=== PATIENT | female | born 1955 | race Caucasian/White ===

== ENCOUNTER 2017-11-06 15:42 | Observation (INO) | payer MEDICARE, MEDICAID, SELFPAY ==
[2017-11-06] VITALS (14 sets, daily range): BP systolic 113–172; BP diastolic 72–102; PULSE 85–112; RESP 15–21; TEMP 36.6–36.9; O2SAT 93–100; BMI 50.8; BMI 47.0; BMI 47.1
--- NOTE | 2017-11-06 16:07 | EKG12_ITS ---
Test Reason : Blood Pressure : / mmHG Vent. Rate : 104 BPM Atrial Rate : 104 BPM P-R Int : 206 ms QRS Dur : 140 ms QT Int : 364 ms P-R-T Axes : 036 -09 117 degrees QTc Int : 478 ms Sinus tachycardia Left bundle branch block Abnormal ECG Confirmed by KATHERINE LOUIE, HERMILO ([id number]), online content editor EDUARDO SHINE ([id number] on 11/09/2017 1:50:12 PM Referred By: GENIE Confirmed By:HERMILO MURPHY MD
--- NOTE | 2017-11-06 16:08 | RAD_ITS ---
STUDY: X-RAY CHEST REASON FOR EXAM: Female, 62 years old. Chest pain radiating down left arm. TECHNIQUE: Frontal and lateral views of the chest. COMPARISON: January 05, 2014 FINDINGS: The lungs are clear and expanded. There is a stable mild interstitial pattern. There is no demonstrated pleural abnormality. There is borderline cardiomegaly unchanged. Normal mediastinum and dejah. Normal visualized pulmonary arteries. There is aortic tortuosity unchanged. There is osteopenia of the thoracic spine with spondylosis and slight increased kyphosis, unchanged. Normal visualized ribs, clavicles, and shoulders. There is no demonstrated abnormality of the visualized soft tissue structures of the upper abdomen. RAD/Chest PA and Lateral IMPRESSION: Stable borderline cardiomegaly. No significant abnormality identified. Electronically Signed: Randall Flores MD at 16:42 EST , Service support ,
[2017-11-06] MEDS: 0.9% Normal Saline 1,000 ML 250 ML IV (16:13)
--- NOTE | 2017-11-06 16:14 | ED.VISSUMM ---
- ER Visit Summary Date of Service: 11/06/17 Chief Complaint: Chest pain History of Present Illness: The patient is a 62 F history of hypertension, hypercholesterolemia, depression and anxiety who presents for 2 days of intermittent chest pain. Patient states it is substernal and radiates into the left shoulder. No further radiation. She states it feels like indigestion. It is worse with exertion and improved with sitting. She is not comfortable laying flat. She has associated shortness of breath with exertion, no fever, no cough, no abdominal pain, nausea or vomiting. SHe denies any history of cardiac disease or pulmonary embolism. Physical Examination: Vital signs: afebrile, hemodynamically stable, heart rate of 112, no hypoxia on room air General: well nourished, well developed, in no distress Skin: warm, dry, no rash, no pallor HEENT: normocephalic and atraumatic; PERRL, EOMI, moist mucous membranes Cardiovascular: tachycardic rate and rhythm without murmurs, no peripheral edema, 2+ pulses all distal extremities Respiratory: No increased work of breathing, lungs are clear to auscultation bilaterally, no rales, rhonchi or wheezing Abdominal: Abdomen is soft, nontender with normoactive bowel sounds, no guarding or rebound, no masses MSK: Moves all extremities, no deformities, normal strength Neuro: Awake and alert, oriented ?4. No facial droop, sensation and motor function intact and symmetric Test Results: Abnormal Lab Results 11/06/17 11/06/17 11/06/17 16:06 16:06 16:06 WBC 7.5 RBC 4.54 Hgb 13.3 Hct 40.5 MCV 89.2 MCH 29.3 MCHC 32.8 RDW 14.5 RDW Differential 46.8 H Plt Count 206 MPV 9.5 Immature Gran % (Auto) 0.300 Neut % (Auto) 63.3 Lymph % (Auto) 24.2 [place] % (Auto) 9.0 Eos % (Auto) 2.8 Baso % (Auto) 0.4 Absolute Neuts (auto) 4.7 Absolute Lymphs (auto) 1.81 Total Counted Not Reportable PT 13.4 INR 1.1 APTT 32.4 D-Dimer Quant (PE/DVT) 0.51 H* Sodium 138 Potassium 3.8 Chloride 104 Carbon Dioxide 23.0 Anion Gap 11 BUN 11 Creatinine 1.00 Estim Creat Clear Calc 41.36 Est GFR (MDRD) Af Amer 72 Est GFR (MDRD) Non-Af 60 BUN/Creatinine Ratio 11.0 Glucose 111 H Calcium 9.2 Total Bilirubin 0.50 AST 48 H ALT 77 H Alkaline Phosphatase 130 H Troponin I < 0.02 B-Natriuretic Peptide Total Protein 8.4 H Albumin 3.8 Globulin 4.6 H Albumin/Globulin Ratio 0.8 L Lipase 63 L TSH 1.09 11/06/17 16:06 WBC RBC Hgb Hct MCV MCH MCHC RDW RDW Differential Plt Count MPV Immature Gran % (Auto) Neut % (Auto) Lymph % (Auto) [place] % (Auto) Eos % (Auto) Baso % (Auto) Absolute Neuts (auto) Absolute Lymphs (auto) Total Counted PT INR APTT D-Dimer Quant (PE/DVT) Sodium Potassium Chloride Carbon Dioxide Anion Gap BUN Creatinine Estim Creat Clear Calc Est GFR (MDRD) Af Amer Est GFR (MDRD) Non-Af BUN/Creatinine Ratio Glucose Calcium Total Bilirubin AST ALT Alkaline Phosphatase Troponin I B-Natriuretic Peptide 8.0 Total Protein Albumin Globulin Albumin/Globulin Ratio Lipase TSH Emergency Department Course and Treatment: Chest pain workup was performed. EKG showed a left bundle branch block and a tachycardic rate and negative for ischemia per Sgarbossa criteria, and patient's last EKG was from 2013 with a narrow complex sinus rhythm. Unsure when the left bundle branch block has developed in the meantime. Troponin negative. CBC showed no leukocytosis or anemia. No electrolyte derangements. No hepatic derangements. D-dimer was elevated at 0.5. Thyroid function normal. CT scan was performed of the chest to look for pulmonary embolism and it was negative. It did show some interstitial edema, possibly concerning for heart failure which would fit with patient's dyspnea on exertion, difficulty laying flat, no chest pain. A BNP was added and was normal. Patient received nitro that initially helped her chest pain. She had taken aspirin prior to presentation. Patient began having chest pain again. He was given further nitro. Repeat EKG showed no change and still the left bundle branch block. Because of patient's concerning symptoms and her continued chest pain, she will be admitted for further chest pain workup. Patient was discussed with Dr. Monroy for admission. Treatment Plan: admit to telemetry, observation status Disposition: [] Impression: Chest pain, concern for ACS This note was generated with Ezet[employer] dictation software. It may contain incorrect words, spelling, and punctuation that were not noted in review of the chart prior to signing ED Disposition - Plan for ED Patient: Disposition: Acute Care Hospital [facility] Chief Complaint: Chest Pain
[2017-11-06 16:20] LABS: Absolute Lymphocyte Count 1.81 X10^3/ul (0.83-4.51); Absolute Neutrophil Count 4.7 X10^3/uL (2.0-7.7); Basophil# 0.03 X10^3/uL; Basophil% 0.4 % (0-1); Eosinophil# 0.21 X10^3/uL; Eosinophils% 2.8 % (0-5); Hematocrit 40.5 % (37-47); Hemoglobin 13.3 g/dl (12.0-15.0); Lymphocyte # 1.81 X10^3/ul (4.0); Lymphocyte % 24.2 % (19-41); Mean Corp Hgb Conc 32.8 g/gl (32-36); Mean Corpuscular Hgb 29.3 pg (27.0-32.0); Mean Corpuscular Volume 89.2 fL (81-99); Mean Platelet Vol. 9.5 fl (6.2-12.0); Monocyte# 0.67 X10^3/uL; Neutrophil # 4.73 X10^3/uL (2.7-7.7); Neutrophil % 63.3 % (47-70); Platelet Count 206 K/mm3 (150-450); RBC Distribution Width CV 14.5 % (11.6-14.6); RBC Distribution Width SD 46.8 fl (35.1-43.9); Red Blood Count 4.54 M/mm3 (4.2-5.4); White Blood Count 7.5 K/mm3 (4.4-11.0)
[2017-11-06 16:31] LABS: POSITIVE COUNT NO; POSITIVE DIFFERENTIAL NO; POSITIVE MORPHOLOGY NO
[2017-11-06 16:32] LABS: International Normalized Ratio 1.1; Prothrombin Time (Protime)PT. 13.4 SECONDS (11.7-14.9)
[2017-11-06 16:33] LABS: Partial Thromboplast Time 32.4 Seconds (24.1-36.2)
[2017-11-06 16:47] LABS: ALB/GLOB Ratio 0.8 RATIO (0.9-2.4); AST(SGOT) 48 U/L (15-37); Alanine Aminotransfer ALT/SGPT 77 U/L (13-56); Albumin, Serum 3.8 g/dL (3.2-5.0); Alkaline Phosphatase 130 U/L (45-117); Anion Gap 11 (5-15); BUN 11 mg/dL (7-18); Calcium,Total 9.2 mg/dL (8.5-10.1); Chloride 104 mmol/L (98-107); EST Glomerular Filtration Rate 60 mL/min (>60); Est Glom Filt Rate - Afr Amer 72 mL/min (>60); Estimated Creatinine Clearance 41.36 ml/min; Globulin 4.6 g/dL (2.2-4.2); Glucose 111 mg/dL (74-106); Lipase 63 U/L (73-393); Potassium 3.8 mmol/L (3.5-5.1); Protein, Total 8.4 g/dL (6.4-8.2); Sodium Level 138 mmol/L (136-145); Thyroid Stim Hormone (TSH) 1.09 uIU/mL (0.358-3.74)
[2017-11-06 17:12] LABS: D-Dimer Quantitative (DVT/PE) 0.51 FEU/ug/m (0.27-0.49)
--- NOTE | 2017-11-06 17:13 | ED.RN ---
DDIMER 0.[address] LAB. DR SMITH AWARE
--- NOTE | 2017-11-06 17:16 | CT_ITS ---
STUDY: CTA CHEST REASON FOR EXAM: Female, 62 years old. Chest pain. Elevated d-dimer. RADIATION DOSAGE (If Supplied By Facility): CTDIvol = ( 15.06 ) mGy, DLP = ( 624.21 ) mGycm TECHNIQUE: The examination was performed with the intravenous administration of 100 ml of Isovue 370 contrast material. Post-processing of the angiographic images was performed, with multiplanar reformation and 3D reconstruction. Individualized dose optimization techniques were used for this CT. COMPARISON: Chest x-ray. FINDINGS: Normal enhancement of the main pulmonary artery and right and left pulmonary arteries. Normal enhancement of the bilateral peripheral pulmonary arteries. There is no demonstrated pulmonary embolism. There is atherosclerotic calcification of the aortic arch with tortuosity. There is no demonstrated aortic dissection. There are calcifications of the coronary arteries. Normal mediastinum. Normal hilar regions. Normal visualized trachea and bronchi. The lungs are well expanded. There are moderately increased diffuse interstitial septal and groundglass parenchymal markings. Normal pleura. Normal chest wall structures. Normal osseous structures. Normal visualized upper abdomen. CT/CTA Chest W/WO Contrast IMPRESSION: CTA chest examination, without a demonstrated pulmonary embolism or arterial dissection. Interstitial edema or infiltrates. Electronically Signed: Real Dillard MD at 18:38 EST , Service support ,
--- NOTE | 2017-11-06 19:25 | NURSING ---
PT DENIES ANY CP AT THIS TIME.
[2017-11-06] MEDS: Nitroglycerin Oint 1 INCH PACKET TRANSDERM. (19:49)
--- NOTE | 2017-11-06 19:49 | EKG12_ITS ---
Test Reason : CP Blood Pressure : / mmHG Vent. Rate : 088 BPM Atrial Rate : 088 BPM P-R Int : 214 ms QRS Dur : 140 ms QT Int : 404 ms P-R-T Axes : 025 -09 123 degrees QTc Int : 488 ms Sinus rhythm with 1st degree A-V block Left bundle branch block Abnormal ECG Confirmed by KATHERINE LOUIE, HERMILO ([id number]), editorial director EDUARDO SHINE ([id number] on 11/09/2017 1:50:39 PM Referred By: SARAH Confirmed By:HERMILO MURPHY MD
--- NOTE | 2017-11-06 20:05 | PCM.HP.STD ---
Problem List (1) Chest pain Status: Acute (2) Chronic lower back pain Status: Chronic (3) Chronic pain syndrome Status: Chronic (4) Depression with anxiety Status: Chronic (5) Hyperlipidemia Status: Chronic (6) Hypertension Status: Chronic (7) Morbid obesity with BMI of 40.0-44.9, adult Status: Chronic History of Present Illness Date of Admission: 11/06/17 Chief Complaint: chest pain The patient is a 62 year old F who presents with a weeks long history of chest pain. Chest pain is not brought on by anything but it is midsternal but goes to her left. Patient initially was feeling that this was a heartburn but did not colleen. Patient sought attention today. Patient presented to the emergency room and had an elevated d-dimer. Patient underwent a CT angiogram of her chest that showed no blood clots. Patient did receive nitroglycerin which did help with her pain. Patient also been complaining of shortness of breath which is dyspnea with exertion but also some orthopnea. Patient did have a BNP level of 8. Patient stated that she was admitted to the hospital in 2013 with chest pain at that time but stated she does not have the shortness of breath that she has now. [] Past Medical History Past Medical History (Chronic Problems): Chronic Problems Depression with anxiety (Chronic) Morbid obesity with BMI of 40.0-44.9, adult (Chronic) Chronic lower back pain (Chronic) Chronic pain syndrome (Chronic) Hyperlipidemia (Chronic) Hypertension (Chronic) Allergies erythromycin base [Erythromycin Base] Adverse Reaction (Verified 01/25/14 22:14) Other eszopiclone [From Lunesta] Adverse Reaction (Verified 01/25/14 22:14) Vomiting Home Medications: Ambulatory Orders Medication Instructions Recorded Allopurinol [Zyloprim] 100 mg PO DAILYCM 01/05/14 Lisinopril [Zestril] 20 mg PO DAILY 01/05/14 Simvastatin [Zocor] 40 mg PO QHS 01/05/14 Aspirin E.C. [Ecotrin] 81 mg PO DAILY@0800 11/06/17 Atenolol [Tenormin (beta Yash)] 25 mg PO DAILY 11/06/17 Baclofen 10 mg PO BID PRN 11/06/17 BuPROPion (XL) [Wellbutrin Xl] 150 mg PO DAILY 11/06/17 Cetirizine HCl [All Day Allergy] 10 mg PO DAILY 11/06/17 Fluticasone 0.05% [Flonase Nasal 2 spray NASAL DAILY 11/06/17 [place]] Hydrochlorothiazide 12.5 mg PO DAILY 11/06/17 Montelukast [Singulair] 10 mg PO DAILY 11/06/17 Pantoprazole Sodium [Protonix] 40 mg PO DAILY 11/06/17 Surgical History: - - x 2, spinal fusion, L knee surgery s/p trauma, cholecystectomy. 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 Denies: Edema Respiratory: Reports: Shortness of breath upon exertion. Denies: Cough Gastrointestinal: Denies: Abdominal Pain, Nausea, Vomiting Genitourinary: Denies: Dysuria Musculoskeletal: Denies: Joint Pain, Joint Tenderness Skin: Denies: Rash, Wounds Neurological: Denies: Numbness, Tingling, Focal weakness Psychiatric: Reports: Anxiety, Depression Endocrine: Reports: Heat/ Cold Intolerance - Chronic. Denies: Change in Body Habitus Hematologic/ Lymphatic: Denies: Easy Bruising, Easy Bleeding, Hx of blood clot VTE Information - Inpt Only VTE Present on Admission: No VTE Pharm Prophylaxis ordered?: Yes Patient Problems: Active and Suspected Problems Chest pain (Acute) - Physical Exam General: Alert, Cooperative, No apparent distress HEENT: Atraumatic, Normocephalic Neck: No Nodes, Thyroid Normal Size and Texture Lungs: Clear to auscultation, Normal air movement, No rhonchi, No wheeze Cardiovascular: Regular rate, Regular Rhythm, Normal S1, Normal S2, No murmurs Abdomen: Bowel Sounds Present, Soft, Non Tender, Non-Distended, No Hepato-splenomegaly, Passing Flatus Extremities: No edema, No Calf Tenderness Skin: No rashes, No breakdown Musculoskeletal: - - Reproducible anterior chest wall tenderness Neurological: Neuro grossly intact, Sensory exam intact to light touch and pain Psych/Mental Status: Normal Affect, Appropriate Vital Signs Temp Pulse Resp BP Pulse Ox 36.9 C 91 20 H 133/76 H 97 11/06/17 15:43 11/06/17 19:52 11/06/17 19:52 11/06/17 19:52 11/06/17 19:52 Oxygen Flow Rate 2 Oxygen Delivery Method Nasal Cannula Weight: 117.934 kg Body Mass Index (BMI) 50.8 Laboratory Tests Past 24 Hrs 11/06/17 11/06/17 11/06/17 16:06 16:06 16:06 WBC 7.5 RBC 4.54 Hgb 13.3 Hct 40.5 MCV 89.2 MCH 29.3 MCHC 32.8 RDW 14.5 RDW Differential 46.8 H Plt Count 206 MPV 9.5 Immature Gran % (Auto) 0.300 Neut % (Auto) 63.3 Lymph % (Auto) 24.2 [place] % (Auto) 9.0 Eos % (Auto) 2.8 Baso % (Auto) 0.4 Absolute Neuts (auto) 4.7 Absolute Lymphs (auto) 1.81 Total Counted Not Reportable PT 13.4 INR 1.1 APTT 32.4 D-Dimer Quant (PE/DVT) 0.51 H* Sodium 138 Potassium 3.8 Chloride 104 Carbon Dioxide 23.0 Anion Gap 11 BUN 11 Creatinine 1.00 Estim Creat Clear Calc 41.36 Est GFR (MDRD) Af Amer 72 Est GFR (MDRD) Non-Af 60 BUN/Creatinine Ratio 11.0 Glucose 111 H Calcium 9.2 Total Bilirubin 0.50 AST 48 H ALT 77 H Alkaline Phosphatase 130 H Troponin I < 0.02 B-Natriuretic Peptide Total Protein 8.4 H Albumin 3.8 Globulin 4.6 H Albumin/Globulin Ratio 0.8 L Lipase 63 L TSH 1.09 11/06/17 16:06 WBC RBC Hgb Hct MCV MCH MCHC RDW RDW Differential Plt Count MPV Immature Gran % (Auto) Neut % (Auto) Lymph % (Auto) [place] % (Auto) Eos % (Auto) Baso % (Auto) Absolute Neuts (auto) Absolute Lymphs (auto) Total Counted PT INR APTT D-Dimer Quant (PE/DVT) Sodium Potassium Chloride Carbon Dioxide Anion Gap BUN Creatinine Estim Creat Clear Calc Est GFR (MDRD) Af Amer Est GFR (MDRD) Non-Af BUN/Creatinine Ratio Glucose Calcium Total Bilirubin AST ALT Alkaline Phosphatase Troponin I B-Natriuretic Peptide 8.0 Total Protein Albumin Globulin Albumin/Globulin Ratio Lipase TSH EKG reviewed and showed a left bundle branch block. This is new from 2014 where it was normal sinus rhythm with no left bundle branch block. CTA of the chest was personally reviewed and showed no blood clots, nor any pneumonia or any infiltrate nor edema. This x-ray personally reviewed and showed no infiltrate nor edema. Assessment/Plan Active and Suspected Problems Chest pain (Acute) 1. Chest pain Concern is for this being cardiac. Patient will undergo a chemical nuclear stress test. We will cycle troponins in the interim. Patient will be on aspirin. Check fasting lipid panel in the morning. If a stress test comes back positive then would likely require cardiology consultation. Possibly could be musculoskeletal as patient did have some reproducible similarities in her chest pain. But given her risk factors, being weight, hypertension and family history it is most important to rule out cardiac etiology. 2. Hypertension: Stable. Continue with her home medications. 3. DVT prophylaxis with low molecular weight heparin. Code Visit OBSV E&M: 02893 Initial observation care L3
--- NOTE | 2017-11-06 20:13 | HP.PCM_ITS ---
Problem List (1) Chest pain Status: Acute (2) Chronic lower back pain Status: Chronic (3) Chronic pain syndrome Status: Chronic (4) Depression with anxiety Status: Chronic (5) Hyperlipidemia Status: Chronic (6) Hypertension Status: Chronic (7) Morbid obesity with BMI of 40.0-44.9, adult Status: Chronic History of Present Illness Date of Admission: 11/06/17 Chief Complaint: chest pain The patient is a 62 year old F who presents with a weeks long history of chest pain. Chest pain is not brought on by anything but it is midsternal but goes to her left. Patient initially was feeling that this was a heartburn but did not colleen. Patient sought attention today. Patient presented to the emergency room and had an elevated d-dimer. Patient underwent a CT angiogram of her chest that showed no blood clots. Patient did receive nitroglycerin which did help with her pain. Patient also been complaining of shortness of breath which is dyspnea with exertion but also some orthopnea. Patient did have a BNP level of 8. Patient stated that she was admitted to the hospital in 2013 with chest pain at that time but stated she does not have the shortness of breath that she has now. [] Past Medical History Past Medical History (Chronic Problems): Chronic Problems Depression with anxiety (Chronic) Morbid obesity with BMI of 40.0-44.9, adult (Chronic) Chronic lower back pain (Chronic) Chronic pain syndrome (Chronic) Hyperlipidemia (Chronic) Hypertension (Chronic) Allergies erythromycin base [Erythromycin Base] Adverse Reaction (Verified 01/25/14 22:14) Other eszopiclone [From Lunesta] Adverse Reaction (Verified 01/25/14 22:14) Vomiting Home Medications: Ambulatory Orders Medication Instructions Recorded Allopurinol [Zyloprim] 100 mg PO DAILYCM 01/05/14 Lisinopril [Zestril] 20 mg PO DAILY 01/05/14 Simvastatin [Zocor] 40 mg PO QHS 01/05/14 Aspirin E.C. [Ecotrin] 81 mg PO DAILY@0800 11/06/17 Atenolol [Tenormin (beta Yash)] 25 mg PO DAILY 11/06/17 Baclofen 10 mg PO BID PRN 11/06/17 BuPROPion (XL) [Wellbutrin Xl] 150 mg PO DAILY 11/06/17 Cetirizine HCl [All Day Allergy] 10 mg PO DAILY 11/06/17 Fluticasone 0.05% [Flonase Nasal 2 spray NASAL DAILY 11/06/17 [place]] Hydrochlorothiazide 12.5 mg PO DAILY 11/06/17 Montelukast [Singulair] 10 mg PO DAILY 11/06/17 Pantoprazole Sodium [Protonix] 40 mg PO DAILY 11/06/17 Surgical History: - - x 2, spinal fusion, L knee surgery s/p trauma, cholecystectomy. 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 Denies: Edema Respiratory: Reports: Shortness of breath upon exertion. Denies: Cough Gastrointestinal: Denies: Abdominal Pain, Nausea, Vomiting Genitourinary: Denies: Dysuria Musculoskeletal: Denies: Joint Pain, Joint Tenderness Skin: Denies: Rash, Wounds Neurological: Denies: Numbness, Tingling, Focal weakness Psychiatric: Reports: Anxiety, Depression Endocrine: Reports: Heat/ Cold Intolerance - Chronic. Denies: Change in Body Habitus Hematologic/ Lymphatic: Denies: Easy Bruising, Easy Bleeding, Hx of blood clot VTE Information - Inpt Only VTE Present on Admission: No VTE Pharm Prophylaxis ordered?: Yes Patient Problems: Active and Suspected Problems Chest pain (Acute) - Physical Exam General: Alert, Cooperative, No apparent distress HEENT: Atraumatic, Normocephalic Neck: No Nodes, Thyroid Normal Size and Texture Lungs: Clear to auscultation, Normal air movement, No rhonchi, No wheeze Cardiovascular: Regular rate, Regular Rhythm, Normal S1, Normal S2, No murmurs Abdomen: Bowel Sounds Present, Soft, Non Tender, Non-Distended, No Hepato- splenomegaly, Passing Flatus Extremities: No edema, No Calf Tenderness Skin: No rashes, No breakdown Musculoskeletal: - - Reproducible anterior chest wall tenderness Neurological: Neuro grossly intact, Sensory exam intact to light touch and pain Psych/Mental Status: Normal Affect, Appropriate Vital Signs Temp Pulse Resp BP Pulse Ox 36.9 C 91 20 H 133/76 H 97 11/06/17 15:43 11/06/17 19:52 11/06/17 19:52 11/06/17 19:52 11/06/17 19:52 Oxygen Flow Rate 2 Oxygen Delivery Method Nasal Cannula Weight: 117.934 kg Body Mass Index (BMI) 50.8 Laboratory Tests Past 24 Hrs 11/06/17 11/06/17 11/06/17 16:06 16:06 16:06 WBC 7.5 RBC 4.54 Hgb 13.3 Hct 40.5 MCV 89.2 MCH 29.3 MCHC 32.8 RDW 14.5 RDW Differential 46.8 H Plt Count 206 MPV 9.5 Immature Gran % (Auto) 0.300 Neut % (Auto) 63.3 Lymph % (Auto) 24.2 [place] % (Auto) 9.0 Eos % (Auto) 2.8 Baso % (Auto) 0.4 Absolute Neuts (auto) 4.7 Absolute Lymphs (auto) 1.81 Total Counted Not Reportable PT 13.4 INR 1.1 APTT 32.4 D-Dimer Quant (PE/DVT) 0.51 H* Sodium 138 Potassium 3.8 Chloride 104 Carbon Dioxide 23.0 Anion Gap 11 BUN 11 Creatinine 1.00 Estim Creat Clear Calc 41.36 Est GFR (MDRD) Af Amer 72 Est GFR (MDRD) Non-Af 60 BUN/Creatinine Ratio 11.0 Glucose 111 H Calcium 9.2 Total Bilirubin 0.50 AST 48 H ALT 77 H Alkaline Phosphatase 130 H Troponin I < 0.02 B-Natriuretic Peptide Total Protein 8.4 H Albumin 3.8 Globulin 4.6 H Albumin/Globulin Ratio 0.8 L Lipase 63 L TSH 1.09 11/06/17 16:06 WBC RBC Hgb Hct MCV MCH MCHC RDW RDW Differential Plt Count MPV Immature Gran % (Auto) Neut % (Auto) Lymph % (Auto) [place] % (Auto) Eos % (Auto) Baso % (Auto) Absolute Neuts (auto) Absolute Lymphs (auto) Total Counted PT INR APTT D-Dimer Quant (PE/DVT) Sodium Potassium Chloride Carbon Dioxide Anion Gap BUN Creatinine Estim Creat Clear Calc Est GFR (MDRD) Af Amer Est GFR (MDRD) Non-Af BUN/Creatinine Ratio Glucose Calcium Total Bilirubin AST ALT Alkaline Phosphatase Troponin I B-Natriuretic Peptide 8.0 Total Protein Albumin Globulin Albumin/Globulin Ratio Lipase TSH EKG reviewed and showed a left bundle branch block. This is new from 2014 where it was normal sinus rhythm with no left bundle branch block. CTA of the chest was personally reviewed and showed no blood clots, nor any pneumonia or any infiltrate nor edema. This x-ray personally reviewed and showed no infiltrate nor edema. Assessment/Plan Active and Suspected Problems Chest pain (Acute) 1. Chest pain * Concern is for this being cardiac. Patient will undergo a chemical nuclear stress test. We will cycle troponins in the interim. Patient will be on aspirin. Check fasting lipid panel in the morning. * If a stress test comes back positive then would likely require cardiology consultation. * Possibly could be musculoskeletal as patient did have some reproducible similarities in her chest pain. But given her risk factors, being weight, hypertension and family history it is most important to rule out cardiac etiology. 2. Hypertension: * Stable. Continue with her home medications. 3. DVT prophylaxis with low molecular weight heparin. Code Visit OBSV E&M: 10325 Initial observation care L3
[2017-11-06] MEDS: Aspirin 81 MG TAB.CHEW 325 MG PO (22:50)
[2017-11-06] MEDS: Atorvastatin Calcium 20 MG Tablet PO (22:50)
[2017-11-07] VITALS (8 sets, daily range): BP systolic 117–136; BP diastolic 56–76; PULSE 69–91; RESP 14–18; TEMP 36.3–37.1; O2SAT 94–95
--- NOTE | 2017-11-07 05:55 | EKG12_ITS ---
Test Reason : MORNING EKG Blood Pressure : / mmHG Vent. Rate : 088 BPM Atrial Rate : 088 BPM P-R Int : 220 ms QRS Dur : 144 ms QT Int : 408 ms P-R-T Axes : 034 -08 131 degrees QTc Int : 493 ms Sinus rhythm with 1st degree A-V block Left bundle branch block Abnormal ECG Confirmed by KATHERINE LOUIE, HERMILO ([id number]), health editor EDUARDO SHINE ([id number]) on 11/12/2017 1:58:44 PM Referred By: Confirmed By:HERMILO MURPHY MD
[2017-11-07 06:02] LABS: Absolute Lymphocyte Count 1.29 X10^3/ul (0.83-4.51); Absolute Neutrophil Count 5.3 X10^3/uL (2.0-7.7); Basophil# 0.02 X10^3/uL; Basophil% 0.3 % (0-1); Eosinophil# 0.21 X10^3/uL; Eosinophils% 2.8 % (0-5); Hemoglobin 11.9 g/dl (12.0-15.0); Lymphocyte # 1.29 X10^3/ul (4.0); Lymphocyte % 17.1 % (19-41); Mean Corp Hgb Conc 32.2 g/gl (32-36); Mean Platelet Vol. 10.1 fl (6.2-12.0); Monocyte# 0.66 X10^3/uL; Monocyte% 8.8 % (0-10); Neutrophil # 5.34 X10^3/uL (2.7-7.7); Neutrophil % 70.7 % (47-70); Platelet Count 194 K/mm3 (150-450); RBC Distribution Width CV 14.5 % (11.6-14.6); RBC Distribution Width SD 47.2 fl (35.1-43.9); Red Blood Count 4.11 M/mm3 (4.2-5.4); White Blood Count 7.5 K/mm3 (4.4-11.0)
[2017-11-07 06:05] LABS: International Normalized Ratio 1.1; Prothrombin Time (Protime)PT. 14.2 SECONDS (11.7-14.9)
[2017-11-07 06:06] LABS: Partial Thromboplast Time 31.9 Seconds (24.1-36.2)
[2017-11-07 06:17] LABS: POSITIVE COUNT NO; POSITIVE DIFFERENTIAL NO; POSITIVE MORPHOLOGY NO
[2017-11-07 06:20] LABS: Anion Gap 10 (5-15); BUN 12 mg/dL (7-18); BUN/Creat Ratio 12.4 RATIO (10-20); Calcium,Total 8.6 mg/dL (8.5-10.1); Chloride 104 mmol/L (98-107); Cholesterol 126 mg/dL (200); Creatinine, Serum 0.97 mg/dL (0.55-1.02); EST Glomerular Filtration Rate 61 mL/min (>60); Est Glom Filt Rate - Afr Amer 74 mL/min (>60); Estimated Creatinine Clearance 42.64 ml/min; Glucose 119 mg/dL (74-106); High Density Lipoprotein 42 mg/dL; Potassium 3.7 mmol/L (3.5-5.1); Sodium Level 137 mmol/L (136-145); Triglycerides 156 mg/dL; Very Low Density Lipoprotein 31 mg/dL (5-40)
[2017-11-07] MEDS: Lisinopril 20 MG Tablet PO (06:23)
[2017-11-07] MEDS: Aspirin E.C. 81 MG Tablet PO (06:23)
--- NOTE | 2017-11-07 07:25 | NURSING ---
Back to get bedside report on pt, pt down at stress test.
--- NOTE | 2017-11-07 09:23 | STRESSREP ---
Stress Test Report Pharmacologic myocardial perfusion stress test. 62-year-old lady with a history of chest pain Stress protocol: The EKG demonstrates sinus rhythm with rate of 93 bpm and a left bundle branch block. 0.4 mg of regadenoson was infused per usual protocol followed Intravenous saline flush injection continuous EKG monitoring was performed. The maximum heart rate attained was 118 bpm which was 75% of maximum predicted heart rate the maximum workload attained was 1 metabolic equivalent. The patient maintained left bundle branch block throughout the recording. The resting blood pressure is 140/90 final blood pressure was 136/88. Myocardial perfusion protocol: 11.5 mCi of technetium 99m sestamibi was injected at rest. The patient received regadenoson per usual protocol at peak infusion 33.2 mCi of technetium 99m sestamibi was injected. Stress images were obtained. Stress and rest images were reconstructed and compared in the short axis vertical long horizontal long axis. Gated images were also obtained. Perfusion SPECT analysis: Review of the stress images demonstrate normal uptake of tracer noted in all areas of the myocardium. The resting images similarly demonstrate normal uptake of tracer noted in all areas of the myocardium. No previous infarct is noted. X Gated SPECT analysis Gated ejection fraction is 71%. Conclusion: Normal pharmacologic myocardial perfusion stress test. Preserved ejection fraction.
--- NOTE | 2017-11-07 09:43 | PCM.DC ---
- Discharge Diagnoses Current Active Problems: Current Active and Chronic Problems Chest pain (Acute) Reason(s) for Visit for Discharge Instructions: Chest pain You will use the following diet at home:: Cardiac Your food should be the consistency of: Regular Your liquids should be the consistency of: Regular/Thin Discharge Activity: Return to Normal Activity Allergies/Adverse Reactions: Allergies erythromycin base [Erythromycin Base] Adverse Reaction (Verified 01/25/14 22:14) Other eszopiclone [From Lunesta] Adverse Reaction (Verified 01/25/14 22:14) Vomiting Medications to take at Discharge Allopurinol [Zyloprim] 900 mg PO DAILYCM 01/05/14 Lisinopril [Zestril] 20 mg PO DAILY 01/05/14 Simvastatin [Zocor] 40 mg PO QHS 01/05/14 Aspirin E.C. [Ecotrin] 81 mg PO DAILY@0800 11/06/17 Atenolol [Tenormin (beta ilia)] 25 mg PO DAILY 11/06/17 Baclofen 10 mg PO BID PRN 11/06/17 BuPROPion (XL) [Wellbutrin Xl] 150 mg PO DAILY 11/06/17 Cetirizine HCl [All Day Allergy] 10 mg PO DAILY 11/06/17 Fluticasone 0.05% [Flonase Nasal [place]] 2 spray NASAL DAILY 11/06/17 Hydrochlorothiazide 12.5 mg PO DAILY 11/06/17 Montelukast [Singulair] 10 mg PO DAILY 11/06/17 Mag Hydrox/Al Hydrox/Simeth [Mylanta II] 15 ml PO Q4H PRN PRN #1 bottle 11/07/17 Pantoprazole Sodium [Protonix] 40 mg PO BID #0 11/07/17 The following prescriptions were given: Mag Hydrox/Al Hydrox/Simeth [Mylanta II] 15 ml PO Q4H PRN PRN #1 bottle PRN Reason: heartburns Primary Care Physician: Maxi Oneal MD [Primary Care Provider] - Please follow up with your Primary Care Physician in: within 2 weeks Proposed Discharge Date: 11/07/17
--- NOTE | 2017-11-07 09:48 | PCM.DC.SUM ---
Discharge Date and Diagnosis Date of Admission: 11/06/17 Date of Discharge: 11/07/17 - Primary Discharge Diagnosis Active and Suspected Problems Chest pain (Acute) - Secondary Discharge Diagnosis Chronic Problems Depression with anxiety (Chronic) Morbid obesity with BMI of 40.0-44.9, adult (Chronic) Chronic lower back pain (Chronic) Chronic pain syndrome (Chronic) Hyperlipidemia (Chronic) Hypertension (Chronic) Hospital Course and Treatment Imaging Results: 11/07/17 05:55 Nuclear Stress Test - Chemical [NM] AM (NON MEDS) None Operations: None Procedures: None Summary of Care Provided: The patient is a 62 year old F with PMhx of hypertension, hyperlipidemia, depression, morbid obesity, comes in with a week long history of chest pain, that is not aggravated by anything, located in the midsternal region and radiates to her left side. Patient describes this as a heartburn but did not go down with her usual heartburn medication. She came to the ED and had an elevated d-dimer however CTA of the chest was negative for any PE. Patient reported relief with nitroglycerin, monitored overnight on a telemetry bed with no complaints. Troponins were negative. She had a stress test done in the morning which was negative. She was given some mylanta and her PPI increased to bid. She will follow-up with her PCP for further evaluation of her chest pain. Discharge Diet: Low fat/ Low Cholesterol, 2000 mg Sodium Diet Discharge Activity: Return to Normal Activity Home Medications: Medications to take at Discharge Allopurinol [Zyloprim] 900 mg PO DAILYCM 01/05/14 Lisinopril [Zestril] 20 mg PO DAILY 01/05/14 Simvastatin [Zocor] 40 mg PO QHS 01/05/14 Aspirin E.C. [Ecotrin] 81 mg PO DAILY@0800 11/06/17 Atenolol [Tenormin (beta ilia)] 25 mg PO DAILY 11/06/17 Baclofen 10 mg PO BID PRN 11/06/17 BuPROPion (XL) [Wellbutrin Xl] 150 mg PO DAILY 11/06/17 Cetirizine HCl [All Day Allergy] 10 mg PO DAILY 11/06/17 Fluticasone 0.05% [Flonase Nasal [place]] 2 spray NASAL DAILY 11/06/17 Hydrochlorothiazide 12.5 mg PO DAILY 11/06/17 Montelukast [Singulair] 10 mg PO DAILY 11/06/17 Mag Hydrox/Al Hydrox/Simeth [Mylanta II] 15 ml PO Q4H PRN PRN #1 bottle 11/07/17 Pantoprazole Sodium [Protonix] 40 mg PO BID #0 11/07/17 Following Prescrptions Were Given to Patient: Mag Hydrox/Al Hydrox/Simeth [Mylanta II] 15 ml PO Q4H PRN PRN #1 bottle PRN Reason: heartburns Primary Care Physician: Maxi Oneal MD [Primary Care Provider] - Please follow up with your Primary Care Physician in: within 2 weeks Disposition: Home Minutes spent on discharge:: 25 Patient Condition:: Stable Meaningful Use Info Meaningful Use Diagnoses (Choose all that apply): None applicable Code Visit Inpatient E&M: 31079 Disch Hosp
[2017-11-07] MEDS: Pantoprazole Sodium 40 MG Tablet PO (10:19)
[2017-11-07] MEDS: Atenolol 25 MG Tablet PO (10:19)
[2017-11-07] MEDS: Mag Hydrox/Al Hydrox/Simeth 30 ML UDC 15 ML PO (10:19)
[2017-11-07] MEDS: HYDROCHLOROTHIAZIDE 12.5 MG CAPSULE PO (14:34)
== END 2017-11-07 15:49 | disposition home or self-care (01) ==
LOC: ED 16:46 → PCU 20:08
PROVIDERS: Emergency Provider Emergency Medicine; Family Provider Family Medicine; PCP Family Medicine; Visit Provider Internal Medicine
DX: R07.89 Other chest pain (principal); I10 Essential (primary) hypertension; R06.02 Shortness of breath; I44.7 Left bundle-branch block, unspecified; F41.8 Other specified anxiety disorders; E78.5 Hyperlipidemia, unspecified; G89.4 Chronic pain syndrome; E66.01 Morbid (severe) obesity due to excess calories; R06.09 Other forms of dyspnea; Z68.42 Body mass index [BMI] 45.0-49.9, adult; Z71.3 Dietary counseling and surveillance; Z79.899 Other long term (current) drug therapy; Z79.82 Long term (current) use of aspirin; Z87.891 Personal history of nicotine dependence
CPT/HCPCS: 36415; 71046; 71275; 78452; 80048; 80053; 80061; 83690; 83880; 84443; 84484; 85025; 85379; 85610; 85730; 93005; 93017; 96360; 96361; 99218; 99285; A9500; J7030; Q9967; A4216; G0378; J2785

== ENCOUNTER 2017-11-26 08:34 | Outpatient (RCR) | payer MEDICARE, MEDICAID, SELFPAY ==
--- NOTE | 2017-11-26 11:19 | BH.SGPN ---
Service Group Progress Note - Session Psychotherapy Session #1 Date Open:: 18 - 7 group members Time Started:: 09:05 Time Stopped:: 10:15 Targeted Problem #:: 1 Type of Group:: Process Goal of Group:: The goal of today's group was to check-in with clients and review homework from previous group session. Client Response/Progress/Benefit:: Client responded well to session, first day of IOP, active participant. Client reports feeling hopeful today as shared coming here is huge for me. Client stated she has struggled with depression for the past two years and I want my life back. Client reported she has poor sleep, lack of concentration, and little interest in doing things she once enjoyed. Additionally, client shared she has been isolating and has stopped attending restorationism. Client stated she wants to improve her mood and learn how to get her life back through IOP. Client appeared to benefit from expressing her mental health concerns and receiving supportive statements from the group. Eye Contact:: Good Motor Activity:: Appropriate Appearance:: Neat Speech:: Appropriate Mood:: Anxious Affect:: Full Thoughts:: Linear, No evidence of hallucinations/delusions noted Staff Interventions:: Therapist inquired about each group member?s previous night and current mood state. Therapist reviewed the group member?s homework from previous group session with the group, asking open ended questions to get more information.
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
--- NOTE | 2017-11-27 16:10 | BH.SGPN ---
Service Group Progress Note - Session Psychotherapy Session #2 Date Open:: 11/27/17 - group members Time Started:: 10:11 Time Stopped:: 11:10 Targeted Problem #:: 1 Type of Group:: Illness Management Goal of Group:: To increase understanding of cognitive distortions, identify examples of when have had unhelpful thinking, and increase awareness of the impact cognitive distortions have on mental health. Client Response/Progress/Benefit:: Client responded well to session, active in discussion. Client appeared to connect with the quote, nodding to discussion of the impact thoughts have on emotions and behaviors. Client helped group process negative automatic thoughts and the different types of cognitive distortions. Client reported Im really good at thinking of worst case scenarios. Client shared she often catastrophizes, jumps to conclusions, and has all or nothing thinking. Client connected how her negative thoughts create negative emotions and isolating behaviors. Client appeared to benefit from increasing awareness of cognitive distortions and connecting how the distortions impact mental well-being. Client progressing as shown by her increased engagement in group, but can continue to benefit from increasing awareness of negative thinking patterns. Eye Contact:: Good Motor Activity:: Appropriate Appearance:: Casual Speech:: Appropriate Mood:: Dysthymic Affect:: Constricted Thoughts:: Linear, No evidence of hallucinations/delusions noted Staff Interventions:: Therapist utilized a quote as a tool to introduce topic of the day. Therapist provided group members with a handout that listed ten cognitive distortions with examples. Therapist facilitated group discussion about cognitive distortions. Therapist led group members in an activity to help them understand the impact cognitive distortions can have on emotions and behavior. Therapist provided support by using active listening and providing feedback.
--- NOTE | 2017-11-27 16:18 | BH.SGPN_ITS ---
Service Group Progress Note - Session Psychotherapy Session #2 Date Open:: 11/27/17 - group members Time Started:: 10:11 Time Stopped:: 11:10 Targeted Problem #:: 1 Type of Group:: Illness Management Goal of Group:: To increase understanding of cognitive distortions, identify examples of when have had unhelpful thinking, and increase awareness of the impact cognitive distortions have on mental health. Client Response/Progress/Benefit:: Client responded well to session, active in discussion. Client appeared to connect with the quote, nodding to discussion of the impact thoughts have on emotions and behaviors. Client helped group process negative automatic thoughts and the different types of cognitive distortions. Client reported ?I?m really good at thinking of worst case scenarios.? Client shared she often catastrophizes, jumps to conclusions, and has all or nothing thinking. Client connected how her negative thoughts create negative emotions and isolating behaviors. Client appeared to benefit from increasing awareness of cognitive distortions and connecting how the distortions impact mental well- being. Client progressing as shown by her increased engagement in group, but can continue to benefit from increasing awareness of negative thinking patterns. Eye Contact:: Good Motor Activity:: Appropriate Appearance:: Casual Speech:: Appropriate Mood:: Dysthymic Affect:: Constricted Thoughts:: Linear, No evidence of hallucinations/delusions noted Staff Interventions:: Therapist utilized a quote as a tool to introduce topic of the day. Therapist provided group members with a handout that listed ten cognitive distortions with examples. Therapist facilitated group discussion about cognitive distortions. Therapist led group members in an activity to help them understand the impact cognitive distortions can have on emotions and behavior. Therapist provided support by using active listening and providing feedback.
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
== END 2017-11-28 23:59 ==
LOC: BHIOP 08:34
PROVIDERS: Family Provider Family Medicine; PCP Family Medicine; Visit Provider Psychiatry & Neurology Psychiatry
DX: F31.81 Bipolar II disorder (principal); F41.9 Anxiety disorder, unspecified; E55.9 Vitamin D deficiency, unspecified; G47.33 Obstructive sleep apnea (adult) (pediatric)
CPT/HCPCS: H0035; 90853

== ENCOUNTER 2017-11-29 09:00 | Outpatient (RCR) | payer MEDICARE, MEDICAID, SELFPAY ==
--- NOTE | 2017-11-29 15:07 | BH.MDN ---
Multi-Disciplinary Note - Note 45-min Individual Time Started:: 12:36 Date: 11/29/17 Purpose of session/treatment goals addressed:: The purpose of this session was to check-in with Client regarding adjustment to IOP program and begin to build rapport. Another purpose was to gather information related to client's current stressors, symptoms, functioning, and treatment goals. Eye Contact:: Good Motor Activity:: Appropriate Appearance:: Casual Speech:: Appropriate Mood:: Anxious, Depressed Affect:: Full Thoughts:: Linear, Logical, No evidence of hallucinations/delusions noted Staff Interventions:: Therapist asked open-ended questions and furthering questions to gather information regarding client's current stressors, symptoms, functioning, and treatment goals. Therapist applied reflective listening and provided supportive statements and emotional validation as client verbalized frustrations with mental health symptoms and feeling as though her concerns are not being met by medical providers. Therapist used Socratic questioning to Client levels of insight associated with mental health warning signs and triggers as well as establish treatment goals. Client Response:: Client open to meeting with therapist following today's group and did well to remain engaged throughout. Client reports finding she has been able to adjust well to the group environment which has been a relief as she was anxious about being in a new group setting. CLient shared that she has already found the program to be beneficial as it has given her a reason to get out of the house, to maintain a regular hygiene routine, and to interact with others. Client discussed that in the past two years she has seen a steady decline in her ability to function and went on to worsening sx of anxiety and depression impacting daily living capacity. CLient discussed increased difficulties in completing activities of daily living such as cooking, cleaning, and sorting through mail as she finds she lacks the motivation and energy to do so, often asking herself what's the point. Client additionally described increased isolation, worthlessness, poor self-care, erratic sleeping patterns, chronic pain, guilt, and social anxiety preventing her from ensuring all her needs are met. Client unable to identify specific triggers for her anxiety but was able to express fear of being unsafe around others as well as driving specific fears. Client indicated she attributes her depressive symptoms to struggling to maintain firm boundaries with her sons who both suffer from addiction, lack of purpose, increased isolation and increased physical difficulties she fears will restrict independence. Client identified her denominational and devotional group as her major supports. She additionally noted that her counselor, Sunita, at [address] [place] [address] agency as a support for her. Client identified wanting to learn more regarding mental health diagnosis, increase socialization by decreasing anxiety and depression, as well as improving self-esteem and her ability to set healthy boundaries as her main treatment goals. Risks/Concerns:: Client reports recent increases in anxiety which makes her feel as though she is crawling out of her skin, decreased motivation, hopelessness, and increased negative thinking which reinforces isolative behaviors. Client denies suicidal ideation, plan, and intent as of this date, 11/29. Client future oriented throughout session as evidenced by her reports of wanting to get back to feeling comfortable spending time with her devotional group. Progress Toward Goals/Plan:: Client first week in IOP program and therefore little progress able to be noted. She has shown increased levels of engagement and comfort within the group setting. CLient appears to have fair insight into her commonly used negative coping strategies as well as factors impacting overall mental health. Client to continue IOP to promote mood stability, medication management, increase coping skills, and prevent decompensation.
--- NOTE | 2017-11-29 15:48 | BH.SGPN ---
Service Group Progress Note - Session Psychotherapy Session #1 Date Open:: 11/29/17 Time Started:: 09:04 Time Stopped:: 10:00 Targeted Problem #:: 1 Type of Group:: Process - 9 group members Goal of Group:: The goal of today's group was to check-in with client's mood, stressors, and positives, review homework and introduce topic for the day. Client Response/Progress/Benefit:: Client reported she really did not want to come to IOP this morning because she has been feeling really anxious since last night. Client shared she does not really know what triggered her anxiety but has just been on edge since last night. Client reports she did go to a store yesterday and while she was there was feeling really anxious because she was not able to find what she was looking for but did not leave the store and eventually was able to find what she wanted and get through without leaving. With assistance client able to recognize be able to get to IOP despite not wanting to be here as another positive. Client showing progress as evidenced by her being able to manage her anxiety while at a store yesterday as well as getting through her anxiety this morning and attending IOP. Client seems to struggle with being able to identify which coping strategy has helped her manage her anxiety in the moment. Eye Contact:: Good Motor Activity:: Appropriate Appearance:: Casual Speech:: Appropriate Mood:: Anxious Affect:: Congruent Thoughts:: Linear, Logical, No evidence of hallucinations/delusions noted Staff Interventions:: Therapist used open-ended questions to elicit information about client's current stressors and mood state. Therapist was supportive by using active listening and reflection.
--- NOTE | 2017-11-29 16:01 | BH.MTP ---
Master Treatment Plan - Patient Information Program Physician:: Tyesha Aburot Primary Therapist:: Lyn Crowley - Estimated LOS Estimated LOS (in weeks):: 6
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
--- NOTE | 2017-11-29 16:35 | BH.SGPN ---
Service Group Progress Note - Session Psychotherapy Session #2 Date Open:: 11/29/17 Time Started:: 10:21 Time Stopped:: 11:13 Targeted Problem #:: 1 Psychotherapy Session #3 Date Open:: 11/29/17 Time Started:: 11:24 Time Stopped:: 12:16 Targeted Problem #:: 1
--- NOTE | 2017-11-30 15:25 | BH.SGPN_ITS ---
Service Group Progress Note - Session Psychotherapy Session #2 Date Open:: 11/30/17 - 8 group members Time Started:: 10:13 Time Stopped:: 11:10 Targeted Problem #:: 1 Type of Group:: Illness Management Goal of Group:: To identify the importance of change, increase understanding of difficulty of making change, identify what clients would like to make changes in and identify the barriers or obstacles that get in the way of change. Client Response/Progress/Benefit:: Client responded well to session, active participant. Client appeared to connect with quote, sharing ?trauma can keep someone stuck in the past.? Client shared making change is challenging because of fear, comfort, and ?too overwhelmed.? Client identified goals for the week that would benefit her mental health such as going to sabianist, keep coming to group, and ?accept the past.? Client shared these goals would ?keep me moving forward.? Client identified her barriers to be poor supports, physical health, and isolation. Client appeared to benefit from increasing awareness of the positives of change as well as her personal barriers. Client seems to be progressing as shown by her increased engagement in group and willingness to address unhealthy coping patterns. Eye Contact:: Fair Motor Activity:: Appropriate Appearance:: Casual Speech:: Appropriate Mood:: Irritable, Dysthymic Affect:: Constricted Thoughts:: Linear, No evidence of hallucinations/delusions noted Staff Interventions:: Therapist facilitated discussion about change and helped client?s make connections of why change is important. Therapist led group in an experiential activity which involved client?s identifying changes want to make and barriers that get in the way of making those changes. Therapist utilized activity as a tool to help client?s make connections of difficulties in making changes and identify what helps overcome barriers to change. Psychotherapy Session #3 Date Open:: 11/30/17 - 9 group members Time Started:: 11:15 Time Stopped:: 12:10 Targeted Problem #:: 1 Type of Group:: Functional Skills Development Goal of Group:: To identify specific barriers to an identified change clients would want to make and identify ways to overcome those barriers. Client Response/Progress/Benefit:: Client responded well to session,engaged and providing insight to discussion. Client reported overcoming barriers is challenging because client often gets too overwhelmed and ?then I avoid change. ? Client identified her weekly goal as continuing to come to group as it has been reducing isolation and improving client?s mood. Client shared her barriers are negative self-talk, depression, and being anxious around people. Client created strategies to overcome this barrier including looking at the benefits, developing a daily schedule, and setting small goals. Client seemed to benefit from identifying strategies to overcome barriers for her weekly goal. Client appears to be progressing with reducing isolation as shown by her report of ? making myself come to group even when I don?t want to.? Eye Contact:: Good Motor Activity:: Appropriate Appearance:: Casual Speech:: Appropriate Mood:: Dysthymic Affect:: Constricted Thoughts:: Linear, No evidence of hallucinations/delusions noted Staff Interventions:: Therapist facilitated discussion about what helped the group overcome challenges that came about during the experiential activity. Therapist utilized the activity as a tool in relating those experiences to ways to overcome barriers with challenges in their life when trying to make change. Therapist group into smaller groups and had them brainstorm ways to overcome certain barriers to their identified change. Therapist provided support by using reflective listening and providing feedback.
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
--- NOTE | 2017-11-30 16:10 | BH.DR.ITP ---
Initial Treatment Plan - Patient Information Visit Information: ADMISSION DATE: EXPECTED LOS: 4-6 weeks Diagnoses:: Bipolar disorder F 31.81 - Problems/Symptoms Problem #1:: Mood instability Symptom:: Depression, irritability, anxiety, decreased energy, difficulty concentrating, biologic disruption of appetite and sleep Problem #2:: anxiety Symptom:: Rumination, panic, intrusive traumatic memories
--- NOTE | 2017-12-03 13:06 | BH.SGPN_ITS ---
Service Group Progress Note - Session Psychotherapy Session #1 Date Open:: 12/03/17 Time Started:: 09:05 Time Stopped:: 10:10 Targeted Problem #:: 1 Type of Group:: Process - 10 Participants Goal of Group:: The goal of today's group was to check-in with client's mood, stressors, and positives, review homework, and to introduce the topic of the day. Client Response/Progress/Benefit:: Client entered session alert, attentive, and willing to engage. Client shared that the weekend was ?physically rough,? and increased her medication per her doctor. Client went to share that she was able to go to the grocery store even though she was in pain and even drove to get breakfast and thought about going to [facility] but changed her mind once she got to the parking lot. Client began minimizing the importance of this and peers encouraged and challenged client on this and client recognized that she was able to achieve her goal. Client shared she is aggravated because she knows the physically pain is adding to the mental health symptoms and will be going back to the doctor tomorrow. Client indicated her emotion as aggravated and benefitted from peers challenging and encouraging her. Progress noted in client? s ability to leave the home multiple times throughout the weekend. Continued treatment necessary to decrease isolation and increase daily activities. Eye Contact:: Good Motor Activity:: Appropriate Appearance:: Casual Speech:: Appropriate Mood:: Anxious, Depressed Affect:: Full Thoughts:: Linear, Logical, No evidence of hallucinations/delusions noted Staff Interventions:: Therapist used open-ended questions to elicit information about client's current stressors and mood. Therapist was supportive by using active listening and reflection. Psychotherapy Session #2 Date Open:: 12/03/17 Time Started:: 10:14 Time Stopped:: 11:10 Targeted Problem #:: 1 Type of Group:: Illness Management - 9 Participants Goal of Group:: To increase understanding and awareness of emotions connected to change and the impact those emotions can have on change. Client Response/Progress/Benefit:: Client was alert, attentive, and willing to engage in group. Client participated in small group activity designed to illustrate how the emotions of change can look and how we might respond. Client was able to successfully complete activity and participated in group discussion on the stages of change. Client stated, ?Just say the word change and I freak out but once I freak out I?m okay. Change is a part of life.? Client was able to identify that she often avoids anything with change because she likes to stay in her comfort zone. Client benefitted from identifying the stages of change and rating what stage she is at. Progress noted in client?s awareness of how she views and approaches change in her life. Continued treatment necessary to increase daily functioning. Eye Contact:: Good Motor Activity:: Appropriate Appearance:: Casual Speech:: Appropriate Mood:: Euthymic, Anxious Affect:: Full Thoughts:: Linear, Logical, No evidence of hallucinations/delusions noted Staff Interventions:: Therapist facilitated group discussion about change. Therapist led the group in an activity in which the activity was utilized as a tool to increase client?s awareness of emotions connected with change. Therapist led the processing of how each emotion was connected with change. Therapist was supportive by providing feedback and using reflective listening.
--- NOTE | 2017-12-03 13:46 | BH.SGPN_ITS ---
Service Group Progress Note - Session Psychotherapy Session #3 Date Open:: 12/03/17 - 9 group members Time Started:: 11:19 Time Stopped:: 12:15 Targeted Problem #:: 1 Type of Group:: Functional Skills Development Goal of Group:: To identify the challenges associated with making change and identify positive outcomes that have resulted from changes made in past. Another goal was to identify one change they are willing to make this week. Client Response/Progress/Benefit:: Client responded well to session, active in discussion. Client reported change is challenging because a setback can make a person want to give up. Client stated change is personally difficult because ? I stay in my comfort zone because I?m so anxious and then I avoid change.? Client identified several times change was positive for her such as leaving a toxic marriage and job as well as coming to group. Client stated ?I wasn?t even leaving my house so coming to group and being around all these people is huge.? Client reported she wants to continue to push herself to get out of the house more as a positive change moving forward. Client appeared to benefit from increasing awareness of the challenges associated with making change as well as times when change was positive for her. Client seems to be progressing as shown by her report of reduced isolation, but continues to struggle with negative thinking and negative core beliefs of self. Eye Contact:: Good Motor Activity:: Appropriate Appearance:: Casual Speech:: Appropriate Mood:: Irritable, Dysthymic Affect:: Flat Thoughts:: Linear, No evidence of hallucinations/delusions noted Staff Interventions:: Therapist led group in an activity to help group members recognize the challenges associated with change. Therapist utilized activity as a tool to identify ways to manage changes and adapt to the challenges that ensue. Therapist facilitated group discussion about positive outcomes from change. Therapist helped clients explore changes they are willing to make this week and elicited discussion on the pros and cons of making that change.
--- NOTE | 2017-12-05 14:48 | BH.SGPN_ITS ---
Service Group Progress Note - Session Psychotherapy Session #1 Date Open:: 18 - 6 group members Time Started:: 09:02 Time Stopped:: 10:02 Targeted Problem #:: 1 Type of Group:: Process Goal of Group:: The goal of today's group was to check-in with client's mood, stressors, and positives and introduce topic for the day. Client Response/Progress/Benefit:: Client responded well to session, engaged and receptive to supportive statements. Client reports feeling aggravated today as client had a negative experience with a support person earlier this week and was unable to get her blood work done this morning. Client reported she was proud of herself for making myself leave early today and get out. Client shared she is currently struggling with negative thoughts and self- blame. Client stated she has a hard time challenging the negative thoughts and client tends to internalize her emotions which further continues the cycle of depression. Client shared she can try to get out of the house today to improve her mood. Client appeared to benefit from processing her emotions and receiving supportive statements from peers. Client progressing as shown by her increased socialization, but can continue to benefit from expressing emotions in a healthy way. Eye Contact:: Good Motor Activity:: Appropriate Appearance:: Casual Speech:: Appropriate Mood:: Dysthymic Affect:: Constricted - became tearful Thoughts:: Linear, No evidence of hallucinations/delusions noted Staff Interventions:: Therapist used open-ended questions to elicit information about client's current stressors and mood state. Therapist was supportive by using active listening and reflection. Therapist facilitated a mindfulness activity to promote emotional well-being and calmness.
--- NOTE | 2017-12-06 14:00 | BH.MDN ---
Multi-Disciplinary Note - Note 60-min Individual Time Started:: 12:21 Date: 12/06/17 Purpose of session/treatment goals addressed:: The purpose of this session was to assess Client current symptoms, stressors, and means for coping. Another purpose was to begin to work with Client on identifying unhelpful thinking patterns and fears that hinder ability to function. Other topics included: goal setting and positive self talk. Eye Contact:: Good Motor Activity:: Appropriate Appearance:: Casual Speech:: Appropriate, Other - Client cursing several times throughout session which is deviating quite significantly from her norm as client indicates she does not use curse words. Mood:: Anxious, Irritable - when discussing recent experience at the office, Depressed Affect:: Full Thoughts:: Linear, Logical, No evidence of hallucinations/delusions noted Staff Interventions:: Therapist asked open-ended and furthering questions to gather information regarding client current symptoms, stressors, and use of coping skills. Used active and reflective listening, as well as empathic responses to provide support and normalize Client frustration regarding ongoing symptoms of depression. Discussed with Client specific stressors and anxieties related to Client desire to increase socialization as well as reviewed potential impact negative thinking patterns may have on maintaining adverse symptomology. Applied DE techniques to begin exploring to begin challenging thought distortions and identifying healthy means for managing mental health symptoms. Client Response:: Client agreeable to session and remained engaged throughout. She discussed having had a rough week as client continues to struggle with ongoing chronic pain issues related to a previous back injury and trouble with her joints. Client indicated that in the last week her pain has become very difficult to manage and she feels she is unable to find any relief. Client went on to share that she had attempted to seek advice for pain management from her doctor however felt as though he ignored her and that her needs were not seen as valid. Client exasperatedly discussed that this made her feel worthless and pissed off feeling as though it seems like other people always ignore her needs or see her as insignificant. Client discussed beliefs that this has stemmed from childhood trauma and always having to be the caretake. She attributes this to preventing her from learning at an early age to prioritize herself or engage in healthy self-care strategies. Client appears to have good insight into how her thoughts and emotions continue to reinforce sense of low self-worth. Client indicated that right now she is feeling as though she is ready to begin to do the hard work to move beyond her past; but, shared she is afraid of failing. She noted I know what I should be doingI just can't get the motivation or energy to do it. Client responded well to challenging her current expectations of self and was able to make connections between struggles with beliefs she is not being a good enough Scientologist and her tendency to set unrealistic expectations for herself. CLient able to apply these same concepts to current rumination regrading anxieties about socializing or going out in public. She expressed increased difficulties leaving the house due to fears of being judged or misunderstood by others. Client notes wanting to increase ability to overcome these fears and reconnect with her confucianist supports. Therapist and client reviewed small goals she could begin to set for herself in to work towards improving self-confidence and comfort when in the company of others. Risks/Concerns:: Client denies any active Suicidal Ideation, plan, or intent as of this date, 12/06/17. She identifies wanting to believe that she can move past her depression as her main source of motivation and is future oriented indicating plans to attend group on following date. Indicates ability to maintain safety and awareness of local crisis resources available. Progress Toward Goals/Plan:: Client is making progress in her ability to open up in both the individual and group setting. She inndicates feeling less anxious and more self confident when in the IOP group as she finds this to be a safe place. Client expresses increased motivation to challenge negative thoughts and work towards current goals of increasing socialization; however, continues to struggle significantly with rumination, self-depricating talk, and lack of motivation to engage in daily activites. CLient would benefit significantly from spending time to more discuss and analyze distorted thinking patterns on a more in-depth basis. Client additionally recommended psychoeducation regarding bi-polar dx. Client to continue IOP to promote gains and increase utilization of skills learned. Time Stopped:: 13:17
--- NOTE | 2017-12-06 14:16 | BH.SGPN ---
Service Group Progress Note - Session Psychotherapy Session #1 Date Open:: 18 - 8 group members Time Started:: 09:07 Time Stopped:: 10:12 Targeted Problem #:: 1 Type of Group:: Process Goal of Group:: The goal of today's group was to check-in with client's mood, stressors, and positives, and review homework. Client Response/Progress/Benefit:: Client responded well to session, receptive to supportive statements from peers. Client reports feeling empty today as client shared she has been ruminating and feels let down by her family. Client stated, family is supposed to be this support, but mine is never there. Client reported her lack of family support has impacted how she expresses emotions which has led client to internalize anxiety and depression. With therapist and group elicitation, client recognized that there can be other positive mental health supports for her and that there is such a thing as bad supports even if that includes family. 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 Client appeared to benefit from focusing on how her vulnerability and expression of emotion is a strength. Client progressing as shown by her efforts to express emotions rather than internalize, but can continue to benefit from challenging cognitive distortions and negative core beliefs. Eye Contact:: Fair Motor Activity:: Slowed Appearance:: Neat Speech:: Soft Mood:: Anxious, Depressed Affect:: Flat - became tearful when talking about lack of supports Thoughts:: Linear, No evidence of hallucinations/delusions noted Staff Interventions:: Therapist used open-ended questions to elicit information about client's current stressors and mood state. Therapist was supportive by using active listening and reflection.
--- NOTE | 2017-12-06 18:00 | BH.SGPN ---
Service Group Progress Note - Session Psychotherapy Session #2 Date Open:: 12/06/17 Time Started:: 10:21 Time Stopped:: 11:14 Targeted Problem #:: 1 Type of Group:: Illness Management - 8 participants Goal of Group:: To increase understanding of pitfalls and impact can have on mental health. Staff Interventions:: Therapist facilitated discussion about pitfalls and assisted group in identifying common pitfalls that can set you back. Therapist led group in an activity to help group understand impact pitfalls can have on oneself and identify strategies that could help you get back on the right path. Therapist provided support by using active listening and providing feedback. Psychotherapy Session #3 Date Open:: 12/06/17 Time Started:: 11:22 Time Stopped:: 12:14 Targeted Problem #:: 1 Type of Group:: Functional Skills Development - 9 participants Goal of Group:: To identify personal pitfalls and what keeps them stuck from moving forward. Staff Interventions:: Therapist facilitated activity in which group members were given the task to identify personal pitfalls and what keeps them stuck from moving past the pitfall. Therapist provided group members with the homework assignment of identifying strategies that can help them overcome pitfalls.
--- NOTE | 2017-12-06 21:16 | BH.MDN_ITS ---
Multi-Disciplinary Note - Note 60-min Individual Time Started:: 12:21 Date: 12/06/17 Purpose of session/treatment goals addressed:: The purpose of this session was to assess Client current symptoms, stressors, and means for coping. Another purpose was to begin to work with Client on identifying unhelpful thinking patterns and fears that hinder ability to function. Other topics included: goal setting and positive self talk. Eye Contact:: Good Motor Activity:: Appropriate Appearance:: Casual Speech:: Appropriate, Other - Client cursing several times throughout session which is deviating quite significantly from her norm as client indicates she does not use curse words. Mood:: Anxious, Irritable - when discussing recent experience at the office , Depressed Affect:: Full Thoughts:: Linear, Logical, No evidence of hallucinations/delusions noted Staff Interventions:: Therapist asked open-ended and furthering questions to gather information regarding client current symptoms, stressors, and use of coping skills. Used active and reflective listening, as well as empathic responses to provide support and normalize Client frustration regarding ongoing symptoms of depression. Discussed with Client specific stressors and anxieties related to Client desire to increase socialization as well as reviewed potential impact negative thinking patterns may have on maintaining adverse symptomology. Applied NE techniques to begin exploring to begin challenging thought distortions and identifying healthy means for managing mental health symptoms. Client Response:: Client agreeable to session and remained engaged throughout. She discussed having had a rough week as client continues to struggle with ongoing chronic pain issues related to a previous back injury and trouble with her joints. Client indicated that in the last week her pain has become very difficult to manage and she feels she is unable to find any relief. Client went on to share that she had attempted to seek advice for pain management from her doctor however felt as though he ignored her and that her needs were not seen as valid. Client exasperatedly discussed that this made her feel worthless and pissed off feeling as though it seems like other people always ignore her needs or see her as insignificant. Client discussed beliefs that this has stemmed from childhood trauma and always having to be the caretake. She attributes this to preventing her from learning at an early age to prioritize herself or engage in healthy self-care strategies. Client appears to have good insight into how her thoughts and emotions continue to reinforce sense of low self-worth. Client indicated that right now she is feeling as though she is ready to begin to do the hard work to move beyond her past; but, shared she is afraid of failing. She noted I know what I should be doing?I just can't get the motivation or energy to do it. Client responded well to challenging her current expectations of self and was able to make connections between struggles with beliefs she is not being a good enough Denominational and her tendency to set unrealistic expectations for herself. CLient able to apply these same concepts to current rumination regrading anxieties about socializing or going out in public. She expressed increased difficulties leaving the house due to fears of being judged or misunderstood by others. Client notes wanting to increase ability to overcome these fears and reconnect with her baptism supports. Therapist and client reviewed small goals she could begin to set for herself in to work towards improving self-confidence and comfort when in the company of others. Risks/Concerns:: Client denies any active Suicidal Ideation, plan, or intent as of this date, 12/06/17. She identifies wanting to believe that she can move past her depression as her main source of motivation and is future oriented indicating plans to attend group on following date. Indicates ability to maintain safety and awareness of local crisis resources available. Progress Toward Goals/Plan:: Client is making progress in her ability to open up in both the individual and group setting. She inndicates feeling less anxious and more self confident when in the IOP group as she finds this to be a safe place. Client expresses increased motivation to challenge negative thoughts and work towards current goals of increasing socialization; however, continues to struggle significantly with rumination, self-depricating talk, and lack of motivation to engage in daily activites. CLient would benefit significantly from spending time to more discuss and analyze distorted thinking patterns on a more in-depth basis. Client additionally recommended psychoeducation regarding bi-polar dx. Client to continue IOP to promote gains and increase utilization of skills learned. Time Stopped:: 13:17
--- NOTE | 2017-12-07 14:51 | BH.SGPN ---
Service Group Progress Note - Session Psychotherapy Session #1 Date Open:: 12/07/17 Targeted Problem #:: 1 Type of Group:: Process Goal of Group:: The goal of today's group was to check-in with client's mood, stressors, and positives, review homework. Eye Contact:: Good Motor Activity:: Appropriate Appearance:: Neat, Casual Speech:: Appropriate Mood:: Anxious, Depressed Affect:: Flat Thoughts:: Linear, Logical, No evidence of hallucinations/delusions noted Staff Interventions:: Therapist used open-ended questions to elicit information about client's current stressors and mood state. Therapist reviewed homework assigned from previous groups. Therapist was supportive by using active listening and reflection.
--- NOTE | 2017-12-07 15:44 | BH.SGPN ---
Service Group Progress Note - Session Psychotherapy Session #2 Date Open:: 12/07/17 Time Started:: 10:20 Time Stopped:: 11:10 Targeted Problem #:: 1 Type of Group:: Illness Management Goal of Group:: The goal of this session was to increase self-awareness of what is holding them back from moving towards mental wellness and discuss importance of taking action in their treatment. Eye Contact:: Good Motor Activity:: Appropriate Appearance:: Casual Speech:: Appropriate Mood:: Anxious Affect:: Congruent Thoughts:: Linear, Logical, No evidence of hallucinations/delusions noted Staff Interventions:: Therapist facilitated discussion about what it means to take action in achieving mental health wellness. Therapist led activity in which clients were asked to identify the symptoms and things that they would like to take back control over. Therapist provided support by using active listening. Psychotherapy Session #3 Date Open:: 12/07/17 Time Started:: 11:20 Time Stopped:: 12:20 Targeted Problem #:: 1 Type of Group:: Functional Skills Development Goal of Group:: The goal of this session was to create a 30 day action plan that provides small goals that work towards taking action on one thing they would like to take back control over. Eye Contact:: Good Motor Activity:: Appropriate Appearance:: Casual Speech:: Appropriate Mood:: Anxious Affect:: Congruent Thoughts:: Linear, Logical, No evidence of hallucinations/delusions noted Staff Interventions:: Therapist provided materials and guidance to help clients create a 30 day action plan. Therapist provided support by giving feedback and using active listening.
--- NOTE | 2017-12-11 14:56 | PCM.PN.BLA ---
Progress Note Patient is seen in follow-up for bipolar 2 disorder F 31.81, anxiety unspecified, vitamin D deficiency, obstructive sleep apnea. History is been obtained per interview with patient, discussion with staff, review of chart. Case discussed with treatment team. Chief complaint-I have been better. I am not sleeping. I am physically sore./I have to let things go Interim history Moderate depressive symptoms persist but of overall decreased intensity the past week. Point of fatigue and low energy. No suicidal or homicidal ideation. No symptoms consistent with psychosis. Ruminative anxiety regarding pain medications. Reports intrusive traumatic memories. Anxiety regarding sleep. Reports sleep disrupted. Lays down at 2 AM. Remains awake until 4 5 AM. Generally sleeps until 10:30 AM. Denies napping. Consumes 1 cup of caffeinated tea in the morning. History of obstructive sleep apnea. Noncompliant with CPAP. Reports need to clean machine. Date normal. Denies nausea vomiting or diarrhea. Ports previous trial of gabapentin ineffective for pain or sleep. Compliant with current medications including Trileptal 300 mg nightly. Mental status exam Vital signs reviewed per nursing database. Patient is alert and oriented. She appears her stated age. She is ambulatory with normal gait and station. She is cooperative with the interview. She has good eye contact. Appropriate grooming and hygiene. No psychomotor agitation or retardation. Mood is depressed. Affect restricted. Speech is clear and of regular rate and volume. Language fluent. Thought process organized. Associations logical. Thought content significant for ruminative anxiety. No suicidal ideation. No suicide plan or intent. Feels able to maintain safety. No homicidal ideation related or detected. No evidence of psychosis related to detected. Immediate recent and remote memory grossly intact. Attention and concentration are fair to good. Estimated intelligence fund of knowledge average. Judgment and insight are fair. Diagnosis Bipolar 2 disorder F 31.81 Anxiety unspecified Vitamin D deficiency Obstructive sleep apnea-CPAP noncompliant Plan Continue IOP as the structured setting is necessary to prevent decompensation. Risks benefits alternatives of medications discussed with patient. Patient acknowledges understanding. She will continue Trileptal 300 mg daily. D supplement. She declines further medication changes at this time. Encouraged compliance with CPAP. Patient agrees to discuss trauma therapy with outpatient provider Sunita Sena. Follow-up with Susana Salazar. 20 minutes of Insight oriented psychotherapy provided including motivational therapy for CPAP use. Patient acknowledges understanding and is in agreement with plan. She feels able to maintain safety. She agrees to seek help or emergency care feeling unsafe to self or others.
--- NOTE | 2017-12-11 15:07 | PN_ITS ---
Progress Note Patient is seen in follow-up for bipolar 2 disorder F 31.81, anxiety unspecified , vitamin D deficiency, obstructive sleep apnea. History is been obtained per interview with patient, discussion with staff, review of chart. Case discussed with treatment team. Chief complaint-I have been better. I am not sleeping. I am physically sore. /I have to let things go Interim history Moderate depressive symptoms persist but of overall decreased intensity the past week. Point of fatigue and low energy. No suicidal or homicidal ideation. No symptoms consistent with psychosis. Ruminative anxiety regarding pain medications. Reports intrusive traumatic memories. Anxiety regarding sleep. Reports sleep disrupted. Lays down at 2 AM. Remains awake until 4 5 AM. Generally sleeps until 10:30 AM. Denies napping. Consumes 1 cup of caffeinated tea in the morning. History of obstructive sleep apnea. Noncompliant with CPAP. Reports need to clean machine. Date normal. Denies nausea vomiting or diarrhea. Ports previous trial of gabapentin ineffective for pain or sleep. Compliant with current medications including Trileptal 300 mg nightly. Mental status exam Vital signs reviewed per nursing database. Patient is alert and oriented. She appears her stated age. She is ambulatory with normal gait and station. She is cooperative with the interview. She has good eye contact. Appropriate grooming and hygiene. No psychomotor agitation or retardation. Mood is depressed. Affect restricted. Speech is clear and of regular rate and volume. Language fluent. Thought process organized. Associations logical. Thought content significant for ruminative anxiety. No suicidal ideation. No suicide plan or intent. Feels able to maintain safety. No homicidal ideation related or detected. No evidence of psychosis related to detected. Immediate recent and remote memory grossly intact. Attention and concentration are fair to good. Estimated intelligence fund of knowledge average. Judgment and insight are fair. Diagnosis Bipolar 2 disorder F 31.81 Anxiety unspecified Vitamin D deficiency Obstructive sleep apnea-CPAP noncompliant Plan Continue IOP as the structured setting is necessary to prevent decompensation. Risks benefits alternatives of medications discussed with patient. Patient acknowledges understanding. She will continue Trileptal 300 mg daily. D supplement. She declines further medication changes at this time. Encouraged compliance with CPAP. Patient agrees to discuss trauma therapy with outpatient provider Sunita Sena. Follow-up with Susana Salazar. 20 minutes of Insight oriented psychotherapy provided including motivational therapy for CPAP use. Patient acknowledges understanding and is in agreement with plan. She feels able to maintain safety. She agrees to seek help or emergency care feeling unsafe to self or others.
--- NOTE | 2017-12-11 15:49 | BH.SGPN_ITS ---
Service Group Progress Note - Session Psychotherapy Session #2 Date Open:: 12/05/17 Time Started:: 10:20 Time Stopped:: 11:13 Targeted Problem #:: 1 Type of Group:: Illness Management - 7 group members Goal of Group:: To identify within self what is keeping client trapped from achieving better quality of life. Client Response/Progress/Benefit:: Client contributed positively to discussion and listened attentively to others. Client connected with the quote because she recognizes many things that she does that has resulted in her building up her rodriguez that are keeping her stuck. She commented that other people have done things that have resulted in client believing she needs to build her rodriguez so that she does not get hurt. However client shared she is recognizing that she has isolated herself so much that it increasingly difficult to open up to others and get out of the house. Client recognizes that her thought patterns tend to lead to increased avoidance. Client seemed to benefit from increasing awareness of how her negative thoughts are impacting ability to make treatment progress. Eye Contact:: Fair Motor Activity:: Appropriate Appearance:: Casual Speech:: Appropriate Mood:: Anxious Affect:: Constricted Thoughts:: Linear, Logical, No evidence of hallucinations/delusions noted Staff Interventions:: Therapist facilitated discussion about what is keeping client?s stuck from moving toward mental wellness. Therapist assisted clients in connecting how thoughts can contribute to keeping clients stuck. Therapist led discussion about barriers clients face from making changes to help one move forward. Therapist provided support by using active listening and giving feedback to others. Psychotherapy Session #3 Date Open:: 12/05/17 Time Started:: 11:20 Time Stopped:: 12:12 Targeted Problem #:: 1 Type of Group:: Functional Skills Development - 6 group members Goal of Group:: To identify what client can do to release self from those things that are trapping them to find more peace and quality in everyday life. Client Response/Progress/Benefit:: Client listened attentively to others and contributed positively to discussion. Client connected with the anxious/ depression maintence cycle, able to connect how her thoughts are keeping her stuck. Client able to walk through her her negative thought and identified how her thought pattern keeps resulting in avoidance and isolation. Client seemed to benefit from reframing her negative thought to make it more rational and positive. Eye Contact:: Fair Motor Activity:: Appropriate Appearance:: Casual Speech:: Appropriate Mood:: Anxious Affect:: Constricted Thoughts:: Linear, Logical, No evidence of hallucinations/delusions noted Staff Interventions:: Therapist provided psychoeducation about the depression and anxiety maintenance cycle. Therapist provided group members with a worksheet in which each group member identified a negative thought and how that negative thought is impacting ability to function. Therapist assisted the group with reframing and challenging negative thought identified. Helped the group identify the positive impact of being able to challenge and reframe negative thoughts.
--- NOTE | 2017-12-11 15:56 | BH.COMM ---
Communication Note - Communication with Client Communication Note: This therapsit contacted client outpatient provider, Sunita Sena, at [address] [place] [address] to discuss Client adjustment to IOP program, progress in group, as well as for coordination of care purposes. Therapist will continue to follow-up regarding updates on treatment progress.
--- NOTE | 2017-12-11 16:01 | BH.COMM_ITS ---
Communication Note - Communication with Client Communication Note: This therapsit contacted client outpatient provider, Sunita Sena, at [address] [place] [address] to discuss Client adjustment to IOP program, progress in group, as well as for coordination of care purposes. Therapist will continue to follow-up regarding updates on treatment progress.
--- NOTE | 2017-12-11 16:24 | BH.SGPN_ITS ---
Service Group Progress Note - Session Psychotherapy Session #2 Date Open:: 12/11/17 - 10 participants Time Started:: 10:21 Time Stopped:: 10:55 Targeted Problem #:: 1 Type of Group:: Illness Management Goal of Group:: To increase understanding of what strengths are and identify individual strengths. Behaviors/Verbalizations/Mental Status:: Client left group early to meet with [facility] Client Response/Progress/Benefit:: Client responded well to session, guarded at first, but providing good input to discussion. Client connected with the quote stating, nothing happens right away, being persistent is huge. Client agreed with the group's definition of strengths, and stated but I don't have any. With therapist gentle challenging, client recognized she does possess strengths , but depression can make it difficult to remember one's strengths. Client identified her personal strengths as being open to IOP, having courage and desire to get better, honesty, and persistence. Client stated when she reminds herself of these strengths it improves her self-talk and self-esteem. Client appeared to benefit from acknowledging her strengths and how they positively impact mental health. Progress noted in client's improved use of thought challenging, but can continue IOP to promote mood stability. Eye Contact:: Fair Motor Activity:: Appropriate Appearance:: Neat Speech:: Appropriate Mood:: Dysthymic Affect:: Flat Thoughts:: Linear, No evidence of hallucinations/delusions noted Staff Interventions:: Therapist facilitated discussion about what are strengths and assisted group members in identifying examples of strengths. Therapist led an activity in which group members were given the opportunity to identify five personal strengths. Therapist assisted clients in connecting the importance of recognizing personal strengths. Psychotherapy Session #3 Date Open:: 12/11/17 - 9 participants Time Started:: 11:20 Time Stopped:: 12:15 Targeted Problem #:: 1 Type of Group:: Functional Skills Development Goal of Group:: To identify what gets in their way of recognizing and utilizing their strengths and identifying ways to make strengths easier to access. Client Response/Progress/Benefit:: Client responded well to session, active group member. Client reported trauma and negative core beliefs have kept client from accessing and acknowledging her strengths. Client stated coming to IOP has given her positive supports that have helped client realize her progress, but client reported there are days when she struggles. Client helped the group create strategies to overcome barriers that keep client from recognizing her strengths. The strategies included talking with supports, challenging negative thoughts, and keeping a progress journal. Client appeared to benefit from gaining awareness to the barriers preventing client from acknowledging her positive qualities. Client to continue IOP to promote mood stability and reduce isolation. Eye Contact:: Fair Motor Activity:: Appropriate Appearance:: Neat Speech:: Appropriate Mood:: Anxious, Depressed Affect:: Flat - became tearful Thoughts:: Linear, No evidence of hallucinations/delusions noted Staff Interventions:: Therapist utilized an activity as a tool in helping clients recognize the things that can get in their way from utilizing their strengths and identify alternative strategies to overcome those barriers. Therapist processed the activity, helping others connect challenges that keep them from recognizing and using their strengths. Therapist helped clients connect the importance of utilizing supports to build personal strengths and ways to challenge negative thoughts that prevent clients from acknowledging their strengths. Therapist provided support by using active listening and providing feedback.
--- NOTE | 2017-12-11 16:57 | BH.MDN_ITS ---
Multi-Disciplinary Note - Note 45-min Individual Time Started:: 12:28 Date: 12/11/17 Purpose of session/treatment goals addressed:: The purpose of this session was to discuss Client current stressors, and ineffective means for coping that reinforce depressive symptoms. Another purpose was to work with Client on identifying potential triggers and/or specific fears associated with engaging in social activities and use the decisional balance technique to address potential consequences of maintaining isolative behaviors. Eye Contact:: Good Motor Activity:: Appropriate Appearance:: Casual Speech:: Appropriate Mood:: Depressed Affect:: Congruent Thoughts:: Linear, Logical, No evidence of hallucinations/delusions noted Staff Interventions:: Therapist asked open-ended and furthering questions to gather additional information regarding client current symptoms of depression and maladaptive coping skills. Used reflective listening, as well as empathic responses to provide support and encouragement as client discussed recent stressors and was challenged to identify small achievements. Worked with CLient to complete a decisional balance activity in order to identify potential benefits and consequences of maintaining isolative behaviors. Risks/Concerns:: Client denies any active Suicidal Ideation, plan, or intent as of this date, 12/10/17. She indicates that getting back to a place where she is socializing with others and engaging in community activities motivates her to keep working on her mental health. Client future oriented as she expressed plans to meet with outpatient therapist and psychiatrist on following date. Client expressed an ability to maintain safety as well as awareness of and willingness to utilize local crisis resources available should she feel unable to maintain safety. Progress Toward Goals/Plan:: Limited progress. Client continues to endorse pervasive symptoms of depression and increasing anxiety impacting her ability to function at baseline. Client has good levels of insight and is able to identify that her negative core beleifs about self, resistance to accept help, and isolative behaviors reinforce depression; however, struggles to initiate identified positive change behaviors. Client additionally is beginning to endorse increase in intrusive thoughts related to engaging in social activity such as What if I fall and people see me which has begun to further exacerbate isolative and avoidance, impacting CLient ability to make progress. Client ongoing chronic pain additionally serves as a barrier as she reports worrying about managing her pain when in public settings or feels too exhausted to complete various tasks. Recommended continued IOP to prevent decompensation as well as continue to address and challenge distorted or negative thinking pat terns as well as replace maladaptive coping mechanisms with more positive alternatives. Time Stopped:: 13:15
--- NOTE | 2017-12-11 21:35 | BH.SGPN ---
Service Group Progress Note - Session Psychotherapy Session #1 Date Open:: 12/11/17 Time Started:: 09:06 Time Stopped:: 10:15 Targeted Problem #:: 1 Type of Group:: Process - 9 participants Goal of Group:: The goal of today's group was to check-in with client's mood, stressors, and positives, review homework. Client Response/Progress/Benefit:: Client responded well to session and was able to actively contribute throughout. She discussed feeling hopeless today and indicated that she has been feeling like this for the past two weeks. Client reflected back on her first week in the program and indicated that it had initially made her feel really motivated and encouraged; however, she has struggled to feel that way since. Client went on to describe additional struggles with falling asleep at night and has continued to engage in isolative behaviors. She shared canceling plans to meet a friend at [facility] over the weekend and expressed I know it would be good for me, but I just can't get myself to do it. Client attributes some of her avoidance to feeling as though her supports don't really understand what she's going through. She was receptive of and appeared to benefit from encouragement provided by the group. Client did well to respond to being challenged to identify one small win she has accomplished today. Recommended continued IOP to further improve use of positive self-talk and maintain stability. Eye Contact:: Fair Appearance:: Casual Speech:: Appropriate Mood:: Depressed Affect:: Congruent Thoughts:: Linear, Logical, No evidence of hallucinations/delusions noted Staff Interventions:: Therapist used open-ended questions to elicit information about client's current stressors and mood state. Therapist reviewed homework assigned from previous groups. Therapist was supportive by using active listening and reflection.
--- NOTE | 2017-12-13 13:13 | BH.SGPN_ITS ---
Service Group Progress Note - Session Psychotherapy Session #2 Date Open:: 12/13/17 - 10 group members Time Started:: 10:25 Time Stopped:: 11:15 Targeted Problem #:: 1 Type of Group:: Illness Management Goal of Group:: To increase understanding of importance of boundaries and the different ways of setting boundaries (permeable, rigid, and flexible). Client Response/Progress/Benefit:: Client responded well to session, active participant. Client appeared to connect with the quote sharing she worries too much about others? feeling to set boundaries that will benefit her. Client reported in the past she used to have porous boundaries and would ?do anything for everyone.? Client stated this led to client getting taken advantage of which increased depression and low self-esteem. Client stated now she is rigid which leads to isolation. Client appeared to benefit from recognizing how her boundaries impact her emotions and well-being. Eye Contact:: Fair Motor Activity:: Appropriate Appearance:: Casual Speech:: Appropriate Mood:: Depressed Affect:: Constricted Thoughts:: Linear, No evidence of hallucinations/delusions noted Staff Interventions:: Therapist facilitated group discussion about defining boundaries. Therapist led discussion about importance of boundaries, assisting group members with identifying the impact of healthy and unhealthy boundaries. Therapist educated the group about the three different ways of setting boundaries and led discussion about each one. Therapist assisted clients with identifying the costs and benefits to the three different styles of boundary setting and how each style can impact mental health as well as relationships. Psychotherapy Session #3 Date Open:: 12/13/17 - 9 group members Time Started:: 11:25 Time Stopped:: 12:20 Targeted Problem #:: 1 Type of Group:: Functional Skills Development Goal of Group:: Increase awareness of current boundary style, identifying impact current way of setting boundaries has on mental health as well as relationships. Client Response/Progress/Benefit:: Client responded well to session, providing good insight. Client created a visual representation of her boundaries, reporting ?not many people get in I don?t even talk or text.? Client shared she is rigid with family as her sons have taken advantage of client. Client stated she feels guilty about cutting ties with family, and received supportive statements from peers to help gain a new perspective. Client appeared to benefit from learning more about her boundaries and how they impact her overall well-being. Client to continue IOP to promote mood stability. Eye Contact:: Fair Motor Activity:: Appropriate Appearance:: Casual Speech:: Appropriate Mood:: Depressed Affect:: Constricted Thoughts:: Linear, No evidence of hallucinations/delusions noted Staff Interventions:: Therapist provided the group member with a wide array of supplies, asking each group member to create a castle that would represent the boundaries they currently have in place. The expressive activity was used as a tool to help increase client?s self-awareness of their boundaries. Therapist processed each group member?s castle, inquiring what style the group member currently uses most frequently and how current boundary style impacts his/her mental health and relationships. Therapist provided support by using reflective listening and giving feedback.
--- NOTE | 2017-12-13 16:22 | BH.SGPN ---
Service Group Progress Note - Session Psychotherapy Session #1 Date Open:: 12/13/17 Time Started:: 09:06 Time Stopped:: 10:20 Targeted Problem #:: 1 Type of Group:: Process Goal of Group:: The goal of today's group was to check-in with client's mood, stressors, and positives, review homework and introduce topic for the day. Client Response/Progress/Benefit:: CLient willing to engage in process group and openly discussed her current progress with the other participants. She proudly shared the recent steps she had taken to challenge and manage her social anxiety and discussed not only successfully meeting her goal of going into [employer] but that she had actually been able to meet up with a friend for lunch as well. CLient indicated feeling as though she was beginning to get back to the place she had been prior to most recent depressive episode. She shared knowing that she will need to continue to challenge herself to refrain from isolating as well as challenge and replace negative thinking patterns. CLient benefited from the encouragement and support provided by the group. She is displaying progress in her levels of motivation to change and is beginning to utilize identified healthy coping skills. CLient recommended continued IOP to further improve management of mental health symptoms as well as prevent decompensation. Eye Contact:: Good Motor Activity:: Appropriate Appearance:: Casual Speech:: Appropriate Mood:: Euthymic - reports feeling mildly optimistic Affect:: Congruent Thoughts:: Linear, Logical, No evidence of hallucinations/delusions noted Staff Interventions:: Therapist used open-ended questions to elicit information about client's current stressors and mood state. Therapist was supportive by using active listening and reflection.
--- NOTE | 2017-12-14 14:28 | BH.SGPN ---
Service Group Progress Note - Session Psychotherapy Session #1 Date Open:: 12/14/17 - 5 group members Time Started:: 09:08 Time Stopped:: 10:15 Targeted Problem #:: 1 Type of Group:: Process Goal of Group:: The goal of today's group was to check-in with client's mood, stressors, and positives, review homework and introduce topic for the day. Client Response/Progress/Benefit:: Client responded well to session, engaged and providing emotional support to peers. Client reports feeling hopeful but uneasy as client has been making positive changes which she is proud of herself for, but doing these new things makes me anxious. Client shared she has gone from never leaving my house to getting out for group, going into stores, and spending time with friends. Client stated she was proud of herself for answering a phone call from her friend rather than ignore it or text. Client reported the changes she has made have been improving her mood and caused client to see there's hope. Client appeared to benefit from reflecting on positive changes she has made and see how they have been impacting her mental health. Client progressing as shown by her reduced isolation, but can continue to benefit from setting healthy boundaries. Eye Contact:: Good Motor Activity:: Appropriate Appearance:: Neat Speech:: Appropriate Mood:: Euthymic, Anxious Affect:: Full Thoughts:: Linear, No evidence of hallucinations/delusions noted Staff Interventions:: Therapist used open-ended questions to elicit information about client's current stressors and mood state. Therapist was supportive by using active listening and reflection.
--- NOTE | 2017-12-16 15:57 | BH.SGPN_ITS ---
Service Group Progress Note - Session Psychotherapy Session #2 Date Open:: 12/14/17 Time Started:: 10:20 Time Stopped:: 11:10 Targeted Problem #:: 1 Type of Group:: Illness Management - 7 participants Goal of Group:: To increase understanding of fear and explore the negative impact fear of failure can have on mental health and decision making. Client Response/Progress/Benefit:: Client was an active participant and responded well to the topic covered in group, fear of failure. Client engaged in discussion defingin failure and the various impacts fear of failure may have on mental health. SHe shared that to her failure means not getting better. Client went on to discuss that her biggest difficulty in managing her mental health sx is fearing being judged by other or looking week. CLient appeared to connect and benefit form fellow participants disclosing similar fears and views of their MH sx as failing. Client did well to challenge herself to participate in an activity that challenged group participants to confront potential failures. She was receptive of encouragement and feedback from her peers and was able to successfully remain engaged despite expressing a desire to give up. Recommended ongoing IOP level of care to continue to decrease sx of depression and mantain current stability. Eye Contact:: Good Motor Activity:: Appropriate Appearance:: Casual Speech:: Appropriate Mood:: Euthymic, Anxious Affect:: Full Thoughts:: Linear, Logical, No evidence of hallucinations/delusions noted Staff Interventions:: Therapist facilitated discussion about fear and impact fear of failure can have. Therapist led group in an experiential activity in which client?s would fail numerous times throughout, but were given the opportunity to try again. Therapist led the processing of the activity and assisted clients with connecting how fear of failure impacted their decision making during the activity. Psychotherapy Session #3 Date Open:: 12/14/17 Time Started:: 11:16 Time Stopped:: 12:08 Targeted Problem #:: 1 Type of Group:: Functional Skills Development - 5 participants Goal of Group:: To identify the impact fear of failure has had on the group members lives and identify strategies to overcome fear of failure. Client Response/Progress/Benefit:: Client again remained an actively engaged participant throughout and provided relevant input to the discussion. She discussed that during the previous group's activity she found herself tempted to refrain from participating at all as she would not have to face failing if she never tried. Client did well to connect this to using isolation and avoidance in her own life as she shared frequently canceling plans with her supports. Client benefited from challenging herself to work with the group on redefining failure as a potential tool rather than a barrier. CLient expressed that by reminding herself that others don't see me as badly as I see myself will aid in motivating her to change the way she talks to herself as well as encourage her to be more social. Client recommended continued IOP to increase consistant use of thought challenging and reframing strategies as well as prevent decompensation. Eye Contact:: Good Motor Activity:: Appropriate Appearance:: Casual Speech:: Appropriate Mood:: Euthymic Affect:: Congruent Thoughts:: Linear, Logical, No evidence of hallucinations/delusions noted Staff Interventions:: Therapist provided each group member with a worksheet to complete that asked questions about their experiences with fear of failure. Therapist led the processing of the worksheet, helping client?s connect how fear of failure has impacted them. Therapist provided support by using active listening and providing feedback.
--- NOTE | 2017-12-19 11:02 | BH.MDN ---
Multi-Disciplinary Note - Note 60-min Individual Time Started:: 12:17 Date: 12/19/17 Purpose of session/treatment goals addressed:: de-escalation Time Stopped:: 13:31
--- NOTE | 2017-12-19 12:08 | BH.SGPN ---
Service Group Progress Note - Session Psychotherapy Session #1 Date Open:: 12/19/17 Time Started:: 09:03 Time Stopped:: 10:03 Targeted Problem #:: 1 Type of Group:: Process - 7 group members Goal of Group:: The goal of today's group was to check-in with client's mood, stressors, and positives, review homework and introduce topic for the day. Client Response/Progress/Benefit:: Client reported she had a really bad weekend because she believes she had a adverse reaction to medication. She shared this result in her having to stop the medication and quickly could feel the negative impact of not having that medication in her system. Reported she feels take 2 steps forward and 2 large steps backward and shared it is getting tired. With assistance from therapist client able to recognize that she is still making progress and has come a long way. Able to recognize that getting out of bed today and come into group despite the weather is a big win for her because typically that would have resulted in her canceling and not leaving the house. Client seemed to benefit from being challenged on her negative thought patterns and support from group to help her see the positive changes she has made. Eye Contact:: Fair Motor Activity:: Appropriate Appearance:: Casual Speech:: Appropriate Mood:: Anxious, Depressed Affect:: Flat Thoughts:: Linear, Logical, No evidence of hallucinations/delusions noted Staff Interventions:: Therapist used open-ended questions to elicit information about client's current stressors and mood state. Therapist was supportive by using active listening and reflection.
--- NOTE | 2017-12-19 13:55 | BH.SGPN_ITS ---
Service Group Progress Note - Session Psychotherapy Session #2 Date Open:: 12/19/17 group members Time Started:: 10:17 Time Stopped:: 11:15 Targeted Problem #:: 1 Type of Group:: Illness Management Goal of Group:: To increase understanding of what stress is, identify current life stressors, and connect impact stressors have on mental health. Client Response/Progress/Benefit:: Client responded somewhat well to session, less engaged in discussion, but participating when prompted. Client helped the group process eustress versus unhealthy stress. Client shared when she feels too stressed ?I get so overwhelmed and want to avoid.? Client identified her major stressors to be isolation, judgement, insecurity, and physical pain. Client stated her ?stress jar? is currently overflowing which increasing negative thoughts, depression, and anxiety. Client expressed ?it feels like there?s no end to them.? Client was receptive to supportive statements from therapist and peers on the positive ways client has been dealing with stress. Client appeared to benefit from gaining awareness of her personal stressors as well as receiving positive support. Client can continue to benefit from processing her stressors and avoidance maintenance cycles as it continues to impact client?s mental health. Eye Contact:: Poor Motor Activity:: Slowed Appearance:: Casual Speech:: Soft Mood:: Irritable, Dysthymic Thoughts:: Linear, No evidence of hallucinations/delusions noted Staff Interventions:: Therapist facilitated discussion about stress. Therapist facilitated an activity in which group members were asked to identify various stressors they have in their life currently. Therapist instructed group members to indicate if certain stressors were larger than others. Therapist led processing of each member?s stress jar and helped them connect impact the stress has on their mental health. Psychotherapy Session #3 Date Open:: 12/19/17 group members Time Started:: 11:25 Time Stopped:: 12:15 Targeted Problem #:: 1 Type of Group:: Functional Skills Development Goal of Group:: To identify what stressors have control over and what stressors have no control over. Another goal was to increase repertoire of healthy strategies to help manage stress. Client Response/Progress/Benefit:: Client did not respond well to session, appeared irritable and highly anxious. Client appeared to be gathering insight from the group through note-taking, however, declined participation. Client shared ?I?m not in a good place today.? Client was receptive to emotional support given from therapist and peers. Client agreed to meet with individual therapist after group to follow up. Eye Contact:: Poor Motor Activity:: Restless Appearance:: Casual Speech:: Appropriate Mood:: Anxious, Irritable Affect:: Flat - became tearful Thoughts:: Racing, No evidence of hallucinations/delusions noted Staff Interventions:: Therapist facilitated discussion about control versus no control and helped group members connect the concept to stressors. Therapist led discussion about importance of putting forth more energy on those stressors they can control. Therapist led an activity aimed at inducing stress to help clients use in the moment coping strategies and support. Therapist facilitated brainstorming of strategies to help manage stress level. Therapist provided support by using active listening and providing feedback.
--- NOTE | 2017-12-20 14:25 | BH.SGPN ---
Service Group Progress Note - Session Psychotherapy Session #1 Date Open:: 12/20/17 Time Started:: 09:10 Time Stopped:: 10:00 Targeted Problem #:: 1 Type of Group:: Process Goal of Group:: The goal of today's group was to check-in with client's mood, stressors, and positives, review homework and introduce topic for the day. Client Response/Progress/Benefit:: Client initially reported she did not want check-in identifying her emotion to be despondent. Client open up a little bit after receiving a compliment from a peer on the fact that client was able to make it into IOP today despite having a difficult day yesterday. Client shared she did not really want to come today but recognized this is what she needs in order to keep moving forward. With coaching client able to recognize she has been a lot of progress despite not feeling very good this week. Client having some difficulty recognizing the positive gains she has made due to having recent medication issues which seems to make it more difficult for client to be able to manage her emotions. Client seemed benefit from support from peers as well as having her thoughts gently challenged. Eye Contact:: Fair Motor Activity:: Restless Appearance:: Casual Speech:: Appropriate Mood:: Anxious, Irritable Affect:: Flat Thoughts:: Linear, No evidence of hallucinations/delusions noted Staff Interventions:: Therapist used open-ended questions to elicit information about client's current stressors and mood state. Therapist was supportive by using active listening and reflection.
--- NOTE | 2017-12-21 14:22 | BH.SGPN_ITS ---
Service Group Progress Note - Session Psychotherapy Session #2 Date Open:: 12/20/17 - 6 group members Time Started:: 10:12 Time Stopped:: 11:06 Targeted Problem #:: 1 Type of Group:: Illness Management Goal of Group:: To increase understanding of mindfulness and explore the benefits of mindfulness and what thoughts are prohibiting group members to stay in the present. Behaviors/Verbalizations/Mental Status:: Client appeared upset after a peer made a comment to her as shown by client's change in body language and client leaving after second group. Client Response/Progress/Benefit:: Client responded somewhat well to session, appeared to be listening as shown by eye contact, but body language and mood portrayed agitation and discomfort. Client listened as peers processed the quote and the benefits of mindfulness. Client stated stress, triggers, and anxiety keep client from being present. Client was engaged in the various mindfulness activities and reported guided imagery as most beneficial to client. Client appeared to benefit from using in the moment coping skills to manage irritability as well as from learning numerous mindfulness skills. Client seems to be progressing as shown by decreased isolation, but can continue to benefit from challenging negative thoughts. Eye Contact:: Poor Motor Activity:: Appropriate Appearance:: Casual Speech:: Soft Mood:: Irritable, Dysthymic Affect:: Flat Thoughts:: Linear, No evidence of hallucinations/delusions noted Staff Interventions:: Therapist provided each group member with a worksheet to complete that asked questions about possible stressors and overwhelming thoughts that take up their attention and assist client in redirecting thoughts by completing an activity. Therapist led the processing of the worksheet and activity, helping client?s connect how negative thoughts can impact them. Therapist provided support by using active listening and providing feedback.
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
--- NOTE | 2017-12-24 15:49 | BH.MDN ---
Multi-Disciplinary Note - Note 60-min Individual Time Started:: 14:32 Date: 12/24/17 Eye Contact:: Good Motor Activity:: Appropriate Appearance:: Casual Speech:: Appropriate Mood:: Dysthymic Affect:: Congruent Thoughts:: Linear, Logical, No evidence of hallucinations/delusions noted Time Stopped:: 15:40
--- NOTE | 2017-12-25 12:18 | BH.SGPN ---
Service Group Progress Note - Session Psychotherapy Session #1 Date Open:: 12/25/17 Time Started:: 09:05 Time Stopped:: 10:05 Targeted Problem #:: 1 Type of Group:: Process - 5 group members Goal of Group:: The goal of today's group was to check-in with client's mood, stressors, and positives, review homework and introduce topic for the day. Client Response/Progress/Benefit:: Client reported last week was horrible, but recognizes she was able to get through the tough situations. Client reported over the weekend she was able to sleep for 8 hours which is something she has been able to do in a long time. Reported meeting with her [facility] therapist yesterday really seemed to help her move on from something she is holding onto from last week. Client reported she is glad she is back to [facility] because she recognizes she needs to be here for her. Client identified feeling happy which is something she has not felt in a long time. Client demonstrating progress as evidenced by her being able to effectively cope with various stressors over the past week without reverting back to her old coping strategies. Eye Contact:: Good Motor Activity:: Appropriate Appearance:: Casual Speech:: Appropriate Mood:: Euthymic Affect:: Congruent Thoughts:: Linear, Logical, No evidence of hallucinations/delusions noted Staff Interventions:: Therapist used open-ended questions to elicit information about client's current stressors and mood state. Therapist was supportive by using active listening and reflection.
--- NOTE | 2017-12-25 12:21 | BH.SGPN_ITS ---
Service Group Progress Note - Session Psychotherapy Session #1 Date Open:: 12/25/17 Time Started:: 09:05 Time Stopped:: 10:05 Targeted Problem #:: 1 Type of Group:: Process - 5 group members Goal of Group:: The goal of today's group was to check-in with client's mood, stressors, and positives, review homework and introduce topic for the day. Client Response/Progress/Benefit:: Client reported last week was horrible, but recognizes she was able to get through the tough situations. Client reported over the weekend she was able to sleep for 8 hours which is something she has been able to do in a long time. Reported meeting with her [facility] therapist yesterday really seemed to help her move on from something she is holding onto from last week. Client reported she is glad she is back to [facility] because she recognizes she needs to be here for her. Client identified feeling happy which is something she has not felt in a long time. Client demonstrating progress as evidenced by her being able to effectively cope with various stressors over the past week without reverting back to her old coping strategies. Eye Contact:: Good Motor Activity:: Appropriate Appearance:: Casual Speech:: Appropriate Mood:: Euthymic Affect:: Congruent Thoughts:: Linear, Logical, No evidence of hallucinations/delusions noted Staff Interventions:: Therapist used open-ended questions to elicit information about client's current stressors and mood state. Therapist was supportive by using active listening and reflection.
--- NOTE | 2017-12-25 17:30 | BH.SGPN ---
Service Group Progress Note - Session Psychotherapy Session #2 Date Open:: 12/25/17 Time Started:: 10:16 Time Stopped:: 11:16 Targeted Problem #:: 1 Goal of Group:: To increase self-awareness of current reality in regards to mental wellness and desired mental wellness. Staff Interventions:: Therapist facilitated group discussion about current reality in regards to mental health. Client provided each group member a piece of paper and asked them to draw their current reality. Therapist led the processing of each group member?s drawing. Therapist provided each group member with a second piece of paper and asked client?s to draw desired mental wellness. Therapist processed each group member?s drawing, helping client?s connect the two realities. Psychotherapy Session #3 Date Open:: 12/25/17 Time Started:: 11:26 Time Stopped:: 12:37 Targeted Problem #:: 1 Type of Group:: Functional Skills Development - 6 participants Goal of Group:: To identify obstacles in client?s path to mental wellness and identify which obstacles clients have control over and don?t have control over. Staff Interventions:: Therapist facilitated group discussion about obstacles and the hesitations of overcoming obstacles. Client led group in discussion about what obstacles they have control over and which obstacles are out of their control. Therapist helped client?s connect how each obstacle is preventing them from achieving their desired reality. Therapist provided support by using reflective listening and providing feedback.
--- NOTE | 2017-12-28 09:40 | BH.NET ---
Nursing Education/Training - Session Information Type of Session: Individual Other Health Issues:: Client had complained of dyspnea with exertion and chest pressure to therapist. This RN met with client to evaluate and discuss symptoms. She notes that the shortness of breath and chest pressure are not associated symptoms, and that she feels the chest sensation is more epigastric and related to her reflux. She denies any chest pain, excessive sweating, shoulder pain, or jaw pain. She also notes that she recently had a full cardiac workup for what she thought was chest pain, but nothing other than her reflux was found. Client states that her KINSEY began on Sunday; she denies any cough, orthopnea, sinus pressure, shortness of breath at rest, or cold symptoms. She does not describe severe KINSEY and mentions that she has been wearing her CPAP QHS. BP 136/84, P 74, RR 16 - lungs are clear in all burch, heart sounds are normal and distant due to body habitus. Discussed all of the above with Dr. Aburto. Instructed client to make an appointment with her PCP to further investigate this new onset of KINSEY, and to seek immediately medical attention in the Emergency Dept if it worsenes or she has associated symptoms. Educated about red flag symptoms of respiratory distress and acute coronary syndrome.
--- NOTE | 2017-12-28 14:32 | BH.SGPN ---
Service Group Progress Note - Session Psychotherapy Session #2 Date Open:: 12/28/17 Time Started:: 10:30 Time Stopped:: 11:20 Targeted Problem #:: 1 Type of Group:: Illness Management Eye Contact:: Good Motor Activity:: Appropriate Appearance:: Casual Speech:: Appropriate Mood:: Euthymic, Anxious Affect:: Congruent Thoughts:: Linear, Logical, No evidence of hallucinations/delusions noted Psychotherapy Session #3 Date Open:: 12/28/17 Time Started:: 11:30 Time Stopped:: 12:20 Targeted Problem #:: 1 Type of Group:: Functional Skills Development Eye Contact:: Good Motor Activity:: Appropriate Appearance:: Casual Speech:: Appropriate Mood:: Euthymic, Anxious Affect:: Congruent Thoughts:: Linear, Logical, No evidence of hallucinations/delusions noted
--- NOTE | 2017-12-28 14:57 | BH.SGPN ---
Service Group Progress Note - Session Psychotherapy Session #1 Date Open:: 12/28/17 Time Started:: 09:05 Time Stopped:: 10:16 Targeted Problem #:: 1 Type of Group:: Process - 7 participants Goal of Group:: The goal of today's group was to check-in with client's mood, stressors, and positives, review homework. Thoughts:: Linear, Logical, No evidence of hallucinations/delusions noted Staff Interventions:: Therapist used open-ended questions to elicit information about client's current stressors and mood state. Therapist reviewed homework assigned from previous groups. Therapist was supportive by using active listening and reflection.
--- NOTE | 2018-03-22 10:10 | BH.NA_ITS ---
Physical Data - Vital Signs Pulse Rate: 74 Respiratory Rate: 14 Blood Pressure: 107/60 - Height/Weight Height: 1.52 m Weight:: 113.398 kg Weight in Pounds: 250.0 lbs Current Medication Compliance - Medication Compliance Do you take your medication as prescribed?: Yes Do you need assistance with taking medication?: No Have you had side effects from medication?: No Nutritional History - Appetite Nutritional Instructions:: If client shows signs of a swallowing problem, weight change of 10 pounds or more in the last month, or is on a diabetic diet, the physician will review and request a dietitian consult, as appropriate. All unintentional weight loss will be referred to the physician for decision on need for dietitian consult. Describe your appetite:: Fair Have you noticed a change in your eating habits lately?: Yes - decreased recent w/o significiant wt loss Functional Assessment - Sleep Pattern Describe any problems with sleeping: Difficulty falling and staying asleep that client links to pain. Average nightly sleep 2-4 hours. - Activities Motor Activity:: Functional Sensory/Communication Assess - Hearing Problems Do you have any hearing problems?: Adequate - Communication Problems Do you have difficulty understanding what people are saying?: No Do you have trouble putting your thoughts into words or expressing what you want to say?: No Do people ever have trouble understanding what you say?: No What is your primary language?: Lithuanian Learning Assessment - Learning Barriers Learning Barriers:: Ready to learn Medical Problems/History - Cardiac Conditions Cardiovascular: Hypertension - Respiratory Conditions Respiratory: Other (See comments) - SON - Pain Assessment Do you have acute or chronic pain?: Yes - back and knee - see pain mgmt - Female Reproductive Do you think you may be ?: No Substance Abuse - Substance Abuse Please describe substance abuse in the last 30 days:: former smoker with 30 pack /years, quit 12 years ago Suicide Assessment - Suicidal Ideation Are you currently or have you been suicidal in the past?: Yes Suicidal Intentional Rating Scale (SIRS): Suicidal thoughts (past) Physician Notification: If Active suicidal thoughts/Will not contract for safety is checked, contact physician and document in the Physician Notification section below. Past Psychiatric History - Treatment Hx Describe (age, circumstance, etc) any past hospitalizations: 2001 - by [facility]) Fall Risk Assessment - Age Age: 60-70 - Mental Status Mental Status: Willing & able to ask for assistance when needed - Physical Status Physical Status: No problems - Impairments Impairments: None - Elimination Elimination: Continent AND independent - Gait or Balance Gait or Balance: Walks independently - Hx of Falls History of falls in the past 6 months: No known history - Medications/Substances Psychotropics:: Mood stabilizers Others:: Antihypertensives Medications/substances used within the past 24 hours or ordered to administer: 1 -2 of the medications/substances listed above - Total Score Total Points:: 2 RN Summary of Impressions - Impressions Recommendations: Include psychiatric and medical issues, treatment planning recommendations, and discharge planning needs. - Level of Care How do the client's current symptoms and functional deficits support need for this level of care?: Client endorses increased depressive symptoms with slow decompensation over the past 2 years. She describes isolative behaviors, not finding enjoyment in anything, and lacking motivation. Her sons are a large source of stress, given that they have been in legal trouble for drugs. She has recently started on a mood stabilizer, but she is unsure if it will help. She does describe some symtoms consistent with bipolar d/o. IOP will promote gains and prevent further decompensation.
[2018-03-22 12:44] VITALS: BP 107/60; PULSE 74; RESP 14
== END 2017-12-29 23:59 ==
LOC: BHIOP 09:00
PROVIDERS: Family Provider Family Medicine; PCP Family Medicine; Visit Provider Psychiatry & Neurology Psychiatry
DX: F31.81 Bipolar II disorder (principal); F41.9 Anxiety disorder, unspecified; G47.33 Obstructive sleep apnea (adult) (pediatric); E55.9 Vitamin D deficiency, unspecified
CPT/HCPCS: H0035; 90834; 90837; 90853

== ENCOUNTER 2017-12-31 09:00 | Outpatient (RCR) | payer MEDICARE, MEDICAID, SELFPAY ==
--- NOTE | 2017-12-31 12:37 | BH.SGPN ---
Service Group Progress Note - Session Psychotherapy Session #2 Date Open:: 12/31/17 group members Time Started:: 10:17 Time Stopped:: 11:14 Targeted Problem #:: 1 Type of Group:: Illness Management Goal of Group:: The goal of group was to increase understanding of coping strategies and impact problems have on self. Another goal was to practice utilizing coping skills in the moment. Client Response/Progress/Benefit:: Client responded well to session, passive participant at times. Client appeared to connect with the topic stating she has learned how to cope from her mother. Client reported all my life I was taught to keep things in and not show emotion which has made it difficult for client as she has used isolation and avoidance to cope with depression and anxiety. Client participated in an activity aimed to help client use in the moment coping strategies. Client reported she was nervous to participant because she did not want to mess things up for the group, however, with therapist elicitation client coped with her anxiety and contributed. Client connected that she often does this in life as well, when things seem overwhelming she wants to quit. Client reported it is important to have a solid base of coping skills, so when external events happen you dont collapse. Client appeared to benefit from increasing awareness of how one develops unhealthy coping skills and the importance of having a balance of internal and external coping skills. Client demonstrating progress with reduced isolation, but can continue to benefit from challenging negative thoughts. Eye Contact:: Fair Motor Activity:: Appropriate Appearance:: Neat Speech:: Appropriate Mood:: Dysthymic Affect:: Congruent Thoughts:: Linear, No evidence of hallucinations/delusions noted Staff Interventions:: Therapist facilitated the group discussion about coping strategies. Therapist provided group members with folders and gave them the challenge to work together and build the tallest tower with the given supplies. Therapist utilized the activity as a tool to process what it feels like when dealing with problems and what strategies they used to cope throughout activity. Psychotherapy Session #3 Date Open:: 12/31/17 - group members Time Started:: 11:22 Time Stopped:: 12:15 Targeted Problem #:: 1 Type of Group:: Functional Skills Development Goal of Group:: Goal was to increase clients self-awareness on their use of coping strategies and increase repertoire of healthy coping strategies. Client Response/Progress/Benefit:: Client responded well to session, participating when prompted. Client reported I dont have any internal skills, I just isolate. Client was receptive to gentle challenging from therapist and after client recognized she may not be perfect but she has shown progress in reducing unhealthy coping skills. Client was also receptive to group feedback as they helped client identify internal coping skills she possesses such as resiliency and setting small goals. Client helped the group develop a list of coping skills for the following categories: distraction, self-love, thought challenge, emotional release, and grounding. Client created a 'coping skills menu' which included, reading, coloring, developing a positive mantra, keeping track of positives, and using positive affirmations. Client appeared to benefit from gaining awareness of the various types of coping skills and the purpose each category serves. Client progressing as evidenced by her improved mood, but can continue to benefit from coping skills maintenance and challenging negative thoughts. Eye Contact:: Good Motor Activity:: Appropriate Appearance:: Neat - hair down Speech:: Appropriate Mood:: Dysthymic Affect:: Constricted Thoughts:: Linear, No evidence of hallucinations/delusions noted Staff Interventions:: Therapist facilitated discussion about the different types of coping skills. Therapist led group in an activity in which group members were asked to brainstorm coping strategies that fit in each coping skill category. Therapist reviewed each coping strategy with the group and led a discussion about whether the coping strategies identified were healthy or unhealthy. Therapist provided homework in which group members creating a coping skills menu and would practice two skills a day.
--- NOTE | 2017-12-31 12:43 | BH.SGPN_ITS ---
Service Group Progress Note - Session Psychotherapy Session #2 Date Open:: 12/31/17 group members Time Started:: 10:17 Time Stopped:: 11:14 Targeted Problem #:: 1 Type of Group:: Illness Management Goal of Group:: The goal of group was to increase understanding of coping strategies and impact problems have on self. Another goal was to practice utilizing coping skills in the moment. Client Response/Progress/Benefit:: Client responded well to session, passive participant at times. Client appeared to connect with the topic stating she has learned how to cope from her mother. Client reported ?all my life I was taught to keep things in and not show emotion? which has made it difficult for client as she has used isolation and avoidance to cope with depression and anxiety. Client participated in an activity aimed to help client use in the moment coping strategies. Client reported she was nervous to participant because she did not want to mess things up for the group, however, with therapist elicitation client coped with her anxiety and contributed. Client connected that she often does this in life as well, when things seem overwhelming she wants to quit. Client reported it is important to have a solid base of coping skills, so when external events happen ?you don?t collapse.? Client appeared to benefit from increasing awareness of how one develops unhealthy coping skills and the importance of having a balance of internal and external coping skills. Client demonstrating progress with reduced isolation, but can continue to benefit from challenging negative thoughts. Eye Contact:: Fair Motor Activity:: Appropriate Appearance:: Neat Speech:: Appropriate Mood:: Dysthymic Affect:: Congruent Thoughts:: Linear, No evidence of hallucinations/delusions noted Staff Interventions:: Therapist facilitated the group discussion about coping strategies. Therapist provided group members with folders and gave them the challenge to work together and build the tallest tower with the given supplies. Therapist utilized the activity as a tool to process what it feels like when dealing with problems and what strategies they used to cope throughout activity. Psychotherapy Session #3 Date Open:: 12/31/17 - group members Time Started:: 11:22 Time Stopped:: 12:15 Targeted Problem #:: 1 Type of Group:: Functional Skills Development Goal of Group:: Goal was to increase client?s self-awareness on their use of coping strategies and increase repertoire of healthy coping strategies. Client Response/Progress/Benefit:: Client responded well to session, participating when prompted. Client reported ?I don?t have any internal skills, I just isolate.? Client was receptive to gentle challenging from therapist and after client recognized she may not be ?perfect? but she has shown progress in reducing unhealthy coping skills. Client was also receptive to group feedback as they helped client identify internal coping skills she possesses such as resiliency and setting small goals. Client helped the group develop a list of coping skills for the following categories: distraction, self-love, thought challenge, emotional release, and grounding. Client created a 'coping skills menu' which included, reading, coloring, developing a positive mantra, keeping track of positives, and using positive affirmations. Client appeared to benefit from gaining awareness of the various types of coping skills and the purpose each category serves. Client progressing as evidenced by her improved mood, but can continue to benefit from coping skills maintenance and challenging negative thoughts. Eye Contact:: Good Motor Activity:: Appropriate Appearance:: Neat - hair down Speech:: Appropriate Mood:: Dysthymic Affect:: Constricted Thoughts:: Linear, No evidence of hallucinations/delusions noted Staff Interventions:: Therapist facilitated discussion about the different types of coping skills. Therapist led group in an activity in which group members were asked to brainstorm coping strategies that fit in each coping skill category. Therapist reviewed each coping strategy with the group and led a discussion about whether the coping strategies identified were healthy or unhealthy. Therapist provided homework in which group members creating a coping skills menu and would practice two skills a day.
--- NOTE | 2017-12-31 13:49 | BH.SGPN ---
Service Group Progress Note - Session Psychotherapy Session #1 Date Open:: 12/31/17 Time Started:: 09:05 Time Stopped:: 10:04 Targeted Problem #:: 1 Type of Group:: Process Goal of Group:: The goal of today's group was to check-in with client's mood, stressors, and positives, review homework and introduce topic for the day. Client Response/Progress/Benefit:: Client reported over the weekend she was able to be productive by getting some house chores done. Client verbalizes being pleased with herself that she was able to be productive. 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 Yesterday she was stuck in my head initially not wanting to elaborate on what that meant but with probing client shared she remains about being alone on the holiday. Seemed to benefit from expressing thoughts and feelings as well as receiving support from others. Progress noted as evidenced by client opening up to group about her emotions and continuing to get out of the house over the weekend. Eye Contact:: Fair Motor Activity:: Appropriate Appearance:: Casual Speech:: Appropriate Mood:: Anxious, Dysthymic Affect:: Constricted Thoughts:: Linear, No evidence of hallucinations/delusions noted Staff Interventions:: Therapist used open-ended questions to elicit information about client's current stressors and mood state. Therapist was supportive by using active listening and reflection.
--- NOTE | 2018-01-01 13:53 | BH.SGPN_ITS ---
Service Group Progress Note - Session Psychotherapy Session #1 Date Open:: 12/31/17 Time Started:: 09:05 Time Stopped:: 10:04 Targeted Problem #:: 1 Type of Group:: Process Goal of Group:: The goal of today's group was to check-in with client's mood, stressors, and positives, review homework and introduce topic for the day. Client Response/Progress/Benefit:: Client reported over the weekend she was able to be productive by getting some house chores done. Client verbalizes being pleased with herself that she was able to be productive. 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 Yesterday she was stuck in my head initially not wanting to elaborate on what that meant but with probing client shared she remains about being alone on the holiday. Seemed to benefit from expressing thoughts and feelings as well as receiving support from others. Progress noted as evidenced by client opening up to group about her emotions and continuing to get out of the house over the weekend. Eye Contact:: Fair Motor Activity:: Appropriate Appearance:: Casual Speech:: Appropriate Mood:: Anxious, Dysthymic Affect:: Constricted Thoughts:: Linear, No evidence of hallucinations/delusions noted Staff Interventions:: Therapist used open-ended questions to elicit information about client's current stressors and mood state. Therapist was supportive by using active listening and reflection.
--- NOTE | 2018-01-02 11:32 | BH.SGPN ---
Service Group Progress Note - Session Psychotherapy Session #1 Date Open:: 18 - 8 group members Time Started:: 09:03 Time Stopped:: 10:10 Targeted Problem #:: 1 Type of Group:: Process Goal of Group:: The goal of today's group was to check-in with client's mood, stressors, and positives, and review homework. Client Response/Progress/Benefit:: Client responded well to session, open to supportive statements from peers. Client reports feeling ?apprehensive? as she feels stuck with her progress, but is still looking forward with hope. Client stated, ?I feel like I?m moving backwards not forward,? but after gentle challenging from therapist and peers, client reflected on the progress she has made such as reduced isolation and managing anxiety when out in public. 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 Client's birthday is coming up which serves as a depressive trigger, but client was receptive to ways she could enjoy her birthday more this year. Client appeared to benefit from challenging her negative thinking in the moment. Client demonstrating progress as shown by her reduced isolation and increased implementation of coping skills, but continues to minimize her progress which could keep client stuck. Eye Contact:: Good Motor Activity:: Appropriate Appearance:: Casual Speech:: Appropriate Mood:: Irritable, Depressed Affect:: Constricted Thoughts:: Linear, No evidence of hallucinations/delusions noted Staff Interventions:: Therapist used open-ended questions to elicit information about client's current stressors and mood state. Therapist was supportive by using active listening and reflection.
--- NOTE | 2018-01-03 14:32 | BH.SGPN ---
Service Group Progress Note - Session Psychotherapy Session #2 Date Open:: 01/03/18 - 7 group members Time Started:: 10:10 Time Stopped:: 11:03 Targeted Problem #:: 1 Type of Group:: Illness Management Goal of Group:: To increase understanding of pitfalls and impact can have on mental health. Client Response/Progress/Benefit:: Client responded well to session, did not want to engage in activity at first, but then active. Client connected with the quote, sharing the easy path is like my comfort zone. Client stated pitfalls are like dark wells and hardships that are challenging to overcome. Client shared pitfalls can lead to increased depression, feelings of hopelessness, and panic. Client appeared to benefit from increasing awareness of the impact pitfalls have on mental health. Eye Contact:: Fair Motor Activity:: Appropriate Appearance:: Casual Speech:: Appropriate Mood:: Irritable, Other - less irritable towards end of session. Affect:: Constricted Thoughts:: Linear, No evidence of hallucinations/delusions noted Staff Interventions:: Therapist facilitated discussion about pitfalls and assisted group in identifying common pitfalls that can set you back. Therapist led group in an activity to help group understand impact pitfalls can have on oneself and identify strategies that could help you get back on the right path. Therapist provided support by using active listening and providing feedback. Psychotherapy Session #3 Date Open:: 01/03/18 - 6 group members Time Started:: 11:10 Time Stopped:: 12:10 Targeted Problem #:: 1 Type of Group:: Functional Skills Development Goal of Group:: To identify personal pitfalls and what keeps them stuck from moving forward. Client Response/Progress/Benefit:: Client responded well to session, active participant. Client identified her personal pitfalls to be: feeling invisible, mind-reading, avoidance, isolation, physical pain, and no self-esteem. Client stated she has been learning to recognize warning signs and use healthy coping skills to prevent falling into pitfalls. Client identified other strategies to be communicating with supports, realizing I have to take responsibility, and celebrate small wins. Client appeared to benefit from gaining awareness of personal pitfalls and identifying coping strategies. Progress noted as shown by client's improved outlook and generalization of coping. Eye Contact:: Good Motor Activity:: Appropriate Appearance:: Casual Speech:: Appropriate Mood:: Euthymic Affect:: Constricted Thoughts:: Linear, No evidence of hallucinations/delusions noted Staff Interventions:: Therapist facilitated activity in which group members were given the task to identify personal pitfalls and what keeps them stuck from moving past the pitfall. Therapist provided group members with the homework assignment of identifying strategies that can help them overcome pitfalls.
--- NOTE | 2018-01-03 14:53 | BH.MDN ---
Multi-Disciplinary Note - Note 45-min Individual Time Started:: 12:20 Date: 01/03/18 Eye Contact:: Good Motor Activity:: Appropriate Appearance:: Casual Speech:: Appropriate Mood:: Dysthymic Affect:: Congruent Thoughts:: Linear, Logical, No evidence of hallucinations/delusions noted Time Stopped:: 13:10
--- NOTE | 2018-01-04 11:10 | BH.SGPN ---
Service Group Progress Note - Session Psychotherapy Session #1 Date Open:: 01/04/18 Time Started:: 09:00 Time Stopped:: 10:00 Type of Group:: Process - 9 group members Goal of Group:: The goal of today's group was to check-in with client's mood, stressors, and positives, review homework and introduce topic for the day Client Response/Progress/Benefit:: Active participant in group discussion. Provided appropriate feedback to peers. Emotion for today is positive. Shared with the group that she had completed numerous tasks yesterday which she had been avoiding. Reports that she has started a gratitude list at the suggestion of her therapist which has been helpful as she often discounts her progress and positives. Was able to identify several small accomplishments over the past few days. Also shared that she ordered a coloring book to help with distraction. Benefited from group support and praise. Progress noted with improved mood, decreased avoidance, and utilization of skills. Will continue in IOP to maintain gains, prevent decompensation, decreased isolation, and stablize mood. Eye Contact:: Fair Motor Activity:: Appropriate Appearance:: Disheveled Speech:: Appropriate Mood:: Anxious Affect:: Congruent Thoughts:: Linear, Logical, No evidence of hallucinations/delusions noted Staff Interventions:: Therapist used open-ended questions to elicit information about client's current stressors and mood state. Therapist was supportive by using active listening and reflection.
--- NOTE | 2018-01-04 14:18 | BH.SGPN ---
Service Group Progress Note - Session Psychotherapy Session #2 Date Open:: 01/04/18 Time Started:: 10:15 Time Stopped:: 11:05 Targeted Problem #:: 1 Type of Group:: Illness Management Goal of Group:: To increase understanding of a crisis and improve clients awareness of how he/she feels when in a crisis. Staff Interventions:: Therapist facilitated group discussion about defining a crisis and specifying various events that are considered a crisis. Therapist led group in an activity in which group members had to identify their thoughts and emotions attached to being in a crisis. Therapist provided support by using active listening and providing feedback. Psychotherapy Session #3 Date Open:: 01/04/18 Time Started:: 11:15 Time Stopped:: 12:10 Targeted Problem #:: 1 Type of Group:: Functional Skills Development Goal of Group:: To increase awareness of warning signs before a crisis and identify interventions/coping strategies that would help clients proactively manage potential crises. Staff Interventions:: Therapist led the group in discussion about identifying personal warning signs before a crisis and importance of being aware of those signs.Therapist provided the group with various types of items and asked each group member to select five items that represent something that would be helpful in managing their warning signs of a crisis. Therapist facilitated group processing of the crisis emergency kits each group member created. Therapist used open-ended questions to encourage elaboration of each item chosen for their kit. Therapist helped clients connect how the crisis emergency kit could help be a crisis prevention tool.
--- NOTE | 2018-01-04 14:22 | BH.SGPN ---
Service Group Progress Note - Session Psychotherapy Session #2 Date Open:: 01/04/18 Time Started:: 10:15 Time Stopped:: 11:05 Targeted Problem #:: 1 Type of Group:: Illness Management Behaviors/Verbalizations/Mental Status:: To increase understanding of a crisis and improve clients awareness of how he/she feels when in a crisis. Client Response/Progress/Benefit:: Patient listened attentively to others and contributed to discussion. Client appeared to relate to as evidenced by client sharing that by coming to the IOP program is helped open her gaining awareness of the choices that she has been making that are keeping her stuck as well as given the opportunity to open up to others about her thoughts and feelings which typically client shared she keeps hidden. Client shared when she is in crisis she feels like she just spirals until she completely shuts everybody off. Client reported she recognizes shutting everyone out doesn't help her situation. Client seemed to benefit from increased awareness of how her reaction to crisis can result in increased problems. Eye Contact:: Fair Motor Activity:: Appropriate Appearance:: Casual Speech:: Appropriate Mood:: Dysthymic, Other - Tearful Affect:: Constricted Thoughts:: Linear, Logical, No evidence of hallucinations/delusions noted Staff Interventions:: Therapist facilitated group discussion about defining a crisis and specifying various events that are considered a crisis. Therapist led group in an activity in which group members had to identify their thoughts and emotions attached to being in a crisis. Therapist provided support by using active listening and providing feedback. Psychotherapy Session #3 Date Open:: 01/04/18 Time Started:: 11:15 Time Stopped:: 12:10 Targeted Problem #:: 1 Type of Group:: Functional Skills Development Goal of Group:: To increase awareness of warning signs before a crisis and identify interventions/coping strategies that would help clients proactively manage potential crises. Client Response/Progress/Benefit:: Pt contributed to discussion and listened attentively to others. Pt identified for her crisis survival kit she chose the following items: flower to remind her of wilda of being outside, heart to remind herself to have self-love, shell to remind her of the comfort beach and ocean provides, butterfly to remind her that nature is relaxing and tea because it can be calming. Pt seemed to benefit from increased awareness of her warning signs before a personal crisis and creating a crisis kit that include items to remind her of what helps. Eye Contact:: Fair Motor Activity:: Appropriate Appearance:: Casual Speech:: Appropriate Mood:: Dysthymic Affect:: Constricted Thoughts:: Linear, Logical, No evidence of hallucinations/delusions noted Staff Interventions:: Therapist led the group in discussion about identifying personal warning signs before a crisis and importance of being aware of those signs.Therapist provided the group with various types of items and asked each group member to select five items that represent something that would be helpful in managing their warning signs of a crisis. Therapist facilitated group processing of the crisis emergency kits each group member created. Therapist used open-ended questions to encourage elaboration of each item chosen for their kit. Therapist helped clients connect how the crisis emergency kit could help be a crisis prevention tool.
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
--- NOTE | 2018-01-07 14:11 | BH.SGPN ---
Service Group Progress Note - Session Psychotherapy Session #2 Date Open:: 01/07/18 Time Started:: 10:23 Time Stopped:: 11:17 Targeted Problem #:: 1 Type of Group:: Illness Management - 6 participants Goal of Group:: To increase understanding of the various life chapters people can go through and the impacts various internal and external factors may have on what chapter someone may currently be on. Another goal was to increase self-awareness of view of their past, present, and future. Client Response/Progress/Benefit:: Client responded well to session and remained engaged throughout. She provided positive input and insight to the group regarding the various factors contributing to the choices we may make and what impact this may have on what chapter of our life we are in. CLient indicated connecting with others responses regarding fear of disappointing. She benefited from reflecting further upon the influence her desire to please everyone else has had on making what choices may be most beneficial to her. Client disclosed that this has prevented her from living the chapter of her life she really wanted and stopped her from doing things to move towards the next chapter. CLient benefited from the support of the group environment and displayed progress in her ability to openly discuss a percieved past failure with the group. CLient recommended continued IOP to continue to facilitate implementation of the tx concepts discussed. Eye Contact:: Good Motor Activity:: Appropriate Appearance:: Casual Speech:: Appropriate Mood:: Euthymic Affect:: Congruent Thoughts:: Linear, Logical, No evidence of hallucinations/delusions noted Staff Interventions:: Therapist provided each group member with a handout labeled Chapters of My Life and facilitated group discussion about each of the five chapters from the handout. Therapist led an activity to help clients gain self-awareness of how perspective impacts the chapter we may be on. Therapist provided support by using reflective listening and providing feedback. Psychotherapy Session #3 Date Open:: 01/07/18 Time Started:: 11:25 Time Stopped:: 12:15 Targeted Problem #:: 1 Type of Group:: Functional Skills Development - 6 participants Goal of Group:: To provide education regarding the 7 steps to effective decision making and assist client in identifying the personal steps needed to act on the decision to move past current chapter of life. Another goal was to identify what strategies and supports may help them move to the next chapter in life. Client Response/Progress/Benefit:: Client again was well engaged and an active participant. She reflected with the group on what chapter she currently believes she is in, indicating I started here in Chapter 1 but now I think I'm in 4. Client discussed that taking baby steps to decrease isolation has been helpful in continuing to make progress. She went on to indicate I don't want to just walk on the other side of the sidewalk...I want a whole different road. CLient did well to connect the 7 steps to effective decision making with identifying the first decision towards change she must make in order to move towards a new chapter in her life. Client identified decreasing isolation as the change she would like to incorporate and benefited from identifying various motivations encouraging to follow through in implementing this step. She identified reaching out to current supports as one strategy for decreasing isolation. Eye Contact:: Good Motor Activity:: Appropriate Appearance:: Casual Speech:: Appropriate Mood:: Euthymic Affect:: Full, Congruent Thoughts:: Linear, Logical, No evidence of hallucinations/delusions noted Staff Interventions:: Therapist processed which chapter each group member identified for the past, present and future. Provided education regarding the 7 steps to effective decision making and assisted clients in applying this concept to personal life. Therapist used open ended questions to elicit elaboration. Therapist led discussion about what has helped each person move to the current life chapter. Therapist assisted clients with identifying what are barriers to moving forward. Therapist provided support by using active listening and providing feedback.
--- NOTE | 2018-01-07 14:34 | BH.SGPN_ITS ---
Service Group Progress Note - Session Psychotherapy Session #2 Date Open:: 01/07/18 Time Started:: 10:23 Time Stopped:: 11:17 Targeted Problem #:: 1 Type of Group:: Illness Management - 6 participants Goal of Group:: To increase understanding of the various life chapter?s people can go through and the impacts various internal and external factors may have on what chapter someone may currently be on. Another goal was to increase self- awareness of view of their past, present, and future. Client Response/Progress/Benefit:: Client responded well to session and remained engaged throughout. She provided positive input and insight to the group regarding the various factors contributing to the choices we may make and what impact this may have on what chapter of our life we are in. CLient indicated connecting with others responses regarding fear of disappointing. She benefited from reflecting further upon the influence her desire to please everyone else has had on making what choices may be most beneficial to her. Client disclosed that this has prevented her from living the chapter of her life she really wanted and stopped her from doing things to move towards the next chapter. CLient benefited from the support of the group environment and displayed progress in her ability to openly discuss a percieved past failure with the group. CLient recommended continued IOP to continue to facilitate implementation of the tx concepts discussed. Eye Contact:: Good Motor Activity:: Appropriate Appearance:: Casual Speech:: Appropriate Mood:: Euthymic Affect:: Congruent Thoughts:: Linear, Logical, No evidence of hallucinations/delusions noted Staff Interventions:: Therapist provided each group member with a handout labeled ?Chapters of My Life? and facilitated group discussion about each of the five chapters from the handout. Therapist led an activity to help client?s gain self-awareness of how perspective impacts the chapter we may be on. Therapist provided support by using reflective listening and providing feedback. Psychotherapy Session #3 Date Open:: 01/07/18 Time Started:: 11:25 Time Stopped:: 12:15 Targeted Problem #:: 1 Type of Group:: Functional Skills Development - 6 participants Goal of Group:: To provide education regarding the 7 steps to effective decision making and assist client in identifying the personal steps needed to act on the decision to move past current chapter of life. Another goal was to identify what strategies and supports may help them move to the next chapter in life. Client Response/Progress/Benefit:: Client again was well engaged and an active participant. She reflected with the group on what chapter she currently believes she is in, indicating I started here in Chapter 1 but now I think I'm in 4. Client discussed that taking baby steps to decrease isolation has been helpful in continuing to make progress. She went on to indicate I don't want to just walk on the other side of the sidewalk...I want a whole different road . CLient did well to connect the 7 steps to effective decision making with identifying the first decision towards change she must make in order to move towards a new chapter in her life. Client identified decreasing isolation as the change she would like to incorporate and benefited from identifying various motivations encouraging to follow through in implementing this step. She identified reaching out to current supports as one strategy for decreasing isolation. Eye Contact:: Good Motor Activity:: Appropriate Appearance:: Casual Speech:: Appropriate Mood:: Euthymic Affect:: Full, Congruent Thoughts:: Linear, Logical, No evidence of hallucinations/delusions noted Staff Interventions:: Therapist processed which chapter each group member identified for the past, present and future. Provided education regarding the 7 steps to effective decision making and assisted clients in applying this concept to personal life. Therapist used open ended questions to elicit elaboration. Therapist led discussion about what has helped each person move to the current life chapter. Therapist assisted clients with identifying what are barriers to moving forward. Therapist provided support by using active listening and providing feedback.
--- NOTE | 2018-01-08 14:10 | BH.SGPN_ITS ---
Service Group Progress Note - Session Psychotherapy Session #2 Date Open:: 01/08/18 - group members Time Started:: 10:17 Time Stopped:: 11:12 Targeted Problem #:: 1 Type of Group:: Illness Management Goal of Group:: To identify within self what is keeping client trapped from achieving better quality of life. Client Response/Progress/Benefit:: Client responded well to session, receptive to gentle challenging. Client connected with the topic sharing ?It?s easy to stay stuck in the cycle.? Client shared isolation, negative thinking, and avoidance keeps client stuck. Client identified her top negative thoughts as ?I? m not worthy, I quit, I?m not good enough, and I shouldn?t try it hurts too much.? Client reported she is in a better place now, which makes it upsetting to look back on her negative thinking patterns. However, with therapist elitication, client recognized the importance of being self-aware and proactive. Progress noted in client?s improved mood and application of skills. Can continue to benefit from coping skill maintenance. Eye Contact:: Fair Motor Activity:: Appropriate Appearance:: Casual Speech:: Appropriate Mood:: Euthymic Affect:: Constricted Thoughts:: Linear, No evidence of hallucinations/delusions noted Staff Interventions:: Therapist facilitated discussion about what is keeping client?s stuck from moving toward mental wellness. Therapist assisted clients in connecting how thoughts can contribute to keeping clients stuck. Therapist led discussion about barriers clients face from making changes to help one move forward. Therapist provided support by using active listening and giving feedback to others. Psychotherapy Session #3 Date Open:: 01/08/18 - group members Time Started:: :18 Time Stopped:: 12:20 Targeted Problem #:: 1 Type of Group:: Functional Skills Development Goal of Group:: To identify what client can do to release self from those things that are trapping them to find more peace and quality in everyday life. Client Response/Progress/Benefit:: Client responded well to session, providing supportive statements to peers. Client selected ?I?m not good enough? the negative thought she wanted to challenge. Client shared the thought is unrealistic as it is ?disqualifying the positives and mind-reading.? Client reported she isolates and has increased depression when she thinks this way. Client reframed the thought to ?I?m okay? and stated this will reduce self- judgement and improve her emotional well-being. Client appeared to benefit from reframing negative thought patterns. Client to continue IOP to promote gains and increase healthy coping skills. Eye Contact:: Good Motor Activity:: Appropriate Appearance:: Casual Speech:: Appropriate Mood:: Euthymic Affect:: Full Thoughts:: Linear, No evidence of hallucinations/delusions noted Staff Interventions:: Therapist used examples of maintenance cycles to help clients gain awareness of how negative thinking is keeping clients stuck. Therapist facilitated discussion about different strategies for challenging negative thoughts, assisting clients in connecting how the strategies could benefit them. Therapist provided clients with homework to focus on one thing that is keeping them stuck and identify small steps to start moving towards mental wellness.
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
--- NOTE | 2018-01-08 17:09 | BH.SGPN ---
Service Group Progress Note - Session Psychotherapy Session #1 Date Open:: 01/08/18 Time Started:: 09:05 Time Stopped:: 10:08 Targeted Problem #:: 1 Type of Group:: Process - 6 group members Goal of Group:: The goal of today's group was to check-in with client's mood, stressors, and positives, review homework and introduce topic for the day. Client Response/Progress/Benefit:: Client reported she scheduled a doctor's appointment to figure out why she is having reading difficulties. Client shared she also scheduled a next appointment for her pain. Client reported she is specified to the depression bipolar support group yesterday but did not go because her reminder did not go off. Client shared her anxiety was not the reason she did not attend group and recognizes it is important to be able to have a support group for her to attend once IOP is over. Client open to going for a tour of the support group tomorrow because it might make her feel more comfortable in the group occurs next week. Client is demonstrating progress as evidenced by her getting out of the house, being open to attending a group, and reporting decreased depressive symptoms. Eye Contact:: Good Motor Activity:: Appropriate Appearance:: Casual Speech:: Appropriate Mood:: Euthymic Affect:: Congruent Thoughts:: Linear, Logical, No evidence of hallucinations/delusions noted Staff Interventions:: Therapist used open-ended questions to elicit information about client's current stressors and mood state. Therapist was supportive by using active listening and reflection.
--- NOTE | 2018-01-11 14:20 | BH.SGPN ---
Service Group Progress Note - Session Psychotherapy Session #1 Date Open:: 01/11/18 Time Started:: 09:05 Time Stopped:: 10:20 Targeted Problem #:: 1 Type of Group:: Process - 7 group members Goal of Group:: The goal of today's group was to check-in with client's mood, stressors, and positives, review homework and introduce topic for the day. Client Response/Progress/Benefit:: Client reported on Sunday she went to counseling, J[facility], [facility], and housing to get all of the small tasks completed. Client shared was that she also went to the [employer] for tour and went to her psychiatry appointment. Client shared that she was mostly outside of her house majority of the day and is happy with herself for being able to get so much done in 1 day. Client identified feeling hopeful this morning. Client demonstrating progress as evidenced by her reporting decreased anxiety and depressive symptoms as well as getting out of the house more frequently. Eye Contact:: Good Motor Activity:: Appropriate Appearance:: Casual Speech:: Appropriate Mood:: Euthymic Affect:: Congruent Thoughts:: Linear, Logical, No evidence of hallucinations/delusions noted Staff Interventions:: Therapist used open-ended questions to elicit information about client's current stressors and mood state. Therapist was supportive by using active listening and reflection.
--- NOTE | 2018-01-11 15:27 | BH.SGPN_ITS ---
Service Group Progress Note - Session Psychotherapy Session #2 Date Open:: 01/11/18 group members Time Started:: 10:27 Time Stopped:: 11:20 Targeted Problem #:: 1 Type of Group:: Illness Management Goal of Group:: To increase understanding of resilience and identify the factors that contribute to building resilience. Client Response/Progress/Benefit:: Client responded well to session, providing good input to discussion. Client appeared to connect with the quote, stating, ? if we resist change we will break.? Client participated in an activity aimed to create chaos, client reflected on the activity stating ?life is like that, we are always juggling stuff.? Client helped the group identify factors of resiliency such as self-awareness, living to learn, goal setting, and hope and optimism. Client shared it is important to address all areas of life, emotional , mental, spiritual, and physical to increase resilience. Client appeared to benefit from learning the factors and dimensions of resilience. Progress noted as shown by client?s improved mood, but can continue to benefit from challenging negative thinking. Eye Contact:: Good Motor Activity:: Appropriate Appearance:: Neat Speech:: Appropriate Mood:: Euthymic Affect:: Full Thoughts:: Linear, No evidence of hallucinations/delusions noted Staff Interventions:: Therapist led group in an activity that would induce a chaotic environment and used the activity as a tool in discussing the various stressors people are faced with each day. Therapist facilitated group discussion about resilience and explained the factors of building resilience. Therapist led discussion about factors that contribute to resilience. Therapist provided support by using active listening and providing feedback. Psychotherapy Session #3 Date Open:: 01/11/18 group members Time Started:: :27 Time Stopped:: 12:25 Targeted Problem #:: 1 Type of Group:: Functional Skills Development Goal of Group:: To rehearse resilient factors and identify ways to maintain resilience despite hardships and stressors Client Response/Progress/Benefit:: Client responded well to session, active participant. Client reported the the topic today helped her learn to use resilience to work on not getting ?overwhelmed, stressed, and anxious.? Client identified her personal resiliency traits as asking for help, not giving up, and Client shared she plans to continue to challenge negative thinking and use positive supports to maintain resiliency. Client appeared to benefit from identifying ways she demonstrates resiliency and by learning how to maintain resiliency despite hardships. Client to continue IOP to promote use of healthy coping skills and mood stability. Eye Contact:: Good Motor Activity:: Appropriate Appearance:: Casual Mood:: Euthymic, Other - appreciative- became tearful when a peer provided positive feedback. Affect:: Congruent Thoughts:: Linear, No evidence of hallucinations/delusions noted Staff Interventions:: Therapist led group in an activity in which group members were challenged to stay resilient despite various stressors and hardships added to activity. Therapist provided each group member with a stress ball and used stress ball as a tool to discuss factors of resilient personality. Therapist provided group members with a handout about the building blocks of resilience. Therapist provided support by using reflective listening.
--- NOTE | 2018-01-17 10:25 | BH.SGPN ---
Service Group Progress Note - Session Psychotherapy Session #1 Date Open:: 01/17/18 - 7 group members Time Started:: 09:05 Time Stopped:: 09:55 Targeted Problem #:: 1 Type of Group:: Process Goal of Group:: The goal of today's group was to check-in with client's mood, stressors, and positives, and introduce topic for the day. Behaviors/Verbalizations/Mental Status:: Client left early to meet with individual IOP therapist. Client Response/Progress/Benefit:: Client responded well to session, providing supportive statements to peers. Client reports feeling happy today as client shared yesterday was a good day at therapy challenging negative thoughts. Client stated she was proud of herself for scheduling appointments, making dinner, and focusing on self-care. Client shared her son got arrested, which in the past would have triggered anxiety, depression, and made me feel like I have to fix everything. However, client reports now realizing the importance of setting boundaries with her addicted sons so client can avoid getting taken advantage of and finally take care of me. Client appeared to benefit from receiving praise from peers and reflecting on progress. Client to continue IOP to promote mood stability. Eye Contact:: Good Motor Activity:: Appropriate Appearance:: Casual Speech:: Appropriate Mood:: Euthymic Affect:: Constricted Thoughts:: Linear, No evidence of hallucinations/delusions noted Staff Interventions:: Therapist used open-ended questions to elicit information about client's current stressors and mood state. Therapist was supportive by using active listening and reflection.
--- NOTE | 2018-01-25 08:52 | BH.DS ---
Discharge Summary - Demographics Date of Admission:: 11/26/17 Discharge Date: 01/25/18 Presenting Problems at Admission:: Client is a 63-year-old female with history of bipolar disorder, anxiety, and depression. She was referred to [facility] program by outpatient therapist, Sunita Sena, at [address] [place] [address] due to worsening symptoms of depression and anxiety. Patient reports a long-standing history of depression that is been worse over the past 2 years associated with multiple stressors including family stress and medication noncompliance. Client describes current symptoms include anhedonia, decreased sleep, lack of energy, no pleasure in activities previously enjoyed, increased anxiety resulting in isolation and avoidance of supports, as well as passive thoughts of . Discharge Diagnoses:: 1 bipolar 2 disorder of 31.81. Anxiety unspecified. Vitamin D deficiency. Obstructive sleep apnea-CPAP noncompliant Reason for Discharge:: Client has made significant progress on treatment goals and no longer meets the criteria for IOP level of care. - Treatment Progress During Treatment & Response: Client has displayed much progress in regards to her levels of comfort and ability to engage in in the group setting. She was a beneficial group member throughout and provided quality input and encouragement to the group. Client did well to maintain consistent attendance in the program and has demonstrated significant levels of progress during her time in [facility]. Progress can been seen most significantly in the increase in her overall confidence levels. She reports being able to successfully challenge negative thinking patterns and is beginning to increase in levels of socialization. Client additionally has done well to implement both the internal and external coping mechanisms she has learned in order to decrease overall levels of anxiety and depression. She had successfully made observable strides forward in her ability to challenge herself to step outside her comfort zone and begin to reach back out to identified supports. Reports a more positive outlook on life and shared that this is partially due to better boundary setting and beginning to implement a daily gratitude reflection. Issues Still to be Addressed:: Client can benefit from continued work on identifying and addressing negative thinking patterns, specifically Client's tendency to personalize and utilize absolutes which increases negative self-talk. Client can also benefit from continued work on maintaining healthy communication with supports, especially during times of decreased mood as she struggles with isolating or assuming she is inconveniencing others.. Client continues to struggle with intrusive thoughts related to her past which negatively impact self-esteem levels, she is recommended additional focus on ongoing trauma processing in order to begin to challenge negative core beliefs. Discharge Recommendations/Instructions:: Client is to follow up with outpatient providers for ongoing medical care and medication management. Client to follow-up with [address] [place] [address] for follow-up outpatient individual therapy and Mary Ann Bar with the [facility] for outpatient psychiatry services. Discharge Handout: Complete Discharge Handout with client on aftercare options and continuity of care.
--- NOTE | 2018-01-25 08:53 | BH.AFTERPLAN ---
Aftercare Plan - Demographics Treatment End Date:: 01/25/18 Psychiatrist:: Lily Aburto Psychiatrist Office #:: [phone] [facility] Therapist:: Lyn Crowley Therapist Phone #:: [phone] - Medications Home Medications: Home Medications Allopurinol [Zyloprim] 900 mg PO DAILYCM 01/05/14 Lisinopril [Zestril] 20 mg PO DAILY 01/05/14 Simvastatin [Zocor] 40 mg PO QHS 01/05/14 Aspirin E.C. [Ecotrin] 81 mg PO DAILY@0800 11/06/17 Atenolol [Tenormin (beta ilia)] 25 mg PO DAILY 11/06/17 Baclofen 10 mg PO BID PRN 11/06/17 Cetirizine HCl [All Day Allergy] 10 mg PO DAILY 11/06/17 Fluticasone 0.05% [Flonase Nasal [place]] 2 spray NASAL DAILY 11/06/17 Hydrochlorothiazide 12.5 mg PO DAILY 11/06/17 Montelukast [Singulair] 10 mg PO DAILY 11/06/17 Mag Hydrox/Al Hydrox/Simeth [Mylanta II] 15 ml PO Q4H PRN PRN #1 bottle 11/07/17 Pantoprazole Sodium [Protonix] 40 mg PO BID #0 11/07/17 Oxcarbazepine [Trileptal] 300 mg PO DAILY 12/14/17 - Plan Details Progress/Aftercare Plan Details:: Ada has displayed much progress in regards to her levels of comfort and ability to engage in in the group setting. She was a beneficial group member throughout and provided quality input and encouragement to the group. Ada did well to maintain consistent attendance in the program and has demonstrated significant levels of progress during her time in [facility]. Ada's progress can been seen most significantly in the increase in her overall confidence levels. She reports being able to successfully challenge negative thinking patterns and is beginning to increase in levels of socialization. Ada additionally has done well to implement both the internal and external coping mechanisms she has learned in order to decrease overall levels of anxiety and depression. She had successfully made observable strides forward in her ability to challenge herself to step outside her comfort zone and begin to reach back out to identified supports. Ada has reports a more positive outlook on life and shared that this is partially due to better boundary setting and beginning to implement a daily gratitude reflection. Keep up the good work and remember to be kind to yourself! Strategies for Success:: 1. Pay attention to how your thoughts are impacting your mood and the messages you are telling yourself! -- Are you using a distorted way of thinking? If so, how can you challenge or reframe that thoughts? 2. Remember it's all about perspective. If I think I can, I can. If I think I can't, I won't. 3. Get out and socialize! Do at least one enjoyable activity a day so that you are spending your time in ways that you enjoy. Remember you may not always feel like it at the time. In these moments ask yourself - will I be glad I did it afterwards?! 4. Give yourself credit, even for small tasks! Own your wins! 5. Use positive thinking and self-talk! Don't let YOU hold YOU back. 5. Follow-up with counseling. Managing your mental health takes time and effort, you can't continue to make progress if you don't show up for the help available. This means engaging in [employer] and other support groups as well 6. Reach out to your supports. You have people who care and want to spend time with you! 7. BOUNDARIES. Leave the toxic thoughts AND relationships in the past. Don't open yourself up to someone who isn't willing to respect your needs and boundaries. - Appointments Appointments/Referrals to Other Services:: Client is to follow up with outpatient providers for ongoing medical care and medication management. Client to follow-up with [address] [place] [address] for follow-up outpatient individual therapy and Mary Ann Bar with the [facility] for outpatient psychiatry services.
--- NOTE | 2018-01-25 14:23 | BH.SGPN ---
Service Group Progress Note - Session Psychotherapy Session #2 Date Open:: 01/25/18 Time Started:: 10:30 Time Stopped:: 11:20 Targeted Problem #:: 1 Type of Group:: Illness Management Goal of Group:: The goal of this session was to increase self-awareness of what is holding them back from moving towards mental wellness and discuss importance of taking action in their treatment. Client Response/Progress/Benefit:: Pt active and engaged, contributing thoughts to discussion. Pt shared in order to make change we have to get over our fears. Pt reported fear has held her back from many things in her life and contributed to her isolation. Pt identified lack of self-care, isolating, negative thinking, avoidance, fear, lack of boundaries, and stuffing emotions as things that have held her back from change. Pt shared avoidance has historically been what has held her back from progress because she tries to not deal with what is happening, which she now recognizes doesn't help her situation. Pt seemed to benefit from increased self-awareness of what contributes to her staying stuck. Pt has demonstrated progress with decreased depressive symptoms, getting out of the house, and being more social. Eye Contact:: Good Motor Activity:: Appropriate Appearance:: Casual Speech:: Appropriate Mood:: Euthymic Affect:: Congruent Thoughts:: Linear, Logical, No evidence of hallucinations/delusions noted Staff Interventions:: Therapist facilitated discussion about what it means to take action in achieving mental health wellness. Therapist led activity in which clients were asked to identify the symptoms and things that they would like to take back control over. Therapist provided support by using active listening. Psychotherapy Session #3 Date Open:: 01/25/18 Time Started:: 11:30 Time Stopped:: 12:20 Targeted Problem #:: 1 Type of Group:: Functional Skills Development Goal of Group:: The goal of this session was to create a 30 day action plan that provides small goals that work towards taking action on one thing they would like to take back control over. Client Response/Progress/Benefit:: Pt contributed to discussion and listened attentively to discussion. Pt shared she focused her plan on decreasing avoidance and isolation. Pt reported one goal is to leave her place at least once per day. Another goal is to identify positives from her day. Reported she also will limit how much time she spends watching tv because she recognizes tv can keep her isolated by watching show after show. Pt seemed to benefit from identifying small goals that will keep her focused on her 30 day plan. Eye Contact:: Good Motor Activity:: Appropriate Appearance:: Casual Speech:: Appropriate Mood:: Euthymic Affect:: Congruent Thoughts:: Linear, Logical, No evidence of hallucinations/delusions noted Staff Interventions:: Therapist provided materials and guidance to help clients create a 30 day action plan. Therapist provided support by giving feedback and using active listening.
--- NOTE | 2018-01-25 16:39 | BH.IGGP_ITS ---
Aftercare Plan - Demographics Treatment End Date:: 01/25/18 Psychiatrist:: Lily Aburto Psychiatrist Office #:: [phone] [facility] Therapist:: Lyn Crowley Therapist Phone #:: [phone] - Medications Home Medications: Home Medications Allopurinol [Zyloprim] 900 mg PO DAILYCM 01/05/14 Lisinopril [Zestril] 20 mg PO DAILY 01/05/14 Simvastatin [Zocor] 40 mg PO QHS 01/05/14 Aspirin E.C. [Ecotrin] 81 mg PO DAILY@0800 11/06/17 Atenolol [Tenormin (beta ilia)] 25 mg PO DAILY 11/06/17 Baclofen 10 mg PO BID PRN 11/06/17 Cetirizine HCl [All Day Allergy] 10 mg PO DAILY 11/06/17 Fluticasone 0.05% [Flonase Nasal [place]] 2 spray NASAL DAILY 11/06/17 Hydrochlorothiazide 12.5 mg PO DAILY 11/06/17 Montelukast [Singulair] 10 mg PO DAILY 11/06/17 Mag Hydrox/Al Hydrox/Simeth [Mylanta II] 15 ml PO Q4H PRN PRN #1 bottle Pantoprazole Sodium [Protonix] 40 mg PO BID #0 11/07/17 Oxcarbazepine [Trileptal] 300 mg PO DAILY 12/14/17 - Plan Details Progress/Aftercare Plan Details:: Ada has displayed much progress in regards to her levels of comfort and ability to engage in in the group setting. She was a beneficial group member throughout and provided quality input and encouragement to the group. Ada did well to maintain consistent attendance in the program and has demonstrated significant levels of progress during her time in [facility]. Ada' s progress can been seen most significantly in the increase in her overall confidence levels. She reports being able to successfully challenge negative thinking patterns and is beginning to increase in levels of socialization. Ada additionally has done well to implement both the internal and external coping mechanisms she has learned in order to decrease overall levels of anxiety and depression. She had successfully made observable strides forward in her ability to challenge herself to step outside her comfort zone and begin to reach back out to identified supports. Ada has reports a more positive outlook on life and shared that this is partially due to better boundary setting and beginning to implement a daily gratitude reflection. Keep up the good work and remember to be kind to yourself! Strategies for Success:: 1. Pay attention to how your thoughts are impacting your mood and the messages you are telling yourself! -- Are you using a distorted way of thinking? If so, how can you challenge or reframe that thoughts ? 2. Remember it's all about perspective. If I think I can, I can. If I think I can't, I won't. 3. Get out and socialize! Do at least one enjoyable activity a day so that you are spending your time in ways that you enjoy. Remember you may not always feel like it at the time. In these moments ask yourself - will I be glad I did it afterwards?! 4. Give yourself credit, even for small tasks! Own your wins! 5. Use positive thinking and self-talk! Don't let YOU hold YOU back. 5. Follow-up with counseling. Managing your mental health takes time and effort , you can't continue to make progress if you don't show up for the help available. This means engaging in [employer] and other support groups as well 6. Reach out to your supports. You have people who care and want to spend time with you! 7. BOUNDARIES. Leave the toxic thoughts AND relationships in the past. Don't open yourself up to someone who isn't willing to respect your needs and boundaries. - Appointments Appointments/Referrals to Other Services:: Client is to follow up with outpatient providers for ongoing medical care and medication management. Client to follow-up with [address] [place] [address] for follow-up outpatient individual therapy and Mary Ann Bar with the [facility] for outpatient psychiatry services.
--- NOTE | 2018-01-25 17:05 | BH.DS_ITS ---
Discharge Summary - Demographics Date of Admission:: 11/26/17 Discharge Date: 01/25/18 Presenting Problems at Admission:: Client is a 63-year-old female with history of bipolar disorder, anxiety, and depression. She was referred to [facility] program by outpatient therapist, Sunita Sena, at [address] [place] [address] due to worsening symptoms of depression and anxiety. Patient reports a long- standing history of depression that is been worse over the past 2 years associated with multiple stressors including family stress and medication noncompliance. Client describes current symptoms include anhedonia, decreased sleep, lack of energy, no pleasure in activities previously enjoyed, increased anxiety resulting in isolation and avoidance of supports, as well as passive thoughts of . Discharge Diagnoses:: 1 bipolar 2 disorder of 31.81. Anxiety unspecified. Vitamin D deficiency. Obstructive sleep apnea-CPAP noncompliant Reason for Discharge:: Client has made significant progress on treatment goals and no longer meets the criteria for IOP level of care. - Treatment Progress During Treatment & Response: Client has displayed much progress in regards to her levels of comfort and ability to engage in in the group setting. She was a beneficial group member throughout and provided quality input and encouragement to the group. Client did well to maintain consistent attendance in the program and has demonstrated significant levels of progress during her time in [facility]. Progress can been seen most significantly in the increase in her overall confidence levels. She reports being able to successfully challenge negative thinking patterns and is beginning to increase in levels of socialization. Client additionally has done well to implement both the internal and external coping mechanisms she has learned in order to decrease overall levels of anxiety and depression. She had successfully made observable strides forward in her ability to challenge herself to step outside her comfort zone and begin to reach back out to identified supports. Reports a more positive outlook on life and shared that this is partially due to better boundary setting and beginning to implement a daily gratitude reflection. Issues Still to be Addressed:: Client can benefit from continued work on identifying and addressing negative thinking patterns, specifically Client's tendency to personalize and utilize absolutes which increases negative self- talk. Client can also benefit from continued work on maintaining healthy communication with supports, especially during times of decreased mood as she struggles with isolating or assuming she is inconveniencing others.. Client continues to struggle with intrusive thoughts related to her past which negatively impact self-esteem levels, she is recommended additional focus on ongoing trauma processing in order to begin to challenge negative core beliefs. Discharge Recommendations/Instructions:: Client is to follow up with outpatient providers for ongoing medical care and medication management. Client to follow- up with [address] [place] [address] for follow-up outpatient individual therapy and Mary Ann Bar with the [facility] for outpatient psychiatry services. Discharge Handout: Complete Discharge Handout with client on aftercare options and continuity of care.
--- NOTE | 2018-01-28 15:35 | BH.MDN_ITS ---
Multi-Disciplinary Note - Note 45-min Individual Time Started:: 12:32 Date: 01/25/18 Purpose of session/treatment goals addressed:: Purpose of this session was to reflect upon progress in program and current status on treatment plan goals. Another purpose was to review with Client strategies for maintaining gains and discuss aftercare plan and recommendations. Eye Contact:: Good Motor Activity:: Appropriate Appearance:: Casual Speech:: Appropriate Mood:: Euthymic Affect:: Full Thoughts:: Linear, Logical, No evidence of hallucinations/delusions noted Staff Interventions:: Therapist asked open-ended questions and used reflective listening to review Client progress throughout program. Provided client with supportive feedback and encouragement as well as utilized strengths-based perspective to identify strategies for maintaining progress made and continuing to implement healthy coping skills. Discussed aftercare plan and recommendations. Client Response:: Client well engaged in session and responded well to content discussed. She reviewed with this therapist overall areas of progress since beginning the IOP program. CLient reflected that she has found an increase in her ability to manage symptoms of anxiety and depression. CLient went on to describe a generally more positive outlook on life and indicated that beginning a gratitude journal as well as reminding herself to look at the small positive things has aided in maintaining positivity. Client shared that she has found thought challenging to be particularly helpful in decreasing her anxiety levels as she has noted a decrease in use of distorted thinking patterns. CLient indicates that she is learning to put myself first which she shared is the first time in her life that she has felt capable and allowed to do so. When asked to define what putting myself first means to her, CLient indicated doing things at her own pace, setting boundaries with others, and reminding herself that she does not have to meet everyone elses expectations for her. CLient proudly shared finally following through with incorporating chair yoga into her routine and indicated being pleasantly surprised that she had enjoyed it. She did well to identify the healthy skills she may use following discharge and further indicated plans to ease herself back into regular socialization. CLient expressed plans to go to the Sunday [employer] movie with a firend. She shared ongoing struggles with avoidance and social anxiety though did well to relay potential strategies for reducing anticipatory anxiety such as taking things a step at a time and positive self talk. Client able to identify warning signs that she is falling back into previously used isolative and avoidant behaviors such as decreased energy, increased negative thinking, poor hygiene, decreased completion of ADLs. Client shared consequences of not maintaining consistent use of healthy skills. CLient indicates plans to continue with outpatient counseling services and will follow-up with this therapist on .Agreeable to discharge from IOP program on this date. Risks/Concerns:: No risks or concerns noted. Denies any suicidal ideations, plan , or intent as of 01/25/18. Progress Toward Goals/Plan:: Client has made significant progress throughout admission in IOP program and will be discharged from the program today. She has successfully completed tx goals and indicates an overall reduction in sx of anxiety and depression. Client has increased use of healthy coping mechanisms, reduced isolation, and is improving upon willingness to reach out to supports. Due to reduction in overall symptoms and increased stability, CLient no longer meets criteria for IOP level of care. She is scheduled to follow-up with Sunita Sena at 180 for continued individual counseling and indicates plans to continue attending the [facility] Support Group through [facility]. Time Stopped:: 13:16
--- NOTE | 2018-03-13 14:23 | BH.SGPN_ITS ---
Service Group Progress Note - Session Psychotherapy Session #2 Date Open:: 01/17/18 Time Started:: 10:18 Time Stopped:: 11:15 Targeted Problem #:: 1 Type of Group:: Illness Management Goal of Group:: The goal of group was to increase understanding of goals and goal setting and practice a method of goal setting. Client Response/Progress/Benefit:: Pt active and engaged in discussion AEB pt contributing to discussion and listening attentively to others. Pt agreed with others that setting goals is important because goals give direction and a purpose. Pt identified she has taken away from the group session that SMART goals are a positive way to set goals, remember to set attainable goals, and celebrate when accomplish goals. Pt seemed to benefit from learning about SMART goals and rehearsing setting small goals. Eye Contact:: Good Motor Activity:: Appropriate Appearance:: Casual Speech:: Appropriate Mood:: Euthymic Affect:: Constricted Thoughts:: Linear, Logical, No evidence of hallucinations/delusions noted Staff Interventions:: Therapist facilitated group discussion about goals and goal setting. Therapist taught group the acronym SMART (Specific, Measurable, Achievable, Realistic, Timely) as a tool to help with goal setting. Therapist led the group in an activity to be used as a method of practicing goal setting. Therapist guided the group through the SMART acronym as group was participating in activity. Therapist assisted group members with connecting the importance of making small, realistic goals. Psychotherapy Session #3 Date Open:: 01/17/18 Time Started:: 11:25 Time Stopped:: 12:15 Targeted Problem #:: 1 Type of Group:: Functional Skills Development Goal of Group:: The goal of group was to identify a goal for the weekend, explore the potential barriers to achieving that set goal, and identify strategies to overcome barriers. Client Response/Progress/Benefit:: Pt contributed to discussion and listened attentively to others. Pt identified her SMART goal is to find a pain management doctor and schedule an appointment by next week. Pt reported this will benefit her by reducing her physical pain, which will help her mental health because she can be more active. Pt identified a potential obstacle to reaching her goal is not wanting to ask for help. Pt reported a way to overcome that obstacle is remind herself of the benefit of following through. Pt seemed to benefit from establishing a SMART goal that will help her move towards progress. Eye Contact:: Good Motor Activity:: Appropriate Appearance:: Casual Speech:: Appropriate Mood:: Euthymic Affect:: Constricted Thoughts:: Linear, Logical, No evidence of hallucinations/delusions noted Staff Interventions:: Therapist facilitated group activity in which group members identified a goal to work on over the next week. Therapist asked group members to identify barriers to achieving identified goal and strategies to help them achieve their goal. Therapist led group in processing their goal maps , assisting clients with establishing SMART goals. Therapist provided support by using reflective listening.
== END 2018-01-25 14:00 | disposition home or self-care (01) ==
LOC: BHIOP 09:00
PROVIDERS: Family Provider Family Medicine; PCP Family Medicine; Visit Provider Psychiatry & Neurology Psychiatry
DX: F31.81 Bipolar II disorder (principal); F41.9 Anxiety disorder, unspecified; E55.9 Vitamin D deficiency, unspecified; G47.33 Obstructive sleep apnea (adult) (pediatric); Z91.19 Patient's noncompliance with other medical treatment and regimen
CPT/HCPCS: H0035; 90834; 90853

== ENCOUNTER → 2018-03-14 13:23 | Outpatient (CLI) | payer MEDICARE, MEDICAID, SELFPAY ==
[2018-03-14 14:28] LABS: Absolute Lymphocyte Count 1.65 X10^3/ul (0.83-4.51); Absolute Neutrophil Count 9.1 X10^3/uL (2.0-7.7); Basophil# 0.05 X10^3/uL; Basophil% 0.4 % (0-1); Eosinophil# 0.18 X10^3/uL; Eosinophils% 1.5 % (0-5); Hematocrit 44.4 % (37-47); Hemoglobin 14.3 g/dl (12.0-15.0); Lymphocyte # 1.65 X10^3/ul (4.0); Lymphocyte % 13.8 % (19-41); Mean Corp Hgb Conc 32.2 g/gl (32-36); Mean Corpuscular Hgb 28.3 pg (27.0-32.0); Mean Corpuscular Volume 87.7 fL (81-99); Monocyte# 0.98 X10^3/uL; Monocyte% 8.2 % (0-10); Neutrophil % 75.9 % (47-70); Platelet Count 252 K/mm3 (150-450); RBC Distribution Width CV 15.7 % (11.6-14.6); RBC Distribution Width SD 50.2 fl (35.1-43.9); Red Blood Count 5.06 M/mm3 (4.2-5.4)
[2018-03-14 14:38] LABS: POSITIVE COUNT NO; POSITIVE DIFFERENTIAL NO; POSITIVE MORPHOLOGY NO
[2018-03-14 14:51] LABS: ALB/GLOB Ratio 0.8 RATIO (0.9-2.4); AST(SGOT) 71 U/L (15-37); Alanine Aminotransfer ALT/SGPT 97 U/L (13-56); Albumin, Serum 4.1 g/dL (3.2-5.0); Alkaline Phosphatase 172 U/L (45-117); Anion Gap 8 (5-15); BUN 17 mg/dL (7-18); BUN/Creat Ratio 12.7 RATIO (10-20); Calcium,Total 9.8 mg/dL (8.5-10.1); Chloride 97 mmol/L (98-107); Creatinine, Serum 1.34 mg/dL (0.55-1.02); EST Glomerular Filtration Rate 42 mL/min (>60); Est Glom Filt Rate - Afr Amer 51 mL/min (>60); Globulin 5.1 g/dL (2.2-4.2); Glucose 107 mg/dL (74-106); Potassium 4.4 mmol/L (3.5-5.1); Protein, Total 9.2 g/dL (6.4-8.2); Sodium Level 134 mmol/L (136-145)
[2018-03-21 20:08] LABS: QNTFERON TB Ag Minus Nil Value 0.08 IU/mL (.); QNTFERON TB Ag Value 0.32 IU/mL (.); QNTFERON TB Mitogen Value > 10.00 IU/mL (.); QNTFERON TB Nil Value 0.24 IU/mL (.)
[2018-03-22 11:08] LABS: QNTIFERON TB Gold Negative (Negative)
== END ==
PROVIDERS: Family Provider Family Medicine; PCP Family Medicine; Visit Provider Dermatology Pediatric Dermatology
DX: L40.0 Psoriasis vulgaris (principal); L40.59 Other psoriatic arthropathy
CPT/HCPCS: 36415; 80053; 85025; 86480

== ENCOUNTER → 2019-03-19 | Outpatient (CLI) | payer MEDICARE, MEDICAID, SELFPAY ==
[2017-11-06 20:50] VITALS: BMI 47.0
[2019-03-19 12:48] LABS: Absolute Lymphocyte Count 1.95 X10^3/ul (0.83-4.51); Absolute Neutrophil Count 5.3 X10^3/uL (2.0-7.7); Basophil# 0.03 X10^3/uL; Basophil% 0.4 % (0-1); Eosinophil# 0.22 X10^3/uL; Eosinophils% 2.7 % (0-5); Hematocrit 41.5 % (37-47); Hemoglobin 13.5 g/dl (12.0-15.0); Lymphocyte # 1.95 X10^3/ul (4.0); Lymphocyte % 24.1 % (19-41); Mean Corp Hgb Conc 32.5 g/gl (32-36); Mean Corpuscular Hgb 29.2 pg (27.0-32.0); Mean Corpuscular Volume 89.6 fL (81-99); Mean Platelet Vol. 10.8 fl (6.2-12.0); Monocyte# 0.55 X10^3/uL; Monocyte% 6.8 % (0-10); Neutrophil # 5.32 X10^3/uL (2.7-7.7); Neutrophil % 65.8 % (47-70); Platelet Count 225 K/mm3 (150-450); RBC Distribution Width CV 14.6 % (11.6-14.6); RBC Distribution Width SD 47.5 fl (35.1-43.9); Red Blood Count 4.63 M/mm3 (4.2-5.4); White Blood Count 8.1 K/mm3 (4.4-11.0)
[2019-03-19 12:51] LABS: POSITIVE COUNT NO; POSITIVE DIFFERENTIAL NO; POSITIVE MORPHOLOGY NO
[2019-03-19 13:05] LABS: ALB/GLOB Ratio 0.9 RATIO (0.9-2.4); AST(SGOT) 46 U/L (15-37); Alanine Aminotransfer ALT/SGPT 68 U/L (13-56); Alkaline Phosphatase 140 U/L (45-117); Anion Gap 8 (5-15); BUN 16 mg/dL (7-18); Calcium,Total 10.5 mg/dL (8.5-10.1); Chloride 101 mmol/L (98-107); Creatinine, Serum 1.07 mg/dL (0.55-1.02); EST Glomerular Filtration Rate 55 mL/min (>60); Est Glom Filt Rate - Afr Amer 66 mL/min (>60); Globulin 4.3 g/dL (2.2-4.2); Glucose 116 mg/dL (74-106); Potassium 4.5 mmol/L (3.5-5.1); Protein, Total 8.3 g/dL (6.4-8.2); Sodium Level 137 mmol/L (136-145)
[2019-03-22 06:07] LABS: QNTFERON TB Mitogen Value > 10.00 IU/mL (.); QNTFERON TB Nil Value 0.02 IU/mL (.); QNTFERON TB1+ Ag Value 0.07 IU/mL (.); QNTFERON TB2+ Ag Value 0.04 IU/mL (.)
[2019-03-24 11:51] LABS: QNTIFERON TB Positive Criteria Negative (Negative)
== END | disposition home or self-care (01) ==
PROVIDERS: Family Provider Family Medicine; PCP Family Medicine; Referring Provider Physician Assistant; Visit Provider Physician Assistant
DX: L40.0 Psoriasis vulgaris (principal); Z79.899 Other long term (current) drug therapy
CPT/HCPCS: 36415; 80053; 85025; 86480

== ENCOUNTER → 2020-04-08 13:40 | Outpatient (CLI) | payer MEDICARE, MEDICAID, SELFPAY ==
[2017-11-06 20:50] VITALS: BMI 47.0
[2020-04-08 15:06] LABS: Absolute Neutrophil Count 6.2 X10^3/uL (2.0-7.7); Basophil# 0.07 X10^3/uL; Basophil% 0.7 % (0-1); Eosinophil# 0.22 X10^3/uL; Eosinophils% 2.3 % (0-5); Hemoglobin 13.2 g/dL (12.0-15.0); Lymphocyte % 23.5 % (19-41); Mean Corp Hgb Conc 32.2 g/dL (32-36); Mean Corpuscular Hgb 29.5 pg (27.0-32.0); Mean Corpuscular Volume 91.5 fL (81-99); Mean Platelet Vol. 10.5 fl (6.2-12.0); Monocyte# 0.68 X10^3/uL; Monocyte% 7.2 % (0-10); NRBC Flagged by Analyzer 0 % (0-5); Neutrophil # 6.18 X10^3/uL (2.7-7.7); Platelet Count 219 K/mm3 (150-450); RBC Distribution Width CV 14.8 % (11.6-14.6); RBC Distribution Width SD 48.7 fl (35.1-43.9); Red Blood Count 4.48 M/mm3 (4.2-5.4); White Blood Count 9.4 K/mm3 (4.4-11.0)
[2020-04-08 15:19] LABS: Anion Gap 9 (5-15); BUN 15 mg/dL (7-18); BUN/Creat Ratio 13.9 RATIO (10-20); Calcium,Total 9.1 mg/dL (8.5-10.1); Chloride 99 mmol/L (98-107); Creatinine, Serum 1.08 mg/dL (0.55-1.02); EST Glomerular Filtration Rate 54 mL/min (>60); Est Glom Filt Rate - Afr Amer 65 mL/min (>60); Glucose 104 mg/dL (74-106); Potassium 4.4 mmol/L (3.5-5.1); Sodium Level 132 mmol/L (136-145)
[2020-04-12 20:05] LABS: QNTFERON TB Mitogen Value > 10.00 IU/mL (.); QNTFERON TB Nil Value 0.02 IU/mL (.); QNTFERON TB1+ Ag Value 0.06 IU/mL (.); QNTFERON TB2+ Ag Value 0.03 IU/mL (.)
[2020-04-13 00:39] LABS: QNTIFERON TB Positive Criteria Negative (Negative)
== END ==
PROVIDERS: PCP Family Medicine; Referring Provider Physician Assistant Medical; Visit Provider Physician Assistant Medical
DX: L40.0 Psoriasis vulgaris (principal); Z79.899 Other long term (current) drug therapy
CPT/HCPCS: 36415; 80048; 85025; 86480

== ENCOUNTER 2021-06-27 17:11 | Emergency (ER) | payer MEDICARE, MEDICAID, SELFPAY ==
[2021-06-27] VITALS (7 sets, daily range): BP systolic 113–161; BP diastolic 63–90; PULSE 90–122; RESP 16–24; TEMP 38.6; O2SAT 90–95; BMI 43.9
--- NOTE | 2021-06-27 17:40 | RAD_ITS ---
STUDY: X-RAY CHEST REASON FOR EXAM: Female, 66 years old. Worsening shortness of breath TECHNIQUE: Single AP portable view of the chest. COMPARISON: 11/06/2017 FINDINGS: Lungs are expanded with superimposed interstitial and airspace opacifications without effusions. There is no demonstrated pleural abnormality. Normal size heart. Normal mediastinum and dejah. Normal visualized pulmonary arteries. Normal visualized aortic arch and descending thoracic aorta. Normal visualized thoracic spine. Normal visualized ribs, clavicles, and shoulders. There is no demonstrated abnormality of the visualized soft tissue structures of the upper abdomen. RAD/Chest 1 View IMPRESSION: Interstitial and airspace opacifications in both lung burch without effusions. Pattern of opacification suggests Covid pneumonia, other possibilities include multifocal pneumonitis or drug interaction/toxicity. Follow-up recommended to ensure resolution Electronically Signed: Ender Keith MD at 18:09 EDT , Service support ,
--- NOTE | 2021-06-27 20:10 | EDS_ITS ---
HPI History of Present Illness Chief Complaint: General Illness Informant: patient Onset/Context/Timing Onset: Days Context: Gradual Onset Timing: Continuous Current Severity: Mild Maximum Severity: Mild Narrative Narrative: 66-year-old female history of anxiety, depression and hypertension. She has not been vaccinated. She was exposed to someone with Covid and has had symptoms since Sunday she has had nausea with decreased intake. Fevers and diarrhea. She has had a nonproductive cough. She denies any abdominal pain. No melena. No chest pain. She does not complain of any specific shortness of breath. No hemoptysis. Prior similar symptoms: No Recent Illness/Hospitalization: No PFSH PFS Medical History Anxiety Depression High cholesterol HTN (hypertension) Home Medications allopurinol 900 mg PO DAILYCM 01/05/14 [History Last Taken 11/05/17] lisinopril 20 mg PO DAILY 01/05/14 [History Last Taken 11/05/17] simvastatin 40 mg PO QHS 01/05/14 [History Last Taken 11/05/17] aspirin 81 mg PO DAILY@0800 11/06/17 [History Last Taken 11/06/17] atenolol 25 mg PO DAILY 11/06/17 [History Last Taken 11/05/17] baclofen 10 mg PO BID PRN 11/06/17 [History Last Taken Unknown] cetirizine [All Day Allergy (cetirizine)] 10 mg PO DAILY 11/06/17 [History Last Taken 11/05/17] fluticasone propionate 2 spray NASAL DAILY 11/06/17 [History Last Taken 11/06/17] hydrochlorothiazide 12.5 mg PO DAILY 11/06/17 [History Last Taken 11/05/17] montelukast 10 mg PO DAILY 11/06/17 [History Last Taken 11/05/17] alum-mag hydroxide-simeth 15 ml PO Q4H PRN PRN #1 bottle 11/07/17 [Rx Last Taken Unknown] pantoprazole 40 mg PO BID #0 11/07/17 [Rx Last Taken 11/05/17] oxcarbazepine 300 mg PO DAILY 12/14/17 [History Last Taken Unknown] dexamethasone [Decadron] 6 mg PO DAILY 7 Days #7 tab 06/27/21 [Rx Last Taken Unknown] ondansetron 4 mg PO Q8H PRN #7 tab 06/27/21 [Rx Last Taken Unknown] Allergy/AdvReac Type Severity Reaction Status Date / Time erythromycin base AdvReac Other Verified 06/27/21 17:20 [Erythromycin Base] eszopiclone [From Lunesta] AdvReac Vomiting Verified 06/27/21 17:20 Social History Smoking Status: Former smoker ROS ROS ED ROS Narrative Fever, cough, nausea and diarrhea. Review of Systems ROS Unobtainable: Denies due to encephalopathy Constitutional Constitutional ED: Reports fever(s) Eyes Eyes: Denies change in vision ENT ENT ED: Denies ear pain or sore throat Cardiovascular Cardiovascular: Denies chest pain Respiratory/Chest Respiratory/Chest: Reports cough; Denies dyspnea Gastrointestinal Gastrointestinal: Reports diarrhea and nausea; Denies abdominal pain or vomiting Genitourinary Genitourinary ED: Denies dysuria Musculoskeletal Musculoskeletal: Reports myalgias Integumentary Denies rash Neurologic Neurologic: Denies headache(s) Psychiatric Psychiatric: Denies depression Endocrine Endocrinology: Denies polyuria Allergic/Immunologic Allergic/Immunologic ED: Denies urticaria EXAM Physical Exam Narrative Exam Narrative: 6-year-old female temperature one 1.4. Heart rate 122. Blood pressure 141/90. Her pulse ox is 90% on room air. She does not look hypoxic. H EENT exam dry mucous memories. Neck nontender no JVD no lymphadenopathy. Lungs clear to auscultation bilaterally. Heart tachycardic rate about 120 no murmur. Abdomen soft nontender normal bowel sounds no peritoneal signs. Moving all 4 extremities. No edema. Neurologically she is awake and alert with no focal motor deficits. Const Vital Signs: 06/27/21 17:18 06/27/21 17:37 06/27/21 19:54 Temperature 101.4 F H Temperature Source Oral Pulse Rate 122 H 118 H Respiratory Rate 20 H 20 H Respiratory Effort Short of Breath Blood Pressure 141/90 H Blood Pressure Mean 107 Pulse Ox 90 91 Oxygen Delivery Method Room Air Room Air Oxygen Flow Rate (L/min) 06/27/21 19:56 06/27/21 21:05 Temperature Temperature Source Pulse Rate 114 H 98 Respiratory Rate 22 H 19 H Respiratory Effort Blood Pressure 161/81 H Blood Pressure Mean 107 Pulse Ox 91 94 Oxygen Delivery Method Nasal Cannula Nasal Cannula Oxygen Flow Rate (L/min) 2 Positive well nourished, well developed and obese; Negative for cachectic, contractures or unkempt General Appearance ED: well developed; Negative for unkempt, cachectic, contractures, cyanotic or diaphoretic Nutritional Appearance: obese; Negative for cachectic HEENT Reports dry mucous membranes Negative for trauma or tenderness Mouth ED: Yes dry mucous membranes Mouth: dry mucous membranes Eyes PERRL and EOMs intact bilaterally Neck no lymphadenopathy, supple and no JVD General: Negative for tenderness Chest Wall inspection of chest normal and palpation of chest normal Resp normal respiratory effort and clear to auscultation bilaterally Effort and Inspection: Negative for pain with movement Auscultation: Negative for rales, rhonchi or wheezes Cardio regular rhythm, S1 normal heart sound, S2 normal heart sound and no murmurs Rate: tachycardic GI normal to inspection, nondistended, normoactive bowel sounds, non-tender, non- distended and no masses Inspection: Negative for abdominal distention Auscultation: normoactive bowel sounds Palpation: soft; Negative for tender, guarding or rebound tenderness present Back/Spine no CVA tenderness Extremity normal to inspection General Extremety ED: Negative for edema or tenderness General Extremity: Negative for edema Neuro oriented x3 Sensorium / Orientation: alert; Negative for orientation impaired, lethargic or stuporous Motor Exam: strength 5/5 throughout Psych mental status grossly normal Appearance: Negative for unkempt Skin no rashes or lesions noted and no wounds MDM MDM MDM Narrative Medical decision making narrative: Elderly female suspected Covid and clinically looks dehydrated. Screening labs Covid test and checks x-ray being obtained. She will be treated with IV fluids, Zofran for nausea and Decadron for suspected Covid. Repeat exam patient doing well at 11:40 PM. Temperature is nine 9.8. She clinically looks better. She is comfortable being discharged home. She is to be started on Decadron daily was given her first dose here. Zofran as needed for nausea. And she will be referred to the monoclonal antibody therapy center here in the hospital. She and I discussed that. Lab Data Attestation: I reviewed the patient's lab results. Lab results narrative: COVID-19 positive. White count of 6. Hemoglobin 14.6. Platelets are 29,000. Electrolytes sodium 133. Gap 11 normal creatinine. Glucose 138. Chest x-ray consistent with Covid pneumonitis. Labs: Laboratory Results - last 24 hr 06/27/21 06/27/21 20:20 20:20 WBC 6.0 RBC 4.96 Hgb 14.6 Hct 44.3 MCV 89.3 MCH 29.4 MCHC 33.0 RDW Std Deviation 49.6 H RDW Coeff of Han 15.2 H Plt Count 129 L MPV 10.3 Immature Gran % (Auto) 0.300 Neut % (Auto) 81.0 H Lymph % (Auto) 8.5 L [place] % (Auto) 10.0 Eos % (Auto) 0.0 Baso % (Auto) 0.2 Absolute Neuts (auto) 4.9 Absolute Lymphs (auto) 0.51 L Nucleated RBC % 0 Differential Comment SCANNED Sodium 133 L Potassium 3.8 Chloride 100 Carbon Dioxide 22.0 Anion Gap 11 BUN 14 Creatinine 0.95 Estim Creat Clear Calc 41.28 Est GFR (MDRD) Af Amer 76 Est GFR (MDRD) Non-Af 62 BUN/Creatinine Ratio 14.8 Glucose 138 H Calcium 9.2 Radiography Chest X-Ray - ED: 1 View, Read by ED Physician, Read by Radiologist, Heart, Mediastinum, Bony Structures, No Acute Disease, Right Infiltrate and Left Infiltrate Diagnostic Testing: Radiology Impression Chest X-Ray 06/27/21 17:40 IMPRESSION: Interstitial and airspace opacifications in both lung burch without effusions. Pattern of opacification suggests Covid pneumonia, other possibilities include multifocal pneumonitis or drug interaction/toxicity. Follow-up recommended to ensure resolution Electronically Signed: Ender Keith MD at 18:09 EDT , Service support , Portable single view chest x-ray interpreted both by myself and the radiologist is consistent with Covid pneumonitis. Discharge Plan Triage Chief Complaint: General Illness ED Provider: Vishal Kim Dx/Rx/DC Orders Clinical Impression: COVID-19, Dehydration Instructions: Human Coronaviruses Prescriptions: New dexamethasone [Decadron] 6 mg tablet 6 mg PO DAILY 7 Days Qty: 7 RF: 0 ondansetron 4 mg tablet,disintegrating 4 mg PO Q8H PRN (Reason: nausea and vomiting) Qty: 7 RF: 0 No Action allopurinol 100 MG tablet 900 mg PO DAILYCM RF: 0 simvastatin 40 MG tablet 40 mg PO QHS RF: 0 lisinopril 2.5 MG tablet 20 mg PO DAILY RF: 0 atenolol 25 MG tablet 25 mg PO DAILY RF: 0 baclofen 10 MG tablet 10 mg PO BID PRN (Reason: Pain) RF: 0 hydrochlorothiazide 12.5 MG capsule 12.5 mg PO DAILY RF: 0 montelukast 10 MG tablet 10 mg PO DAILY RF: 0 fluticasone propionate 1 SPRAY spray,suspension 2 spray NASAL DAILY RF: 0 cetirizine [All Day Allergy (cetirizine)] 10 MG capsule 10 mg PO DAILY RF: 0 aspirin 81 MG tablet 81 mg PO DAILY@0800 RF: 0 pantoprazole 40 MG tablet 40 mg PO BID Qty: 0 RF: 0 alum-mag hydroxide-simeth 30 ML suspension 15 ml PO Q4H PRN PRN (Reason: heartburns) Qty: 1 RF: 0 oxcarbazepine 300 MG tablet 300 mg PO DAILY RF: 0 Other Ambulatory Orders: COVID Outpatient Monoclonal Antibody Referral (Routine) Timeframe: 1 Day Facility: [facility] - Location: [facility] Ordered By: Dr. Vishal Kim Primary Care Provider: Maxi Oneal Referrals: Maxi Oneal MD [Primary Care Provider] - 3-5 Days if not improving Activity Restrictions/Additional Instructions: Plenty of fluids and rest. Decadron daily which is a steroid to help with your breathing. Zofran only needed if you are nauseated. Follow-up with your doctor to ensure you are improving. Return to the emergency department if feeling worse. I referred you to the [facility] monoclonal antibody therapy center. They should call you tomorrow meeting Sunday to set up a day and a time for you to come in and get that treatment. Disposition Disposition: Home, Self Care
[2021-06-27] MEDS: 0.9% Normal Saline 1,000 ML 1000 ML IV (20:28)
[2021-06-27 20:36] LABS: Absolute Lymphocyte Count 0.51 X10^3/uL (0.83-4.51); Absolute Neutrophil Count 4.9 X10^3/uL (2.0-7.7); Basophil# 0.01 X10^3/uL; Basophil% 0.2 % (0-1); Hematocrit 44.3 % (37-47); Hemoglobin 14.6 g/dL (12.0-15.0); Lymphocyte # 0.51 X10^3/ul (0.83-4.51); Lymphocyte % 8.5 % (19-41); Mean Corpuscular Hgb 29.4 pg (27.0-32.0); Mean Corpuscular Volume 89.3 fL (81-99); Mean Platelet Vol. 10.3 fl (6.2-12.0); NRBC Flagged by Analyzer 0 % (0-5); Neutrophil # 4.88 X10^3/uL (2.7-7.7); POSITIVE DIFFERENTIAL YES; Platelet Count 129 K/mm3 (150-450); RBC Distribution Width CV 15.2 % (11.6-14.6); RBC Distribution Width SD 49.6 fl (35.1-43.9); Red Blood Count 4.96 M/mm3 (4.2-5.4)
[2021-06-27 20:37] LABS: Differential Indicated SCAN CRITERIA MET
[2021-06-27] MEDS: Ondansetron 4 MG/2 ML Vial IV (20:37)
[2021-06-27] MEDS: dexAMETHasone 10 MG/ML Vial IV (20:37)
[2021-06-27 20:50] LABS: Anion Gap 11 (5-15); BUN 14 mg/dL (7-18); BUN/Creat Ratio 14.8 RATIO (10-20); Calcium,Total 9.2 mg/dL (8.5-10.1); Chloride 100 mmol/L (98-107); Creatinine, Serum 0.95 mg/dL (0.55-1.02); EST Glomerular Filtration Rate 62 mL/min (>60); Est Glom Filt Rate - Afr Amer 76 mL/min (>60); Estimated Creatinine Clearance 41.28 ml/min; Glucose 138 mg/dL (74-106); Potassium 3.8 mmol/L (3.5-5.1); Sodium Level 133 mmol/L (136-145)
[2021-06-27 21:00] LABS: Differential Comment SCANNED
== END 2021-06-28 00:17 | disposition home or self-care (01) ==
PROVIDERS: Emergency Provider Emergency Medicine; PCP Family Medicine
DX: U07.1 COVID-19 (principal); E86.0 Dehydration; E78.00 Pure hypercholesterolemia, unspecified; F32.9 Major depressive disorder, single episode, unspecified; F41.9 Anxiety disorder, unspecified; E66.9 Obesity, unspecified; I10 Essential (primary) hypertension; Z79.52 Long term (current) use of systemic steroids; Z79.82 Long term (current) use of aspirin; Z87.891 Personal history of nicotine dependence; Z20.822 Contact with and (suspected) exposure to COVID-19
CPT/HCPCS: 71045; 80048; 85025; 87426; 99284; J7030; A4216; J2405

== ENCOUNTER 2021-06-29 12:27 | Outpatient (CLI) | payer MEDICARE, MEDICAID, SELFPAY ==
[2021-06-29 12:45] VITALS: BP 140/71; PULSE 105; RESP 18; TEMP 36.9; O2SAT 94; BMI 43.0
[2021-06-29] MEDS: 0.9% Saline Lock 10 ML Syringe IV (12:54)
[2021-06-29 13:24] VITALS: BP 124/65; PULSE 94; RESP 16; TEMP 37.1; O2SAT 93
[2021-06-29 14:23] VITALS: BP 142/64; PULSE 89; RESP 16; TEMP 37.2; O2SAT 96
== END 2021-06-29 14:24 | disposition home or self-care (01) ==
LOC: MS3OUT 12:27 → MS3 12:28
PROVIDERS: PCP Family Medicine; Referring Provider Nurse Practitioner Adult Health; Visit Provider Nurse Practitioner Adult Health
DX: Z23 Encounter for immunization (principal); U07.1 COVID-19
CPT/HCPCS: J7050; M0243; A4216; Q0244

== ENCOUNTER 2021-06-29 20:43 | Inpatient (IN) | payer MEDICARE, MEDICAID, SELFPAY ==
[2021-06-29] VITALS (8 sets, daily range): BP systolic 130–191; BP diastolic 71–87; PULSE 104–128; RESP 24–28; TEMP 37.2–39.6; O2SAT 88–95; BMI 43.0
--- NOTE | 2021-06-29 21:07 | EKG12_ITS ---
Test Reason : SOB Blood Pressure : / mmHG Vent. Rate : 115 BPM Atrial Rate : 115 BPM P-R Int : 186 ms QRS Dur : 136 ms QT Int : 322 ms P-R-T Axes : 046 -23 111 degrees QTc Int : 445 ms Sinus tachycardia Left bundle branch block Abnormal ECG Confirmed by EMA LOUIE, LEVAR ([id number]), online content editor GABRIEL ROBERT ([id number]) on 07/04/2021 7:43:31 AM Referred By: RICHARD Confirmed By:LEVAR BOO MD
--- NOTE | 2021-06-29 21:07 | CT_ITS ---
STUDY: CTA CHEST REASON FOR EXAM: Female, 66 years old. Shortness of breath, fever, Covid, suspect pulmonary embolism RADIATION DOSAGE (If Supplied By Facility): CTDIvol = ( 12.65 ) mGy, DLP = ( 517.94 ) mGycm TECHNIQUE: The examination was performed with the intravenous administration of IV 100mL Isovue-370. Post-processing of the angiographic images was performed, with multiplanar reformation and 3D reconstruction. Individualized dose optimization techniques were used for this CT. COMPARISON: 11/06/2019 FINDINGS: Normal enhancement of the main pulmonary artery and right and left pulmonary arteries. Normal enhancement of the bilateral peripheral pulmonary arteries. There is no demonstrated pulmonary embolism. Normal thoracic aorta and visualized great vessels. There is no demonstrated aortic dissection. Normal heart and pericardium. Normal mediastinum. Normal hilar regions. Normal visualized trachea and bronchi. The lungs are well expanded. Groundglass densities scattered diffusely throughout both lungs. Normal pleura. Normal chest wall structures. There are degenerative changes of thoracic spine. Small hiatal hernia. Prior cholecystectomy. CT/CTA Chest W/WO Contrast IMPRESSION: Multifocal pneumonia. Normal CTA chest examination, without a demonstrated pulmonary embolism or arterial dissection. Electronically Signed: Tomy Chisholm MD at 22:38 EDT Tel , Service support ,
--- NOTE | 2021-06-29 21:08 | EDS_ITS ---
HPI History of Present Illness Chief Complaint: Shortness of Breath Informant: patient Narrative Narrative: 66-year-old female presents the emergency room with COVID-19. Patient is currently on day 5 of symptoms. Her symptoms began on Sunday with a loss of taste and smell. Subsequently she is now developed a cough fever myalgias vomiting diarrhea decreased appetite. She states she was seen in the emergency department on Sunday and started on steroids. Today she received a monoclonal infusion. EMS noted on the way here that she was hypoxic at 88%. She is not Covid vaccinated [facility] Medical History Anxiety Depression High cholesterol HTN (hypertension) Home Medications allopurinol 900 mg PO DAILYCM 01/05/14 [History Last Taken 11/05/17] lisinopril 20 mg PO DAILY 01/05/14 [History Last Taken 11/05/17] simvastatin 40 mg PO QHS 01/05/14 [History Last Taken 11/05/17] All Day Allergy (cetirizine) 10 mg PO DAILY 11/06/17 [History Last Taken 11/05/17] aspirin 81 mg PO DAILY@0800 11/06/17 [History Last Taken 11/06/17] atenolol 25 mg PO DAILY 11/06/17 [History Last Taken 11/05/17] baclofen 10 mg PO BID PRN 11/06/17 [History Last Taken Unknown] fluticasone propionate 2 spray NASAL DAILY 11/06/17 [History Last Taken 11/06/17] hydrochlorothiazide 12.5 mg PO DAILY 11/06/17 [History Last Taken 11/05/17] montelukast 10 mg PO DAILY 11/06/17 [History Last Taken 11/05/17] alum-mag hydroxide-simeth 15 ml PO Q4H PRN PRN #1 bottle 11/07/17 [Rx Last Taken Unknown] pantoprazole 40 mg PO BID #0 11/07/17 [Rx Last Taken 11/05/17] oxcarbazepine 300 mg PO DAILY 12/14/17 [History Last Taken Unknown] dexamethasone [Decadron] 6 mg PO DAILY 7 Days #7 tab 06/27/21 [Rx Last Taken Unknown] ondansetron 4 mg PO Q8H PRN #7 tab 06/27/21 [Rx Last Taken Unknown] Allergy/AdvReac Type Severity Reaction Status Date / Time erythromycin base AdvReac Other Verified 06/27/21 17:20 [Erythromycin Base] eszopiclone [From Lunesta] AdvReac Vomiting Verified 06/27/21 17:20 Social History (Updated 06/29/21 @ 21:[address] Damian Hackett, DO) Smoking Status: Former smoker substance use type: does not use ROS ROS ED Constitutional Constitutional ED: Reports chills, fever(s) and sweats; Denies weight loss Eyes Eyes: Denies change in vision or diplopia ENT ENT ED: Reports rhinorrhea; Denies ear pain or sore throat Cardiovascular Cardiovascular: Reports racing heartbeat; Denies chest pain, orthopnea or palpitations Respiratory/Chest Respiratory/Chest: Reports cough, dyspnea and dyspnea on exertion; Denies orthopnea Gastrointestinal Gastrointestinal: Reports diarrhea, nausea and vomiting; Denies abdominal pain Genitourinary Genitourinary ED: Denies dysuria, hematuria or urinary frequency Musculoskeletal Musculoskeletal: Reports myalgias; Denies arthralgias Integumentary Denies abscess or rash Neurologic Neurologic: Reports headache(s); Denies weakness Psychiatric Psychiatric: Denies anxiety, depression, suicidal ideation or suicidal thoughts Endocrine Endocrinology: Denies polydipsia, polyphagia or polyuria Allergic/Immunologic Allergic/Immunologic ED: Denies mouth swelling, tongue swelling or urticaria EXAM Physical Exam Const Vital Signs: 06/29/21 20:44 06/29/21 20:49 06/29/21 21:24 Temperature 103.2 F H 103.2 F H Temperature Source Temporal Oral Pulse Rate 128 H 128 H Respiratory Rate 28 H 28 H Respiratory Effort Short of Breath Blood Pressure 137/71 H 137/71 H Blood Pressure Mean 93 93 Pulse Ox 95 95 Oxygen Delivery Method Room Air Oxygen Flow Rate (L/min) 06/29/21 21:26 06/29/21 21:49 06/29/21 22:33 Temperature 103.1 F H 100.5 F H Temperature Source Oral Temporal Pulse Rate 114 H 111 H Respiratory Rate 26 H 26 H Respiratory Effort Blood Pressure 130/72 H 179/84 H Blood Pressure Mean 91 115 Pulse Ox 92 93 92 Oxygen Delivery Method Nasal Cannula Nasal Cannula Nasal Cannula Oxygen Flow Rate (L/min) 2 2 2 06/29/21 23:08 Temperature 101 F H Temperature Source Temporal Pulse Rate 118 H Respiratory Rate 24 H Respiratory Effort Blood Pressure 191/87 H Blood Pressure Mean 121 Pulse Ox 92 Oxygen Delivery Method Nasal Cannula Oxygen Flow Rate (L/min) 2 Positive well nourished, well developed and obese General Appearance ED: well developed Nutritional Appearance: obese HEENT Reports normocephalic, head/scalp atraumatic and moist mucous membranes Eyes PERRL and EOMs intact bilaterally Neck no lymphadenopathy, supple and no JVD Resp normal respiratory effort and clear to auscultation bilaterally Cardio regular rhythm and no murmurs Rate: tachycardic GI normal to inspection, nondistended, normoactive bowel sounds and non-tender Palpation: soft Back/Spine no CVA tenderness and normal ROM Extremity normal to inspection General Extremety ED: Negative for edema General Extremity: Negative for edema Neuro oriented x3 and CN's II-XII intact bilaterally Sensorium / Orientation: alert Motor Exam: strength 5/5 throughout Psych mental status grossly normal Mood & Affect: Negative for depressed or tearful Skin no rashes or lesions noted and no wounds MDM MDM MDM Narrative Medical decision making narrative: Patient's white blood cell count is elevated 12.3. This is most likely due to the steroids that she has been taking for the past several days. Coags normal CMP fairly unremarkable. Noted elevated transaminases and alkaline phosphatase which has been elevated before. Troponin at 18. Lactic acid is normal. Patient is requiring supplemental oxygen to keep her oxygen level above 87% at rest on room air. CTA of the chest demonstrates no pulmonary embolism but multifocal areas of pneumonia consistent with COVID- 19. The patient has been on steroids, she has had monoclonal antibody infusion, and she is now requiring supplemental oxygen. I will speak with her hospitalist regarding admission. Patient began to complain of chest pain again. Repeat EKG shows sinus tachycardia at a rate of 109 with left bundle branch block. Lab Data Attestation: I reviewed the patient's lab results. Labs: Laboratory Results - last 24 hr 06/29/21 06/29/21 06/29/21 21:44 21:44 21:44 WBC 12.3 H RBC 4.85 Hgb 14.1 Hct 42.8 MCV 88.2 MCH 29.1 MCHC 32.9 RDW Std Deviation 47.9 H RDW Coeff of Han 14.7 H Plt Count 179 MPV 10.0 Immature Gran % (Auto) 0.600 Neut % (Auto) 89.5 H Lymph % (Auto) 2.5 L Benzie % (Auto) 7.3 Eos % (Auto) 0.0 Baso % (Auto) 0.1 Absolute Neuts (auto) 11.1 H Absolute Lymphs (auto) 0.31 L Nucleated RBC % 0 Differential Comment SCANNED PT 13.0 INR 1.0 APTT 31.3 Sodium 134 L Potassium 3.7 Chloride 100 Carbon Dioxide 23.0 Anion Gap 11 BUN 19 H Creatinine 0.87 Estim Creat Clear Calc 45.07 Est GFR (MDRD) Af Amer 83 Est GFR (MDRD) Non-Af 69 BUN/Creatinine Ratio 21.8 H Glucose 118 H Lactic Acid Calcium 9.2 Total Bilirubin 0.70 AST 76 H ALT 66 H Alkaline Phosphatase 221 H Troponin I High Sens 18 Total Protein 8.7 H Albumin 3.4 Globulin 5.3 H Albumin/Globulin Ratio 0.6 L 06/29/21 21:44 WBC RBC Hgb Hct MCV MCH MCHC RDW Std Deviation RDW Coeff of Han Plt Count MPV Immature Gran % (Auto) Neut % (Auto) Lymph % (Auto) Benzie % (Auto) Eos % (Auto) Baso % (Auto) Absolute Neuts (auto) Absolute Lymphs (auto) Nucleated RBC % Differential Comment PT INR APTT Sodium Potassium Chloride Carbon Dioxide Anion Gap BUN Creatinine Estim Creat Clear Calc Est GFR (MDRD) Af Amer Est GFR (MDRD) Non-Af BUN/Creatinine Ratio Glucose Lactic Acid 1.4 Calcium Total Bilirubin AST ALT Alkaline Phosphatase Troponin I High Sens Total Protein Albumin Globulin Albumin/Globulin Ratio Radiography Diagnostic Testing: Radiology Impression Chest CTA 06/29/21 21:07 IMPRESSION: Multifocal pneumonia. Normal CTA chest examination, without a demonstrated pulmonary embolism or arterial dissection. Electronically Signed: Tomy Chisholm MD at 22:38 EDT Tel , Service support , EKG Initial EKG: Attestation: I personally reviewed and interpreted this EKG as follows: Comments: Sinus tachycardia at a ventricular rate of 115 with a left bundle branch block. Follow-up EKG: Comments: Sinus tachycardia with PVCs ventricular rate of 109 and left bundle branch block Discharge Plan Triage Chief Complaint: Shortness of Breath ED Provider: Damian Hackett Dx/Rx/DC Orders Clinical Impression: COVID-19, Acute hypoxemic respiratory failure, Pneumonia due to COVID-19 virus Prescriptions: No Action allopurinol 100 MG tablet 900 mg PO DAILYCM RF: 0 simvastatin 40 MG tablet 40 mg PO QHS RF: 0 lisinopril 2.5 MG tablet 20 mg PO DAILY RF: 0 atenolol 25 MG tablet 25 mg PO DAILY RF: 0 baclofen 10 MG tablet 10 mg PO BID PRN (Reason: Pain) RF: 0 hydrochlorothiazide 12.5 MG capsule 12.5 mg PO DAILY RF: 0 montelukast 10 MG tablet 10 mg PO DAILY RF: 0 fluticasone propionate 1 SPRAY spray,suspension 2 spray NASAL DAILY RF: 0 All Day Allergy (cetirizine) 10 MG capsule 10 mg PO DAILY RF: 0 aspirin 81 MG tablet 81 mg PO DAILY@0800 RF: 0 pantoprazole 40 MG tablet 40 mg PO BID Qty: 0 RF: 0 alum-mag hydroxide-simeth 30 ML suspension 15 ml PO Q4H PRN PRN (Reason: heartburns) Qty: 1 RF: 0 oxcarbazepine 300 MG tablet 300 mg PO DAILY RF: 0 dexamethasone [Decadron] 6 mg tablet 6 mg PO DAILY 7 Days Qty: 7 RF: 0 ondansetron 4 mg tablet,disintegrating 4 mg PO Q8H PRN (Reason: nausea and vomiting) Qty: 7 RF: 0 Primary Care Provider: Maxi Oneal Referrals: Maxi Oneal MD [Primary Care Provider] -
[2021-06-29 21:53] LABS: Absolute Lymphocyte Count 0.31 X10^3/uL (0.83-4.51); Absolute Neutrophil Count 11.1 X10^3/uL (2.0-7.7); Basophil# 0.01 X10^3/uL; Basophil% 0.1 % (0-1); Hematocrit 42.8 % (37-47); Hemoglobin 14.1 g/dL (12.0-15.0); Lymphocyte # 0.31 X10^3/ul (0.83-4.51); Lymphocyte % 2.5 % (19-41); Mean Corp Hgb Conc 32.9 g/dL (32-36); Mean Corpuscular Hgb 29.1 pg (27.0-32.0); Mean Corpuscular Volume 88.2 fL (81-99); Monocyte% 7.3 % (0-10); NRBC Flagged by Analyzer 0 % (0-5); Neutrophil # 11.05 X10^3/uL (2.7-7.7); Neutrophil % 89.5 % (47-70); POSITIVE DIFFERENTIAL YES; Platelet Count 179 K/mm3 (150-450); RBC Distribution Width CV 14.7 % (11.6-14.6); RBC Distribution Width SD 47.9 fl (35.1-43.9); Red Blood Count 4.85 M/mm3 (4.2-5.4); White Blood Count 12.3 K/mm3 (4.4-11.0)
[2021-06-29 21:57] LABS: Differential Indicated SCAN CRITERIA MET
[2021-06-29 22:05] LABS: Partial Thromboplast Time 31.3 Seconds (24.1-36.2)
[2021-06-29 22:14] LABS: ALB/GLOB Ratio 0.6 RATIO (0.9-2.4); AST(SGOT) 76 U/L (15-37); Alanine Aminotransfer ALT/SGPT 66 U/L (13-56); Albumin, Serum 3.4 g/dL (3.2-5.0); Alkaline Phosphatase 221 U/L (45-117); Anion Gap 11 (5-15); BUN 19 mg/dL (7-18); BUN/Creat Ratio 21.8 RATIO (10-20); Calcium,Total 9.2 mg/dL (8.5-10.1); Chloride 100 mmol/L (98-107); Creatinine, Serum 0.87 mg/dL (0.55-1.02); EST Glomerular Filtration Rate 69 mL/min (>60); Est Glom Filt Rate - Afr Amer 83 mL/min (>60); Estimated Creatinine Clearance 45.07 ml/min; Globulin 5.3 g/dL (2.2-4.2); Glucose 118 mg/dL (74-106); Potassium 3.7 mmol/L (3.5-5.1); Protein, Total 8.7 g/dL (6.4-8.2); Sodium Level 134 mmol/L (136-145); Troponin-I HS 18 pg/mL (3.0-54.0)
[2021-06-29 22:29] LABS: Differential Comment SCANNED
[2021-06-29 22:33] LABS: Lactic Acid 1.4 mmol/L (0.4-1.9)
[2021-06-29] MEDS: Acetaminophen 500 MG Tablet 1000 MG PO (22:56)
--- NOTE | 2021-06-29 23:01 | EKG12_ITS ---
Test Reason : CP Blood Pressure : / mmHG Vent. Rate : 109 BPM Atrial Rate : 109 BPM P-R Int : 186 ms QRS Dur : 130 ms QT Int : 350 ms P-R-T Axes : 036 -23 110 degrees QTc Int : 471 ms Sinus tachycardia with occasional Premature ventricular complexes Left bundle branch block Abnormal ECG Confirmed by EMA LOUIE, LEVAR ([id number]), tape editor GABRIEL ROBERT ([id number]) on 07/04/2021 7:46:34 AM Referred By: RICHARD Confirmed By:LEVAR BOO MD
--- NOTE | 2021-06-29 23:38 | HP.PCM.HOS_ITS ---
HPI - General General Date of Admission: 06/30/21 Date of Service: 06/29/21 Chief Complaint: Covid-like symptoms HPI Narrative HILDA RAMIREZ, is a 66 F with a significant history of bipolar disorder; hypertension; hyperlipidemia who presents to the emergent department with 5-day history of progressively worsening Covid-like symptoms. Patient is unvaccinated. She was at a hospital 3 days ago and tested positive for Covid. She received a monoclonal antibody on the day of this presentation. When she got home after receiving the monoclonal antibodies she had cough for about 45 minutes. Associated with her symptoms is fever; chills; fatigue; anosmia; anorexia; nausea; and vomiting. Also a day before presentation she had some lo ose stools. FORMERLY [facility], [facility]–1983 Medical History Anxiety Depression High cholesterol HTN (hypertension) Home Medications allopurinol 900 mg PO DAILYCM 01/05/14 [History Last Taken 11/05/17] lisinopril 20 mg PO DAILY 01/05/14 [History Last Taken 11/05/17] simvastatin 40 mg PO QHS 01/05/14 [History Last Taken 11/05/17] All Day Allergy (cetirizine) 10 mg PO DAILY 11/06/17 [History Last Taken 11/05/17] aspirin 81 mg PO DAILY@0800 11/06/17 [History Last Taken 11/06/17] atenolol 25 mg PO DAILY 11/06/17 [History Last Taken 11/05/17] baclofen 10 mg PO BID PRN 11/06/17 [History Last Taken Unknown] fluticasone propionate 2 spray NASAL DAILY 11/06/17 [History Last Taken 11/06/17] hydrochlorothiazide 12.5 mg PO DAILY 11/06/17 [History Last Taken 11/05/17] montelukast 10 mg PO DAILY 11/06/17 [History Last Taken 11/05/17] alum-mag hydroxide-simeth 15 ml PO Q4H PRN PRN #1 bottle 11/07/17 [Rx Last Taken Unknown] pantoprazole 40 mg PO BID #0 11/07/17 [Rx Last Taken 11/05/17] oxcarbazepine 300 mg PO DAILY 12/14/17 [History Last Taken Unknown] ondansetron 4 mg PO Q8H PRN #7 tab 06/27/21 [Rx Last Taken Unknown] dexamethasone [Decadron] 6 mg PO DAILY 06/30/21 [History Last Taken Unknown] Allergy/AdvReac Type Severity Reaction Status Date / Time erythromycin base AdvReac Other Verified 06/27/21 17:20 [Erythromycin Base] eszopiclone [From Lunesta] AdvReac Vomiting Verified 06/27/21 17:20 Family History Mother Pancreatic cancer Father Heart disease Surgical History H/O section H/O: knee surgery Hx of cholecystectomy S/P herniorrhaphy Social History Smoking Status: Former smoker substance use type: does not use ROS ROS Narrative Constitutional: Reports fever, chills, fatigue, anorexia. Denies change in weight Eyes: Denies blurry vision, change in eye color, change in vision, discharge from eye(s), double vision, erythema, eye pain, loss of vision or other HEENT: Denies abnormal hearing, dysphagia, ear pain, epistaxis, headache(s), hearing loss, nasal congestion, nasal discharge, post nasal drip, sinus pressure, sore throat or other Cardiovascular: Denies chest pain or palpitations. Respiratory/Chest: Reports mostly dry cough and occasional clear productive cough. Denies wheezes. Gastrointestinal: Reports loose stools reports nausea and vomiting. Denies abdominal pain, coffee ground emesis dyspepsia, hematemesis, hematochezia, loose stools, melena or other. Genitourinary: Denies burning urination, difficulty urinating, dysuria, hematuria, nocturia, urinary frequency, urinary hesitancy, urinary incontinence, urinary urgency or other Musculoskeletal: Denies arthralgias, back pain, joint pain, joint stiffness, joint swelling, myalgias, neck pain or other Neurologic: Denies abnormal gait, abnormal speech, confusion, disequilibrium, dizziness, focal weakness, headache(s), numbness, paresthesias, seizure-like activity, seizures, syncope, tingling, tremor(s) or other Psychiatric: Denies homicidal ideation, suicidal ideation or other Endocrinology: Denies change in body appearance, cold intolerance, excessive sweating, heat intolerance, polydipsia, polyuria or other Hematologic/Lymphatic: Denies anemia, easy bleeding, easy bruising, lymphadenopathy or other Integumentary: Denies rashes Allergic/Immunologic: Denies rhinitis, hives, eczema, asthma or other Vital Signs Vital Signs Vital Signs: 06/29/21 20:44 06/29/21 20:49 06/29/21 21:24 Temperature 103.2 F H 103.2 F H Temperature Source Temporal Oral Pulse Rate 128 H 128 H Respiratory Rate 28 H 28 H Respiratory Effort Short of Breath Blood Pressure 137/71 H 137/71 H Blood Pressure Mean 93 93 Pulse Ox 95 95 Oxygen Delivery Method Room Air Oxygen Flow Rate (L/min) 06/29/21 21:26 06/29/21 21:49 06/29/21 22:33 Temperature 103.1 F H 100.5 F H Temperature Source Oral Temporal Pulse Rate 114 H 111 H Respiratory Rate 26 H 26 H Respiratory Effort Blood Pressure 130/72 H 179/84 H Blood Pressure Mean 91 115 Pulse Ox 92 93 92 Oxygen Delivery Method Nasal Cannula Nasal Cannula Nasal Cannula Oxygen Flow Rate (L/min) 2 2 2 06/29/21 23:08 Temperature 101 F H Temperature Source Temporal Pulse Rate 118 H Respiratory Rate 24 H Respiratory Effort Blood Pressure 191/87 H Blood Pressure Mean 121 Pulse Ox 92 Oxygen Delivery Method Nasal Cannula Oxygen Flow Rate (L/min) 2 Weight Weight: 99.79 kg Body Mass Index (BMI) 43.0 Physical Exam Narrative Physical exam: General: Well-nourished, well-developed. Head: Normocephalic, atraumatic, no tenderness Eyes: PERRLA, EOMI ENT, no trauma, moist mucous membranes, no rhinorrhea Neck: Nontender, full range of motion, no spinal tenderness, deformities, step- off CVS: Tachycardia. S1-S2 present. No murmur, gallop or rub. Respiratory : Tachypnea; Rales. chest wall nontender, no wheezing Abdomen: Soft, nontender, nondistended, normal bowel sounds, no masses : Deferred Back: Nontender, no CVA tenderness, no midline spinal tenderness, deformities, step-offs Extremities: Nontender full range of motion, no trauma Skin: Normal color, no trauma, abrasions Neuro: Alert, oriented, cranial nerves II through XII grossly intact. Psychiatry: Normal mood. Normal affect. Not depressed. Not anxious. Results Lab / Micro Data Result Diagrams: 06/29/21 21:44 06/29/21 21:44 Labs: Laboratory Results - last 24 hr 06/29/21 21:44: WBC 12.3 H, RBC 4.85, Hgb 14.1, Hct 42.8, MCV 88.2, MCH 29.1, MCHC 32.9, RDW Std Deviation 47.9 H, RDW Coeff of Han 14.7 H, Plt Count 179, MPV 10.0, Immature Gran % (Auto) 0.600, Neut % (Auto) 89.5 H, Lymph % (Auto) 2.5 L, [place] % (Auto) 7.3, Eos % (Auto) 0.0, Baso % (Auto) 0.1, Absolute Neuts (auto) 11.1 H, Absolute Lymphs (auto) 0.31 L, Nucleated RBC % 0, Differential Comment SCANNED 06/29/21 21:44: PT 13.0, INR 1.0, APTT 31.3 06/29/21 21:44: Sodium 134 L, Potassium 3.7, Chloride 100, Carbon Dioxide 23.0, Anion Gap 11, BUN 19 H, Creatinine 0.87, Estim Creat Clear Calc 45.07, Est GFR (MDRD) Af Amer 83, Est GFR (MDRD) Non-Af 69, BUN/Creatinine Ratio 21.8 H, Glucose 118 H, Calcium 9.2, Total Bilirubin 0.70, AST 76 H, ALT 66 H, Alkaline Phosphatase 221 H, Troponin I High Sens 18, Total Protein 8.7 H, Albumin 3.4, Globulin 5.3 H, Albumin/Globulin Ratio 0.6 L 06/29/21 21:44: Lactic Acid 1.4 Radiology Impression Chest CTA 06/29/21 21:07 IMPRESSION: Multifocal pneumonia. Normal CTA chest examination, without a demonstrated pulmonary embolism or arterial dissection. Electronically Signed: Tomy Chisholm MD at 22:38 EDT Tel , Service support , Assessment & Plan Assessment/Plan (1) Acute hypoxemic respiratory failure: (2) Morbid obesity with BMI of 40.0-44.9, adult: (3) Pneumonia due to COVID-19 virus: PLAN: Acute hypoxemic respiratory failure secondary to SARS- COV 2 Emergent department doctor reports oxygen saturation of 87% on room air. Patient with tachypnea and tachycardia. Patient on supplemental oxygenation at the emergency department. Continue supplemental oxygenation by nasal cannula. Titrate oxygen as necessary. Review of medical department records of positive rapid Covid antigen on 06/27/2021. Chest x-ray and CT image independently interpreted as consistent with bilateral pneumonia. No atrial dissection or pulmonary embolism. I agree with radiol ogist interpretation above. Procalcitonin was ordered. Decadron continued. Liver biochemistry is chronically elevated. Alkaline phosphatase elevated than previous. Liver biochemistry is still appropriate to start remdesivir. Creatinine clearance is appropriate to start remdesivir. Remdesivir ordered. Trend CMP. A CBC reviewed showed leukocytosis with white count of 12.3; neutrophilia with neutrophil count of 89.5%; and lymphopenia with lymphocyte of 2.5%. Trend CBC. Tylenol for fever Mucinex ordered. Hypertension Blood pressure is not within goal Home blood pressure medication continued. As needed labetalol ordered. Trend blood pressure and adjust blood pressure medications. Gout Allopurinol continued. DVT prophylaxis Subcutaneous Lovenox ordered. Charges/Coding Visit Charges Inpatient E&M: 95647 Init Hosp L3
[2021-06-30] VITALS (11 sets, daily range): BP systolic 120–143; BP diastolic 47–68; PULSE 63–88; RESP 18–20; TEMP 36.4–37.1; O2SAT 89–95; BMI 42.5
[2021-06-30 01:55] LABS: Procalcitonin 0.15 ng/mL (0.00-0.09)
[2021-06-30] MEDS: 0.9% Saline Lock 10 ML Syringe IV ×3 (02:04→19:50)
[2021-06-30] MEDS: guaiFENesin 1,200 MG Tablet 1200 MG PO ×3 (02:04→19:49)
[2021-06-30 07:24] LABS: Absolute Lymphocyte Count 0.57 X10^3/uL (0.83-4.51); Absolute Neutrophil Count 7.3 X10^3/uL (2.0-7.7); Hematocrit 38.3 % (37-47); Hemoglobin 12.3 g/dL (12.0-15.0); Lymphocyte # 0.57 X10^3/ul (0.83-4.51); Lymphocyte % 6.5 % (19-41); Mean Corp Hgb Conc 32.1 g/dL (32-36); Mean Corpuscular Hgb 28.7 pg (27.0-32.0); Mean Corpuscular Volume 89.5 fL (81-99); Mean Platelet Vol. 10.5 fl (6.2-12.0); Monocyte# 0.82 X10^3/uL; Monocyte% 9.4 % (0-10); NRBC Flagged by Analyzer 0 % (0-5); Neutrophil # 7.31 X10^3/uL (2.7-7.7); Neutrophil % 83.8 % (47-70); POSITIVE DIFFERENTIAL YES; Platelet Count 152 K/mm3 (150-450); RBC Distribution Width SD 49.1 fl (35.1-43.9); Red Blood Count 4.28 M/mm3 (4.2-5.4); White Blood Count 8.7 K/mm3 (4.4-11.0)
[2021-06-30 07:28] LABS: Differential Indicated SCAN CRITERIA MET
[2021-06-30 07:56] LABS: ALB/GLOB Ratio 0.6 RATIO (0.9-2.4); AST(SGOT) 58 U/L (15-37); Alanine Aminotransfer ALT/SGPT 56 U/L (13-56); Albumin, Serum 2.7 g/dL (3.2-5.0); Alkaline Phosphatase 176 U/L (45-117); Anion Gap 6 (5-15); BUN 16 mg/dL (7-18); BUN/Creat Ratio 21.5 RATIO (10-20); Calcium,Total 8.3 mg/dL (8.5-10.1); Chloride 103 mmol/L (98-107); Creatinine, Serum 0.74 mg/dL (0.55-1.02); EST Glomerular Filtration Rate 83 mL/min (>60); Est Glom Filt Rate - Afr Amer 100 mL/min (>60); Globulin 4.6 g/dL (2.2-4.2); Glucose 133 mg/dL (74-106); Potassium 3.9 mmol/L (3.5-5.1); Protein, Total 7.3 g/dL (6.4-8.2); Sodium Level 136 mmol/L (136-145)
[2021-06-30 08:41] LABS: Differential Comment SCANNED
[2021-06-30] MEDS: Allopurinol 100 MG Tablet 400 MG PO (08:57)
[2021-06-30] MEDS: Enoxaparin 40 MG/0.4 ML Syringe SC ×2 (08:57→19:49)
[2021-06-30] MEDS: Atenolol 25 MG Tablet PO (08:57)
[2021-06-30] MEDS: Aspirin E.C. 81 MG Tablet PO (08:58)
[2021-06-30] MEDS: dexAMETHasone 2 MG TABLET 6 MG PO (08:58)
[2021-06-30] MEDS: OXcarbazepine 300 MG Tablet PO (08:58)
--- NOTE | 2021-06-30 13:15 | CASEMGMT ---
ELVIS CARL Assessment: Face to Face with pt for initial transition planning/care coordination assessment. ELVIS CARL introduced self and role at [facility], pt voices understanding and consents to assessment. Pt is A/O x4 and answers all questions appropriately at this time. Pt lying in bed with O2 on in no distress. Care providers, pharmacy, and demographics verified/updated. Admitting Dx: COVID 19 PCP:Kimmy Specialists: Thompson, pain mgmt; ronal Sánchez Preferred Pharmacy: [facility] Retail Insurance: GIFTY, LOLIS Prescription Benefit: yes LW/HPOA: Pt denies having a LW/DPOA and denies need for info regarding AD. LNOK: Alaynajason Buitrago, friend Living Arrangements: Pt lives alone typically but her son has been staying with her for the last month for his benefit. Pt lives in a gound level apt with no steps to enter. Pt reports being I in ADL's and denies concerns at home. Transportation: Pt drives self and denies concerns with transportation. DME/HHC/SNF: Pt has a CPAP at home. States she has not been wearing it. Pt denies hx of HHC but has been at [facility]. Pt states she was first tested for COVID at [facility]. She is not sure if her son is positive or not. She can quarantine from him by using a separate bedroom only. She states she can wear a mask when around him. She usually uses [employer] [facility] for her groceries, denies issues with getting groceries and supplies. Provided pt with a list of local in network DME, pt has no preference should she need O2 on dc. Pt states no concerns with going home at time of dc. Pt states no further concerns/needs. CM to follow. Advised pt to ask CM if any further question/concerns/needs arise, voices understanding. Pt Goal: Home Plan: Home
--- NOTE | 2021-06-30 13:52 | PN.HOSP_ITS ---
Subjective Subjective Feeling better than when she came in. Maintaining oxygen saturations on 4 L. Objective Data Objective Data Vital Signs: Vital Signs Temp Pulse Resp BP Pulse Ox 97.6 F L 77 20 H 138/67 H 92 06/30/21 13:01 06/30/21 13:01 06/30/21 13:01 06/30/21 13:01 06/30/21 13:01 Oxygen Flow Rate (L/min) 4 Oxygen Delivery Method Nasal Cannula Weight: 216 lb 14.958 oz Body Mass Index (BMI) 42.5 Intake & Output: Intake and Output for Last 24 Hours 06/29/21 06/30/21 07/01/21 03:59 03:59 03:59 Intake Total 500.25 / 500.25 810.25 / 810.25 Balance 500.25 / 500.25 810.25 / 810.25 Lab / Micro Data Result Diagrams: 06/30/21 06:05 06/30/21 06:05 Labs: Laboratory Results - last 24 hr 06/29/21 21:44: WBC 12.3 H, RBC 4.85, Hgb 14.1, Hct 42.8, MCV 88.2, MCH 29.1, MCHC 32.9, RDW Std Deviation 47.9 H, RDW Coeff of Han 14.7 H, Plt Count 179, MPV 10.0, Immature Gran % (Auto) 0.600, Neut % (Auto) 89.5 H, Lymph % (Auto) 2.5 L, [place] % (Auto) 7.3, Eos % (Auto) 0.0, Baso % (Auto) 0.1, Absolute Neuts (auto) 11.1 H, Absolute Lymphs (auto) 0.31 L, Nucleated RBC % 0, Differential Comment SCANNED 06/29/21 21:44: PT 13.0, INR 1.0, APTT 31.3 06/29/21 21:44: Sodium 134 L, Potassium 3.7, Chloride 100, Carbon Dioxide 23.0, Anion Gap 11, BUN 19 H, Creatinine 0.87, Estim Creat Clear Calc 45.07, Est GFR (MDRD) Af Amer 83, Est GFR (MDRD) Non-Af 69, BUN/Creatinine Ratio 21.8 H, Glucose 118 H, Calcium 9.2, Total Bilirubin 0.70, AST 76 H, ALT 66 H, Alkaline Phosphatase 221 H, Troponin I High Sens 18, Total Protein 8.7 H, Albumin 3.4, Globulin 5.3 H, Albumin/Globulin Ratio 0.6 L 06/29/21 21:44: Lactic Acid 1.4 06/29/21 21:44: Procalcitonin 0.15 H 06/30/21 06:05: WBC 8.7, RBC 4.28, Hgb 12.3, Hct 38.3, MCV 89.5, MCH 28.7, MCHC 32.1, RDW Std Deviation 49.1 H, RDW Coeff of Han 15.0 H, Plt Count 152, MPV 10.5, Immature Gran % (Auto) 0.300, Neut % (Auto) 83.8 H, Lymph % (Auto) 6.5 L, [place] % (Auto) 9.4, Eos % (Auto) 0.0, Baso % (Auto) 0.0, Absolute Neuts (auto) 7.3, Absolute Lymphs (auto) 0.57 L, Nucleated RBC % 0, Differential Comment SCANNED 06/30/21 06:05: Sodium 136, Potassium 3.9, Chloride 103, Carbon Dioxide 27.0, Anion Gap 6, BUN 16, Creatinine 0.74, Estim Creat Clear Calc 84.80, Est GFR (MDRD) Af Amer 100, Est GFR (MDRD) Non-Af 83, BUN/Creatinine Ratio 21.5 H, Glucose 133 H, Calcium 8.3 L, Total Bilirubin 0.60, AST 58 H, ALT 56, Alkaline Phosphatase 176 H, Total Protein 7.3, Albumin 2.7 L, Globulin 4.6 H, Albumin/Globulin Ratio 0.6 L Radiography Diagnostic Testing: Radiology Impression Chest CTA 06/29/21 21:07 IMPRESSION: Multifocal pneumonia. Normal CTA chest examination, without a demonstrated pulmonary embolism or arterial dissection. Electronically Signed: Tomy Chisholm MD at 22:38 EDT Tel , Service support , Physical Exam Const alert, oriented x3 and no apparent distress General Appearance: cooperative HEENT normocephalic and moist oral mucous membranes Eyes PERRL, EOMs intact bilaterally and conjunctivae normal Neck supple and no JVD Resp normal respiratory effort, no retractions, no use of accessory muscles and clear to auscultation bilaterally Auscultation: diminished lung sounds; Negative for crackles, rales, rhonchi or w heezes Cardio regular rate, regular rhythm, S1 normal heart sound, S2 normal heart sound and no murmurs GI soft to palpation, non-tender and non-distended; Negative for hepatosplenomegaly Extremity no clubbing, cyanosis or edema Skin no rashes or lesions noted Neuro no focal motor deficits and no sensory deficits noted Psych affect normal Appearance: appropriate Assessment & Plan Assessment/Plan (1) Acute hypoxemic respiratory failure: (2) Morbid obesity with BMI of 40.0-44.9, adult: (3) Pneumonia due to COVID-19 virus: PLAN: 1. Acute hypoxic respiratory failure secondary to Covid pneumonia -Continue with Decadron and remdesivir -Continue with oxygen and monitor closely, -If she worsens may need to obtain sputum culture as well as try to dose some Lasix -If she significantly worsens will need to consult ID for possible baricitinib 2. HTN/HLD -Blood pressure stable, can resume home blood pressure medications 3. Gout -Stable -Allopurinol continued. DVT: Lovenox Charges/Coding Visit Charges Inpatient E&M: 44354 Subs Hosp L2
[2021-06-30] MEDS: Atorvastatin Calcium 20 MG Tablet PO (19:49)
[2021-06-30] MEDS: Acetaminophen 325 MG Tablet 650 MG PO (19:51)
--- NOTE | 2021-06-30 21:05 | NURSING ---
covid 19 emergency charting in effect 06/30/21 @ 1405
[2021-07-01 02:20] VITALS: BP 122/79; PULSE 65; RESP 18; TEMP 36.6; O2SAT 95
[2021-07-01 07:02] LABS: Absolute Neutrophil Count 4.6 X10^3/uL (2.0-7.7); Basophil# 0.01 X10^3/uL; Basophil% 0.2 % (0-1); Hemoglobin 12.6 g/dL (12.0-15.0); Lymphocyte % 13.1 % (19-41); Mean Corp Hgb Conc 32.3 g/dL (32-36); Mean Corpuscular Hgb 29.1 pg (27.0-32.0); Mean Corpuscular Volume 90.1 fL (81-99); Mean Platelet Vol. 10.3 fl (6.2-12.0); Monocyte# 0.66 X10^3/uL; Monocyte% 10.8 % (0-10); NRBC Flagged by Analyzer 0 % (0-5); Neutrophil # 4.62 X10^3/uL (2.7-7.7); Neutrophil % 75.2 % (47-70); Platelet Count 159 K/mm3 (150-450); RBC Distribution Width CV 14.8 % (11.6-14.6); RBC Distribution Width SD 48.6 fl (35.1-43.9); Red Blood Count 4.33 M/mm3 (4.2-5.4); White Blood Count 6.1 K/mm3 (4.4-11.0)
[2021-07-01 07:39] LABS: ALB/GLOB Ratio 0.6 RATIO (0.9-2.4); AST(SGOT) 41 U/L (15-37); Alanine Aminotransfer ALT/SGPT 53 U/L (13-56); Albumin, Serum 2.7 g/dL (3.2-5.0); Alkaline Phosphatase 167 U/L (45-117); Anion Gap 7 (5-15); BUN 20 mg/dL (7-18); BUN/Creat Ratio 32.6 RATIO (10-20); Calcium,Total 8.8 mg/dL (8.5-10.1); Chloride 102 mmol/L (98-107); Creatinine, Serum 0.61 mg/dL (0.55-1.02); EST Glomerular Filtration Rate 103 mL/min (>60); Est Glom Filt Rate - Afr Amer 125 mL/min (>60); Globulin 4.8 g/dL (2.2-4.2); Glucose 110 mg/dL (74-106); Potassium 3.9 mmol/L (3.5-5.1); Protein, Total 7.5 g/dL (6.4-8.2); Sodium Level 134 mmol/L (136-145)
[2021-07-01 08:20] VITALS: BP 141/64; PULSE 69; RESP 18; TEMP 36.8; O2SAT 93
[2021-07-01] MEDS: guaiFENesin 1,200 MG Tablet 1200 MG PO ×2 (09:13→21:03)
[2021-07-01] MEDS: Aspirin E.C. 81 MG Tablet PO (09:13)
[2021-07-01] MEDS: dexAMETHasone 2 MG TABLET 6 MG PO (09:13)
[2021-07-01] MEDS: Enoxaparin 40 MG/0.4 ML Syringe SC ×2 (09:13→21:03)
[2021-07-01] MEDS: Allopurinol 100 MG Tablet 400 MG PO (09:14)
[2021-07-01] MEDS: OXcarbazepine 300 MG Tablet PO (09:14)
[2021-07-01] MEDS: Atenolol 25 MG Tablet PO (09:24)
[2021-07-01] MEDS: Lisinopril 20 MG Tablet PO (09:25)
--- NOTE | 2021-07-01 13:06 | PCM.PN.HOSP ---
Subjective Subjective Doing well, feels little bit better than yesterday. Maintaining her oxygen sats on 4 L nasal cannula. Objective Data Objective Data Vital Signs: Vital Signs Temp Pulse Resp BP Pulse Ox 98.3 F 69 18 141/64 H 93 07/01/21 08:20 07/01/21 08:20 07/01/21 08:20 07/01/21 08:20 07/01/21 08:20 Oxygen Flow Rate (L/min) 3 Oxygen Delivery Method Nasal Cannula Weight: 216 lb 14.958 oz Body Mass Index (BMI) 42.5 Intake & Output: Intake and Output for Last 24 Hours 06/30/21 07/01/21 07/02/21 03:59 03:59 03:59 Intake Total 500.25 / 500.25 1909. / 1909.25 200 / 200 Balance 500.25 / 500.25 1909. / 1909. 200 / 200 Lab / Micro Data Result Diagrams: 07/01/21 06:26 07/01/21 06:26 Labs: Laboratory Results - last 24 hr 07/01/21 06:26: WBC 6.1, RBC 4.33, Hgb 12.6, Hct 39.0, MCV 90.1, MCH 29.1, MCHC 32.3, RDW Std Deviation 48.6 H, RDW Coeff of Han 14.8 H, Plt Count 159, MPV 10.3, Immature Gran % (Auto) 0.700, Neut % (Auto) 75.2 H, Lymph % (Auto) 13.1 L, [place] % (Auto) 10.8 H, Eos % (Auto) 0.0, Baso % (Auto) 0.2, Absolute Neuts (auto) 4.6, Absolute Lymphs (auto) 0.80 L, Nucleated RBC % 0 07/01/21 06:26: Sodium 134 L, Potassium 3.9, Chloride 102, Carbon Dioxide 25.0, Anion Gap 7, BUN 20 H, Creatinine 0.61, Estim Creat Clear Calc 84.80, Est GFR (MDRD) Af Amer 125, Est GFR (MDRD) Non-Af 103, BUN/Creatinine Ratio 32.6 H, Glucose 110 H, Calcium 8.8, Total Bilirubin 0.60, AST 41 H, ALT 53, Alkaline Phosphatase 167 H, Total Protein 7.5, Albumin 2.7 L, Globulin 4.8 H, Albumin/Globulin Ratio 0.6 L Physical Exam Const alert, oriented x3 and no apparent distress General Appearance: cooperative HEENT normocephalic and moist oral mucous membranes Eyes PERRL, EOMs intact bilaterally and conjunctivae normal Neck supple and no JVD Resp normal respiratory effort, no retractions, no use of accessory muscles and clear to auscultation bilaterally Auscultation: diminished lung sounds; Negative for crackles, rales, rhonchi or wheezes Cardio regular rate, regular rhythm, S1 normal heart sound, S2 normal heart sound and no murmurs GI soft to palpation, non-tender and non-distended; Negative for hepatosplenomegaly Extremity no clubbing, cyanosis or edema Skin no rashes or lesions noted Neuro no focal motor deficits and no sensory deficits noted Psych affect normal Appearance: appropriate Assessment & Plan Assessment/Plan (1) Acute hypoxemic respiratory failure: (2) Morbid obesity with BMI of 40.0-44.9, adult: (3) Pneumonia due to COVID-19 virus: PLAN: 1. Acute hypoxic respiratory failure secondary to Covid pneumonia -Continue with Decadron and remdesivir -Continue with oxygen and monitor closely, -If she worsens may need to obtain sputum culture as well as try to dose some Lasix -If she significantly worsens will need to consult ID for possible baricitinib 2. HTN/HLD -Blood pressure stable, can resume home blood pressure medications 3. Gout -Stable -Allopurinol continued. DVT: Lovenox Charges/Coding Visit Charges Inpatient E&M: 94776 Subs Hosp L2
[2021-07-01 14:13] VITALS: BP 134/78; PULSE 61; RESP 18; TEMP 36.9; O2SAT 95
[2021-07-01 18:25] VITALS: BP 128/78; PULSE 61; RESP 18; TEMP 36.6; O2SAT 93
--- NOTE | 2021-07-01 18:59 | PCS.PANDOC ---
PANDEMIC DOCUMENTATION INITIATED: Date: 05/16/2021 Time: 190
[2021-07-01 20:09] VITALS: O2SAT 94
[2021-07-01 20:48] VITALS: BP 144/87; PULSE 78; RESP 18; TEMP 36.8; O2SAT 94
[2021-07-01] MEDS: Atorvastatin Calcium 20 MG Tablet PO (21:03)
[2021-07-02] VITALS (7 sets, daily range): BP systolic 120–158; BP diastolic 62–70; PULSE 58–69; RESP 18–20; TEMP 36.6–36.9; O2SAT 82–96
[2021-07-02] MEDS: 0.9% Saline Lock 10 ML Syringe IV ×2 (01:51→21:57)
[2021-07-02] MEDS: Mag Hydrox/Al Hydrox/Simeth 30 ML UDC PO ×2 (01:51→14:02)
[2021-07-02 07:10] LABS: Absolute Lymphocyte Count 1.22 X10^3/uL (0.83-4.51); Absolute Neutrophil Count 6.1 X10^3/uL (2.0-7.7); Hematocrit 40.9 % (37-47); Hemoglobin 13.6 g/dL (12.0-15.0); Lymphocyte # 1.22 X10^3/ul (0.83-4.51); Lymphocyte % 15.2 % (19-41); Mean Corp Hgb Conc 33.3 g/dL (32-36); Mean Corpuscular Hgb 29.2 pg (27.0-32.0); Mean Platelet Vol. 9.7 fl (6.2-12.0); Monocyte# 0.64 X10^3/uL; NRBC Flagged by Analyzer 0 % (0-5); Neutrophil # 6.08 X10^3/uL (2.7-7.7); Neutrophil % 75.8 % (47-70); Platelet Count 213 K/mm3 (150-450); RBC Distribution Width CV 14.8 % (11.6-14.6); RBC Distribution Width SD 47.1 fl (35.1-43.9); Red Blood Count 4.65 M/mm3 (4.2-5.4)
[2021-07-02 07:38] LABS: ALB/GLOB Ratio 0.6 RATIO (0.9-2.4); AST(SGOT) 35 U/L (15-37); Alanine Aminotransfer ALT/SGPT 48 U/L (13-56); Albumin, Serum 2.9 g/dL (3.2-5.0); Alkaline Phosphatase 170 U/L (45-117); Anion Gap 8 (5-15); BUN 21 mg/dL (7-18); BUN/Creat Ratio 35.8 RATIO (10-20); Calcium,Total 9.3 mg/dL (8.5-10.1); Chloride 100 mmol/L (98-107); Creatinine, Serum 0.59 mg/dL (0.55-1.02); EST Glomerular Filtration Rate 109 mL/min (>60); Est Glom Filt Rate - Afr Amer 131 mL/min (>60); Glucose 110 mg/dL (74-106); Potassium 3.9 mmol/L (3.5-5.1); Protein, Total 7.9 g/dL (6.4-8.2); Sodium Level 134 mmol/L (136-145)
[2021-07-02] MEDS: dexAMETHasone 2 MG TABLET 6 MG PO (08:51)
[2021-07-02] MEDS: Aspirin E.C. 81 MG Tablet PO (08:51)
[2021-07-02] MEDS: Allopurinol 100 MG Tablet 400 MG PO (08:52)
[2021-07-02] MEDS: Lisinopril 20 MG Tablet PO (08:52)
[2021-07-02] MEDS: Atenolol 25 MG Tablet PO (08:52)
[2021-07-02] MEDS: guaiFENesin 1,200 MG Tablet 1200 MG PO ×2 (08:52→21:56)
[2021-07-02] MEDS: OXcarbazepine 300 MG Tablet PO (08:52)
[2021-07-02] MEDS: Enoxaparin 40 MG/0.4 ML Syringe SC ×2 (08:52→21:56)
--- NOTE | 2021-07-02 14:50 | PCM.PN.HOSP ---
Subjective Subjective Doing well, maintaining her oxygen sats on 4 L however needed 6 L for ambulation and was hypoxic to 86% Objective Data Objective Data Vital Signs: Vital Signs Temp Pulse Resp BP Pulse Ox 98.4 F 69 18 150/62 H 86 07/02/21 13:46 07/02/21 13:46 07/02/21 13:46 07/02/21 13:46 07/02/21 13:58 Oxygen Flow Rate (L/min) [At 4 REST with Oxygen] Oxygen Flow Rate (L/min) [ 6 AMBULATING with Oxygen #1] Oxygen Flow Rate (L/min) 4 Oxygen Delivery Method Nasal Cannula Weight: 216 lb 14.958 oz Body Mass Index (BMI) 42.5 Intake & Output: Intake and Output for Last 24 Hours 07/01/21 07/02/21 07/03/21 03:59 03:59 03:59 Intake Total / 570 / 570 Balance / 570 / 570 Lab / Micro Data Result Diagrams: 07/02/21 06:45 07/02/21 06:45 Labs: Laboratory Results - last 24 hr 07/02/21 06:45: WBC 8.0, RBC 4.65, Hgb 13.6, Hct 40.9, MCV 88.0, MCH 29.2, MCHC 33.3, RDW Std Deviation 47.1 H, RDW Coeff of Han 14.8 H, Plt Count 213, MPV 9.7, Immature Gran % (Auto) 1.000 H, Neut % (Auto) 75.8 H, Lymph % (Auto) 15.2 L, [place] % (Auto) 8.0, Eos % (Auto) 0.0, Baso % (Auto) 0.0, Absolute Neuts (auto) 6.1, Absolute Lymphs (auto) 1.22, Nucleated RBC % 0 07/02/21 06:45: Sodium 134 L, Potassium 3.9, Chloride 100, Carbon Dioxide 26.0, Anion Gap 8, BUN 21 H, Creatinine 0.59, Estim Creat Clear Calc 84.80, Est GFR (MDRD) Af Amer 131, Est GFR (MDRD) Non-Af 109, BUN/Creatinine Ratio 35.8 H, Glucose 110 H, Calcium 9.3, Total Bilirubin 0.50, AST 35, ALT 48, Alkaline Phosphatase 170 H, Total Protein 7.9, Albumin 2.9 L, Globulin 5.0 H, Albumin/Globulin Ratio 0.6 L Physical Exam Const alert, oriented x3 and no apparent distress General Appearance: cooperative HEENT normocephalic and moist oral mucous membranes Eyes PERRL, EOMs intact bilaterally and conjunctivae normal Neck supple and no JVD Resp normal respiratory effort, no retractions, no use of accessory muscles and clear to auscultation bilaterally Auscultation: diminished lung sounds; Negative for crackles, rales, rhonchi or wheezes Cardio regular rate, regular rhythm, S1 normal heart sound, S2 normal heart sound and no murmurs GI soft to palpation, non-tender and non-distended; Negative for hepatosplenomegaly Extremity no clubbing, cyanosis or edema Skin no rashes or lesions noted Neuro no focal motor deficits and no sensory deficits noted Psych affect normal Appearance: appropriate Assessment & Plan Assessment/Plan (1) Acute hypoxemic respiratory failure: (2) Morbid obesity with BMI of 40.0-44.9, adult: (3) Pneumonia due to COVID-19 virus: PLAN: 1. Acute hypoxic respiratory failure secondary to Covid pneumonia -Continue with Decadron and remdesivir -Continue with oxygen and monitor closely, -If she worsens may need to obtain sputum culture as well as try to dose some Lasix -If she significantly worsens will need to consult ID for possible baricitinib 2. HTN/HLD -Blood pressure stable, can resume home blood pressure medications 3. Gout -Stable -Allopurinol continued. DVT: Lovenox Charges/Coding Visit Charges Inpatient E&M: 41450 Subs Hosp L2
--- NOTE | 2021-07-02 15:09 | NURSING ---
AMBULATING TO BATHROOM AND BACK ON 6L, POX DROPPED LOW 74%. INCREASED O2 TO 10L AND PT TOOK APPROX 4 MINUTES TO RECOVER TO 92%. NOW STAYING AT 94-96L ON THE 4L
[2021-07-02] MEDS: Atorvastatin Calcium 20 MG Tablet PO (21:57)
[2021-07-03] VITALS (8 sets, daily range): BP systolic 103–150; BP diastolic 58–91; PULSE 55–66; RESP 16–18; TEMP 36.6–37; O2SAT 85–98
[2021-07-03 07:33] LABS: Absolute Lymphocyte Count 1.49 X10^3/uL (0.83-4.51); Absolute Neutrophil Count 8.3 X10^3/uL (2.0-7.7); Basophil# 0.03 X10^3/uL; Basophil% 0.3 % (0-1); Eosinophil# 0.01 X10^3/uL; Eosinophils% 0.1 % (0-5); Hematocrit 42.8 % (37-47); Lymphocyte # 1.49 X10^3/ul (0.83-4.51); Lymphocyte % 13.5 % (19-41); Mean Corp Hgb Conc 32.7 g/dL (32-36); Mean Corpuscular Hgb 28.9 pg (27.0-32.0); Mean Corpuscular Volume 88.4 fL (81-99); Mean Platelet Vol. 10.3 fl (6.2-12.0); Monocyte# 1.06 X10^3/uL; Monocyte% 9.6 % (0-10); NRBC Flagged by Analyzer 0 % (0-5); Neutrophil # 8.28 X10^3/uL (2.7-7.7); Neutrophil % 74.7 % (47-70); Platelet Count 281 K/mm3 (150-450); RBC Distribution Width CV 14.6 % (11.6-14.6); RBC Distribution Width SD 47.4 fl (35.1-43.9); Red Blood Count 4.84 M/mm3 (4.2-5.4); White Blood Count 11.1 K/mm3 (4.4-11.0)
[2021-07-03 08:01] LABS: ALB/GLOB Ratio 0.6 RATIO (0.9-2.4); AST(SGOT) 64 U/L (15-37); Alanine Aminotransfer ALT/SGPT 66 U/L (13-56); Albumin, Serum 2.9 g/dL (3.2-5.0); Alkaline Phosphatase 164 U/L (45-117); Anion Gap 8 (5-15); BUN 20 mg/dL (7-18); BUN/Creat Ratio 27.6 RATIO (10-20); Chloride 102 mmol/L (98-107); Creatinine, Serum 0.72 mg/dL (0.55-1.02); EST Glomerular Filtration Rate 85 mL/min (>60); Est Glom Filt Rate - Afr Amer 103 mL/min (>60); Globulin 4.9 g/dL (2.2-4.2); Glucose 114 mg/dL (74-106); Potassium 3.7 mmol/L (3.5-5.1); Protein, Total 7.8 g/dL (6.4-8.2); Sodium Level 136 mmol/L (136-145)
[2021-07-03] MEDS: dexAMETHasone 2 MG TABLET 6 MG PO (09:37)
[2021-07-03] MEDS: OXcarbazepine 300 MG Tablet PO (09:37)
[2021-07-03] MEDS: Allopurinol 100 MG Tablet 400 MG PO (09:37)
[2021-07-03] MEDS: Lisinopril 20 MG Tablet PO (09:38)
[2021-07-03] MEDS: Aspirin E.C. 81 MG Tablet PO (09:38)
[2021-07-03] MEDS: Atenolol 25 MG Tablet PO (09:38)
[2021-07-03] MEDS: guaiFENesin 1,200 MG Tablet 1200 MG PO ×2 (09:38→21:24)
[2021-07-03] MEDS: Enoxaparin 40 MG/0.4 ML Syringe SC ×2 (09:41→21:24)
--- NOTE | 2021-07-03 10:41 | PN.HOSP_ITS ---
Subjective Subjective Doing well, feels little better than yesterday. She still requires significant amount oxygen with ambulation but is managing to maintain her sats on 4 L at rest. Objective Data Objective Data Vital Signs: Vital Signs Temp Pulse Resp BP Pulse Ox 98.4 F 66 18 150/87 H 95 07/03/21 09:28 07/03/21 09:28 07/03/21 09:28 07/03/21 09:28 07/03/21 09:50 Oxygen Flow Rate (L/min) [ 10 AMBULATING with Oxygen #2] Oxygen Flow Rate (L/min) [At 4 REST with Oxygen] Oxygen Flow Rate (L/min) [ 4 AMBULATING with Oxygen #1] Oxygen Flow Rate (L/min) 4 Oxygen Delivery Method Nasal Cannula Weight: 216 lb 14.958 oz Body Mass Index (BMI) 42.5 Intake & Output: Intake and Output for Last 24 Hours 07/02/21 07/03/21 07/04/21 03:59 03:59 03:59 Intake Total 570 / 570 580.75 / 580.75 150 / 150 Balance 570 / 570 580.75 / 580.75 150 / 150 Lab / Micro Data Result Diagrams: 07/03/21 06:45 07/03/21 06:45 Labs: Laboratory Results - last 24 hr 07/03/21 06:45: WBC 11.1 H, RBC 4.84, Hgb 14.0, Hct 42.8, MCV 88.4, MCH 28.9, MCHC 32.7, RDW Std Deviation 47.4 H, RDW Coeff of Han 14.6, Plt Count 281, MPV 10.3, Immature Gran % (Auto) 1.800 H, Neut % (Auto) 74.7 H, Lymph % (Auto) 13.5 L, [place] % (Auto) 9.6, Eos % (Auto) 0.1, Baso % (Auto) 0.3, Absolute Neuts (auto) 8.3 H, Absolute Lymphs (auto) 1.49, Nucleated RBC % 0 07/03/21 06:45: Sodium 136, Potassium 3.7, Chloride 102, Carbon Dioxide 26.0, Anion Gap 8, BUN 20 H, Creatinine 0.72, Estim Creat Clear Calc 84.80, Est GFR (MDRD) Af Amer 103, Est GFR (MDRD) Non-Af 85, BUN/Creatinine Ratio 27.6 H, Glucose 114 H, Calcium 9.0, Total Bilirubin 0.50, AST 64 H, ALT 66 H, Alkaline Phosphatase 164 H, Total Protein 7.8, Albumin 2.9 L, Globulin 4.9 H, Albumin/Globulin Ratio 0.6 L Micro: Microbiology 06/29/21 21:06 Blood Culture (Wb) - Anticubital Right Blood Culture - Preliminary No growth in 48 hours. 06/29/21 21:44 Blood Culture (Wb) - Right Forearm Blood Culture - Pr eliminary No growth in 48 hours. Physical Exam Narrative Const alert, oriented x3 and no apparent distress General Appearance: cooperative HEENT normocephalic and moist oral mucous membranes Eyes PERRL, EOMs intact bilaterally and conjunctivae normal Neck supple and no JVD Resp normal respiratory effort, no retractions and no use of accessory muscles Auscultation: diminished lung sounds; Negative for crackles, rales, rhonchi or wheezes Cardio regular rate, regular rhythm, S1 normal heart sound, S2 normal heart sound and no murmurs GI soft to palpation, non-tender and non-distended; Negative for hepatosplenomegaly Extremity no clubbing, cyanosis or edema Skin no rashes or lesions noted Neuro no focal motor deficits and no sensory deficits noted Psych affect normal Appearance: appropriate Assessment & Plan Assessment/Plan (1) Acute hypoxemic respiratory failure: (2) Morbid obesity with BMI of 40.0-44.9, adult: (3) Pneumonia due to COVID-19 virus: PLAN: 1. Acute hypoxic respiratory failure secondary to Covid pneumonia -Continue with Decadron and remdesivir -Continue with oxygen and monitor closely, -She required up to 10 L of oxygen today with ambulation the region oxygen saturation of 88%, will try dose of Lasix today -If she significantly worsens will need to consult ID for possible baricitinib 2. HTN/HLD -Blood pressure stable, can resume home blood pressure medications 3. Gout -Stable -Allopurinol continued. DVT: Lovenox Charges/Coding Visit Charges Inpatient E&M: 50456 Subs Hosp L2
[2021-07-03] MEDS: 0.9% Saline Lock 10 ML Syringe IV (11:24)
[2021-07-03] MEDS: Furosemide 20 MG/2 ML VIAL IV (11:24)
[2021-07-03] MEDS: Mag Hydrox/Al Hydrox/Simeth 30 ML UDC PO ×2 (12:41→21:23)
[2021-07-03] MEDS: Atorvastatin Calcium 20 MG Tablet PO (21:23)
[2021-07-03] MEDS: MELATONIN 3 MG TABLET PO (21:23)
[2021-07-04] VITALS (7 sets, daily range): BP systolic 110–134; BP diastolic 54–67; PULSE 50–71; RESP 18–24; TEMP 36.6–37; O2SAT 83–96
[2021-07-04 07:14] LABS: Absolute Lymphocyte Count 1.72 X10^3/uL (0.83-4.51); Absolute Neutrophil Count 9.3 X10^3/uL (2.0-7.7); Basophil# 0.04 X10^3/uL; Basophil% 0.3 % (0-1); Eosinophil# 0.03 X10^3/uL; Eosinophils% 0.2 % (0-5); Hematocrit 45.4 % (37-47); Hemoglobin 14.8 g/dL (12.0-15.0); Lymphocyte # 1.72 X10^3/ul (0.83-4.51); Lymphocyte % 13.4 % (19-41); Mean Corp Hgb Conc 32.6 g/dL (32-36); Mean Corpuscular Hgb 28.9 pg (27.0-32.0); Mean Corpuscular Volume 88.7 fL (81-99); Mean Platelet Vol. 10.1 fl (6.2-12.0); Monocyte% 11.7 % (0-10); NRBC Flagged by Analyzer 0 % (0-5); Neutrophil # 9.27 X10^3/uL (2.7-7.7); Neutrophil % 72.2 % (47-70); Platelet Count 320 K/mm3 (150-450); RBC Distribution Width CV 14.7 % (11.6-14.6); RBC Distribution Width SD 47.9 fl (35.1-43.9); Red Blood Count 5.12 M/mm3 (4.2-5.4); White Blood Count 12.8 K/mm3 (4.4-11.0)
[2021-07-04 07:43] LABS: ALB/GLOB Ratio 0.6 RATIO (0.9-2.4); AST(SGOT) 64 U/L (15-37); Alanine Aminotransfer ALT/SGPT 91 U/L (13-56); Albumin, Serum 3.1 g/dL (3.2-5.0); Alkaline Phosphatase 167 U/L (45-117); Anion Gap 7 (5-15); BUN 24 mg/dL (7-18); BUN/Creat Ratio 34.2 RATIO (10-20); Calcium,Total 9.3 mg/dL (8.5-10.1); Chloride 99 mmol/L (98-107); EST Glomerular Filtration Rate 88 mL/min (>60); Est Glom Filt Rate - Afr Amer 107 mL/min (>60); Globulin 5.1 g/dL (2.2-4.2); Glucose 113 mg/dL (74-106); Potassium 4.1 mmol/L (3.5-5.1); Protein, Total 8.2 g/dL (6.4-8.2); Sodium Level 134 mmol/L (136-145)
--- NOTE | 2021-07-04 09:14 | PN.HOSP_ITS ---
Subjective Subjective Patient is a 66-year-old lady admitted with progressive shortness of breath fever and generalized weakness. Has been diagnosed with SARS-CoV-2 pneumonia as outpatient and not received the monoclonal antibody therapy. Objective Data Objective Data Vital Signs: Vital Signs Temp Pulse Resp BP Pulse Ox 98 F 50 L 18 110/54 L 95 07/04/21 03:39 07/04/21 03:39 07/04/21 03:39 07/04/21 03:39 07/04/21 07:38 Oxygen Flow Rate (L/min) [ 10 AMBULATING with Oxygen #2] Oxygen Flow Rate (L/min) [At 4 REST with Oxygen] Oxygen Flow Rate (L/min) [ 4 AMBULATING with Oxygen #1] Oxygen Flow Rate (L/min) 4 Oxygen Delivery Method Nasal Cannula Weight: 98.4 kg Body Mass Index (BMI) 42.5 Intake & Output: Intake and Output for Last 24 Hours 07/02/21 07/03/21 07/04/21 23:59 23:59 23:59 Intake Total 250 / 550 980.75 / 980.75 300 / 300 Balance 250 / 550 980.75 / 980.75 300 / 300 Lab / Micro Data Result Diagrams: 07/04/21 06:40 07/04/21 06:40 Labs: Laboratory Results - last 24 hr 07/04/21 06:40: WBC 12.8 H, RBC 5.12, Hgb 14.8, Hct 45.4, MCV 88.7, MCH 28.9, MCHC 32.6, RDW Std Deviation 47.9 H, RDW Coeff of Han 14.7 H, Plt Count 320, MPV 10.1, Immature Gran % (Auto) 2.200 H, Neut % (Auto) 72.2 H, Lymph % (Auto) 13.4 L, [place] % (Auto) 11.7 H, Eos % (Auto) 0.2, Baso % (Auto) 0.3, Absolute Neuts (auto) 9.3 H, Absolute Lymphs (auto) 1.72, Nucleated RBC % 0 07/04/21 06:40: Sodium 134 L, Potassium 4.1, Chloride 99, Carbon Dioxide 28.0, Anion Gap 7, BUN 24 H, Creatinine 0.70, Estim Creat Clear Calc 84.80, Est GFR ( MDRD) Af Amer 107, Est GFR (MDRD) Non-Af 88, BUN/Creatinine Ratio 34.2 H, Glucose 113 H, Calcium 9.3, Total Bilirubin 0.60, AST 64 H, ALT 91 H, Alkaline Phosphatase 167 H, Total Protein 8.2, Albumin 3.1 L, Globulin 5.1 H, Album in/Globulin Ratio 0.6 L Micro: Microbiology 06/29/21 21:06 Blood Culture (Wb) - Anticubital Right Blood Culture - Prelim inary No growth in 48 hours. 06/29/21 21:44 Blood Culture (Wb) - Right Forearm Blood Culture - Preliminary No growth in 48 hours. Physical Exam Narrative GENERAL: cooperative but dyspneic at rest HEENT: Atraumatic; EYES; Anicteric, Normal Conjunctiva NECK; supple, normal thyroid, RESPIRATORY: Diminished to auscultation CARDIOVASCULAR: Regular S1 S2, GI: soft, normoactive bowel sounds, : No Renal angle tenderness; EXTREMITIES: No edema, no clubbing, MUSCULOSKELETAL: no muscle waisting NEURO: Awake; no lateralizing signs. SKIN: No Rash PSYCH; Flat affect Assessment & Plan Assessment/Plan (1) Acute hypoxemic respiratory failure: (2) Morbid obesity with BMI of 40.0-44.9, adult: (3) Pneumonia due to COVID-19 virus: PLAN: Patient is a 66-year-old lady admitted with progressive shortness of breath fever and generalized weakness. Has been diagnosed with SARS-CoV-2 pneumonia as outpatient and not received the monoclonal antibody therapy. 1. Acute hypoxic respiratory failure ?Secondary to SARS-CoV-2 pneumonia. Admitted to regular nursing floor managed with Decadron as well as remdesivir. Patient still requiring significant amount of oxygen. Currently remains on up to 10 L of oxygen 2. Hypertension - Blood pressure controlled, home medications continued with dose adjustment as needed 3. Dyslipidemia -Patient is on statin therapy, continued at home dose 4. Gout ?Patient is on allopurinol symptoms well controlled 5. Morbid obesity with BMI of 42.6 ?Weight loss advised 6. DVT prophylaxis ?Lovenox Charges/Coding Visit Charges Inpatient E&M: 64941 Subs Hosp L3
[2021-07-04] MEDS: dexAMETHasone 2 MG TABLET 6 MG PO (09:51)
[2021-07-04] MEDS: Aspirin E.C. 81 MG Tablet PO (09:51)
[2021-07-04] MEDS: Enoxaparin 40 MG/0.4 ML Syringe SC ×2 (09:51→21:08)
[2021-07-04] MEDS: Allopurinol 100 MG Tablet 400 MG PO (09:52)
[2021-07-04] MEDS: Atenolol 25 MG Tablet PO (09:52)
[2021-07-04] MEDS: Lisinopril 20 MG Tablet PO (09:52)
[2021-07-04] MEDS: OXcarbazepine 300 MG Tablet PO (09:52)
[2021-07-04] MEDS: guaiFENesin 1,200 MG Tablet 1200 MG PO ×2 (09:52→21:08)
--- NOTE | 2021-07-04 11:29 | NURSING ---
LATE ENTRY - 1000 - ORDER PUT IN FOR RA PULSE OX W/AMBULATION/HOME O2 QUALIFICATION - PT SAT 83% ON 5L NC AMBULATING FROM BR. PT STATES SHE FELT LIKE SHE WAS GOING TO PASS OUT. PT HAD TO STOP & SIT IN CHAIR DETENTION TO THE BED TO CATCH HER BREATH. O2 INCREASED TO 10L NC FOR PT TO RECOVER. RETURNED TO BED & O2 DECREASED TO 8L NC. DR JOHNSON MADE AWARE THAT THIS RN DID NOT FEEL COMFORTABLE HAVING PT AMBULATE ANYMORE DUE TO SAME.
[2021-07-04] MEDS: Pantoprazole Sodium 40 MG Tablet PO ×2 (13:45→21:08)
[2021-07-04] MEDS: Atorvastatin Calcium 20 MG Tablet PO (21:09)
[2021-07-04] MEDS: MELATONIN 3 MG TABLET PO (23:07)
[2021-07-05] VITALS (8 sets, daily range): BP systolic 103–147; BP diastolic 58–81; PULSE 56–73; RESP 16–18; TEMP 36.6–36.7; O2SAT 84–96
[2021-07-05 06:35] LABS: Absolute Neutrophil Count 8.9 X10^3/uL (2.0-7.7); Basophil# 0.04 X10^3/uL; Basophil% 0.3 % (0-1); Eosinophil# 0.04 X10^3/uL; Eosinophils% 0.3 % (0-5); Hematocrit 43.7 % (37-47); Hemoglobin 14.2 g/dL (12.0-15.0); Lymphocyte % 10.2 % (19-41); Mean Corp Hgb Conc 32.5 g/dL (32-36); Mean Corpuscular Hgb 28.9 pg (27.0-32.0); Mean Platelet Vol. 9.9 fl (6.2-12.0); Monocyte# 1.17 X10^3/uL; NRBC Flagged by Analyzer 0 % (0-5); Neutrophil # 8.93 X10^3/uL (2.7-7.7); Neutrophil % 76.1 % (47-70); Platelet Count 318 K/mm3 (150-450); RBC Distribution Width CV 14.6 % (11.6-14.6); RBC Distribution Width SD 47.1 fl (35.1-43.9); Red Blood Count 4.91 M/mm3 (4.2-5.4); White Blood Count 11.7 K/mm3 (4.4-11.0)
[2021-07-05 06:59] LABS: ALB/GLOB Ratio 0.6 RATIO (0.9-2.4); AST(SGOT) 42 U/L (15-37); Alanine Aminotransfer ALT/SGPT 85 U/L (13-56); Albumin, Serum 2.7 g/dL (3.2-5.0); Alkaline Phosphatase 155 U/L (45-117); Anion Gap 7 (5-15); BUN 26 mg/dL (7-18); BUN/Creat Ratio 36.3 RATIO (10-20); Calcium,Total 8.7 mg/dL (8.5-10.1); Chloride 97 mmol/L (98-107); Creatinine, Serum 0.72 mg/dL (0.55-1.02); EST Glomerular Filtration Rate 86 mL/min (>60); Est Glom Filt Rate - Afr Amer 104 mL/min (>60); Globulin 4.9 g/dL (2.2-4.2); Glucose 111 mg/dL (74-106); Magnesium 2.7 mg/dL (1.6-2.6); Potassium 4.4 mmol/L (3.5-5.1); Protein, Total 7.6 g/dL (6.4-8.2); Sodium Level 131 mmol/L (136-145)
--- NOTE | 2021-07-05 07:23 | PN.HOSP_ITS ---
Subjective Subjective Patient seen apparently desaturated easily with ambulation requiring up to 10 L. Requested for PT OT eval Objective Data Objective Data Vital Signs: Vital Signs Temp Pulse Resp BP Pulse Ox 97.9 F 56 L 18 115/58 L 94 07/05/21 02:37 07/05/21 02:37 07/05/21 02:37 07/05/21 02:37 07/05/21 02:37 Oxygen Flow Rate (L/min) [ 10 AMBULATING with Oxygen #2] Oxygen Flow Rate (L/min) [At 4 REST with Oxygen] Oxygen Flow Rate (L/min) [ 4 AMBULATING with Oxygen #1] Oxygen Flow Rate (L/min) 4 Oxygen Delivery Method Nasal Cannula Weight: 98.4 kg Body Mass Index (BMI) 42.5 Intake & Output: Intake and Output for Last 24 Hours 07/03/21 07/04/21 07/05/21 23:59 23:59 23:59 Intake Total 980.75 / 980.75 1340 / 1340 200 / 200 Balance 980.75 / 980.75 1340 / 1340 200 / 200 Lab / Micro Data Result Diagrams: 07/05/21 06:02 07/05/21 06:02 Labs: Laboratory Results - last 24 hr 07/04/21 06:40: Sodium 134 L, Potassium 4.1, Chloride 99, Carbon Dioxide 28.0, Anion Gap 7, BUN 24 H, Creatinine 0.70, Estim Creat Clear Calc 84.80, Est GFR (MDRD) Af Amer 107, Est GFR (MDRD) Non-Af 88, BUN/Creatinine Ratio 34.2 H, Glucose 113 H, Calcium 9.3, Total Bilirubin 0.60, AST 64 H, ALT 91 H, Alkaline Phosphatase 167 H, Total Protein 8.2, Albumin 3.1 L, Globulin 5.1 H, Albumin/Globulin Ratio 0.6 L 07/05/21 06:02: WBC 11.7 H, RBC 4.91, Hgb 14.2, Hct 43.7, MCV 89.0, MCH 28.9, MCHC 32.5, RDW Std Deviation 47.1 H, RDW Coeff of Han 14.6, Plt Count 318, MPV 9.9, Immature Gran % (Auto) 3.100 H, Neut % (Auto) 76.1 H, Lymph % (Auto) 10.2 L , [place] % (Auto) 10.0, Eos % (Auto) 0.3, Baso % (Auto) 0.3, Absolute Neuts (auto) 8.9 H, Absolute Lymphs (auto) 1.20, Nucleated RBC % 0 07/05/21 06:02: Sodium 131 L, Potassium 4.4, Chloride 97 L, Carbon Dioxide 27.0, Anion Gap 7, BUN 26 H, Creatinine 0.72, Estim Creat Clear Calc 84.80, Est GFR (MDRD) Af Amer 104, Est GFR (MDRD) Non-Af 86, BUN/Creatinine Ratio 36.3 H, Glucose 111 H, Calcium 8.7, Magnesium 2.7 H, Total Bilirubin 0.60, AST 42 H, ALT 85 H, Alkaline Phosphatase 155 H, Total Protein 7.6, Albumin 2.7 L, Globulin 4.9 H, Albumin/Globulin Ratio 0.6 L Micro: Microbiology 06/29/21 21:06 Blood Culture (Wb) - Anticubital Right Blood Culture - Preliminary No growth in 48 hours. 06/29/21 21:44 Blood Culture (Wb) - Right Forearm Blood Culture - Pr eliminary No growth in 48 hours. Physical Exam Narrative GENERAL: cooperative but dyspneic at rest HEENT: Atraumatic; EYES; Anicteric, Normal Conjunctiva NECK; supple, normal thyroid, RESPIRATORY: Diminished to auscultation CARDIOVASCULAR: Regular S1 S2, GI: soft, normoactive bowel sounds, : No Renal angle tenderness; EXTREMITIES: No edema, no clubbing, MUSCULOSKELETAL: no muscle waisting NEURO: Awake; no lateralizing signs. SKIN: No Rash PSYCH; Flat affect Assessment & Plan Assessment/Plan (1) Acute hypoxemic respiratory failure: (2) Morbid obesity with BMI of 40.0-44.9, adult: (3) Pneumonia due to COVID-19 virus: PLAN: Patient is a 66-year-old lady admitted with progressive shortness of breath fever and generalized weakness. Has been diagnosed with SARS-CoV-2 pneumonia as outpatient and not received the monoclonal antibody therapy. 1. Acute hypoxic respiratory failure ?Secondary to SARS-CoV-2 pneumonia. Admitted to regular nursing floor managed with Decadron as well as remdesivir. Patient still requiring significant amount of oxygen. Currently remains on up to 10 L of oxygen -07/05/2021 Patient seen apparently desaturated easily with ambulation requiring up to 10 L. 2. Hypertension - Blood pressure controlled, home medications continued with dose adjustment as needed 3. Dyslipidemia -Patient is on statin therapy, continued at home dose 4. Gout ?Patient is on allopurinol symptoms well controlled 5. Morbid obesity with BMI of 42.6 ?Weight loss advised 6. DVT prophylaxis ?Lovenox 7. Physical deconditioning - Requested for PT OT eval and pediatric social worker to assist with discharge planning Charges/Coding Visit Charges Inpatient E&M: 80879 Subs Hosp L3
[2021-07-05] MEDS: dexAMETHasone 2 MG TABLET 6 MG PO (09:35)
[2021-07-05] MEDS: Enoxaparin 40 MG/0.4 ML Syringe SC ×2 (09:36→20:40)
[2021-07-05] MEDS: Aspirin E.C. 81 MG Tablet PO (09:36)
[2021-07-05] MEDS: guaiFENesin 1,200 MG Tablet 1200 MG PO ×2 (09:37→20:40)
[2021-07-05] MEDS: Pantoprazole Sodium 40 MG Tablet PO ×2 (09:37→20:39)
[2021-07-05] MEDS: Atenolol 25 MG Tablet PO (09:38)
[2021-07-05] MEDS: OXcarbazepine 300 MG Tablet PO (09:38)
[2021-07-05] MEDS: Allopurinol 100 MG Tablet 400 MG PO (09:38)
[2021-07-05] MEDS: Lisinopril 20 MG Tablet PO (09:38)
[2021-07-05] MEDS: Atorvastatin Calcium 20 MG Tablet PO (20:39)
[2021-07-05] MEDS: MELATONIN 3 MG TABLET PO (20:39)
[2021-07-05] MEDS: DiphenhydrAMINE 25 MG Capsule PO (23:07)
[2021-07-06 02:22] VITALS: BP 141/70; PULSE 55; RESP 16; TEMP 36.6; O2SAT 96
--- NOTE | 2021-07-06 07:35 | PCM.PN.HOSP ---
Subjective Subjective Patient condition significantly improved appears comfortable at rest patient will be assessed for home oxygen prior to discharge Objective Data Objective Data Vital Signs: Vital Signs Temp Pulse Resp BP Pulse Ox 98 F 55 L 16 141/70 H 96 07/06/21 02:22 07/06/21 02:22 07/06/21 02:22 07/06/21 02:22 07/06/21 02:22 Oxygen Flow Rate (L/min) [ 8 AMBULATING with Oxygen #2] Oxygen Flow Rate (L/min) [At 4 REST with Oxygen] Oxygen Flow Rate (L/min) [ 4 AMBULATING with Oxygen #1] Oxygen Flow Rate (L/min) 4 Oxygen Delivery Method Nasal Cannula Weight: 98.4 kg Body Mass Index (BMI) 42.5 Intake & Output: Intake and Output for Last 24 Hours 07/04/21 07/05/21 07/06/21 23:59 23:59 23:59 Intake Total 1340 / 1340 200 / 200 Balance 1340 / 1340 200 / 200 Lab / Micro Data Result Diagrams: 07/06/21 07:40 07/06/21 07:40 Micro: Microbiology 06/29/21 21:06 Blood Culture (Wb) - Anticubital Right Blood Culture - Final No growth in 5 days. 06/29/21 21:44 Blood Culture (Wb) - Right Forearm Blood Culture - Final No growth in 5 days. Physical Exam Narrative GENERAL: cooperative HEENT: Atraumatic; EYES; Anicteric, Normal Conjunctiva NECK; supple, normal thyroid, RESPIRATORY: Diminished to auscultation CARDIOVASCULAR: Regular S1 S2, GI: soft, normoactive bowel sounds, : No Renal angle tenderness; EXTREMITIES: No edema, no clubbing, MUSCULOSKELETAL: no muscle waisting NEURO: Awake; no lateralizing signs. SKIN: No Rash PSYCH; Flat affect Assessment & Plan Assessment/Plan (1) Acute hypoxemic respiratory failure: (2) Morbid obesity with BMI of 40.0-44.9, adult: (3) Pneumonia due to COVID-19 virus: PLAN: Patient is a 66-year-old lady admitted with progressive shortness of breath fever and generalized weakness. Has been diagnosed with SARS-CoV-2 pneumonia as outpatient and not received the monoclonal antibody therapy. 1. Acute hypoxic respiratory failure ?Secondary to SARS-CoV-2 pneumonia. Admitted to regular nursing floor managed with Decadron as well as remdesivir. Patient still requiring significant amount of oxygen. Currently remains on up to 10 L of oxygen -07/05/2021 Patient seen apparently desaturated easily with ambulation requiring up to 10 L. -07/06/2021; patient oxygen demands significantly improved patient deemed stable for discharge 2. Hypertension - Blood pressure controlled, home medications continued with dose adjustment as needed 3. Dyslipidemia -Patient is on statin therapy, continued at home dose 4. Gout ?Patient is on allopurinol symptoms well controlled 5. Morbid obesity with BMI of 42.6 ?Weight loss advised 6. DVT prophylaxis ?Lovenox 7. Physical deconditioning - Requested for PT OT eval and administrator social welfare to assist with discharge planning Charges/Coding Visit Charges Inpatient E&M: 50081 Subs Hosp L2
[2021-07-06 08:05] LABS: Absolute Lymphocyte Count 1.02 X10^3/uL (0.83-4.51); Absolute Neutrophil Count 10.3 X10^3/uL (2.0-7.7); Basophil# 0.03 X10^3/uL; Basophil% 0.2 % (0-1); Eosinophil# 0.04 X10^3/uL; Eosinophils% 0.3 % (0-5); Hemoglobin 14.2 g/dL (12.0-15.0); Lymphocyte # 1.02 X10^3/ul (0.83-4.51); Lymphocyte % 8.1 % (19-41); Mean Corpuscular Volume 87.9 fL (81-99); Mean Platelet Vol. 9.8 fl (6.2-12.0); Monocyte# 0.91 X10^3/uL; Monocyte% 7.2 % (0-10); NRBC Flagged by Analyzer 0 % (0-5); Platelet Count 347 K/mm3 (150-450); RBC Distribution Width CV 14.7 % (11.6-14.6); RBC Distribution Width SD 47.4 fl (35.1-43.9); Red Blood Count 4.89 M/mm3 (4.2-5.4); White Blood Count 12.6 K/mm3 (4.4-11.0)
[2021-07-06 08:39] LABS: ALB/GLOB Ratio 0.6 RATIO (0.9-2.4); AST(SGOT) 38 U/L (15-37); Alanine Aminotransfer ALT/SGPT 85 U/L (13-56); Albumin, Serum 2.8 g/dL (3.2-5.0); Alkaline Phosphatase 148 U/L (45-117); Anion Gap 7 (5-15); BUN 25 mg/dL (7-18); BUN/Creat Ratio 32.9 RATIO (10-20); Calcium,Total 8.8 mg/dL (8.5-10.1); Chloride 98 mmol/L (98-107); Creatinine, Serum 0.76 mg/dL (0.55-1.02); EST Glomerular Filtration Rate 81 mL/min (>60); Est Glom Filt Rate - Afr Amer 98 mL/min (>60); Glucose 113 mg/dL (74-106); Potassium 4.6 mmol/L (3.5-5.1); Protein, Total 7.8 g/dL (6.4-8.2); Sodium Level 131 mmol/L (136-145)
[2021-07-06 09:38] VITALS: BP 130/69; PULSE 68; RESP 18; TEMP 36.6; O2SAT 92
[2021-07-06] MEDS: dexAMETHasone 2 MG TABLET 6 MG PO (09:39)
[2021-07-06] MEDS: Aspirin E.C. 81 MG Tablet PO (09:40)
[2021-07-06] MEDS: Enoxaparin 40 MG/0.4 ML Syringe SC (09:40)
[2021-07-06] MEDS: guaiFENesin 1,200 MG Tablet 1200 MG PO (09:41)
[2021-07-06] MEDS: Atenolol 25 MG Tablet PO (09:41)
[2021-07-06] MEDS: Pantoprazole Sodium 40 MG Tablet PO (09:41)
[2021-07-06] MEDS: Lisinopril 20 MG Tablet PO (09:42)
[2021-07-06] MEDS: OXcarbazepine 300 MG Tablet PO (09:42)
[2021-07-06] MEDS: Allopurinol 100 MG Tablet 400 MG PO (09:42)
--- NOTE | 2021-07-06 11:25 | PCM.DC.SUM ---
Providers Date of Admission: 06/29/21 Primary Care Physician: Dr. Maxi Oneal MD Reason For Visit: COVID 19 Diagnosis Discharge Diagnosis (1) Acute hypoxemic respiratory failure: Status: Acute Code(s): J96.01 - Acute respiratory failure with hypoxia (2) Morbid obesity with BMI of 40.0-44.9, adult: Status: Chronic Code(s): E66.01 - Morbid (severe) obesity due to excess calories; Z68.41 - Body mass index [BMI] 40.0-44.9, adult (3) Pneumonia due to COVID-19 virus: Status: Acute Code(s): U07.1 - COVID-19; J12.82 - Pneumonia due to coronavirus disease 2019 Medications at Discharge Home Medications allopurinol 400 mg PO DAILYCM 01/05/14 lisinopril 20 mg PO DAILY 01/05/14 simvastatin 40 mg PO QHS 01/05/14 All Day Allergy (cetirizine) 10 mg PO DAILY 11/06/17 aspirin 81 mg PO DAILY@0800 11/06/17 atenolol 25 mg PO DAILY 11/06/17 fluticasone propionate 2 spray NASAL DAILY 11/06/17 montelukast 10 mg PO DAILY 11/06/17 alum-mag hydroxide-simeth 15 ml PO Q4H PRN PRN #1 bottle 11/07/17 pantoprazole 40 mg PO BID #0 11/07/17 oxcarbazepine 150 mg PO DAILY 12/14/17 Tremfya 100 mg SUBCUT QMONTH 06/30/21 dexamethasone [Decadron] 6 mg PO DAILY #3 tab 07/06/21 Hospital Course Summary of Care Provided Minutes Spent on Discharge: 35 Hospital Course: Patient is a 66-year-old lady admitted with progressive shortness of breath fever and generalized weakness. Has been diagnosed with SARS-CoV-2 pneumonia as outpatient and not received the monoclonal antibody therapy. 1. Acute hypoxic respiratory failure ?Secondary to SARS-CoV-2 pneumonia. Admitted to regular nursing floor managed with Decadron as well as remdesivir. Patient still requiring significant amount of oxygen. Currently remains on up to 10 L of oxygen -07/05/2021 Patient seen apparently desaturated easily with ambulation requiring up to 10 L. -07/06/2021. Patient oxygen requirement significantly improved. Patient was deemed stable for discharge. She was assessed for home oxygen prior to discharge she did qualify she would need portability at home since she is mobile both at home as well as in the community 2. Hypertension - Blood pressure controlled, home medications continued with dose adjustment as needed 3. Dyslipidemia -Patient is on statin therapy, continued at home dose 4. Gout ?Patient is on allopurinol symptoms well controlled 5. Morbid obesity with BMI of 42.6 ?Weight loss advised 6. DVT prophylaxis ?Lovenox 7. Physical deconditioning - Requested for PT OT eval and long term care social worker to assist with discharge planning Physical Exam Narrative GENERAL: cooperative HEENT: Atraumatic; EYES; Anicteric, Normal Conjunctiva NECK; supple, normal thyroid, RESPIRATORY: Diminished to auscultation CARDIOVASCULAR: Regular S1 S2, GI: soft, normoactive bowel sounds, : No Renal angle tenderness; EXTREMITIES: No edema, no clubbing, MUSCULOSKELETAL: no muscle waisting NEURO: Awake; no lateralizing signs. SKIN: No Rash PSYCH; Flat affect Weight / BMI Weight Weight: 98.4 kg Body Mass Index (BMI) 42.5 ABG / Lab / Microbiology Data Result Diagrams: 07/06/21 07:40 07/06/21 07:40 Laboratory: Laboratory Results - last 24 hr 07/06/21 07:40: WBC 12.6 H, RBC 4.89, Hgb 14.2, Hct 43.0, MCV 87.9, MCH 29.0, MCHC 33.0, RDW Std Deviation 47.4 H, RDW Coeff of Han 14.7 H, Plt Count 347, MPV 9.8, Immature Gran % (Auto) 2.200 H, Neut % (Auto) 82.0 H, Lymph % (Auto) 8.1 L, Dixon % (Auto) 7.2, Eos % (Auto) 0.3, Baso % (Auto) 0.2, Absolute Neuts (auto) 10.3 H, Absolute Lymphs (auto) 1.02, Nucleated RBC % 0 07/06/21 07:40: Sodium 131 L, Potassium 4.6, Chloride 98, Carbon Dioxide 26.0, Anion Gap 7, BUN 25 H, Creatinine 0.76, Estim Creat Clear Calc 84.80, Est GFR (MDRD) Af Amer 98, Est GFR (MDRD) Non-Af 81, BUN/Creatinine Ratio 32.9 H, Glucose 113 H, Calcium 8.8, Total Bilirubin 0.60, AST 38 H, ALT 85 H, Alkaline Phosphatase 148 H, Total Protein 7.8, Albumin 2.8 L, Globulin 5.0 H, Albumin/Globulin Ratio 0.6 L Microbiology: Microbiology 06/29/21 21:06 Blood Culture (Wb) - Anticubital Right Blood Culture - Final No growth in 5 days. 06/29/21 21:44 Blood Culture (Wb) - Right Forearm Blood Culture - Final No growth in 5 days. D/C Instructions Discharge Diet: No restrictions Discharge Activity: Return to Normal Activity Call your doctor if you observe: Fever of 101 or Higher, Shortness of breath, Fainting spells and Chest pain Meaningful Use Info Meaningful Use Diagnoses (Choose all that apply): None applicable Discharge Plan Admission Admit Date/Time: 06/29/21 23:32 Attending Provider: Srinivasa Sales Primary Care Provider: Maxi Oneal Discharge Orders/Prescriptions Prescriptions: Continued allopurinol 100 MG tablet 400 mg PO DAILYCM RF: 0 simvastatin 40 MG tablet 40 mg PO QHS RF: 0 lisinopril 2.5 MG tablet 20 mg PO DAILY RF: 0 atenolol 25 MG tablet 25 mg PO DAILY RF: 0 montelukast 10 MG tablet 10 mg PO DAILY RF: 0 fluticasone propionate 1 SPRAY spray,suspension 2 spray NASAL DAILY RF: 0 All Day Allergy (cetirizine) 10 MG capsule 10 mg PO DAILY RF: 0 aspirin 81 MG tablet 81 mg PO DAILY@0800 RF: 0 pantoprazole 40 MG tablet 40 mg PO BID Qty: 0 RF: 0 alum-mag hydroxide-simeth 30 ML suspension 15 ml PO Q4H PRN PRN (Reason: heartburns) Qty: 1 RF: 0 oxcarbazepine 300 MG tablet 150 mg PO DAILY RF: 0 Tremfya 100 mg/mL Auto-Injector 100 mg SUBCUT QMONTH RF: 0 dexamethasone [Decadron] 6 mg tablet 6 mg PO DAILY Qty: 3 RF: 0 Referrals / Follow Up: Maxi Oneal MD [Primary Care Provider] - In 1 Week Disposition Disposition (needs filled in before D/C Order can be placed): Home Health Service Charges/Coding Visit Charges Inpatient E&M: 41828 Disch Hosp
--- NOTE | 2021-07-06 12:03 | PHA.DC.MR ---
Pharmacy Service has performed discharge medication reconciliation for this patient. The patient's discharge medication list was reviewed for discrepancies and discrepancies were resolved. Home Medications allopurinol 400 mg PO DAILYCM 01/05/14 lisinopril 20 mg PO DAILY 01/05/14 simvastatin 40 mg PO QHS 01/05/14 All Day Allergy (cetirizine) 10 mg PO DAILY 11/06/17 aspirin 81 mg PO DAILY@0800 11/06/17 atenolol 25 mg PO DAILY 11/06/17 fluticasone propionate 2 spray NASAL DAILY 11/06/17 montelukast 10 mg PO DAILY 11/06/17 alum-mag hydroxide-simeth 15 ml PO Q4H PRN PRN #1 bottle 11/07/17 pantoprazole 40 mg PO BID #0 11/07/17 oxcarbazepine 150 mg PO DAILY 12/14/17 Tremfya 100 mg SUBCUT QMONTH 06/30/21 dexamethasone [Decadron] 6 mg PO DAILY #3 tab 07/06/21
[2021-07-06 12:17] VITALS: O2SAT 86; O2SAT 90; O2SAT 91
--- NOTE | 2021-07-06 12:58 | CASEMGMT ---
Addendum entered by Jackeline Talbot 07/06/21 14:06: Pt accepted by [facility]. Addendum entered by Jackeline Talbot 07/06/21 13:47: Pt is aware that she will need to call [employer] upon arriving home so the O2 concentrator can be set up. She verbalizes understanding. Addendum entered by Jackeline Talbot 07/06/21 13:41: RN CM in to pt room to discuss dc planning. Pt states son is at her house and can help with groceries and supplies. Patient was provided a list of [facility] providers including quality and resource use data and consistent with the patient?s preferred geographic region, medical needs, and insurance network. The patient?s preferred provider is [facility], [place]. Pt is agreeable to RN and ORAL HEALTH THERAPIST. She states that she is also interested in [employer]. Notified Georges Escobedo regarding this. TC to [facility] spoke with Abril, she will review referral. Made aware that pt is new to O2 d/t COVID and interested in community resources. She will review referral and call CM back. Original Note: Pt qualifies for home O2, referral faxed to [facility]. TC to Juliann to make aware of referral. Pt given portable tank from stock.
--- NOTE | 2021-07-06 13:44 | CASEMGMT ---
Social Work Note SW updated that pt is interested in [employer]. SW spoke with pt, informed pt that this worker can make referral for [employer]. Pt agreeable to referral for [employer]. SW made referral to [facility]. Sherice Escobedo TELEVISION MAINTENANCE WORKER, MUSHROOM PACKER
--- NOTE | 2021-07-07 15:11 | CASEMGMT ---
ELVIS CARL Discharge Follow Up Phone Call: ISAI: Rufus Strata:8 Call Date: 07/07/21 Discharge Date: 07/06/21 Time of Call:1508 Duration:3 min Admitting Dx:HALLE 18 ELVIS CARL completed follow up phone call after recent hospitalization. Pt states she is confined to her bedroom and bathroom as her son is home. She states he is making her PB&J sandwiches only. Offered to give her the phone number to [employer] to have some groceries delivered. She denied the need for this and states she will look it up herself. She states her O2 concentrator has been set up, she does not have a pulse ox. Encouraged her to obtain one to monitor her O2 levels. She states she is not sure if she is going to let [facility] come. Notified Abril at [facility] to reach out to patient as she has not heard from them. Pt has not yet set up her fu PCP appt but states she will do so now. Encouraged pt to allow [facility] to see her. Pt reports she is too weak. Made her aware that therapy could be added on to her services. Pt denies further questions and concerns regarding her medications or dc instructions.
--- NOTE | 2021-07-15 15:01 | CASEMGMT ---
Social Work Note SW received call from Carmen at [employer] ([phone]) stating she has tried to call pt twice with no answer. SW placed a call to pt and left message letting her know that [employer] is trying to get a hold of her and left number for pt to call for [employer]. Sherice Escobedo ELEVATOR CONSTRUCTOR HYDRAULIC, SUPERVISOR CORE SHOP
== END 2021-07-06 14:36 | disposition home health service (06) | DRG 177 ==
LOC: ED 21:22 → MS3 06-30 04:06
PROVIDERS: Family Medicine; Admitting Provider Hospitalist; Emergency Provider Emergency Medicine; PCP Family Medicine; Visit Provider Internal Medicine
DX: U07.1 COVID-19 (principal); J12.82 Pneumonia due to coronavirus disease 2019; J96.01 Acute respiratory failure with hypoxia; Z68.41 Body mass index [BMI] 40.0-44.9, adult; F41.9 Anxiety disorder, unspecified; E78.00 Pure hypercholesterolemia, unspecified; I10 Essential (primary) hypertension; Z87.891 Personal history of nicotine dependence; I44.7 Left bundle-branch block, unspecified; E66.01 Morbid (severe) obesity due to excess calories; M10.9 Gout, unspecified; E78.5 Hyperlipidemia, unspecified; Z80.0 Family history of malignant neoplasm of digestive organs; Z82.49 Family history of ischemic heart disease and other diseases of the circulatory system; Z90.49 Acquired absence of other specified parts of digestive tract
CPT/HCPCS: 36415; 71045; 71275; 80048; 80053; 83605; 83735; 84145; 84484; 85025; 85610; 85730; 87040; 87426; 93005; 94667; 94668; 94762; 96361; 96374; 96375; 97162; 97802; 99251; 99284; 99285; J7030; J7050; M0243; Q9967; A4216; G0463; J1940; J2405; Q0244

== ENCOUNTER 2021-10-13 13:08 | Outpatient (CLI) | payer MEDICARE, MEDICAID, SELFPAY ==
[2021-10-15 21:07] LABS: QNTFERON TB Mitogen Value > 10.00 IU/mL (.); QNTFERON TB Nil Value 0 IU/mL (.); QNTFERON TB1+ Ag Value 0.01 IU/mL (.); QNTFERON TB2+ Ag Value 0.02 IU/mL (.)
[2021-10-16 16:32] LABS: QNTIFERON TB Positive Criteria Negative (Negative)
== END 2021-10-13 23:59 | disposition short-term general hospital (02) ==
LOC: MTLAB 13:09
PROVIDERS: PCP Family Medicine; Referring Provider Physician Assistant Medical; Visit Provider Physician Assistant Medical
DX: L40.0 Psoriasis vulgaris (principal); Z79.899 Other long term (current) drug therapy; L71.8 Other rosacea
CPT/HCPCS: 36415; 86480

== ENCOUNTER 2021-11-18 11:16 | Outpatient (CLI) | payer MEDICARE, MEDICAID, SELFPAY ==
[2021-11-18 11:57] LABS: Erythrocyte Sedimentation Rate 29 mm/hr (0-30)
[2021-11-18 11:58] LABS: Absolute Lymphocyte Count 1.68 X10^3/uL (0.83-4.51); Absolute Neutrophil Count 5.2 X10^3/uL (2.0-7.7); Basophil# 0.05 X10^3/uL; Basophil% 0.6 % (0-1); Eosinophil# 0.17 X10^3/uL; Eosinophils% 2.2 % (0-5); Hematocrit 43.2 % (37-47); Hemoglobin 14.1 g/dL (12.0-15.0); Lymphocyte # 1.68 X10^3/ul (0.83-4.51); Lymphocyte % 21.8 % (19-41); Mean Corp Hgb Conc 32.6 g/dL (32-36); Mean Corpuscular Hgb 29.2 pg (27.0-32.0); Mean Corpuscular Volume 89.4 fL (81-99); Monocyte# 0.55 X10^3/uL; Monocyte% 7.1 % (0-10); NRBC Flagged by Analyzer 0 % (0-5); Neutrophil # 5.22 X10^3/uL (2.7-7.7); Neutrophil % 67.9 % (47-70); Platelet Count 200 K/mm3 (150-450); RBC Distribution Width CV 14.6 % (11.6-14.6); RBC Distribution Width SD 47.4 fl (35.1-43.9); Red Blood Count 4.83 M/mm3 (4.2-5.4); White Blood Count 7.7 K/mm3 (4.4-11.0)
[2021-11-18 12:26] LABS: ALB/GLOB Ratio 0.9 RATIO (0.9-2.4); AST(SGOT) 35 U/L (15-37); Alanine Aminotransfer ALT/SGPT 46 U/L (13-56); Alkaline Phosphatase 148 U/L (45-117); Anion Gap 5 (5-15); BUN 15 mg/dL (7-18); BUN/Creat Ratio 15.9 RATIO (10-20); CRP < 2.90 mg/L (0.0-3.0); Calcium,Total 9.4 mg/dL (8.5-10.1); Chloride 105 mmol/L (98-107); Creatinine, Serum 0.94 mg/dL (0.55-1.02); EST Glomerular Filtration Rate 63 mL/min (>60); Est Glom Filt Rate - Afr Amer 76 mL/min (>60); Ferritin 124 ng/mL (8-252); Globulin 4.4 g/dL (2.2-4.2); Glucose 119 mg/dL (74-106); LDH 200 U/L (84-246); Potassium 3.8 mmol/L (3.5-5.1); Protein, Total 8.4 g/dL (6.4-8.2); Sodium Level 137 mmol/L (136-145)
[2021-11-21 14:08] LABS: Anti-Centromere B Ab <0.2 AI (0.0-0.9); Anti-Chromatin <0.2 AI (0.0-0.9); Anti-Jo <0.2 AI (0.0-0.9); Anti-Scleroderma-70 AB <0.2 AI (0.0-0.9); RNP Ab 0.5 AI (0.0-0.9); SJOGREN'S Anti-SS-A test < 0.2 AI (0.0-0.9); SJOGREN'S Anti-SS-B test < 0.2 AI (0.0-0.9); Smith Ab <0.2 AI (0.0-0.9)
[2021-11-21 14:34] LABS: Anti-Mitochondrial AB <20.0 Units (0.0-20.0); Anti-dsDNA Ab <1 IU/mL (0-9)
[2021-11-22 20:08] LABS: Angiotensin Convert Enzyme < 15 U/L (14-82); Ceruloplasmin 26.9 mg/dL (19.0-39.0); Cytoplasmic Ab (C-ANCA) <1:20 titer (Neg:<1:20)
[2021-11-23 10:17] LABS: Anti-Smooth Muscle ABS 10 Units (0-19); Copper, Serum or Plasma 117 ug/dL (80-158); Haptoglobin 101 mg/dL (37-355); Perinuclear Ab (P-ANCA) <1:20 titer (Neg:<1:20)
== END 2021-11-18 23:59 | disposition home or self-care (01) ==
LOC: LAB 11:19
PROVIDERS: PCP Family Medicine; Referring Provider Internal Medicine Gastroenterology; Visit Provider Internal Medicine Gastroenterology
DX: K76.0 Fatty (change of) liver, not elsewhere classified (principal); I10 Essential (primary) hypertension
CPT/HCPCS: 80053; 82164; 82390; 82525; 82728; 83010; 83516; 83615; 85025; 85652; 86140; 86225; 86235; 86256

== ENCOUNTER 2021-11-30 08:39 | Outpatient (CLI) | payer MEDICARE, MEDICAID, SELFPAY ==
--- NOTE | 2021-11-30 08:41 | US_ITS ---
STUDY: ABDOMINAL ULTRASOUND - RIGHT UPPER QUADRANT REASON FOR VISIT: Female, 66 years old fatty liver TECHNIQUE: Ultrasound evaluation of the right upper quadrant was performed with real-time and static teran-scale imaging. TECHNICAL QUALITY: Adequate. COMPARISON: None. FINDINGS: Liver: The liver measures 16.7 cm. There is increased echogenicity consistent with fatty infiltration. The bile ducts are within normal limits. There is hepatic color flow. The direction of portal flow is hepatopetal. There is no demonstrated mass lesion. Gallbladder: The patient is status post cholecystectomy. Common Bile Duct (C.B.D.): The common bile duct measures 5 mm. Pancreas: Normal size of the head, body and tail of the pancreas. There is normal echogenicity of the pancreas. There is no demonstrated pancreatic mass or cyst. Right Kidney: Normal size of the right kidney. The right kidney measures 10 cm x 5.4 cm x 4.9 cm. Normal renal cortex. The right cortex measures 1.1 cm. There is no demonstrated renal mass or cyst. There is no right hydronephrosis. IMPRESSION: Fatty infiltration of the liver. Electronically Signed: Kurtis Rollins MD at 12:37 EST , STUDY: ABDOMINAL ULTRASOUND - ELASTOGRAPHY REASON FOR VISIT: Female, 66 years old. Fatty infiltration of the liver. TECHNIQUE: Liver stiffness measurements were obtained on a [employer] 85 ultrasound machine using a CA 1-7 probe following the SRU guidelines. 3 measurements were obtained using a 2-D-SWE method. The IQR/M was 20 % suggesting a quality data set. TECHNICAL QUALITY: Adequate. COMPARISON: Comparison is made with prior study done earlier in the day. FINDINGS: Liver: Fatty infiltration of the liver. Median liver stiffness measured 9.5 kPa. US/Abdomen Limited IMPRESSION: Liver stiffness measures 9.5 kPa compatible with F3 Metavir score. Electronically Signed: Kurtis Rollins MD at 12:38 EST ,
== END 2021-11-30 23:59 | disposition home or self-care (01) ==
LOC: US 08:40
PROVIDERS: PCP Family Medicine; Visit Provider Internal Medicine Gastroenterology
DX: K76.0 Fatty (change of) liver, not elsewhere classified (principal)
CPT/HCPCS: 76705; 76981

== ENCOUNTER 2022-01-19 08:11 | Day surgery (SDC) | payer MEDICARE, MEDICAID, SELFPAY ==
[2022-01-19] VITALS (7 sets, daily range): BP systolic 118–159; BP diastolic 59–83; PULSE 58–76; RESP 16; TEMP 36.3–36.9; O2SAT 95–100; BMI 42.0
[2022-01-19] MEDS: Lactated Ringers 1,000 ML 15 ML IV (08:59)
--- NOTE | 2022-01-19 09:11 | HP.PCM_ITS ---
History and Physical Date of Admission: 01/19/22 HILDA RAMIREZ, is a 66 F who presents to the office today for Referred by PCP for evaluation of reflux. Reports that she has had elevated liver testing for many years and was told 12+ years ago that she has a fatty liver. Denies pain/discomfort, family history of liver issues. Reflux issues started 7-8 years prior with decreased appetite, emesis, cough. Started PPI and helped. Symptoms returned and she was put on antihistamine and restarted PPI. Currently taking Protonix 40mg BID. She has some difficulty with urgent loose stools following morning coffee and was in the restroom for a long time as she felt incomplete evacuation. She eliminated coffee with creamer for the last week and this has resolved. CTA 9.. reviewed with liver noted to be enlarged, approximately 20cm. PMH includes depression/anxiety, dipolar disorder, HTN, hyperlipidemia. COVID 19 infection requiring hospitalization 10.. Surgical history includes cholecystectomy, section, herniorrhaphy ROS Const Constitutional: No anorexia, fatigue, fever(s), weight change or sleep problems Eyes Eyes: No change in vision ENT ENT: No abnormal hearing, difficulty swallowing, mouth lesions, tongue swelling or throat swelling Resp Respiratory: No cough or shortness of breath Cardio Cardiology: No chest pain at rest, chest pain with exertion, shortness of breath or dyspnea on exertion Gastro GI: No difficulty swallowing Genitourinary-Female: No difficulty urinating or burning urination Musc Musculoskeletal: No joint pain, joint swelling, muscle weakness or decreased muscle mass Skin Skin: No hair loss in leg, yellowing of the eye, itchy eyes, rash, skin ulcer or skin swelling Neuro Neurology: No abnormal hearing, abnormal movements, confusion, unsteady gait/balance or memory loss Psych Psychiatric: No anxiety, No confusion and No memory loss Endo Endocrine: No fatigue or weight change Aller/Imm Allergy/Immunologic: No itchy eyes, throat swelling or tongue swelling Ramy/Lymp Hematologic/Lymphatic: No easy bleeding, easy bruising or enlarged lymph nodes Exam Const General: cooperative and comfortable Nutritional Appearance: average body habitus and well nourished HENCO Head: normal to inspection Ears: hearing grossly normal bilaterally Nose: external nose normal Face and sinus: normal facial exam Mouth: oral mucosae normal Throat: posterior oropharynx normal Eyes General: appearance normal, both eyes and all related structures Neck Neck: normal visual inspection Chest Chest palpation & inspection: normal inspection of the chest and normal palpation of entire chest wall Resp Effort & Inspection: normal respiratory effort Auscultation: Bilateral: Clear to Auscultation Cardio Palpation: normal PMI Rate: regular rate Rhythm: regular rhythm GI Inspection: normal to inspection Auscultation: normal bowel sounds Percussion: normal to percussion Palpation: no hepatosplenomegaly Skin General: no rashes or lesions noted Neuro General: patient alert Extrem General: normal to inspection Psych Affect: normal affect Quality Reporting Tobacco Screening ([facility] 138) Smoking Status: Former smoker Assessment and Plan Assessment and Plan (1) Fatty liver: Status: Acute Orders: Orders: EGD Today Comprehensive Metabolic Profil Today CRP Today LDH Today CBC W/Diff, Automated Today Erythrocyte Sed Rate Today Anti-Mitochondrial AB Today Angiotensin Convert Enzyme Today ANCA Today Anti-Smooth Muscle ABS Today Ceruloplasmin Today Copper, Serum or Plasma Today Ferritin Today Haptoglobin Today Abdomen Limited Today Elastography Parenchyma/Organ Today Plan - Dr. Self Friend, DO: We will work-up for fatty liver disease. At this time her biggest risk factor is nonalcoholic fatty liver disease. We also be able to stage with a meld score and aid in progression of her liver disease. (2) GERD (gastroesophageal reflux disease): Status: Acute Plan - Dr. Self Friend, DO: She will undergo an upper endoscopy to evaluate upper GI tract. She was explained alternatives, risk, benefits including outstanding bleeding, infection, sepsis, perforation, need for emergency or . She have ASA of 3. I have re-examined the patient. There are no clinical changes since date of exam.
--- NOTE | 2022-01-19 09:30 | EGD_PTH ---
PATIENT: HILDA RAMIREZ LOC: EN U#:[id number] AGE/SX: 67/F ROOM: RE01/19/[address]: Dr. Aramis Negro DO : 1955 BED: DIS: 01/19/2022 SPEC #: [id number] RECD: 01/19/22 10:30 STATUS: CORY RESergio #: [id number] BELL: 01/19/22 09:[address]: Aramis Negro DEPT: SURGICAL PATHOLOGY RECD BY: Xuan Richardson ENTERED: 01/19/22 13:31 SP TYPE: EGD BIOPSY OT DR: Dr. Maxi Oneal MD Tissues: A - Duodenum, NOS B - Gastric mucous membrane C - Gastric mucous membrane D - Gastric mucous membrane E - Esophagus, NOS Procedures: Special Stain Group II Surgery Specimen Level IV Alcian Blue/PAS (control) HEADER OPERATION: EGD ([place]) with biopsies PRE-OP DIAGNOSIS: GERD TISSUE SUBMITTED: A ? Duodenum biopsy, B ? Gastric body biopsy, C ? Gastric cardia biopsy, D ? Gastric antrum biopsy, E ? Distal esophagus biopsy MICROSCOPIC DIAGNOSIS A. Duodenum, biopsy: Fragments of duodenal mucosa, no pathologic diagnosis. B. Gastric body, biopsy: Moderate chronic active gastritis. C. Gastric cardia, biopsy: Mild gastritis. See microscopic description. D. Gastric antrum, biopsy: Moderate chronic active gastritis. See comment. E. Distal esophagus, biopsy: Fragments of gastric mucosa with mild chronic inflammation. Intestinal metaplasia (goblet cell metaplasia) is not identified. See comment. SJ:rg 01/20/2022 COMMENT D. The results of immunohistochemistry for Helicobacter pylori will be reported separately ([id number]). E. Alcian blue/PAS stain with matched control is used in the evaluation of the specimen. MICROSCOPIC DESCRIPTION Slides are reviewed. C. The specimen shows fragments of gastric mucosa with chronic inflammatory cell infiltrates in the lamina propria consisting of lymphocytes and plasma cells, consistent with mild chronic gastritis. GROSS DESCRIPTION A - Received in fixative is one container labeled with the patient's name and designated duodenum biopsy. The specimen consists of multiple irregular fragments of light rodríguez soft tissue that in aggregate measure 1 x 0.5 x 0.1 cm. The specimen is totally submitted in one cassette. B - Received in fixative is one container labeled with the patient's name and designated gastric body biopsy. The specimen consists of one irregular fragment of light rodríguez soft tissue that measures 0.7 x 0.3 x 0.1 cm. The specimen is totally submitted in one cassette. C - Received in fixative is one container labeled with the patient's name and designated gastric cardia biopsy. The specimen consists of two irregular fragments of light rodríguez soft tissue that in aggregate measure 0.8 x 0.5 x 0.1 cm. The specimen is totally submitted in one cassette. D - Received in fixative is one container labeled with the patient's name and designated gastric antrum biopsy. The specimen consists of two irregular fragments of light rodríguez soft tissue that in aggregate measure 0.6 x 0.5 x 0.1 cm. The specimen is totally submitted in one cassette. E - Received in fixative is one container labeled with the patient's name and designated distal esophagus biopsy. The specimen consists of multiple irregular fragments of light rodríguez soft tissue that in aggregate measure 1 x 0.5 x 0.1 cm. The specimen is totally submitted in one cassette. / AM:ranjit 01/19/2022 TC:3 CPT: 87204 x5, 14000
--- NOTE | 2022-01-19 09:30 | IMM_PTH ---
PATIENT: HILDA RAMIREZ LOC: EN U#:[id number] AGE/SX: 67/F ROOM: RE01/19/[address]: Dr. Aramis Negro DO : 1955 BED: DIS: 01/19/2022 SPEC #: [id number] RECD: 01/19/22 12:53 STATUS: CORY REQ #: [id number] BELL: 01/19/22 09:[address]: Aramis Negro DEPT: IMMUNOHISTOCHEMISTRY RECD BY: Marisela Waller ENTERED: 01/19/22 12:55 SP TYPE: IMMUNO OTHR DR: Dr. aMxi Oneal MD Tissues: D - Stomach, NOS Procedures: H Pylori (initial) PHYSICIAN & INSTITUTION [place] [id number] SPECIMEN INFORMATION: Tissue Source: D ? Gastric antrum Clinical Info: GERD Specimen Number: [id number] CPT code: 61068 METHODOLOGY: Deparaffinized sections of prefer/formalin-fixed tissue or PAP/DQ stained slides are incubated with monoclonal/polyclonal antibodies/oligonucleotide probes. Localization is made via biotin free immunoperoxidase method. Appropriate controls are performed and reacted as expected. Results on target cell population are indicated in the following table: RESULTS: ANTIBODY / CLONE RESULT Block D H Pylori (polyclonal) negative These tests were developed and their performance characteristics determined by [facility]. They may not have been cleared or approved by the U.S. Food and Drug Administration. The FDA has determined that such clearance or approval is not necessary. The above immunohistochemical/dualISH markers are ordered and reviewed by the Pathologist. INTERPRETATION: D. Gastric antrum, biopsy: Negative for Helicobacter pylori organisms. SJ:ranjit 01/20/2022
--- NOTE | 2022-01-19 10:02 | OP.EGD_ITS ---
Patient Name: Corazon Hinojosa Procedure Date: 01/19/2022 9:44 AM Date of : 1955 Age: 67 Procedure: Upper GI endoscopy Indications: Heartburn Providers: Aramis Negro DO Medicines: Sedation Required Anesthesia Staff Assistance Patient Profile: This is a 67 year old female. Refer to note in patient chart for documentation of history and physical. Patient has symptoms of chronic heartburn. Complications: No immediate complications. Procedure: Pre-Anesthesia Assessment: - Prior to the procedure, a History and Physical was performed, and patient medications and allergies were reviewed. The patient is competent. The risks and benefits of the procedure and the sedation options and risks were discussed with the patient. All questions were answered and informed consent was obtained. Patient identification and proposed procedure were verified by the physician in the pre-procedure area. Mental Status Examination: alert and oriented. Airway Examination: normal oropharyngeal airway and neck mobility. Respiratory Examination: clear to auscultation. CV Examination: normal. Prophylactic Antibiotics: The patient does not require prophylactic antibiotics. Prior Anticoagulants: The patient has taken no previous anticoagulant or antiplatelet agents. ASA Grade Assessment: II - A patient with mild systemic disease. After reviewing the risks and benefits, the patient was deemed in satisfactory condition to undergo the procedure. The anesthesia plan was to use moderate sedation / analgesia (conscious sedation). Immediately prior to administration of medications, the patient was re-assessed for adequacy to receive sedatives. The heart rate, respiratory rate, oxygen saturations, blood pressure, adequacy of pulmonary ventilation, and response to care were monitored throughout the procedure. The physical status of the patient was re-assessed after the procedure. After obtaining informed consent, the endoscope was passed under direct vision. Throughout the procedure, the patient's blood pressure, pulse, and oxygen saturations were monitored continuously. The gastroscope was introduced through the mouth, and advanced to the second part of duodenum. The upper GI endoscopy was accomplished without difficulty. The patient tolerated the procedure well. Moderate Sedation: Moderate (conscious) sedation was administered by the endoscopy nurse and supervised by the endoscopist. The patient's oxygen saturation, heart rate, blood pressure and response to care were monitored. Total physician intraservice time was 15 minutes. Scope In: 9:48:44 AM Scope Out: 9:54:13 AM Total Procedure Duration Time 0 hours 5 minutes 29 seconds Findings: The Z-line was irregular and was found 39 cm from the incisors. Biopsies were taken with a cold forceps for histology. Verification of patient identification for the specimen was done. Estimated blood loss was minimal. Patchy mildly erythematous mucosa without bleeding was found in the cardia and in the gastric antrum. Biopsies were taken with a cold forceps for histology. Verification of patient identification for the specimen was done. Estimated blood loss was minimal. The second portion of the duodenum was normal. Biopsies were taken with a cold forceps for histology. Verification of patient identification for the specimen was done. Estimated blood loss was minimal. Impression: - Z-line irregular, 39 cm from the incisors. Biopsied. - Erythematous mucosa in the cardia and antrum. Biopsied. - Normal second portion of the duodenum. Biopsied. Recommendation: - Discharge patient to home. - Resume previous diet today. - Continue present medications. - Await pathology results. - Repeat upper endoscopy in 1 year for surveillance. - Return to GI office. Procedure Code(s): --- Professional --- 19747, Esophagogastroduodenoscopy, flexible, transoral; with biopsy, single or multiple G0500, Moderate sedation services provided by the same physician or other qualified health career resource technician performing a gastrointestinal endoscopic service that sedation supports, requiring the presence of an independent trained observer to assist in the monitoring of the patient's level of consciousness and physiological status; initial 15 minutes of intra-service time; patient age 5 years or older (additional time may be reported with 62985, as appropriate) CPT copyright 2017 [employer]. All rights reserved. The codes documented in this report are preliminary and upon facility engineer review may be revised to meet current compliance requirements. Aramis Negro DO 01/19/2022 10:01:36 AM This report has been signed electronically. Number of Addenda: 1 Note Initiated On: 01/19/2022 9:44 AM Addendum Number: 1 Addendum Date: 06/29/2022 6:28:59 AM MAC was used as sedation for this procedure. Aramis Negro DO 06/29/2022 6:29:05 AM This report has been signed electronically.
--- NOTE | 2022-01-19 10:03 | OP.CCLET_ITS ---
06/29/2022 Maxi Oneal MD Re : Upper GI endoscopy procedure for Corazon Hinojosa Dear Dr. Oneal This procedure was performed on December. My impressions and recommendations are as follows: Impressions : - Z-line irregular, 39 cm from the incisors. Biopsied. - Erythematous mucosa in the cardia and antrum. Biopsied. - Normal second portion of the duodenum. Biopsied. Recommendations : - Discharge patient to home. - Resume previous diet today. - Continue present medications. - Await pathology results. - Repeat upper endoscopy in 1 year for surveillance. - Return to GI office. My findings are described in the full procedure note, which is enclosed. If I can be of further assistance, please feel free to contact me at . Sincerely, Aramis Negro, 01/19/2022 10:01:36 AM This report has been signed electronically.
== END 2022-01-19 10:54 | disposition home or self-care (01) ==
LOC: EN 08:12 → AC 08:12
PROVIDERS: PCP Family Medicine; Referring Provider Family Medicine; Visit Provider Internal Medicine Gastroenterology
PROC: 0DJ08ZZ Inspection of Upper Intestinal Tract, Via Natural or Artificial Opening Endoscopic (ICD-10-PCS; CPT 43235; principal; 2022-01-19 09:25)
DX: R12 Heartburn (principal); F31.9 Bipolar disorder, unspecified; K29.50 Unspecified chronic gastritis without bleeding; K21.9 Gastro-esophageal reflux disease without esophagitis; Z99.89 Dependence on other enabling machines and devices; M10.9 Gout, unspecified; E78.00 Pure hypercholesterolemia, unspecified; G47.30 Sleep apnea, unspecified; Z87.891 Personal history of nicotine dependence
CPT/HCPCS: 43239; 87426; 88305; 88313; 88342; C9803; J7120

== ENCOUNTER 2022-03-09 12:30 | Outpatient (RCR) | payer MEDICARE, MEDICAID, SELFPAY ==
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
--- NOTE | 2022-06-20 09:47 | HP.PTDCNRP_ITS ---
HILDA RAMIREZ was seen in my office for initial evaluation on 01/31/22. The following Plan of Care was established for this patient: Initial Frequency: 2-3x /Week Initial Duration: 4 Weeks Patient/Client Instruction: Educate patient on: Condition, Plan of Care For the Purpose of:: To improve self management Therapeutic Exercise to Include: Strength training, Endurance training, Body mechanics, Postural training, Dynamic Lumbar Stabilization For the Purpose of:: To decrease pain, To increase ROM, To improve muscle performance and motor function This patient was last seen in our office . Pertinent comments regarding their P hysical therapy will appear below: Pt was treated for LBP for 12 PT visits through the date of 03/09/22. Pt has not returned through todays date and is discontinued at this time. At this point I will be discontinuing this patient from physical therapy. I would be happy to see this patient again in the future if found appropriate by the physician. Thank you! Shay Carson, PT, ATC Balance/Gait/Functional tests - Balance/Special Test Scores Lower Extremity Functional Score: 28
== END 2022-03-09 19:00 | disposition home or self-care (01) ==
LOC: PT 12:30
PROVIDERS: PCP Family Medicine; Referring Provider Nurse Practitioner Family; Visit Provider Nurse Practitioner Family
DX: M51.17 Intervertebral disc disorders with radiculopathy, lumbosacral region (principal); M47.27 Other spondylosis with radiculopathy, lumbosacral region; M46.96 Unspecified inflammatory spondylopathy, lumbar region; M25.552 Pain in left hip
CPT/HCPCS: 97110; 97113; 97161; 97164

== ENCOUNTER 2022-04-30 11:52 | Emergency (ER) | payer MEDICARE, MEDICAID, SELFPAY ==
[2022-04-30 11:54] VITALS: BP 167/101; PULSE 98; RESP 17; TEMP 36.6; O2SAT 98; BMI 38.2
--- NOTE | 2022-04-30 12:18 | ED.VIS.GI ---
HPI HPI - GI History of Present Illness Chief Complaint: Nausea/Vomiting/Diarrhea Informant: patient Abdominal Pain/Flank Pain Onset: Days (5) Context: Gradual Onset Timing: Continuous and Waxes and wanes Quality: Stabbing Location: Diffuse Worsened by: Nothing Relieved by: Nothing Nausea/Vomiting/Emesis GI Symptom: Positive for Nausea and Vomiting Quality: Positive for Nonbilious; Negative for Blood streaks, Coffee ground or Hematemesis Diarrhea/Melena/Hematochezia GI Symptom: Positive for Diarrhea; Negative for Melena or Hematochezia Stool Quality: Positive for Watery Associated Symptoms Associated Symptoms: Negative for Dysuria, Frequency or Hematuria Narrative Narrative: Patient presents with nausea, vomiting, diarrhea, and abdominal pain that has been constant for the last 5 days. Patient states it began gradually. Patient states her pain is constant but waxes and wanes. Patient states the pain is over the epigastric area. Patient denies any hematemesis or coffee-ground emesis. Patient states the diarrhea is watery. Patient denies any melena or hematochezia. Patient denies any dysuria, hematuria, or frequency. Patient does admit to some subjective chills but denies any fevers. Patient also admits to mild headache. [facility] Medical History Alcohol use Ambulates with cane Anxiety Back pain Back pain due to injury Bipolar disorder CPAP (continuous positive airway pressure) dependence Depression Fatty liver GERD (gastroesophageal reflux disease) Gout High cholesterol HTN (hypertension) Marijuana use Psoriasis Sleep apnea Wears glasses Wears partial dentures Home Medications allopurinol 100 mg tablet 400 mg PO DAILYCM GOUTE 01/05/14 [History Last Taken 06/25/21 23:00] lisinopril 2.5 mg tablet 20 mg PO DAILY BLOOD PRESSURE 01/05/14 [History Last Taken 01/19/22 06:30] simvastatin 40 mg tablet 40 mg PO QHS CHOLESTEROL LOWERING 01/05/14 [History Last Taken 06/24/21 23:00] atenolol 25 mg tablet 25 mg PO DAILY BP 11/06/17 [History Last Taken 01/19/22 06:30] cetirizine 10 mg capsule (All Day Allergy (cetirizine)) 10 mg PO DAILY ALLERGIES 11/06/17 [History Last Taken 06/25/21 23:00] fluticasone propionate 50 mcg/actuation nasal spray,suspension 2 spray DAILY ALLERGIES 11/06/17 [History Last Taken 06/24/21 23:00] montelukast 10 mg tablet (Singulair) 10 mg PO DAILY ALLERGIES 11/06/17 [History Last Taken 06/24/21 23:00] pantoprazole 40 mg tablet,delayed release 40 mg PO BID ACID REFLUX ##0 11/07/17 [Rx Last Taken 01/19/22 06:30] oxcarbazepine 300 mg tablet (Trileptal) 300 mg PO DAILY bipolar 12/14/17 [History Last Taken 06/24/21 23:00] guselkumab 100 mg/mL subcutaneous auto-injector (Tremfya) 100 mg subcut QMONTH psoriasis 06/30/21 [History Last Taken 06/13/21 13:00] ursodiol 300 mg capsule 300 mg PO BID #60 caps 12/13/21 [Rx Last Taken Unknown] diphenhydramine 25 mg-acetaminophen 500 mg/15 mL oral solution ml 01/17/22 [History Last Taken Unknown] flaxseed 1,000 mg capsule 1,000 mg PO DAILY 01/17/22 [History Last Taken Unknown] omega 3-zvy-tnt-fish oil 1,200 mg (144 mg-216 mg) capsule (Fish Oil) 2 cap PO DAILY 01/17/22 [History Last Taken Unknown] liraglutide 0.6 mg/0.1 mL (18 mg/3 mL) subcutaneous pen injector (Victoza 3-Michael) 1.2 mg (0.2 mL) subcut DAILY #9 mL 02/07/22 [Rx Last Taken Unknown] ondansetron 4 mg disintegrating tablet 4 mg PO Q8H PRN PRN Nausea #10 tabs 04/30/22 [Rx Last Taken Unknown] Allergy/AdvReac Type Severity Reaction Status Date / Time erythromycin base AdvReac Other Verified 04/30/22 11:54 [Erythromycin Base] eszopiclone [From Lunesta] AdvReac Vomiting Verified 04/30/22 11:54 Family History Mother Pancreatic cancer Father Heart disease Surgical History H/O section H/O: knee surgery Hx of cholecystectomy S/P herniorrhaphy Social History Smoking Status: Former smoker substance use type: does not use ROS ROS ED Constitutional Constitutional ED: Reports chills and subjective; Denies fever(s) Eyes Eyes: Denies blurry vision or change in vision ENT ENT ED: Denies rhinorrhea or sore throat Cardiovascular Cardiovascular: Denies chest pain or palpitations Respiratory/Chest Respiratory/Chest: Denies cough or dyspnea Gastrointestinal Gastrointestinal: Reports abdominal pain, diarrhea, nausea and vomiting Genitourinary Genitourinary ED: Denies dysuria or hematuria Musculoskeletal Musculoskeletal: Reports back pain and neck pain Integumentary Denies abscess or rash Neurologic Neurologic: Reports headache(s); Denies weakness Allergic/Immunologic Allergic/Immunologic ED: Denies mouth swelling or urticaria EXAM Physical Exam Const Vital Signs: 04/30/22 11:54 04/30/22 14:01 Temperature 97.8 F Temperature Source Oral Pulse Rate 98 104 H Respiratory Rate 17 14 Blood Pressure 167/101 H 148/86 H Blood Pressure Mean 123 106 Pulse Ox 98 93 Oxygen Delivery Method Room Air Room Air Positive well nourished and well developed General Appearance ED: well developed HEENT Reports moist mucous membranes Neck supple and no JVD Resp normal respiratory effort and clear to auscultation bilaterally Cardio regular rhythm Rate: tachycardic GI normal to inspection, nondistended, normoactive bowel sounds and non-tender Palpation: soft Extremity normal to inspection General Extremety ED: Negative for edema or tenderness General Extremity: Negative for edema Neuro oriented x3, CN's II-XII intact bilaterally and no sensory deficits noted Sensorium / Orientation: alert Motor Exam: strength 5/5 throughout Psych mental status grossly normal Skin no rashes or lesions noted MDM MDM MDM Narrative Medical decision making narrative: Notified the nurse that she was having some pain in her left upper chest. Because of this, EKG was ordered. On my interpretation, it shows a sinus tachycardia with a rate of 111. There is left bundle branch block pattern noted. There are no acute ST or T wave changes noted. This was unchanged compared to previous EKG. CBC shows a mild leukocytosis of 12.1. Comprehensive metabolic profile shows sodium 135 and a potassium of 3.2. Lipase was normal. Urinalysis does not show any evidence of urinary tract infection. Patient was given IV fluids and Zofran here. Patient was feeling somewhat better on reevaluation. Patient was given a prescription for Zofran. Patient was instructed to follow-up with her primary care physician in 5 to 7 days. Patient understood and was agreeable with the plan. All questions were answered. Lab Data Attestation: I reviewed the patient's lab results. Labs: Laboratory Results - last 24 hr 04/30/22 04/30/22 04/30/22 12:50 12:50 13:42 WBC 12.1 H RBC 5.26 Hgb 15.5 H Hct 46.2 MCV 87.8 MCH 29.5 MCHC 33.5 RDW Std Deviation 45.8 H RDW Coeff of Han 14.3 Plt Count 282 MPV 9.8 Immature Gran % (Auto) 0.500 Neut % (Auto) 71.5 H Lymph % (Auto) 17.[address] [place] % (Auto) 10.0 Eos % (Auto) 0.2 Baso % (Auto) 0.4 Absolute Neuts (auto) 8.6 H Absolute Lymphs (auto) 2.10 Nucleated RBC % 0 Sodium 135 L Potassium 3.2 L Chloride 99 Carbon Dioxide 23.0 Anion Gap 13 BUN 20 H Creatinine 0.71 Estim Creat Clear Calc 38.68 Est GFR (MDRD) Af Amer 106 Est GFR (MDRD) Non-Af 87 BUN/Creatinine Ratio 28.2 H Glucose 127 H Calcium 9.3 Total Bilirubin 0.80 AST 28 ALT 42 Alkaline Phosphatase 138 H Troponin I High Sens 33 Total Protein 8.0 Albumin 3.8 Globulin 4.2 Albumin/Globulin Ratio 0.9 Lipase 96 Urine Color Yellow Urine Clarity Clear Urine pH 6.0 Ur Specific [place] 1.025 Urine Protein 30 H Urine Glucose (UA) Normal Urine Ketones 150 A* Urine Occult Blood 10 H Urine Nitrite Negative Urine Bilirubin 1 H Urine Urobilinogen 1 H Ur Leukocyte Esterase 25 H Urine RBC 0-5 SEEN Urine WBC 0-5 SEEN Ur Squamous Epith Cells 0-5 SEEN Urine Bacteria 1+ Hyaline Casts 0-5 SEEN Urine Mucus 0 SEEN EKG Initial EKG: Attestation: I personally reviewed and interpreted this EKG as follows: Interpretation: Sinus Rhythm, No Acute Injury Pattern and LBBB Prior EKG tracings: available for review Prior: Unchanged (06/29/2021) Discharge Plan Triage Chief Complaint: Nausea/Vomiting/Diarrhea ED Provider: Yuniel Locke Dx/Rx/DC Orders Clinical Impression: Nausea and vomiting, Mild dehydration Instructions: ED Dehydration (Adult), ED Food Poison Or Gastroenteritis Prescriptions: New ondansetron [ondansetron] 4 MG tablet 4 mg PO Q8H PRN PRN (Reason: Nausea) Qty: 10 0RF No Action allopurinol 100 MG tablet 400 mg PO DAILYCM Label Comments: gout simvastatin 40 MG tablet 40 mg PO QHS Label Comments: cholesterol lisinopril 2.5 MG tablet 20 mg PO DAILY Label Comments: blood pressure atenolol 25 MG tablet 25 mg PO DAILY montelukast [Singulair] 10 MG tablet 10 mg PO DAILY fluticasone propionate 1 SPRAY spray,suspension 2 spray NASAL DAILY All Day Allergy (cetirizine) 10 MG capsule 10 mg PO DAILY pantoprazole 40 MG tablet 40 mg PO BID Qty: 0 0RF oxcarbazepine [Trileptal] 300 MG tablet 300 mg PO DAILY Tremfya 100 mg/mL Auto-Injector 100 mg SUBCUT QMONTH Rx Instructions: Pt actually get med every 8 weeks Tylenol PM 25-500 mg-mg/mL Solution omega 5-nrc-gtj-fish oil [Fish Oil] 1,200 (144-216) mg Capsule 2 cap PO DAILY flaxseed 1,000 mg Capsule 1,000 mg PO DAILY ursodiol 300 mg capsule 300 mg PO BID Qty: 60 6RF Victoza 3-Michael 0.6 mg/0.1 mL (18 mg/3 mL) pen injector 1.2 mg subcut DAILY Qty: 9 0RF Primary Care Provider: Maxi Oneal Referrals: Maxi Oneal MD [Primary Care Provider] - 5-7 Days Disposition Disposition: Home, Self Care
--- NOTE | 2022-04-30 12:41 | EKG12_ITS ---
Test Reason : VOMITING Blood Pressure : / mmHG Vent. Rate : 111 BPM Atrial Rate : 111 BPM P-R Int : 170 ms QRS Dur : 138 ms QT Int : 368 ms P-R-T Axes : 017 -25 131 degrees QTc Int : 500 ms Sinus tachycardia Left bundle branch block Abnormal ECG Confirmed by EMA LOUIE, LEVAR ([id number]), editor trade journal GABRIEL ROBERT ([id number]) on 05/02/2022 1:04:22 PM Referred By: LATONYA Confirmed By:LEVAR BOO MD
[2022-04-30] MEDS: Ondansetron 4 MG/2 ML Vial IV (12:47)
[2022-04-30] MEDS: 0.9% Normal Saline 1,000 ML 1000 ML IV (12:47)
[2022-04-30 12:58] LABS: Absolute Neutrophil Count 8.6 X10^3/uL (2.0-7.7); Basophil# 0.05 X10^3/uL; Basophil% 0.4 % (0-1); Eosinophil# 0.03 X10^3/uL; Eosinophils% 0.2 % (0-5); Hematocrit 46.2 % (37-47); Hemoglobin 15.5 g/dL (12.0-15.0); Lymphocyte % 17.4 % (19-41); Mean Corp Hgb Conc 33.5 g/dL (32-36); Mean Corpuscular Hgb 29.5 pg (27.0-32.0); Mean Corpuscular Volume 87.8 fL (81-99); Mean Platelet Vol. 9.8 fl (6.2-12.0); Monocyte# 1.21 X10^3/uL; NRBC Flagged by Analyzer 0 % (0-5); Neutrophil # 8.61 X10^3/uL (2.7-7.7); Neutrophil % 71.5 % (47-70); Platelet Count 282 K/mm3 (150-450); RBC Distribution Width CV 14.3 % (11.6-14.6); RBC Distribution Width SD 45.8 fl (35.1-43.9); Red Blood Count 5.26 M/mm3 (4.2-5.4); White Blood Count 12.1 K/mm3 (4.4-11.0)
[2022-04-30 13:12] LABS: ALB/GLOB Ratio 0.9 RATIO (0.9-2.4); AST(SGOT) 28 U/L (15-37); Alanine Aminotransfer ALT/SGPT 42 U/L (13-56); Albumin, Serum 3.8 g/dL (3.2-5.0); Alkaline Phosphatase 138 U/L (45-117); Anion Gap 13 (5-15); BUN 20 mg/dL (7-18); BUN/Creat Ratio 28.2 RATIO (10-20); Calcium,Total 9.3 mg/dL (8.5-10.1); Chloride 99 mmol/L (98-107); Creatinine, Serum 0.71 mg/dL (0.55-1.02); EST Glomerular Filtration Rate 87 mL/min (>60); Est Glom Filt Rate - Afr Amer 106 mL/min (>60); Estimated Creatinine Clearance 38.68 ml/min; Globulin 4.2 g/dL (2.2-4.2); Glucose 127 mg/dL (74-106); Lipase 96 U/L (73-393); Potassium 3.2 mmol/L (3.5-5.1); Sodium Level 135 mmol/L (136-145); Troponin-I HS 33 pg/mL (3.0-54.0)
[2022-04-30 13:46] LABS: Mucous, Urine 0 SEEN /hpf (<or=2+)
[2022-04-30 13:50] LABS: Color, Urine Yellow (Yellow); Glucose, Dipstick Normal (Normal); Leukocyte Esterase-Dipstick 25 /ul (Negative); Nitrite-Dipstick Negative (Negative); Occult Blood-Urine 10 /ul (Negative); Protein-Dipstick 30 mg/dl (Negative); Specific Gravity, Urine 1.025 (1.002-1.030); Urine Clarity Clear (Clear); Urine Urobilinogen 1 mg/dl (Normal)
[2022-04-30 13:53] LABS: Urine Bilirubin Dipstick 1 mg/dL (Negative)
[2022-04-30 13:54] LABS: Ketone-Dipstick 150 mg/dl (Negative)
[2022-04-30 14:00] LABS: Bacteria 1+ /hpf (None Seen); Hyaline Cast 0-5 SEEN /lpf (0-5); Red Blood Cells-Urine 0-5 SEEN /hpf (0-5); Squamous Epithelial Cells - UA 0-5 SEEN /hpf (5-10); White Blood Cells 0-5 SEEN /hpf (0-5)
[2022-04-30 14:01] VITALS: BP 148/86; PULSE 104; RESP 14; O2SAT 93
[2022-04-30 14:37] VITALS: BP 138/78; PULSE 88; RESP 14; TEMP 36.9; O2SAT 100
== END 2022-04-30 14:38 | disposition home or self-care (01) ==
PROVIDERS: Emergency Provider Emergency Medicine; PCP Family Medicine; Visit Provider Emergency Medicine
DX: R11.2 Nausea with vomiting, unspecified (principal); E86.0 Dehydration; G47.30 Sleep apnea, unspecified; Z87.891 Personal history of nicotine dependence
CPT/HCPCS: 80053; 81001; 83690; 84484; 85025; 93005; 96374; 99285; J2405

== ENCOUNTER → 2022-06-26 | Outpatient (CLI) | payer MEDICARE, MEDICAID, SELFPAY ==
[2022-06-26 15:34] LABS: Prothrombin Time (Protime)PT. 13.2 SECONDS (11.7-14.9)
[2022-06-26 15:47] LABS: Absolute Lymphocyte Count 2.32 X10^3/uL (0.83-4.51); Absolute Neutrophil Count 8.3 X10^3/uL (2.0-7.7); Basophil# 0.06 X10^3/uL; Basophil% 0.5 % (0-1); Eosinophil# 0.31 X10^3/uL; Eosinophils% 2.6 % (0-5); Erythrocyte Sedimentation Rate 23 mm/hr (0-30); Hematocrit 42.2 % (37-47); Hemoglobin 14.4 g/dL (12.0-15.0); Lymphocyte # 2.32 X10^3/ul (0.83-4.51); Lymphocyte % 19.8 % (19-41); Mean Corp Hgb Conc 34.1 g/dL (32-36); Mean Corpuscular Hgb 30.2 pg (27.0-32.0); Mean Corpuscular Volume 88.5 fL (81-99); Mean Platelet Vol. 10.3 fl (6.2-12.0); Monocyte# 0.69 X10^3/uL; Monocyte% 5.9 % (0-10); NRBC Flagged by Analyzer 0 % (0-5); Neutrophil # 8.32 X10^3/uL (2.7-7.7); Neutrophil % 70.9 % (47-70); Platelet Count 225 K/mm3 (150-450); RBC Distribution Width CV 14.3 % (11.6-14.6); RBC Distribution Width SD 46.4 fl (35.1-43.9); Red Blood Count 4.77 M/mm3 (4.2-5.4); White Blood Count 11.7 K/mm3 (4.4-11.0)
[2022-06-26 16:26] LABS: ALB/GLOB Ratio 0.9 RATIO (0.9-2.4); AST(SGOT) 23 U/L (15-37); Alanine Aminotransfer ALT/SGPT 40 U/L (13-56); Albumin, Serum 3.8 g/dL (3.2-5.0); Alkaline Phosphatase 141 U/L (45-117); Anion Gap 9 (5-15); BUN 13 mg/dL (7-18); BUN/Creat Ratio 15.7 RATIO (10-20); CRP 3.78 mg/L (0.0-3.0); Calcium,Total 9.4 mg/dL (8.5-10.1); Chloride 103 mmol/L (98-107); Creatinine, Serum 0.83 mg/dL (0.55-1.02); EST Glomerular Filtration Rate 73 mL/min (>60); Est Glom Filt Rate - Afr Amer 88 mL/min (>60); Ferritin 212 ng/mL (8-252); Globulin 4.2 g/dL (2.2-4.2); Glucose 121 mg/dL (74-106); LDH 170 U/L (84-246); Potassium 3.2 mmol/L (3.5-5.1); Sodium Level 139 mmol/L (136-145)
[2022-06-28 14:09] LABS: Anti-Centromere B Ab <0.2 AI (0.0-0.9); Anti-Chromatin <0.2 AI (0.0-0.9); Anti-Jo <0.2 AI (0.0-0.9); Anti-Scleroderma-70 AB <0.2 AI (0.0-0.9); RNP Ab 0.4 AI (0.0-0.9); SJOGREN'S Anti-SS-A test < 0.2 AI (0.0-0.9); SJOGREN'S Anti-SS-B test < 0.2 AI (0.0-0.9); Smith Ab <0.2 AI (0.0-0.9)
[2022-06-29 04:07] LABS: Angiotensin Convert Enzyme < 15 U/L (14-82); Ceruloplasmin 28.8 mg/dL (19.0-39.0); Cytoplasmic Ab (C-ANCA) <1:20 titer (Neg:<1:20)
[2022-06-29 16:18] LABS: Anti-Mitochondrial AB <20.0 Units (0.0-20.0); Anti-dsDNA Ab 1 IU/mL (0-9)
[2022-06-29 16:24] LABS: Anti-Smooth Muscle ABS 9 Units (0-19); Copper, Serum or Plasma 133 ug/dL (80-158); Haptoglobin 87 mg/dL (37-355); Perinuclear Ab (P-ANCA) <1:20 titer (Neg:<1:20)
== END | disposition home or self-care (01) ==
LOC: LAB 15:02
PROVIDERS: PCP Family Medicine; Referring Provider Internal Medicine Gastroenterology; Visit Provider Internal Medicine Gastroenterology
DX: K76.0 Fatty (change of) liver, not elsewhere classified (principal)
CPT/HCPCS: 80053; 82140; 82164; 82390; 82525; 82728; 83010; 83516; 83615; 85025; 85610; 85652; 86140; 86225; 86235; 86256

== ENCOUNTER → 2023-01-08 | Outpatient (CLI) | payer MEDICARE, MEDICAID, SELFPAY ==
[2023-01-08 16:30] LABS: Erythrocyte Sedimentation Rate 32 mm/hr (0-30)
[2023-01-08 17:02] LABS: Albumin, Serum 4.3 g/dL (3.2-5.0); BUN 15 mg/dL (7-18); BUN/Creat Ratio 17.3 RATIO (10-20); Creatinine, Serum 0.87 mg/dL (0.55-1.02); EST Glomerular Filtration Rate 69 mL/min (>60); Est Glom Filt Rate - Afr Amer 84 mL/min (>60); Globulin 4.1 g/dL (2.2-4.2); Glucose 116 mg/dL (74-106); Protein, Total 8.4 g/dL (6.4-8.2)
[2023-01-08 17:03] LABS: AST(SGOT) 35 U/L (15-37); Alanine Aminotransfer ALT/SGPT 41 U/L (13-56); Alkaline Phosphatase 104 U/L (45-117); Anion Gap 7 (5-15); CRP < 2.90 mg/L (0.0-3.0); Calcium,Total 9.6 mg/dL (8.5-10.1); Chloride 98 mmol/L (98-107); Potassium 4.4 mmol/L (3.5-5.1); Sodium Level 128 mmol/L (136-145)
[2023-01-10 15:08] LABS: HEPATITIS B SURFACE AG Negative (Negative); Hep C Antibodies Non Reactive (Non Reactive); Hepatitis A IgM Antibody Negative (Negative); Hepatitis B Core AB IgM Negative (Negative)
[2023-01-10 18:31] LABS: Anti-Mitochondrial AB <20.0 Units (0.0-20.0)
[2023-01-10 18:32] LABS: Anti-Smooth Muscle ABS 8 Units (0-19)
== END | disposition home or self-care (01) ==
LOC: LAB 15:48
PROVIDERS: PCP Family Medicine; Referring Provider Internal Medicine Gastroenterology; Visit Provider Internal Medicine Gastroenterology
DX: K76.0 Fatty (change of) liver, not elsewhere classified (principal); K21.9 Gastro-esophageal reflux disease without esophagitis; K75.9 Inflammatory liver disease, unspecified
CPT/HCPCS: 36415; 80053; 80074; 83516; 85652; 86140

== ENCOUNTER → 2023-03-08 | Outpatient (CLI) | payer MEDICARE, MEDICAID, SELFPAY ==
--- NOTE | 2023-03-08 09:50 | US_ITS ---
STUDY: ABDOMINAL ULTRASOUND - RIGHT UPPER QUADRANT; ELASTOGRAPHY REASON FOR VISIT: Female, 68 years old. Fatty infiltration of the liver. TECHNIQUE: Ultrasound evaluation of the right upper quadrant was performed with real-time and static teran-scale imaging. Point quantification shear wave elastography was performed ([employer]). TECHNICAL QUALITY: Adequate. COMPARISON: Comparison is made with prior study November 30, 2021 FINDINGS: Liver: The liver measures 15.8 cm. There is increased echogenicity consistent with fatty infiltration. The bile ducts are within normal limits. There is hepatic color flow. The direction of portal flow is hepatopetal. There is no demonstrated mass lesion. Median liver stiffness measured 9.5 kPa. Gallbladder: The patient is status post cholecystectomy. Common Bile Duct (C.B.D.): The common bile duct measures 5 mm. Pancreas: Nonvisualization of the pancreas due to overlying bowel gas. Right Kidney: Normal size of the right kidney. The right kidney measures 11.2 cm x 4.6 x 5.3 cm. Normal renal cortex. The right cortex measures 2.0 cm. There is no demonstrated renal mass or cyst. There is no right hydronephrosis. US/ABD Limited w/ Elastography IMPRESSION: 1. Liver stiffness measures 9.5 kPa compatible with F2-F3 (Mild to moderate liver fibrosis) Metavir score. Electronically Signed: Kurtis Rollins MD at 8:48 EDT ,
== END | disposition home or self-care (01) ==
LOC: US 09:49
PROVIDERS: PCP Family Medicine; Referring Provider Internal Medicine Gastroenterology; Visit Provider Internal Medicine Gastroenterology
DX: K76.0 Fatty (change of) liver, not elsewhere classified (principal)
CPT/HCPCS: 91200; 76705; 76981

== ENCOUNTER → 2023-05-29 | Outpatient (CLI) | payer MEDICARE, MEDICAID, SELFPAY ==
[2023-05-31 11:09] LABS: Hepatitis B Core AB IgM Negative (Negative); QNTFERON TB Mitogen Value > 10.00 IU/mL (.); QNTFERON TB Nil Value 0.06 IU/mL (.); QNTFERON TB1+ Ag Value 0.07 IU/mL (.); QNTIFERON TB Positive Criteria Negative (Negative)
== END | disposition home or self-care (01) ==
LOC: MTLAB 13:32
PROVIDERS: PCP Family Medicine; Referring Provider Physician Assistant Medical; Visit Provider Physician Assistant Medical
DX: L40.0 Psoriasis vulgaris (principal); Z79.899 Other long term (current) drug therapy; L85.8 Other specified epidermal thickening; L27.1 Localized skin eruption due to drugs and medicaments taken internally; T50.995A Adverse effect of other drugs, medicaments and biological substances, initial encounter
CPT/HCPCS: 36415; 86480; 86705

== ENCOUNTER → 2023-11-02 | Outpatient (CLI) | payer MEDICARE, MEDICAID, SELFPAY ==
[2023-11-02] VITALS (12 sets, daily range): BP systolic 134–167; BP diastolic 65–86; PULSE 58–65; RESP 14–18; TEMP 36.8; O2SAT 93–99; BMI 40.6
--- OUTSIDE RECORDS SUMMARY | 2023-11-02 07:52 | XMS RPT_ITS | CCD ---
Author Name Unknown Address [address] [place] [address] Organization [facility] Care Team Providers Care Behavioral Health Worker Name Role Phone Neida Samayoa PA-C Unavailable [phone] Gianluca Valdovinos MD Primary Care Provider [phone] Gianluca Valdovinos MD Primary Care Provider Gianluca Valdovinos MD Primary Care Provider [phone] GIANLUCA VALDOVINOS Primary Care Unavailable GIANLUCA VALDOVINOS Referring Unavailable GIANLUCA VALDOVINOS Primary Care Unavailable GIANLUCA VALDOVINOS Referring Unavailable GIANLUCA VALDOVINOS Primary Care Unavailable GIANLUCA VALDOVINOS Attending Unavailable GIANLUCA VALDOVINOS Primary Care Unavailable WENDI SORIA Attending Unavailable GIANLUCA VALDOVINOS Primary Care Unavailable GIANLUCA VALDOVINOS Primary Care Unavailable GIANLUCA VALDOVINOS Referring Unavailable GIANLUCA VALDOVINOS Primary Care Unavailable GIANLUCA VALDOVINOS Attending Unavailable GIANLUCA VALDOVINOS Primary Care Unavailable GIANLUCA VALDOVINOS Primary Care Unavailable GIANLUCA VALDOVINOS Attending Unavailable GIANLUCA VALDOVINOS Primary Care Unavailable GIANLUCA VALDOVINOS Primary Care Unavailable GIANLUCA VALDOVINOS Referring Unavailable Allergies Allergy Classification Reported Allergen(s) Allergy Type Date of Onset Reaction(s) Facility (20 sources) Erythromycin; Translations: [ERYTHROMYCIN] Drug Allergy 3 Other: See Comments [facility] Work Phone: (20 sources) Eszopiclone; Translations: [ESZOPICLONE] Drug Allergy 3 Vomiting [facility] Work Phone: (20 sources) Omeprazole; Translations: [OMEPRAZOLE] Drug Allergy 5 Other: See Comments [facility] Work Phone: (20 sources) Seasonal allergy; Translations: [SEASONAL ALLERGIES] Allergy to substance 3 Other: See Comments [facility] Work Phone: Medications Current Medications Medication Drug Class(es) Dates Sig (Normalized) Sig (Original) Inhalational Spacing Device (1 source) Start: 07-02-2022 End: 07-02-2022 Inhalational Spacing Device Indications: Persistent cough 1 Device one time only for 1 dose. 1 Each 0 07/02/2022 07/02/2022 Active Completed/Discontinued Medications Medication Drug Class(es) Dates Sig (Normalized) Sig (Original) [id number] 200 actuat albuterol 0.09 mg/actuat metered dose inhaler (20 sources) beta2-Adrenergic Agonist Start: 10-21-2019 End: 03-30-2023 take 2 puff(s) by inhalation every four hours as needed albuterol HFA (VENTOLIN HFA) 90 mcg/actuation inhaler Indications: Viral bronchitis Inhale 2 Puffs as instructed every 4 hours as needed. 1 Inhaler 1 10/21/2019 03/30/2023 Discontinued Problems Active Problems Problem Classification Problem Date Documented Date Episodic/Chronic Abdominal pain (1 source) Epigastric pain; Translations: [Epigastric pain] Episodic Anxiety disorders (20 sources) Panic attack; Translations: [Panic disorder [episodic paroxysmal anxiety]] Onset: 3 Chronic Cardiac dysrhythmias (20 sources) Ventricular premature beats; Translations: [Ventricular premature depolarization] Onset: 4 11-19-2018 Chronic Conduction disorders (20 sources) Left bundle branch block; Translations: [Left bundle-branch block, unspecified] Onset: 4 05-19-2014 Chronic Diseases of white blood cells (2 sources) Leukocytosis; Translations: [Elevated white blood cell count, unspecified] Onset: 4 Chronic Disorders of lipid metabolism (20 sources) Mixed hyperlipidemia; Translations: [Mixed hyperlipidemia] Onset: 5 Chronic Esophageal disorders (20 sources) Gastro-esophageal reflux disease with esophagitis; Translations: [Gastroesophageal reflux disease with esophagitis without hemorrhage] Onset: 5 Chronic Esophageal disorders (1 source) Esophageal disorders; Translations: [Gastroesophageal reflux disease with esophagitis without hemorrhage] Onset: 2 Essential hypertension (20 sources) Essential hypertension; Translations: [Essential (primary) hypertension] Onset: 5 Chronic Genitourinary symptoms and ill-defined conditions (20 sources) Genuine stress incontinence; Translations: [Stress incontinence (female) (male)] Onset: 2 Chronic Gout and other crystal arthropathies (20 sources) Chronic gout without tophus; Translations: [Chronic gout, unspecified, without tophus (tophi)] Onset: 6 Chronic Immunizations and screening for infectious disease (5 sources) Vaccination needed; Translations: [Encounter for immunization] Onset: 4 Episodic Inflammation; infection of eye (except that caused by tuberculosis or sexually transmitteddisease) (1 source) Keratoconjunctivitis sicca; Translations: [Keratoconjunctivitis sicca, not specified as Sjogren's, bilateral] Chronic Mood disorders (20 sources) Recurrent major depressive episodes, moderate ; Translations: [Major depressive disorder, recurrent, moderate] Onset: 5 Chronic Osteoarthritis (20 sources) Osteoarthritis of left knee joint; Translations: [Unilateral primary osteoarthritis, left knee] Onset: 3 05-24-2016 Chronic Other acquired deformities (1 source) Leg length inequality; Translations: [Unequal limb length (acquired), unspecified site] Episodic Other ear and sense organ disorders (1 source) Acute otitis externa of right ear; Translations: [Unspecified acute noninfective otitis externa, right ear] Episodic Other endocrine disorders (1 source) Hormone increase; Translations: [Endocrine disorder, unspecified] Episodic Other eye disorders (1 source) Dry eyes; Translations: [Dry eye syndrome of unspecified lacrimal gland] Episodic Other liver diseases (20 sources) Cryptogenic cirrhosis; Translations: [Other cirrhosis of liver] Onset: 6 Chronic Other liver diseases (1 source) Other cirrhosis of liver; Translations: [Cryptogenic cirrhosis (HCC)] Onset: 4 Chronic Other lower respiratory disease (1 source) Persistent cough; Translations: [Persistent cough] Episodic Other nervous system disorders (20 sources) Chronic pain syndrome; Translations: [Chronic pain syndrome] Onset: 7 Chronic Other non-traumatic joint disorders (1 source) Pain in right hip joint; Translations: [Pain in right hip] Episodic Other non-traumatic joint disorders (1 source) Pain in right knee; Translations: [Pain in joint, lower leg] Episodic Other nutritional; endocrine; and metabolic disorders (20 sources) Body mass index 40+ - severely obese; Translations: [Morbid (severe) obesity due to excess calories] Onset: 7 Chronic Other nutritional; endocrine; and metabolic disorders (2 sources) Hypercalcemia; Translations: [Hypercalcemia] Chronic Other nutritional; endocrine; and metabolic disorders (1 source) Hypercalcemia; Translations: [Hypercalcemia] Onset: 4 Chronic Other screening for suspected conditions (not mental disorders or infectious disease) (1 source) Encounter for screening for osteoporosis; Translations: [Screening for osteoporosis] Onset: 4 Episodic Other upper respiratory disease (20 sources) Seasonal allergy; Translations: [Other seasonal allergic rhinitis] Onset: 4 2014 Chronic Other upper respiratory disease (3 sources) Allergic rhinitis due to pollen; Translations: [Allergic rhinitis due to pollen] Chronic Other upper respiratory infections (1 source) Bacterial upper respiratory infection; Translations: [Acute upper respiratory infection, unspecified] Episodic Residual codes; unclassified (20 sources) Obstructive sleep apnea syndrome; Translations: [Obstructive sleep apnea (adult) (pediatric)] Onset: 4 Chronic Residual codes; unclassified (1 source) Menopause present; Translations: [Asymptomatic menopausal state] Episodic Residual codes; unclassified (1 source) Asymptomatic menopausal state; Translations: [Asymptomatic menopause] Onset: 4 Episodic Respiratory failure; insufficiency; arrest (adult) (20 sources) Dependence on supplemental oxygen; Translations: [Dependence on supplemental oxygen] Onset: 1 07-21-2021 Chronic Spondylosis; intervertebral disc disorders; other back problems (20 sources) Degeneration of lumbar intervertebral disc; Translations: [Displacement of intervertebral disc, site unspecified, without myelopathy] Onset: 3 06-19-2018 Chronic Past or Other Problems Problem Classification Problem Date Documented Da te Episodic/Chronic Abdominal hernia (20 sources) Hiatal hernia; Translations: [Diaphragmatic hernia without obstruction or gangrene] Onset: 01-26-2015 01-26-2015 Episodic Diabetes mellitus without complication (20 sources) High hemoglobin A1c level; Translations: [Other abnormal glucose] Onset: 11-19-2018 Episodic Other aftercare (20 sources) Patient encounter status; Translations: [Other continuous churn buttermaker (current) drug therapy] Onset: 11-15-2017 Episodic Other aftercare (2 sources) Other care home (current) drug therapy; Translations: [Medication management] Onset: 12-11-2019 Episodic Other infections; including parasitic (20 sources) Personal history of other infectious and parasitic diseases; Translations: [History of COVID-19] Onset: 06-28-2021 02-10-2022 Episodic Other liver diseases (20 sources) Alkaline phosphatase raised; Translations: [Abnormal levels of other serum enzymes] Onset: 01-07-2015 05-24-2016 Episodic Other lower respiratory disease (20 sources) Nodule of lung; Translations: [Solitary pulmonary nodule] Onset: 03-31-2015 09-26-2021 Episodic Other non-traumatic joint disorders (20 sources) Multiple joint pain; Translations: [Pain in unspecified joint] Onset: 03-10-2016 05-24-2016 Episodic Other upper respiratory disease (20 sources) Nasal congestion; Translations: [Nasal congestion] Onset: 01-10-2017 05-15-2017 Episodic Residual codes; unclassified (20 sources) Insomnia; Translations: [Insomnia, unspecified] Onset: 07-23-2015 Episodic Screening and history of mental health and substance abuse codes (20 sources) Ex-smoker; Translations: [Personal history of nicotine dependence] Onset: 01-29-2014 09-26-2021 Episodic Spondylosis; intervertebral disc disorders; other back problems (20 sources) Radiculopathy, lumbar region; Translations: [Neck pain] Onset: 06-26-2013 06-17-2018 Episodic Substance-related disorders (20 sources) Marijuana user; Translations: [Cannabis use, unspecified, uncomplicated] Onset: 12-11-2019 12-11-2019 Episodic Unclassified (1 source) Problem Results Test Name Value Interpretation Reference Range Facil ity Vital Signs Date Time Vital Sign Value Performing Clinician Facility 03-30-2023 13:58-0400 Body weight 101.15 kg Gianluca Valdovinos MD Work Phone: [facility] 03-30-2023 13:58-0400 Diastolic blood pressure 84 mm[Hg] Gianluca Valdovinos MD Work Phone: [facility] 03-30-2023 13:58-0400 Heart rate 72 /min Gianluca Valdovinos MD Work Phone: [facility] 03-30-2023 13:58-0400 Respiratory rate 18 /min Gianluca Valdovinos MD Work Phone: [facility] 03-30-2023 13:58-0400 Systolic blood pressure 128 mm[Hg] Gianluca Valdovinos MD Work Phone: [facility] 03-25-2023 15:00-0400 Body temperature 97.59 [degF] Yara Praisler-Wood CABLE SPLICING TECHNICIAN[employer] Work Phone: [facility] 03-25-2023 15:00-0400 Diastolic blood pressure 92 mm[Hg] Yara Praisler-Wood CABLE SPLICING TECHNICIAN.[employer] Work Phone: [facility] 03-25-2023 15:00-0400 Heart rate 75 /min Yara Praisler-Wood CABLE SPLICING TECHNICIAN.[employer] Work Phone: [facility] 03-25-2023 15:00-0400 Respiratory rate 21 /min Yara Praisler-Wood CABLE SPLICING TECHNICIAN.[employer] Work Phone: [facility] 03-25-2023 15:00-0400 SaO2% (BldA) [Mass fraction] 97 % Yara Praisler-Wood CABLE SPLICING TECHNICIAN[employer] Work Phone: [facility] 03-25-2023 15:00-0400 Systolic blood pressure 158 mm[Hg] Yara Praisler-Wood CABLE SPLICING TECHNICIAN.[employer] Work Phone: [facility] 01-31-2023 13:05-0400 Body weight 101.61 kg Gianluca Valdovinos MD Work Phone: [facility] 01-31-2023 13:05-0400 Diastolic blood pressure 90 mm[Hg] Gianluca Valdovinos MD Work Phone: [facility] 01-31-2023 13:05-0400 Heart rate 64 /min Gianluca Valdovinos MD Work Phone: [facility] 01-31-2023 13:05-0400 Respiratory rate 16 /min Gianluca Valdovinos MD Work Phone: [facility] 01-31-2023 13:05-0400 Systolic blood pressure 148 mm[Hg] Gianluca Valdovinos MD Work Phone: [facility] 09-11-2022 14:04-0500 Body height 154.3 cm Gianluca Valdovinos MD Work Phone: [facility] 09-11-2022 14:04-0500 Body weight 92.08 kg Gianluca Valdovinos MD Work Phone: [facility] 09-11-2022 14:04-0500 Diastolic blood pressure 86 mm[Hg] Gianluca Valdovinos MD Work Phone: [facility] 09-11-2022 14:04-0500 Heart rate 62 /min Gianluca Valdovinos MD Work Phone: [facility] 09-11-2022 14:04-0500 Respiratory rate 16 /min Gianluca Valdovinos MD Work Phone: [facility] 09-11-2022 14:04-0500 Systolic blood pressure 130 mm[Hg] Gianluca Valdovinos MD Work Phone: [facility] 07-10-2022 11:51-0400 Body temperature 97.59 [degF] Gianluca Valdovinos MD Work Phone: [facility] 07-10-2022 11:51-0400 Body weight 88.45 kg Gianluca Valdovinos MD Work Phone: [facility] 07-10-2022 11:51-0400 Diastolic blood pressure 92 mm[Hg] Gianluca Valdovinos MD Work Phone: [facility] 07-10-2022 11:51-0400 Heart rate 61 /min Gianluca Valdovinos MD Work Phone: [facility] 07-10-2022 11:51-0400 Respiratory rate 18 /min Gianluca Valdovinos MD Work Phone: [facility] 07-10-2022 11:51-0400 SaO2% (BldA) [Mass fraction] 96 % Gianluca Valdovinos MD Work Phone: [facility] 07-10-2022 11:51-0400 Systolic blood pressure 148 mm[Hg] Gianluca Valdovinos MD Work Phone: [facility] 07-02-2022 08:46-0400 Body temperature 97.2 [degF] Yara Praisler-Wood CABLE SPLICING TECHNICIAN.[employer] Work Phone: [facility] 07-02-2022 08:46-0400 Diastolic blood pressure 82 mm[Hg] Yara Praisler-Wood CABLE SPLICING TECHNICIAN.[employer] Work Phone: [facility] 07-02-2022 08:46-0400 Heart rate 81 /min Yara Praisler-Wood CABLE SPLICING TECHNICIAN.[employer] Work Phone: [facility] 07-02-2022 08:46-0400 Respiratory rate 18 /min Yara Praisler-Wood CABLE SPLICING TECHNICIAN.[employer] Work Phone: [facility] 07-02-2022 08:46-0400 SaO2% (BldA) [Mass fraction] 96 % Yara Praisler-Wood CABLE SPLICING TECHNICIAN.[employer] Work Phone: [facility] 07-02-2022 08:46-0400 Systolic blood pressure 148 mm[Hg] Yara Praisler-Wood CABLE SPLICING TECHNICIAN.[employer] Work Phone: [facility] 05-03-2022 14:54-0400 Body weight 87.54 kg Gianluca Valdovinos MD Work Phone: [facility] 05-03-2022 14:54-0400 Diastolic blood pressure 86 mm[Hg] Gianluca Valdovinos MD Work Phone: [facility] 05-03-2022 14:54-0400 Heart rate 88 /min Gianluca Valdovinos MD Work Phone: [facility] 05-03-2022 14:54-0400 Respiratory rate 16 /min Gianluca Valdovinos MD Work Phone: [facility] 05-03-2022 14:54-0400 Systolic blood pressure 122 mm[Hg] Gianluca Valdovinos MD Work Phone: [facility] 02-10-2022 13:23-0400 Body temperature 98.2 [degF] Gianluca Valdovinos MD Work Phone: [facility] 02-10-2022 13:23-0400 Body weight 96.34 kg Gianluca Valdovinos MD Work Phone: [facility] 02-10-2022 13:23-0400 Diastolic blood pressure 82 mm[Hg] Gianluca Valdovinos MD Work Phone: [facility] 02-10-2022 13:23-0400 Heart rate 68 /min Gianluca Valdovinos MD Work Phone: [facility] 02-10-2022 13:23-0400 Respiratory rate 16 /min Gianluca Valdovinos MD Work Phone: [facility] 02-10-2022 13:23-0400 Systolic blood pressure 114 mm[Hg] Gianluca Valdovinos MD Work Phone: [facility] NEGATED: Highlighted [id number] 15:41-0400 BMI (Body Mass Index) 47.24 kg/m2 [facility] Work Phone: NEGATED: Highlighted [id number] 15:41-0400 BP Diastolic 72 mm[Hg] [facility] Work Phone: NEGATED: Highlighted [id number] 15:41-0400 BP Systolic 120 mm[Hg] [facility] Work Phone: NEGATED: Highlighted [id number] 15:41-0400 Height 152.4 cm [facility] Work Phone: NEGATED: Highlighted [id number] 15:41-0400 Height 152 cm [facility] Work Phone: NEGATED: Highlighted [id number] 15:41-0400 Pulse (Heart Rate) 72 /min [facility] Work Phone: NEGATED: Highlighted [id number] 15:41-0400 [facility] 109.32 [facility] Work Phone: NEGATED: Highlighted [id number] 15:41-0400 Weight 110 kg Alena cSruggs [facility] Work Phone: Encounters Encounter Date Encounter Type Care Provider Facility Start: 10-30-2023 End: 10-31-2023 ambulatory GIANLUCA VALDOVINOS Facility:[facility] Start: 10-08-2023 End: 10-09-2023 ambulatory GIANLUCA VALDOVINOS Facility:[facility] Start: 10-08-2023 End: 10-08-2023 ambulatory GIANLUCA VALDOVINOS Facility:[facility] Start: 08-02-2023 End: 08-03-2023 ambulatory GIANLUCA VALDOVINOS Facility:[facility] Start: 08-02-2023 End: 08-02-2023 ambulatory WENDI SORIA Facility:[facility] Start: 05-31-2023 Chart abstracting Gianluca brady MD Work Phone: [facility] Procedures Date Procedure Procedure Detail Performing Clinician Start: 07-10-2022 INFLUENZA SEASONAL QUADRIVALENT HIGH DOSE AGE 65+ Gianluca Valdovinos MD Work Phone: Start: 03-17-2022 Clsr lacrimal punctu m plug each Wendi Soria OD Work Phone: Start: 06-06-2019 Mammography Gianluca brady MD Work Phone: Start: 06-17-2018 End: 06-19-2018 Blood pressure within normal parameters - no follow-up required Neida Samayoa PA-C Work Phone: Start: 06-17-2018 End: 06-19-2018 BMI documented as above normal parameters - follow-up documented Neida D'Asha PA-C Work Phone: Start: 06-17-2018 End: 06-19-2018 Current medications documented Neida D'Asha PA-C Work Phone: Start: 06-17-2018 End: 06-19-2018 Pain assessment documented as positive - follow-up documented Neida D'Asha PA-C Work Phone: Start: 06-17-2018 End: 06-19-2018 Tobacco non-user Neida D'Asha PA-C Work Phone: Start: 11-11-2014 Colonoscopy Gianluca brady MD Work Phone: Plan of Treatment Date Care Activity Detail Author Start: 03-30-2028 LIPID SCREEN LIPID SCREEN [facility] Start: 09-05-2027 LIPID SCREEN LIPID SCREEN [facility] Start: 02-07-2027 LIPID SCREEN LIPID SCREEN [facility] Start: 03-30-2026 DIABETES SCREEN DIABETES SCREEN [facility] Start: 09-05-2025 DIABETES SCREEN DIABETES SCREEN [facility] Start: 02-07-2025 DIABETES SCREEN DIABETES SCREEN [facility] Start: 11-11-2024 Colonoscopy COLONOSCOPY [facility] Start: 11-11-2024 COLORECTAL CANCER SCREENING COLORECTAL CANCER SCREENING [facility] Start: 03-30-2024 ANNUAL PCP TEAM CHRONIC DISEASE VISIT ANNUAL PCP TEAM CHRONIC DISEASE VISIT [facility] Start: 02-01-2024 ANNUAL PCP TEAM CHRONIC DISEASE VISIT ANNUAL PCP TEAM CHRONIC DISEASE VISIT [facility] Start: 01-26-2024 Urine microalbumin profile DTAP,TDAP,TD (2 - Td or Tdap) [facility] Start: 09-14-2023 End: 11-14-2023 CBC W Auto Differential panel - Blood CBC + DIFF Lab Routine Generalized anxiety disorder Medication management Expected: 09/14/2023, Expires: 11/14/2023 [facility] Work Phone: Immunizations Immunization Date Immunization Notes Care Provider Fa nnamdi 03-30-2023 hepatitis B vaccine, adult dosage Gianluca Valdovinos MD Work Phone: [facility] 11-09-2022 hepatitis A and hepatitis B vaccine Mi Nurse Work Phone: [facility] Work Phone: 11-09-2022 hepatitis B vaccine, unspecified formulation Mi Nurse Work Phone: [facility] 09-11-2022 hepatitis A and hepatitis B vaccine Gianluca Valdovinos MD Work Phone: [facility] 09-11-2022 hepatitis B vaccine, unspecified formulation Gianluca Valdovinos MD Work Phone: [facility] 07-10-2022 influenza, high-dose , quadrivalent vaccine (FLUZONE HIGH DOSE QUADRIVALENT) Gianluca Valdovinos MD Work Phone: [facility] 08-12-2021 influenza, high-dose , quadrivalent vaccine (FLUZONE HIGH DOSE QUADRIVALENT) Gianluca Valdovinos MD Work Phone: [facility] Work Phone: 08-12-2020 influenza, high-dose , quadrivalent vaccine (FLUZONE HIGH DOSE QUADRIVALENT) Gianluca Valdovinos MD Work Phone: [facility] 08-12-2020 pneumococcal polysaccharide vaccine, 23 valent Gianluca Valdovinos MD Work Phone: [facility] 03-03-2020 hepatitis A vaccine, adult dosage Gianluca Valdovinos MD Work Phone: [facility] Work Phone: 03-03-2020 zoster vaccine recombinant Gianluca Valdovinos MD Work Phone: [facility] Work Phone: 12-17-2019 zoster vaccine recombinant Gianluca Valdovinos MD Work Phone: [facility] Work Phone: 12-11-2019 influenza, high dose seasonal, preservative-free Gianluca Valdovinos MD Work Phone: [facility] 06-06-2019 pneumococcal conjuga te vaccine, 13 valent Gianluca Valdovinos MD Work Phone: [facility] 08-26-2018 influenza, seasonal, injectable, preservative free Gianluca Valdovinos MD Work Phone: [facility] Work Phone: 07-16-2017 influenza, injectabl e, quadrivalent, contains preservative Gianluca Valdovinos MD Work Phone: [facility] Work Phone: 07-11-2017 influenza, injectabl e, quadrivalent, preservative free Gianluca Valdovinos MD Work Phone: [facility] Work Phone: 07-06-2016 influenza, injectabl e, quadrivalent, preservative free Gianluca Valdovinos MD Work Phone: [facility] Work Phone: 07-06-2016 zoster vaccine, live Gianluca Valdovinos MD Work Phone: [facility] Work Phone: 07-23-2015 influenza, injectabl e, quadrivalent, contains preservative Gianluca Valdovinos MD Work Phone: [facility] Work Phone: 09-18-2014 influenza, seasonal, injectable Gianluca Valdovinos MD Work Phone: [facility] Work Phone: 01-25-2014 tetanus toxoid, redu mario diphtheria toxoid, and acellular pertussis vaccine, adsorbed Gianluca Valdovinos MD Work Phone: [facility] Work Phone: 07-30-2013 influenza virus vacc ine, unspecified formulation Gianluca Valdovinos MD Work Phone: [facility] Work Phone: 06-20-2013 tetanus and diphther ia toxoids, adsorbed, preservative free, for adult use (2 Lf of tetanus toxoid and 2 Lf of diphtheria toxoid) Gianluca Valdovinos MD Work Phone: [facility] No information available. Alena Scruggs [facility] Work Phone: Payers Date Payer Category Payer Medicaid [place] [id number] 2017-Present [phone] [address] [place] [address] Medicaid [id number] 2017 Medicaid MEDICAID [facility] MEDICAID [id number] 2017-Present [phone] [address] [place] [address] Medicaid [id number] 2017 Medicaid [id number] 2015 Medicare MEDICARE MEDICAR E A AND B [id number] 2015-Present [phone] [address] [address] [place] [address] Medicare [id number] 2015 Medicare MEDICARE MEDICAR E A AND B [id number] 2015-Present [phone] [place] [address] Medicare [id number] 2015 Medicare [id number] Social History Date Type Detail Facility Start: 06-19-2018 End: 06-19-2018 Assertion Unknown if ever smoked [facility] Work Phone: Start: 07-30-2013 End: 07-10-2022 Tobacco smoking status NHIS Ex-smoker [facility] Start: 04-05-1970 End: 03-10-2006 History of tobacco use Current smoker [facility] Start: 04-05-1970 End: 03-10-2006 History of tobacco use Cigarette Smoker [facility] Start: 07-30-2013 End: 01-31-2023 Cigarettes smoked current (pack per day) - Reported 1 [facility] Start: 07-30-2013 End: 07-10-2022 Tobacco use and exposure Smokeless tobacco non-user [facility] Start: 02-11-2022 End: 03-30-2023 Alcohol intake Current drinker of alcohol (finding) [facility] Start: 02-18-2018 History SDOH Alcohol Comment rare use once a month [facility] Start: 03-10-2014 End: 07-10-2022 Tobacco Comment Mother smoked in childhood home. Spouse and sons smoked in family home. [facility] Start: 1955 Sex Assigned At Not on file [facility] Start: 02-03-2022 End: 07-10-2022 Exposure to SARS-CoV-2 (event) Not sure [facility] Start: 03-06-2022 End: 03-16-2022 Exposure to SARS-CoV-2 (event) Unable to assess [facility] Work Phone: Start: 09-04-2022 History SDOH Alcohol Frequency 3 [facility] Start: 09-04-2022 History SDOH Alcohol Std Drinks 1 [facility] Start: 09-04-2022 History SDOH Social Connections Phone 2 [facility] Start: 09-04-2022 History SDOH Social Connections Living 5 [facility] Start: 09-04-2022 End: 01-31-2023 Social connection and isolation panel [facility] Do you belong to any clubs or organizations such as lutheran groups, unions, fraternal or athletic groups, or school groups? Yes [facility] Are you now , , , , never or living with a partner? [facility] How often to you hav e a drink containing alcohol? 2-4 times a month [facility] How many standard dr inks containing alcohol do you have on a typical day? 1 or 2 [facility] How often do you hav e 6 or more drinks on 1 occasion? Never [facility] How hard is it for y ou to pay for the very basics like food, housing, medical care, and heating Somewhat hard [facility] Adult Depression Screening Assessment 2 [facility]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 (statuses as of 02/02/2023) [address]19-2016 History of Past illness Narrative* Problem Noted Date Resolved Date Morbid obesity due to excess calories 05/19/2016 05/14/2017 documented as of this encounter (statuses as of 03/25/2023) [address]19-2016 History of Past illness Narrative* Problem Noted Date Resolved Date Morbid obesity due to excess calories 05/19/2016 05/14/2017 documented as of this encounter (statuses as of 03/26/2023) [facility] note* Diagnosis Essential hypertension- Primary Unspecified essential hypertension Mixed hyperlipidemia Gastroesophageal reflux disease with esophagitis without hemorrhage Elevated hemoglobin A1c Other abnormal blood chemistry Major depressive disorder, recurrent episode, moderate (HCC) Major depressive disorder, recurrent episode, moderate Panic attacks Panic disorder without agoraphobia Generalized anxiety disorder Obesity, Class III, BMI 40-49.9 (morbid obesity) (HCC) Morbid obesity Insomnia, unspecified type Severe obstructive sleep apnea Obstructive sleep apnea (adult) (pediatric) Cryptogenic cirrhosis (HCC) Cirrhosis of liver without mention of alcohol Chronic gout without tophus, unspecified cause, unspecified site Chronic pain syndrome Hypercalcemia Medication management Encounter for long-term (current) use of other medications Stress incontinence Female stress incontinence Dry eye Tear film insufficiency, unspecified [facility] Diagnosis Hypercalcemia- Primary documented in this encounter [facility] note* Diagnosis Stress incontinence- Primary Female stress incontinence [facility] Diagnosis Elevated parathyroid hormone- Primary Unspecified endocrine disorder [facility] Diagnosis Keratoconjunctivitis sicca of both eyes not specified as Sjogren's- Primary Keratoconjunctivitis sicca, not specified as Sjogren's [facility] Diagnosis Encounter for screening mammogram for breast cancer [facility] Diagnosis Seasonal allergic rhinitis due to pollen [facility] Diagnosis Epigastric pain- Primary Abdominal pain, epigastric Leukocytosis, unspecified type documented in this encounter [facility] note* Diagnosis Persistent cough- Primary Cough [facility] Diagnosis Spinal stenosis, lumbar region with neurogenic claudication- Primary [facility] Diagnosis Bacterial URI- Primary Encounter for immunization Need for other specified prophylactic vaccination against single bacterial disease [facility] Diagnosis Medicare annual wellness visit, subsequent- Primary Routine general medical examination at a health care facility Essential hypertension Unspecified essential hypertension Mixed hyperlipidemia Gastroesophageal reflux disease with esophagitis without hemorrhage Elevated hemoglobin A1c Other abnormal blood chemistry Generalized anxiety disorder Major depressive disorder, recurrent episode, moderate (HCC) Major depressive disorder, recurrent episode, moderate Panic attacks Panic disorder without agoraphobia Severe obstructive sleep apnea Obstructive sleep apnea (adult) (pediatric) Obesity, Class III, BMI 40-49.9 (morbid obesity) (HCC) Morbid obesity Insomnia, unspecified type Cryptogenic cirrhosis (HCC) Cirrhosis of liver without mention of alcohol Chronic gout without tophus, unspecified cause, unspecified site Chronic pain syndrome Screening for osteoporosis Special screening for osteoporosis Asymptomatic menopause Need for vaccination Need for prophylactic vaccination and inoculation against unspecified single disease [facility] Diagnosis Seasonal allergic rhinitis due to pollen [facility] Diagnosis Need for vaccination- Primary Need for prophylactic vaccination and inoculation against unspecified single disease [facility] Diagnosis Need for vaccination- Primary Need for prophylactic vaccination and inoculation against unspecified single disease [facility] Diagnosis Right hip pain- Primary Pain in joint, pelvic region and thigh Right knee pain, unspecified chronicity Leg length discrepancy Unequal leg length (acquired) [facility] Diagnosis Acute otitis externa of right ear, unspecified type- Primary [facility] Diagnosis Seasonal allergic rhinitis due to pollen [facility] Diagnosis Essential hypertension- Primary Unspecified essential hypertension Mixed hyperlipidemia Elevated hemoglobin A1c Other abnormal blood chemistry Gastroesophageal reflux disease with esophagitis without hemorrhage Major depressive disorder, recurrent episode, moderate (HCC) Major depressive disorder, recurrent episode, moderate Generalized anxiety disorder Panic attacks Panic disorder without agoraphobia Marijuana use Cannabis abuse, unspecified Chronic gout without tophus, unspecified cause, unspecified site Cryptogenic cirrhosis (HCC) Cirrhosis of liver without mention of alcohol Insomnia, unspecified type Obesity, Class III, BMI 40-49.9 (morbid obesity) (HCC) Morbid obesity Severe obstructive sleep apnea Obstructive sleep apnea (adult) (pediatric) Chronic pain syndrome Medication management Encounter for long-term (current) use of other medications Need for vaccination Need for prophylactic vaccination and inoculation against unspecified single disease documented in this encounter [facility] for referral (narrative)* Diagnostic Procedure Only (Routine) - Pending Review Specialty Diagnoses / Procedures Referred By Contac t Referred To Contact [facility] Diagnoses Encounter for screening mammogram for breast cancer Procedures FLAQUITO SCREENING SCREENING MAMMOGRAPHY BI 2-VIEW BREAST INC CAD Gianluca Valdovinos MD [address] [place] [address] [facility] [address] [place] [address] Referral ID Status Reason Start Date Expiration Date Visits Requested Visits Authorized [id number] Pending Review Auto-Generat ed Referral 03/29/2022 04/28/2023 1 1 [facility] Instructions Instruction Description Start Date Patient advised to follow-up with Primary Care Physician for BMI management. Advance Directives There may be information available, but it has not been provided by the sender. No Advanced Directives Records Found Assessments There may be information available, but it has not been provided by the sender. Review of System There may be information available, but it has not been provided by the sender. Family History There may be information available, but it has not been provided by the sender.No Family History Records Found Reason for Referral Specialty Diagnoses / Procedures Referred By Contac t Referred To Contact Ophthalmology Diagnoses Dry eye Procedures CONSULT TO OPHTHALMOLOGY OFFICE/OUTPATIENT [facility] 60-74 MINUTES Gianluca Valdovinos MD [address] [place] [address] Referral ID Status Reason Start Date Expiration Date Visits Requested Visits Authorized [id number] Authorized PCP Requested Referral 02/10/2022 02/10/2023 1 1 Specialty Diagnoses / Procedures Referred By Contac t Referred To Contact Urology Diagnoses Stress incontinence Procedures CONSULT TO UROLOGY OFFICE/OUTPATIENT [facility] 60-74 MINUTES Gianluca Valdovinos MD [address] [place] [address] Referral ID Status Reason Start Date Expiration Date Visits Requested Visits Authorized [id number] Authorized PCP Requested Referral 03/17/2022 03/17/2023 1 1 Specialty Diagnoses / Procedures Referred By Contac t Referred To Contact [facility] Diagnoses Right hip pain Right knee pain, unspecified chronicity Leg length discrepancy Procedures CONSULT TO PHYSICAL THERAPY PHYSICAL THERAPY EVALUATION HIGH COMPLEX 45 MINS Gianluca Valdovinos MD [address] [place] [address] [facility] [address] [place] [address] Referral ID Status Reason Start Date Expiration Date Visits Requested Visits Authorized [id number] Authorized PCP Requested Referral Auto-Generate d Referral 01/31/2023 01/31/2024 99 99 Summary Purpose Additional Source Comments Source Comments (unrecognize d section and content) In the event this informatio n is protected by the Federal Confidentiality of Alcohol and Drug Abuse Patient Records regulations: The Federal rules restrict any use of the information to criminally investigate or prosecute any alcohol or drug abuse patient.[facility] the event this information is protected by the Federal Confidentiality of Alcohol and Drug Abuse Patient Records regulations: The Federal rules restrict any use of the information to criminally investigate or prosecute any alcohol or drug abuse patient.[facility] the event this information is protected by the Federal Confidentiality of Alcohol and Drug Abuse Patient Records regulations: The Federal rules restrict any use of the information to criminally investigate or prosecute any alcohol or drug abuse patient.[facility] the event this information is protected by the Federal Confidentiality of Alcohol and Drug Abuse Patient Records regulations: The Federal rules restrict any use of the information to criminally investigate or prosecute any alcohol or drug abuse patient.[facility] the event this information is protected by the Federal Confidentiality of Alcohol and Drug Abuse Patient Records regulations: The Federal rules restrict any use of the information to criminally investigate or prosecute any alcohol or drug abuse patient.[facility] the event this information is protected by the Federal Confidentiality of Alcohol and Drug Abuse Patient Records regulations: The Federal rules restrict any use of the information to criminally investigate or prosecute any alcohol or drug abuse patient.[facility] the event this information is protected by the Federal Confidentiality of Alcohol and Drug Abuse Patient Records regulations: The Federal rules restrict any use of the information to criminally investigate or prosecute any alcohol or drug abuse patient.[facility] the event this information is protected by the Federal Confidentiality of Alcohol and Drug Abuse Patient Records regulations: The Federal rules restrict any use of the information to criminally investigate or prosecute any alcohol or drug abuse patient.[facility] the event this information is protected by the Federal Confidentiality of Alcohol and Drug Abuse Patient Records regulations: The Federal rules restrict any use of the information to criminally investigate or prosecute any alcohol or drug abuse patient.[facility] the event this information is protected by the Federal Confidentiality of Alcohol and Drug Abuse Patient Records regulations: The Federal rules restrict any use of the information to criminally investigate or prosecute any alcohol or drug abuse patient.[facility] the event this information is protected by the Federal Confidentiality of Alcohol and Drug Abuse Patient Records regulations: The Federal rules restrict any use of the information to criminally investigate or prosecute any alcohol or drug abuse patient.[facility] the event this information is protected by the Federal Confidentiality of Alcohol and Drug Abuse Patient Records regulations: The Federal rules restrict any use of the information to criminally investigate or prosecute any alcohol or drug abuse patient.[facility] the event this information is protected by the Federal Confidentiality of Alcohol and Drug Abuse Patient Records regulations: The Federal rules restrict any use of the information to criminally investigate or prosecute any alcohol or drug abuse patient.[facility] the event this information is protected by the Federal Confidentiality of Alcohol and Drug Abuse Patient Records regulations: The Federal rules restrict any use of the information to criminally investigate or prosecute any alcohol or drug abuse patient.[facility] the event this information is protected by the Federal Confidentiality of Alcohol and Drug Abuse Patient Records regulations: The Federal rules restrict any use of the information to criminally investigate or prosecute any alcohol or drug abuse patient.[facility] the event this information is protected by the Federal Confidentiality of Alcohol and Drug Abuse Patient Records regulations: The Federal rules restrict any use of the information to criminally investigate or prosecute any alcohol or drug abuse patient.[facility] the event this information is protected by the Federal Confidentiality of Alcohol and Drug Abuse Patient Records regulations: The Federal rules restrict any use of the information to criminally investigate or prosecute any alcohol or drug abuse patient.[facility] the event this information is protected by the Federal Confidentiality of Alcohol and Drug Abuse Patient Records regulations: The Federal rules restrict any use of the information to criminally investigate or prosecute any alcohol or drug abuse patient.[facility] the event this information is protected by the Federal Confidentiality of Alcohol and Drug Abuse Patient Records regulations: The Federal rules restrict any use of the information to criminally investigate or prosecute any alcohol or drug abuse patient.[facility] the event this information is protected by the Federal Confidentiality of Alcohol and Drug Abuse Patient Records regulations: The Federal rules restrict any use of the information to criminally investigate or prosecute any alcohol or drug abuse patient.[facility] the event this information is protected by the Federal Confidentiality of Alcohol and Drug Abuse Patient Records regulations: The Federal rules restrict any use of the information to criminally investigate or prosecute any alcohol or drug abuse patient.[facility] the event this information is protected by the Federal Confidentiality of Alcohol and Drug Abuse Patient Records regulations: The Federal rules restrict any use of the information to criminally investigate or prosecute any alcohol or drug abuse patient.[facility] the event this information is protected by the Federal Confidentiality of Alcohol and Drug Abuse Patient Records regulations: The Federal rules restrict any use of the information to criminally investigate or prosecute any alcohol or drug abuse patient.[facility] the event this information is protected by the Federal Confidentiality of Alcohol and Drug Abuse Patient Records regulations: The Federal rules restrict any use of the information to criminally investigate or prosecute any alcohol or drug abuse patient.[facility] the event this information is protected by the Federal Confidentiality of Alcohol and Drug Abuse Patient Records regulations: The Federal rules restrict any use of the information to criminally investigate or prosecute any alcohol or drug abuse patient.[facility] the event this information is protected by the Federal Confidentiality of Alcohol and Drug Abuse Patient Records regulations: The Federal rules restrict any use of the information to criminally investigate or prosecute any alcohol or drug abuse patient.[facility] the event this information is protected by the Federal Confidentiality of Alcohol and Drug Abuse Patient Records regulations: The Federal rules restrict any use of the information to criminally investigate or prosecute any alcohol or drug abuse patient.[facility] the event this information is protected by the Federal Confidentiality of Alcohol and Drug Abuse Patient Records regulations: The Federal rules restrict any use of the information to criminally investigate or prosecute any alcohol or drug abuse patient.[facility] the event this information is protected by the Federal Confidentiality of Alcohol and Drug Abuse Patient Records regulations: The Federal rules restrict any use of the information to criminally investigate or prosecute any alcohol or drug abuse patient.[facility] the event this information is protected by the Federal Confidentiality of Alcohol and Drug Abuse Patient Records regulations: The Federal rules restrict any use of the information to criminally investigate or prosecute any alcohol or drug abuse patient.[facility] the event this information is protected by the Federal Confidentiality of Alcohol and Drug Abuse Patient Records regulations: The Federal rules restrict any use of the information to criminally investigate or prosecute any alcohol or drug abuse patient.[facility] Reason for Visit (unrecogniz ed section and content) Reason Comments Results Reason Comments Insurance Authorization [employer] Reason Onset Date Comments Refill Request 03/05/2022 Reason Comments Dry Eye(s) Both Eyes Reason Onset Date Comments Refill Request 04/05/2022 Reason Onset Date Comments Refill Request 04/06/2022 Reason Comments ED Follow-up Reason Comments Cough Ortiz , x1 week. Reason Comments Cough Reason Onset Date Comments Refill Request 08/17/2022 Reason Comments Medicare Wellness Exam Reason Onset Date Comments Refill Request 10/06/2022 Reason Comments Release Of Medical Records Reason Onset Date Comments Refill Request 10/24/2022 Reason Comments Orders Reason Comments Imm/Inj Reason Comments Outside [id number] Ordered Reason Comments Outside Lab Results Reason Comments Pain Reason Comments Ear Pain Right ear issues x 4 days Reason Comments Refill Request Reason Comments F/U 6 months Care Teams (unrecognized sec tion and content) Behavioral Health Worker Relationship Specialty Start Date End Date Gianluca Valdovinos MD [address] [place], [place] [id number] PCP - General Family Practice 07/30/13 Behavioral Health Worker Relationship Specialty Start Date End Date Gianluca Valdovinos MD [address] [place] [address] PCP - General Family Practice 07/30/13 Behavioral Health Worker Relationship Specialty Start Date End Date Gianluca Valdovinos MD [address] [place] [address] PCP - General Family Practice 07/30/13 Behavioral Health Worker Relationship Specialty Start Date End Date Gianluca Valdovinos MD [address] [place] [address] PCP - General Family Practice 07/30/13 Behavioral Health Worker Relationship Specialty Start Date End Date Gianluca Valdovinos MD [facility] [place] [address] PCP - General Family Practice 07/30/13 Behavioral Health Worker Relationship Specialty Start Date End Date Gianluca Valdovinos MD [address] [place] [address] PCP - General Family Practice 07/30/13 Behavioral Health Worker Relationship Specialty Start Date End Date Gianluca Valdovinos MD [address] [place] [address] PCP - General Family Practice 07/30/13 Behavioral Health Worker Relationship Specialty Start Date End Date Gianluca Valdovinos MD [address] [place] [address] [place] [address] PCP - General Family Medicine 07/30/13 Behavioral Health Worker Relationship Specialty Start Date End Date Gianluca Valdovinos MD [address] [place] [address] [place] [address] PCP - General Family Medicine 07/30/13 Behavioral Health Worker Relationship Specialty Start Date End Date Gianluca Valdovinos MD [address] [place] [address] [place] [address] PCP - General Family Medicine 07/30/13 Behavioral Health Worker Relationship Specialty Start Date End Date Gianluca Valdovinos MD [address] [place] [address] [place] [address] PCP - General Family Medicine 07/30/13 Behavioral Health Worker Relationship Specialty Start Date End Date Gianluca Valdovinos MD [address] [place] [address] PCP - General Family Medicine 07/30/13 Behavioral Health Worker Relationship Specialty Start Date End Date Gianluca Valdovinos MD [facility] [place] [address] PCP - General Family Medicine 07/30/13 Behavioral Health Worker Relationship Specialty Start Date End Date Gianluca Valdovinos MD [address] [place] [address], [place] [address] PCP - General Family Medicine 07/30/13 Behavioral Health Worker Relationship Specialty Start Date End Date Gianluca Valdovinos MD [address] [place] [address] [place] [address] PCP - General Family Medicine 07/30/13 Behavioral Health Worker Relationship Specialty Start Date End Date Gianluca Valdovinos MD [address] [place] [address] PCP - General Family Medicine 07/30/13 Behavioral Health Worker Relationship Specialty Start Date End Date Gianluca Valdovinos MD [address] [place] [address] [place] [address] PCP - General Family Medicine 07/30/13 Behavioral Health Worker Relationship Specialty Start Date End Date Gianluca Valdovinos MD [address] [place] [address] [place] [address] PCP - General Family Medicine 07/30/13 Behavioral Health Worker Relationship Specialty Start Date End Date Gianluca Valdovinos MD [address] [place] [address] [place] [address] PCP - General Family Medicine 07/30/13 Behavioral Health Worker Relationship Specialty Start Date End Date Gianluca Valdovinos MD [address] [place] [address] [place] [address] PCP - General Family Medicine 10/30/13 Behavioral Health Worker Relationship Specialty Start Date End Date Gianluca Valdovinos MD [address] [place] [address] PCP - General Family Medicine 07/30/13 INFORMATION SOURCE (unrecogn ized section and content) FOR RECORDS PERTAINING TO PATIENTS WHO ARE OR HAVE BEEN ENROLLED IN A CHEMICAL DEPENDENCY/SUBSTANCEABUSE PROGRAM, SOME INFORMATION MAY BE OMITTED. This clinical summary was aggregated from multiple sources. Caution should be exercised in using it in the provision of clinical care. This summary normalizes information from multiple sources, and as a consequence, information in this document may materially change the coding, format and clinical context of patient data. In addition, data may be omitted in some cases. CLINICAL DECISIONS SHOULD BE BASED ON THE PRIMARY CLINICAL RECORDS. [employer] [facility]. provides no warranty or guarantee of the accuracy or completeness of information in this document.
[2023-11-02 08:03] LABS: Absolute Neutrophil Count 4.5 X10^3/uL (2.0-7.7); Basophil# 0.02 X10^3/uL; Basophil% 0.3 % (0-1); Eosinophil# 0.19 X10^3/uL; Eosinophils% 2.4 % (0-5); Hematocrit 43.2 % (37-47); Hemoglobin 13.8 g/dL (12.0-15.0); Lymphocyte % 33.2 % (19-41); Mean Corp Hgb Conc 31.9 g/dL (32-36); Mean Corpuscular Hgb 29.1 pg (27.0-32.0); Mean Corpuscular Volume 90.9 fL (81-99); Monocyte# 0.53 X10^3/uL; Monocyte% 6.8 % (0-10); NRBC Flagged by Analyzer 0 % (0-5); Neutrophil # 4.47 X10^3/uL (2.7-7.7); Neutrophil % 57.2 % (47-70); Platelet Count 174 K/mm3 (150-450); RBC Distribution Width CV 14.4 % (11.6-14.6); RBC Distribution Width SD 47.6 fl (35.1-43.9); Red Blood Count 4.75 M/mm3 (4.2-5.4); White Blood Count 7.8 K/mm3 (4.4-11.0)
[2023-11-02 08:11] LABS: International Normalized Ratio 1.1; Prothrombin Time (Protime)PT. 13.9 SECONDS (11.7-14.9)
[2023-11-02 08:20] LABS: Partial Thromboplast Time 30.7 Seconds (24.1-36.2)
[2023-11-02 08:31] LABS: Hemoglobin A1c 5.5 % (3.8-5.6)
[2023-11-02 08:46] LABS: Vitamin D,25 Hydroxy 40.5 ng/mL
[2023-11-02] MEDS: 0.9% Normal Saline (250mL Bag) 250 ML 15 ML IV (09:09)
[2023-11-02 09:11] LABS: AST(SGOT) 15 U/L (15-37); Alanine Aminotransfer ALT/SGPT 22 U/L (13-56); Albumin, Serum 3.9 g/dL (3.2-5.0); Alkaline Phosphatase 91 U/L (45-117); Anion Gap 4 (5-15); BUN 25 mg/dL (7-18); BUN/Creat Ratio 27.9 RATIO (10-20); CRP < 2.90 mg/L (0.0-3.0); Chloride 108 mmol/L (98-107); Cholesterol 188 mg/dL (200); EST Glomerular Filtration Rate 66 mL/min (>60); Est Glom Filt Rate - Afr Amer 80 mL/min (>60); Estimated Creatinine Clearance 60.57 ml/min; Globulin 3.9 g/dL (2.2-4.2); Glucose 125 mg/dL (74-106); High Density Lipoprotein 72 mg/dL; LDH 182 U/L (84-246); Potassium 3.7 mmol/L (3.5-5.1); Protein, Total 7.8 g/dL (6.4-8.2); Sodium Level 139 mmol/L (136-145); Triglycerides 228 mg/dL; Very Low Density Lipoprotein 46 mg/dL (5-40)
[2023-11-02] MEDS: fentaNYL 100 MCG/2 ML Ampul IV (09:14)
[2023-11-02] MEDS: Midazolam 2 MG/2 ML Syringe IV (09:14)
[2023-11-02] MEDS: Lidocaine 2% (20 ml mdv) 20 ML Vial INFILT (09:20)
--- NOTE | 2023-11-02 09:20 | LIVB_PTH ---
PATHOLOGY RESULTS PATIENT: HILDA RAMIREZ LOC: CT U#:[id number] AGE/SX: 68/F ROOM: RE11/02/[address]: Dr. Ehsan Perez MD : 1955 BED: DIS: 11/02/2023 SPEC #: [id number] RECD: 11/02/23 10:01 STATUS: CORY RESergio #: [id number] BELL: 11/02/23 09:[address]: Ehsan Perez DEPT: SURGICAL PATHOLOGY RECD BY: Xuan Richardson ENTERED: 11/02/23 10:18 SP TYPE: LIVER BX OTHR DR: MD Nat Monterroso, LIFT MANAGER-C Tissues: Liver, NOS Procedures: PAS with Diastase (control) Trichrome (control) Special Stain Group II Special Stain Group I PAS Stain (control) Surgery Specimen Level V AFB Stain (control) GMS Stain (control) Retic (control) Iron Stain (control) HEADER OPERATION: CT-guided liver biopsy PRE-OP DIAGNOSIS: NAFLD, increased fibrosis TISSUE SUBMITTED: Liver 18-gauge x3 cores MICROSCOPIC DIAGNOSIS Liver, CT-guided core biopsy: Liver parenchymal tissue with moderate chronic inflammation, portal and bridging fibrosis and granulomatous inflammation. See microscopic description and comment. SJ:rg 11/05/2023 COMMENT Focal areas show cholangitis pattern of injury. Primary biliary cirrhosis or sarcoidosis cannot be ruled out. Correlation with clinical, radiologic findings, laboratory findings and appropriate follow up are necessary. Case has been reviewed in consultation with Dr. Guzman who concurs with the above diagnosis. IDC:AM MICROSCOPIC DESCRIPTION Slides are reviewed. The specimen shows liver parenchymal tissue with preserved lobular architecture. Hepatocytes show reactive changes and focal macrovesicular steatosis. Significant lobular inflammation is not seen. Portal area shows moderate chronic inflammatory cell infiltrate predominantly consists of lymphocytes. Bile duct injury is noted. Focal granuloma formation is noted in the portal areas. Focal interface inflammation is also noted. Trichrome stain shows increased portal, periportal and focal bridging fibrosis. Obvious cirrhosis is not seen. Reticulin stain also highlights the fibrosis. Iron stain shows absent iron. PAS stain with and without diastase do not show any abnormal accumulation of protein. Special stains for acid fast bacilli and fungi are negative for organisms. All stains are performed with appropriate matched controls. GROSS DESCRIPTION Received in fixative is one container labeled with the patient's name and designated liver. The specimen consists of three elongated fragments of rodríguez soft tissue each measuring 2.0 cm in length and 0.1 cm in diameter. The specimen is totally submitted in one cassette. / BELKIS:ranjit 11/02/2023 TC:3 CPT: 30744, 40711 x5, 94981 x2 ADDENDUM ADDENDUM 12/07/2023 09:19 This addendum is added to incorporate an outside pathology consultation report. The case was examined at [facility] (#[id number]) and the following diagnosis was rendered. Liver, needle biopsy: Focal lymphocytic cholangitis with ductopenia (involving 16 out of 24 areas), with active portal nonnecrotizing granulomatous inflammation. Steatohepatitis. Focal early bridging fibrosis. Please see complete above mentioned consultation report in EMR
[2023-11-02 10:13] LABS: Erythrocyte Sedimentation Rate 16 mm/hr (0-30)
--- NOTE | 2023-11-02 10:16 | PRO.PCM_ITS ---
Procedure Report Date of Procedure: 11/02/23 Assessment & Plan Assessment/Plan (1) NAFLD (nonalcoholic fatty liver disease): PLAN: Plan PROCEDURE: CT DIRECTED CORE LIVER BIOPSY ORDERING PROVIDER: Dr. Perez INDICATION: Female, 68 years old. Fatty liver. PROVIDER: CLINTON Bella CONSENT: Written informed consent was obtained having explained the risks, benefits and alternatives in detail with the patient who accepted the risks and agreed to pr oceed. Laboratory review and clinical assessment was performed. PRE-PROCEDURE SEDATION ASSESSMENT: Current history and physical dictated by referring provider and reviewed. No clinical changes since date of exam. Patient has an ASA Class of 2. PROCEDURAL SEDATION PROTOCOL: The Drugs used were: 2 mg Versed, IV, and 50 mcg Fentanyl, IV. The sedation time was: 15 minutes, starting at 9:14 AM and terminated at 9:29 AM. The procedural sedation protocol was independently monitored by the department nurse. RADIATION DOSAGE (If Supplied By Facility): CTDIvol = 23.09 mGy, DLP = 763.13 mGycm Individualized dose optimization techniques were used for this CT. TECHNIQUE: The patient was placed in a supine position. Using CT image guidance with image documentation, a suitable location in the left lobe of the liver was identified. The skin surface was prepped with betadine and draped in a sterile fashion. 2% lidocaine was used for local anesthesia. Using an anterior approach, puncture of the liver was uneventful with an 18-gauge core needle system. 3, 18-gauge core samples were obtained, and submitted in formalin to the pathologist for further assessment. The needle was removed. An occlusive sterile dressing was applied. Patient tolerated the procedure well, and returned to the holding bay for nursing monitoring. IMPRESSION: 1. CT directed core needle biopsy of the liver, using CT image guidance with image documentation as described. 2. Procedural Sedation protocol utilized with independent monitoring. Procedures Radiology Radiology CT Procedures: 60927 Biopsy Liver
[2023-11-03 08:13] LABS: AFP, Tumor Marker 3.8 ng/mL (0.0-9.2)
[2023-11-05 12:08] LABS: ANTINUCLEAR ANTIBODIES DIRECT Negative (Negative)
== END | disposition home or self-care (01) ==
PROVIDERS: Nurse Practitioner Acute Care; PCP Family Medicine; Referring Provider Internal Medicine; Visit Provider Internal Medicine
DX: K76.0 Fatty (change of) liver, not elsewhere classified (principal); K74.00 Hepatic fibrosis, unspecified; I10 Essential (primary) hypertension; K21.9 Gastro-esophageal reflux disease without esophagitis
CPT/HCPCS: 47000; 36415; 77012; 80053; 80061; 82105; 82306; 83036; 83615; 85025; 85610; 85652; 85730; 86038; 86140; 86225; 86235; 88307; 88312; 88313; 99156; J7050

== ENCOUNTER → 2024-01-08 | Outpatient (CLI) | payer MEDICARE, MEDICAID, SELFPAY ==
[2024-01-08 16:31] LABS: CRP < 2.90 mg/L (0.0-3.0)
[2024-01-10 14:09] LABS: Anti-Centromere B Ab <0.2 AI (0.0-0.9); Anti-Chromatin <0.2 AI (0.0-0.9); Anti-Jo <0.2 AI (0.0-0.9); Anti-Mitochondrial AB <20.0 Units (0.0-20.0); Anti-Scleroderma-70 AB <0.2 AI (0.0-0.9); Anti-dsDNA Ab <1 IU/mL (0-9); RNP Ab 0.4 AI (0.0-0.9); SJOGREN'S Anti-SS-A test < 0.2 AI (0.0-0.9); SJOGREN'S Anti-SS-B test < 0.2 AI (0.0-0.9); Smith Ab <0.2 AI (0.0-0.9)
[2024-01-10 15:09] LABS: Angiotensin Convert Enzyme < 15 U/L (14-82); Anti-Smooth Muscle ABS 10 Units (0-19); Cytoplasmic Ab (C-ANCA) <1:20 titer (Neg:<1:20); Perinuclear Ab (P-ANCA) <1:20 titer (Neg:<1:20)
== END | disposition home or self-care (01) ==
LOC: LAB 14:22
PROVIDERS: PCP Family Medicine; Referring Provider Internal Medicine; Visit Provider Internal Medicine
DX: K76.0 Fatty (change of) liver, not elsewhere classified (principal); K74.3 Primary biliary cirrhosis
CPT/HCPCS: 36415; 82164; 82652; 83516; 86140; 86225; 86235; 86256

== ENCOUNTER → 2024-02-04 | Outpatient (CLI) | payer MEDICARE, MEDICAID, SELFPAY | END | disposition home or self-care (01) | LOC: SL 20:04 | PROVIDERS: PCP Family Medicine; Referring Provider Internal Medicine Critical Care Medicine; Visit Provider Internal Medicine Critical Care Medicine | DX: G47.33 Obstructive sleep apnea (adult) (pediatric) (principal) | CPT/HCPCS: 95811 ==

== ENCOUNTER → 2024-03-21 | Outpatient (CLI) | payer MEDICARE, MEDICAID, SELFPAY | END | disposition home or self-care (01) | LOC: SL 13:26 | PROVIDERS: PCP Family Medicine; Referring Provider Nurse Practitioner Acute Care; Visit Provider Nurse Practitioner Acute Care | DX: Z00.00 Encounter for general adult medical examination without abnormal findings (principal) ==

== ENCOUNTER → 2024-04-15 | Outpatient (CLI) | payer MEDICARE, MEDICAID, SELFPAY ==
[2024-04-15 14:38] LABS: Absolute Lymphocyte Count 1.66 X10^3/uL (0.83-4.51); Absolute Neutrophil Count 5.4 X10^3/uL (2.0-7.7); Basophil# 0.03 X10^3/uL; Basophil% 0.4 % (0-1); Eosinophil# 0.07 X10^3/uL; Eosinophils% 0.9 % (0-5); Hemoglobin 13.4 g/dL (12.0-15.0); Lymphocyte # 1.66 X10^3/ul (0.83-4.51); Lymphocyte % 21.4 % (19-41); Mean Corp Hgb Conc 33.5 g/dL (32-36); Mean Corpuscular Hgb 29.8 pg (27.0-32.0); Mean Corpuscular Volume 89.1 fL (81-99); Mean Platelet Vol. 9.8 fl (6.2-12.0); Monocyte% 7.8 % (0-10); NRBC Flagged by Analyzer 0 % (0-5); Neutrophil # 5.35 X10^3/uL (2.7-7.7); Neutrophil % 69.1 % (47-70); Platelet Count 218 K/mm3 (150-450); RBC Distribution Width CV 14.4 % (11.6-14.6); RBC Distribution Width SD 46.8 fl (35.1-43.9); Red Blood Count 4.49 M/mm3 (4.2-5.4); White Blood Count 7.7 K/mm3 (4.4-11.0)
[2024-04-15 14:55] LABS: International Normalized Ratio 1.1; Prothrombin Time (Protime)PT. 14.4 SECONDS (11.7-14.9)
[2024-04-15 15:02] LABS: ALB/GLOB Ratio 1.1 RATIO (0.9-2.4); AST(SGOT) 18 U/L (15-37); Alanine Aminotransfer ALT/SGPT 27 U/L (13-56); Alkaline Phosphatase 55 U/L (45-117); Anion Gap 7 (5-15); BUN 14 mg/dL (7-18); BUN/Creat Ratio 15.8 RATIO (10-20); CPK Total, Creatine Kinase 65 U/L (26-192); CRP < 2.90 mg/L (0.0-3.0); Calcium,Total 9.3 mg/dL (8.5-10.1); Chloride 99 mmol/L (98-107); Creatinine, Serum 0.89 mg/dL (0.55-1.02); EST Glomerular Filtration Rate 67 mL/min (>60); Est Glom Filt Rate - Afr Amer 81 mL/min (>60); Ferritin 111 ng/mL (8-252); Globulin 3.7 g/dL (2.2-4.2); Glucose 101 mg/dL (74-106); Iron 50 ug/dL (50-170); Iron Binding Capacity,Total 354 ug/dL (250-450); PERCENT IRON SATURATION 14.1 % (15.0-55.0); Potassium 4.6 mmol/L (3.5-5.1); Protein, Total 7.7 g/dL (6.4-8.2); Sodium Level 130 mmol/L (136-145)
[2024-04-22 10:09] LABS: Albumin 4.2 g/dL (2.9-4.4); Alpha-1-Globulins 0.2 g/dL (0.0-0.4); Alpha-2-Globulins 0.6 g/dL (0.4-1.0); CMV by PCR Negative (Negative); Free Kappa Light Chains 18.7 mg/L (3.3-19.4); Free Lambda Light Chains 14.1 mg/L (5.7-26.3); Gamma Globulin 1.2 g/dL (0.4-1.8); Haptoglobin 65 mg/dL (37-355); IgG, Quant 1136 mg/dL (586-1602); Immunoglobulin A 184 mg/dL (87-352); Immunoglobulin E < 2 IU/mL (6-495); Immunoglobulin G, Subclass 1 644 mg/dL (248-810); Immunoglobulin G, Subclass 2 322 mg/dL (130-555); Immunoglobulin G, Subclass 3 36 mg/dL (15-102); Immunoglobulin G, Subclass 4 11 mg/dL (2-96); Immunoglobulin M 129 mg/dL (26-217); PROEL- TOTAL PROTEIN 7.2 g/dL (6.0-8.5)
== END | disposition home or self-care (01) ==
PROVIDERS: PCP Family Medicine; Referring Provider Internal Medicine; Visit Provider Internal Medicine
DX: J96.01 Acute respiratory failure with hypoxia (principal); D71 Functional disorders of polymorphonuclear neutrophils; K74.3 Primary biliary cirrhosis; K76.0 Fatty (change of) liver, not elsewhere classified; K21.9 Gastro-esophageal reflux disease without esophagitis
CPT/HCPCS: 36415; 80053; 82550; 82728; 82784; 82785; 82787; 83010; 83540; 83550; 83883; 84165; 85025; 85610; 86140; 86334; 87496; 87529

== ENCOUNTER → 2024-07-30 | Outpatient (CLI) | payer MEDICARE, MEDICAID, SELFPAY ==
--- NOTE | 2024-07-30 08:52 | US_ITS ---
STUDY: ABDOMINAL ULTRASOUND - ELASTOGRAPHY REASON FOR VISIT: Female, 69 years old. TECHNIQUE: Sonographic evaluation of the right upper quadrant of the abdomen. Liver stiffness measurements were obtained on a [employer] RS 85 ultrasound machine using a CA 1-7 probe following the SRU guidelines. 3 measurements were obtained using a 2-D-SWE method. TheIQR/M was 12% suggesting a quality data set. TECHNICAL QUALITY: Adequate. COMPARISON: FINDINGS: LIVER: The liver is normal in size, shape, and echogenicity. Median liver stiffness measured 8.8 kPa. No focal hepatic lesion. No intrahepatic biliary ductal dilatation. There is no free fluid. GALLBLADDER AND BILIARY TREE: Cholecystectomy. The proximal common bile duct measures 0.5 cm, which is within normal limits for the patient''s age. PANCREAS: No focal abnormality is demonstrated in the pancreas. No pancreatic ductal dilatation. RIGHT KIDNEY: The right kidney measures 11 cm. No hydronephrosis or nephrolithiasis. No renal mass. SPLEEN: Normal size and shape of the spleen, measuring up to 11.2 cm. US/ABD Limited w/ Elastography IMPRESSION: Liver stiffness measures 8.8 kPa compatible with F2-F3 (Mild to moderate liver fibrosis) Metavir score. Hepatic steatosis. Electronically Signed: Armaan Evangelista MD at 7:00 EDT ,
== END | disposition home or self-care (01) ==
LOC: US 08:51
PROVIDERS: PCP Family Medicine; Referring Provider Internal Medicine; Visit Provider Internal Medicine
DX: D71 Functional disorders of polymorphonuclear neutrophils (principal); K74.3 Primary biliary cirrhosis; K21.9 Gastro-esophageal reflux disease without esophagitis
CPT/HCPCS: 76705; 76981

== ENCOUNTER 2024-08-02 12:56 | Emergency (ER) | payer MEDICARE, MEDICAID, SELFPAY ==
[2024-08-02 12:58] VITALS: BP 169/65; PULSE 61; RESP 16; TEMP 36.2; O2SAT 94
[2024-08-02 13:23] VITALS: BP 185/69
[2024-08-02 13:33] VITALS: BP 143/63; PULSE 57; RESP 18
[2024-08-02 13:59] VITALS: BP 159/66; PULSE 58; RESP 20; TEMP 36.6; O2SAT 96
--- NOTE | 2024-08-02 14:00 | EDS_ITS ---
HPI History of Present Illness Chief Complaint: Hypertension Informant: patient Onset/Context/Timing Onset: Days Context: Gradual Onset Timing: Intermittent Current Severity: Mild Maximum Severity: Mild Narrative Narrative: 69-year-old female history of hypertension beta-ilia and lisinopril. Blood pressure been running higher at home. Yesterday as high as 214/104. Mild headache yesterday resolved. No trouble using her arms or legs. No ataxia. She is not on blood thinners. Prior similar symptoms: Yes Recent Illness/Hospitalization: No PFSH [facility] Medical History Morbid obesity with BMI of 45.0-49.9, adult Nasal congestion Neck pain Spinal stenosis of lumbar region without neurogenic claudication Frequent PVCs LBBB (left bundle branch block) Insomnia Pulmonary nodule Panic attack Stress incontinence Seasonal allergies Severe obstructive sleep apnea DDD (degenerative disc disease), lumbar Wears dentures Chronic pain Osteoporosis Former smoker Wears glasses Wears partial dentures Alcohol use Marijuana use Psoriasis Ambulates with cane Fatty liver Back pain Gout Back pain due to injury CPAP (continuous positive airway pressure) dependence Sleep apnea GERD (gastroesophageal reflux disease) Bipolar disorder High cholesterol HTN (hypertension) Anxiety Depression Home Medications ?Medication ?Instructions ?Recorded ?Last Taken ?Type allopurinol 100 mg tablet 400 mg PO DAILYCM GOUTE 01/05/14 06/25/21 23:00 History atenolol 25 mg tablet 25 mg PO DAILY BP 11/06/17 01/19/22 06:30 History cetirizine 10 mg capsule (All Day 10 mg PO DAILY ALLERGIES 11/06/17 06/25/21 23:00 History Allergy (cetirizine)) fluticasone propionate 50 2 spray DAILY ALLERGIES 11/06/17 06/24/21 23:00 History mcg/actuation nasal spray,suspension omega 3-jsl-vsq-fish oil 1,200 mg 2 cap PO DAILY 01/17/22 Unknown History (144 mg-216 mg) capsule (Fish Oil) celecoxib 200 mg capsule 200 mg PO DAILY 01/08/23 Unknown History oxcarbazepine 300 mg tablet 600 mg PO DAILY bipolar 01/08/23 Unknown History (Trileptal) diphenhydramine 25 1 tab PO QHS PRN sleep 11/02/23 Unknown History mg-acetaminophen 500 mg tablet (Acetaminophen PM) pantoprazole 40 mg tablet,delayed 40 mg PO BID ACID REFLUX #30 tabs 11/14/23 Unknown Rx release hydroxyzine HCl 25 mg tablet 12.5 - 75 mg PO QDAY PRN 01/10/24 Unknown History lisinopril 20 mg tablet 20 mg PO QDAY 01/10/24 Unknown History simvastatin 40 mg tablet 40 mg PO QHS 01/10/24 Unknown History alendronate 70 mg tablet 70 mg PO QWEEK 01/11/24 Unknown History risankizumab-rzaa 150 mg/mL mg subcut 01/11/24 Unknown History subcutaneous pen injector (Skyrizi) ascorbic acid (vitamin C) 500 mg 500 mg PO BID #60 tabs 04/15/24 Unknown Rx tablet ferrous sulfate 325 mg (65 mg 325 mg PO Q OTHER DAY #30 tabs 04/15/24 Unknown Rx iron) tablet,delayed release ursodiol 300 mg capsule 300 mg PO BID #60 caps 04/15/24 Unknown Rx aripiprazole 5 mg tablet 10 mg PO QDAY 04/25/24 Unknown History metformin 500 mg tablet 500 mg PO BID #180 tabs 05/20/24 Unknown Rx Allergy/AdvReac Type Severity Reaction Status Date / Time omeprazole Allergy Other Verified 08/02/24 12:58 Seasonal Allergies: Uncoded Allergy Other Verified 08/02/24 12:58 erythromycin base AdvReac Other Verified 08/02/24 12:58 (Erythromycin Base) eszopiclone (From Lunesta) AdvReac Vomiting Verified 08/02/24 12:58 Family History Mother Pancreatic cancer Father , 11/2013 Heart disease Surgical History H/O colonoscopy Hx of cholecystectomy H/O: knee surgery H/O section S/P herniorrhaphy Social History Smoking Status: Former smoker quit date: 03/10/06 second hand exposure: Yes alcohol intake: current alcohol intake frequency: a few times a month substance use type: does not use ROS ROS ED ROS Narrative Denies recent illness. Constitutional Constitutional ED: Denies chills or fever(s) Eyes Eyes: Denies blurry vision ENT ENT ED: Denies ear pain Cardiovascular Cardiovascular: Denies chest pain Respiratory/Chest Respiratory/Chest: Denies cough or dyspnea Gastrointestinal Gastrointestinal: Denies abdominal pain Genitourinary Genitourinary ED: Denies dysuria or hematuria Musculoskeletal Musculoskeletal: Denies arthralgias Integumentary Denies abscess or Abrasions Neurologic Neurologic: Reports headache(s) Psychiatric Psychiatric: Denies anxiety or depression Endocrine Endocrinology: Denies cold intolerance Hematologic/Lymphatic Hematologic/Lymphatic: Reports none Allergic/Immunologic Allergic/Immunologic ED: Denies mouth swelling, tongue swelling or urticaria EXAM Physical Exam Narrative Exam Narrative: 69-year-old female no acute distress vital signs stable afebrile. Initial blood pressure 169/65 when I am in the room is 142/64. No distress. H EENT exam unremarkable. No facial droop. Normal speech. Neck nontender. Lungs clear. Heart regular rate and rhythm rate about 60 no murmur. Chest wall ribs nontender. Abdomen soft nontender. Moving all 4 extremities. 5-5 lockstitch binder strength. Dorsi plantarflexion intact. Neurologic exam normal. NIH 0. Fingertip to nose within normal limits. No drift. Const Vital Signs: 08/02/24 12:58 08/02/24 13:23 08/02/24 13:24 Temperature 97.1 F L Temperature Source Temporal Pulse Rate 61 Respiratory Rate 16 Respiratory Effort Normal Respiratory Pattern Normal Blood Pressure 169/65 H 185/69 H Blood Pressure Mean 99 107 Pulse Ox 94 Oxygen Delivery Method Room Air 08/02/24 13:33 Temperature Temperature Source Pulse Rate 57 L Respiratory Rate 18 Respiratory Effort Respiratory Pattern Blood Pressure 143/63 H Blood Pressure Mean 89 Pulse Ox Oxygen Delivery Method Positive well nourished and well developed; Negative for cachectic, contractures or unkempt General Appearance ED: well developed and NAD; Negative for unkempt, cachectic, contractures, cyanotic, diaphoretic or pallor Nutritional Appearance: Negative for cachectic HEENT Reports moist mucous membranes Negative for trauma or tenderness Eyes PERRL and EOMs intact bilaterally General Eye ED: Negative for pale conjunctiva or scleral icterus Neck no lymphadenopathy, supple and no JVD General: Negative for tenderness Lymph Lymphatic: Negative for other Chest Wall inspection of chest normal and palpation of chest normal Resp normal respiratory effort and clear to auscultation bilaterally Effort and Inspection: Negative for retractions or pain with movement Auscultation: Negative for rales, rhonchi, wheezes or diminished lung sounds Cardio regular rate, regular rhythm, S1 normal heart sound, S2 normal heart sound and no murmurs GI normal to inspection, nondistended, normoactive bowel sounds, non-tender, non- distended and no masses Palpation: soft; Negative for tender, guarding or rebound tenderness present Back/Spine no CVA tenderness Extremity normal to inspection General Extremety ED: Negative for edema or tenderness General Extremity: Negative for edema Neuro oriented x3 and CN's II-XII intact bilaterally Sensorium / Orientation: alert; Negative for orientation impaired or lethargic Motor Exam: strength 5/5 throughout Psych mental status grossly normal Appearance: Negative for unkempt Attitude: No agitated Mood & Affect: Negative for depressed, anxious or tearful Skin no rashes or lesions noted and no wounds General Skin Exam: Negative for jaundice or pallor Lesions: No lesion noted Rashes: No rashes noted Trauma: Negative for abrasion Wounds: Negative for wounds noted MDM MDM MDM Narrative Medical decision making narrative: 69-year-old female acute on chronic hypertension currently her pressure is very good at 143/63. She does not need any labs or workup. She will log her blood pressure and follow-up with her primary care physician. She has a normal exam. She is already on blood pressure medication. History & Record Review Discussion w/independent historian: Patient Additional record(s) reviewed:: Prior inpatient record, Prior outpatient record, Prior ED visit and Prior labs Discharge Plan Triage Chief Complaint: Hypertension ED Provider: Vishal Kim Dx/Rx/DC Orders Clinical Impression: Hypertension Instructions: ED High Blood Pressure Hypertension Prescriptions: No Action celecoxib 200 mg capsule 200 mg PO DAILY lisinopril 20 mg tablet 20 mg PO QDAY simvastatin 40 mg tablet 40 mg PO QHS hydroxyzine HCl 25 mg tablet 12.5 - 75 mg PO QDAY PRN alendronate 70 mg tablet 70 mg PO QWEEK Skyrizi 150 mg/mL pen injector subcut aripiprazole 5 mg tablet 10 mg PO QDAY ursodiol 300 mg capsule 300 mg PO BID Qty: 60 6RF ferrous sulfate 325 mg (65 mg iron) tablet,delayed release (DR/EC) 325 mg PO Q OTHER DAY Qty: 30 4RF ascorbic acid (vitamin C) 500 mg tablet 500 mg PO BID Qty: 60 4RF allopurinol 100 MG tablet 400 mg PO DAILYCM Patient Comments: gout atenolol 25 MG tablet 25 mg PO DAILY fluticasone propionate 1 SPRAY spray,suspension 2 spray NASAL DAILY All Day Allergy (cetirizine) 10 MG capsule 10 mg PO DAILY oxcarbazepine [Trileptal] 300 mg tablet 600 mg PO DAILY omega 5-cdu-xbp-fish oil [Fish Oil] 1,200 (144-216) mg Capsule 2 cap PO DAILY diphenhydramine-acetaminophen [Acetaminophen PM] 25-500 mg tablet 1 tab PO QHS PRN (Reason: sleep) pantoprazole 40 mg tablet,delayed release (DR/EC) 40 mg PO BID Qty: 30 2RF Rx Instructions: 1 tablet before breakfast. metformin 500 mg tablet 500 mg PO BID Qty: 180 1RF Primary Care Provider: Maxi Oneal Referrals: Maxi Oneal MD [Primary Care Provider] - 1-2 Weeks Activity Restrictions/Additional Instructions: Continue current blood pressure medications. Log your blood pressures twice daily. Follow-up with your primary care physician show on your blood pressure readings and then you can decide if you need to make any changes in your medication. Print Language: Bermudian Disposition Disposition: Home, Self Care
== END 2024-08-02 14:18 | disposition home or self-care (01) ==
LOC: ED 14:08
PROVIDERS: Emergency Provider Emergency Medicine; PCP Family Medicine; Visit Provider Emergency Medicine
DX: I10 Essential (primary) hypertension (principal); F31.9 Bipolar disorder, unspecified; Z87.891 Personal history of nicotine dependence; E78.00 Pure hypercholesterolemia, unspecified; G47.30 Sleep apnea, unspecified; Z99.89 Dependence on other enabling machines and devices; M10.9 Gout, unspecified; Z79.899 Other long term (current) drug therapy; K21.9 Gastro-esophageal reflux disease without esophagitis; Z90.49 Acquired absence of other specified parts of digestive tract
CPT/HCPCS: 99282; A4216